=== PATIENT | male | born 1970 | race American Indian/Alaskan Native ===

== ENCOUNTER 2019-11-24 08:19 | Inpatient (IN) | payer OTHER ==
--- NOTE | 2019-11-24 09:21 | XRay Report ---
CHEST 1 VIEW INDICATION: neuro deficit. COMPARISON: None FINDINGS: Support devices: None. Heart: Within normal limits. Lungs/Pleura: No acute air space or interstitial disease. Additional findings: None. IMPRESSION: 1. No acute findings. Signer Name: Denis Morley MD Signed: 11/24/2019 9:16 AM Workstation Name: [id number]
--- NOTE | 2019-11-24 09:46 | Cat Scan Report ---
CT head/brain wo con INDICATION / CLINICAL INFORMATION: 49 years Male; neuro deficits <6hrs or sx present upon awakening. TECHNIQUE: Routine CT head without contrast. All CT scans at this location are performed using CT dos e reduction for ALARA by means of automated exposure control. COMPARISON: None. FINDINGS: BRAIN / INTRACRANIAL CONTENTS: There is extensive cerebral white matter disease most consistent with microvascular angiopathy. This old lacunar infarct along the right ganglia capsular region. The more ill-defined foci of decreased attenuation within the left basal ganglia and thalamus which would also appear to represent old infarcts and correlation would be needed given the history. There is no kelvin r CT evidence of acute intracranial hemorrhage or significant mass effect. There is mild cerebral atrophy. The ventricular system is correspondingly appropriate in size and con figuration. The findings are compatible with ectasia of the vertebrobasilar system and visualized int ernal carotid arteries, greater on the left. ORBITS: No significant abnormality. SINUSES / MASTOIDS: There is mild mucosal thickening along the posterior left ethmoid sinus. CRANIOCERVICAL JUNCTION: No significant abnormality. ADDITIONAL FINDINGS: None. IMPRESSION: 1. There is extensive microvascular angiopathy as detailed above without CT ends of acute intracrania l hemorrhage. Signer Name: Aníbal Garza MD Signed: 11/24/2019 9:42 AM Workstation Name: [id number]
[2019-11-24 09:56] LABS: Basophils # (Auto) 0.1 K/mm3 (0.0-0.1); Eosinophils # (Auto) 0.1 K/mm3 (0.0-0.4); Eosinophils % (Auto) 1.4 % (0.0-4.3); Hematocrit 46.2 % (35.5-45.6); Hemoglobin 15.7 gm/dl (11.8-15.2); Lymphocytes # (Auto) 1.8 K/mm3 (1.2-5.4); Lymphocytes % (Auto) 30.5 % (13.4-35.0); Mean Corpuscular HGB Conc 34 % (32-34); Mean Corpuscular Volume 90 fl (84-94); Monocytes # (Auto) 0.6 K/mm3 (0.0-0.8); Monocytes % (Auto) 9.8 % (0.0-7.3); Platelet Count 248 K/mm3 (140-440); Red Blood Count 5.14 M/mm3 (3.65-5.03); Red Cell Distribution Width 14.1 % (13.2-15.2)
--- NOTE | 2019-11-24 10:01 | Emergency Department Report ---
ED Neuro Deficit HPI - General Chief Complaint: Neuro Symptoms/Deficit Stated Complaint: POSS STROKE Time Seen by Provider: 11/24/19 08:37 Source: patient Mode of arrival: Ambulatory Limitations: No Limitations - History of Present Illness Initial Comments: 49-year-old man who presents to the emergency department consequent to a telemedicine consultation yesterday. He states that he has not seen a physician in years despite a history of diabetes. He was found to have a glucose of greater than 300 at triage. He stated that he made the telemedicine consult yesterday because he was having intermittent tingling/numbness in his right side. He states he had paresthesias in the face as well as the arm and the leg. He is not complaining of tingling at this time. He was found to be tachycardic and hypertensive on arrival. -: week(s) Location: right face, right arm, right leg Presenting Symptoms: Present: Weak/Paralyzed One Side (Numbness/paresthesias) History of same: No Place: home Severity: moderate Quality: numb, tingling Improves With: none Worsens With: none On Anticoagulants: No Context: gradual onset Associated Symptoms: denies other symptoms Treatments Prior to Arrival: none - Related Data Allergies/Adverse Reactions: Allergies Allergy/AdvReac Type Severity Reaction Status Date / Time No Known Allergies Allergy Unverified 11/24/19 08:20 ED Review of Systems ROS: Stated complaint: POSS STROKE Other details as noted in HPI Constitutional: denies: chills, fever Eyes: denies: eye pain, eye discharge, vision change ENT: denies: ear pain, throat pain Respiratory: denies: cough, shortness of breath, wheezing Cardiovascular: denies: chest pain, palpitations Endocrine: no symptoms reported Gastrointestinal: denies: abdominal pain, nausea, diarrhea Genitourinary: denies: urgency, dysuria Musculoskeletal: denies: back pain, joint swelling, arthralgia Skin: denies: rash, lesions Neurological: numbness, paresthesias. denies: headache, weakness Psychiatric: denies: anxiety, depression Hematological/Lymphatic: denies: easy bleeding, easy bruising ED Past Medical Hx - Past Medical History Previous Medical History?: Yes Additional medical history: PRE DIABETIC - Surgical History Past Surgical History?: No - Social History Smoking Status: Never Smoker Substance Use Type: None ED Neuro Physical Exam - General Limitations: No Limitations General appearance: alert, in no apparent distress Suspected Stroke: Yes - Head Head exam: Present: atraumatic, normocephalic - Eye Eye exam: Present: normal appearance. Absent: scleral icterus - ENT ENT exam: Present: mucous membranes moist - Neck Neck exam: Present: normal inspection. Absent: tenderness, meningismus - Respiratory Respiratory exam: Present: normal lung sounds bilaterally. Absent: respiratory distress - Cardiovascular Cardiovascular Exam: Present: regular rate, normal rhythm. Absent: systolic murmur, diastolic murmur, rubs, gallop - GI/Abdominal GI/Abdominal exam: Present: soft, normal bowel sounds. Absent: distended, tenderness, guarding, rebound, rigid - Rectal Rectal exam: Present: deferred - Extremities Exam Extremities exam: Present: normal inspection - Back Exam Back exam: Present: normal inspection - Neurological Exam Neurological exam: Present: alert, oriented X3, CN II-XII intact, motor sensory deficit - NIHSS Assessment Interval: Baseline 1a. Level of Consciousness: alert/keenly responsive 1b. LOC Questions: answers both correctly 1c. LOC Commands: performs tasks correctly 2. Best Gaze: normal 3. Visual: no visual loss 4. Facial Palsy: normal symmetrical movement 5b. Motor Arm Right: no drift 5a. Motor Arm Left: no drift 6a. Motor Leg Left: no drift 6b. Motor Leg Right: no drift 7. Limb Ataxia: absent 8. Sensory: mild/moderate sensory loss 9. Best Language: no aphasia 10. Dysarthria: normal 11. Extinction/Inattention: no abnormality Total Score: 1 Stroke Severity: Minor Stroke - Psychiatric Psychiatric exam: Present: normal affect, normal mood - Skin Skin exam: Present: warm, dry, intact, normal color. Absent: rash ED Course Vital Signs 11/24/19 11/24/19 11/24/19 08:26 08:53 08:56 Temperature 99.3 F Pulse Rate 125 H 122 H 107 H Respiratory 20 15 Rate Blood Pressure 229/157 209/139 Blood Pressure 209/139 [Left] O2 Sat by Pulse 97 95 Oximetry 11/24/19 11/24/19 11/24/19 09:47 10:00 10:34 Temperature Pulse Rate 105 H 108 H 108 H Respiratory 20 Rate Blood Pressure Blood Pressure 192/126 185/129 160/116 [Left] O2 Sat by Pulse Oximetry - Reevaluation(s) Reevaluation #1: Patient's blood pressure has improved to target with [address] the head showed extensive microvascular disease, and diabetics. No acute intracranial finding. EKG shows multiple old zones. A lactic acid level was 2.6. 11/24/19 11:50 11/24/19 11:51 Thyroid functions are yet pending. A troponin is slightly elevated. The patient was given 1 dose of cefepime empirically considering his elevated lactic acid level. His findings were discussed with Dr. [place] as well as the need for further evaluation and treatment. - Lab Data Result diagrams: 11/24/19 09:45 11/24/19 08:49 Lab Results 11/24/19 11/24/19 11/24/19 Range/Units 08:49 08:51 09:44 WBC (4.5-11.0) K/mm3 RBC (3.65-5.03) M/mm3 Hgb (11.8-15.2) gm/dl Hct (35.5-45.6) % MCV (84-94) fl MCH (28-32) pg MCHC (32-34) % RDW (13.2-15.2) % Plt Count (140-440) K/mm3 Lymph % (Auto) (13.4-35.0) % [place] % (Auto) (0.0-7.3) % Eos % (Auto) (0.0-4.3) % Baso % (Auto) (0.0-1.8) % Lymph # (1.2-5.4) K/mm3 [place] # (0.0-0.8) K/mm3 Eos # (0.0-0.4) K/mm3 Baso # (0.0-0.1) K/mm3 Seg Neutrophils % (40.0-70.0) % Seg Neutrophils # (1.8-7.7) K/mm3 PT 12.3 (12.2-14.9) Sec. INR 0.91 (0.87-1.13) APTT 23.6 L (24.2-36.6) Sec. Thrombin Time 17.7 (15.1-19.6) Sec. D-Dimer 152.63 (0-234) ng/mlDDU Sodium 137 (137-145) mmol/L Potassium 3.7 (3.6-5.0) mmol/L Chloride 94.2 L (98-107) mmol/L Carbon Dioxide 23 (22-30) mmol/L Anion Gap 24 mmol/L BUN 14 (9-20) mg/dL Creatinine 1.1 (0.8-1.5) mg/dL Estimated GFR > 60 ml/min BUN/Creatinine Ratio 13 % Glucose 364 H (75-100) mg/dL Lactic Acid (0.7-2.0) mmol/L Calcium 9.3 (8.4-10.2) mg/dL Magnesium (1.7-2.3) mg/dL Ferritin (13.0-400.0) ng/mL Total Bilirubin 0.70 (0.1-1.2) mg/dL Direct Bilirubin < 0.2 (0-0.2) mg/dL Indirect Bilirubin 0.5 mg/dL AST 32 (5-40) units/L ALT 34 (7-56) units/L Alkaline Phosphatase 99 (35-129) units/L Lactate Dehydrogenase 279 H (91-180) units/L Troponin T 0.032 H (0.00-0.029) ng/mL C-Reactive Protein 0.80 (0.00-1.30) mg/dL NT-Pro-B Natriuret Pep 630.9 (0-900) pg/mL Total Protein 8.0 (6.3-8.2) g/dL Albumin 4.2 (3.9-5) g/dL Albumin/Globulin Ratio 1.1 % Triglycerides 180 H (2-149) mg/dL Cholesterol 255 H (50-199) mg/dL LDL Cholesterol Direct 197 H (50-130) mg/dL Procalcitonin (<0.15) ng/mL Blood Type Antibody Screen 11/24/19 11/24/19 11/24/19 Range/Units 09:44 09:44 09:44 WBC (4.5-11.0) K/mm3 RBC (3.65-5.03) M/mm3 Hgb (11.8-15.2) gm/dl Hct (35.5-45.6) % MCV (84-94) fl MCH (28-32) pg MCHC (32-34) % RDW (13.2-15.2) % Plt Count (140-440) K/mm3 Lymph % (Auto) (13.4-35.0) % [place] % (Auto) (0.0-7.3) % Eos % (Auto) (0.0-4.3) % Baso % (Auto) (0.0-1.8) % Lymph # (1.2-5.4) K/mm3 [place] # (0.0-0.8) K/mm3 Eos # (0.0-0.4) K/mm3 Baso # (0.0-0.1) K/mm3 Seg Neutrophils % (40.0-70.0) % Seg Neutrophils # (1.8-7.7) K/mm3 PT (12.2-14.9) Sec. INR (0.87-1.13) APTT (24.2-36.6) Sec. Thrombin Time (15.1-19.6) Sec. D-Dimer (0-234) ng/mlDDU Sodium (137-145) mmol/L Potassium (3.6-5.0) mmol/L Chloride (98-107) mmol/L Carbon Dioxide (22-30) mmol/L Anion Gap mmol/L BUN (9-20) mg/dL Creatinine (0.8-1.5) mg/dL Estimated GFR ml/min BUN/Creatinine Ratio % Glucose (75-100) mg/dL Lactic Acid 2.60 H* (0.7-2.0) mmol/L Calcium (8.4-10.2) mg/dL Magnesium 2.00 (1.7-2.3) mg/dL Ferritin (13.0-400.0) ng/mL Total Bilirubin (0.1-1.2) mg/dL Direct Bilirubin (0-0.2) mg/dL Indirect Bilirubin mg/dL AST (5-40) units/L ALT (7-56) units/L Alkaline Phosphatase (35-129) units/L Lactate Dehydrogenase (91-180) units/L Troponin T (0.00-0.029) ng/mL C-Reactive Protein (0.00-1.30) mg/dL NT-Pro-B Natriuret Pep (0-900) pg/mL Total Protein (6.3-8.2) g/dL Albumin (3.9-5) g/dL Albumin/Globulin Ratio % Triglycerides (2-149) mg/dL Cholesterol (50-199) mg/dL LDL Cholesterol Direct (50-130) mg/dL Procalcitonin (<0.15) ng/mL Blood Type O POSITIVE Antibody Screen Negative 11/24/19 11/24/19 11/24/19 Range/Units 09:44 09:44 09:45 WBC 5.8 (4.5-11.0) K/mm3 RBC 5.14 H (3.65-5.03) M/mm3 Hgb 15.7 H (11.8-15.2) gm/dl Hct 46.2 H (35.5-45.6) % MCV 90 (84-94) fl MCH 31 (28-32) pg MCHC 34 (32-34) % RDW 14.1 (13.2-15.2) % Plt Count 248 (140-440) K/mm3 Lymph % (Auto) 30.5 (13.4-35.0) % [place] % (Auto) 9.8 H (0.0-7.3) % Eos % (Auto) 1.4 (0.0-4.3) % Baso % (Auto) 1.0 (0.0-1.8) % Lymph # 1.8 (1.2-5.4) K/mm3 [place] # 0.6 (0.0-0.8) K/mm3 Eos # 0.1 (0.0-0.4) K/mm3 Baso # 0.1 (0.0-0.1) K/mm3 Seg Neutrophils % 57.3 (40.0-70.0) % Seg Neutrophils # 3.3 (1.8-7.7) K/mm3 PT (12.2-14.9) Sec. INR (0.87-1.13) APTT (24.2-36.6) Sec. Thrombin Time (15.1-19.6) Sec. D-Dimer (0-234) ng/mlDDU Sodium (137-145) mmol/L Potassium (3.6-5.0) mmol/L Chloride (98-107) mmol/L Carbon Dioxide (22-30) mmol/L Anion Gap mmol/L BUN (9-20) mg/dL Creatinine (0.8-1.5) mg/dL Estimated GFR ml/min BUN/Creatinine Ratio % Glucose (75-100) mg/dL Lactic Acid (0.7-2.0) mmol/L Calcium (8.4-10.2) mg/dL Magnesium (1.7-2.3) mg/dL Ferritin 351.4 (13.0-400.0) ng/mL Total Bilirubin (0.1-1.2) mg/dL Direct Bilirubin (0-0.2) mg/dL Indirect Bilirubin mg/dL AST (5-40) units/L ALT (7-56) units/L Alkaline Phosphatase (35-129) units/L Lactate Dehydrogenase (91-180) units/L Troponin T (0.00-0.029) ng/mL C-Reactive Protein (0.00-1.30) mg/dL NT-Pro-B Natriuret Pep (0-900) pg/mL Total Protein (6.3-8.2) g/dL Albumin (3.9-5) g/dL Albumin/Globulin Ratio % Triglycerides (2-149) mg/dL Cholesterol (50-199) mg/dL LDL Cholesterol Direct (50-130) mg/dL Procalcitonin < 0.05 (<0.15) ng/mL Blood Type Antibody Screen Laboratory Results - last 24 hr 11/24/19 11/24/19 11/24/19 08:49 08:51 09:44 WBC RBC Hgb Hct MCV MCH MCHC RDW Plt Count Lymph % (Auto) [place] % (Auto) Eos % (Auto) Baso % (Auto) Lymph # [place] # Eos # Baso # Seg Neutrophils % Seg Neutrophils # PT 12.3 INR 0.91 APTT 23.6 L Thrombin Time 17.7 D-Dimer 152.63 Sodium 137 Potassium 3.7 Chloride 94.2 L Carbon Dioxide 23 Anion Gap 24 BUN 14 Creatinine 1.1 Estimated GFR > 60 BUN/Creatinine Ratio 13 Glucose 364 H Lactic Acid Calcium 9.3 Magnesium Ferritin Total Bilirubin 0.70 Direct Bilirubin < 0.2 Indirect Bilirubin 0.5 AST 32 ALT 34 Alkaline Phosphatase 99 Lactate Dehydrogenase 279 H Troponin T 0.032 H C-Reactive Protein 0.80 NT-Pro-B Natriuret Pep 630.9 Total Protein 8.0 Albumin 4.2 Albumin/Globulin Ratio 1.1 Triglycerides 180 H Cholesterol 255 H LDL Cholesterol Direct 197 H Procalcitonin Blood Type 11/24/19 11/24/19 11/24/19 09:44 09:44 09:44 WBC RBC Hgb Hct MCV MCH MCHC RDW Plt Count Lymph % (Auto) [place] % (Auto) Eos % (Auto) Baso % (Auto) Lymph # [place] # Eos # Baso # Seg Neutrophils % Seg Neutrophils # PT INR APTT Thrombin Time D-Dimer Sodium Potassium Chloride Carbon Dioxide Anion Gap BUN Creatinine Estimated GFR BUN/Creatinine Ratio Glucose Lactic Acid 2.60 H* Calcium Magnesium 2.00 Ferritin Total Bilirubin Direct Bilirubin Indirect Bilirubin AST ALT Alkaline Phosphatase Lactate Dehydrogenase Troponin T C-Reactive Protein NT-Pro-B Natriuret Pep Total Protein Albumin Albumin/Globulin Ratio Triglycerides Cholesterol LDL Cholesterol Direct Procalcitonin Blood Type O POSITIVE 11/24/19 11/24/19 11/24/19 09:44 09:44 09:45 WBC 5.8 RBC 5.14 H Hgb 15.7 H Hct 46.2 H MCV 90 MCH 31 MCHC 34 RDW 14.1 Plt Count 248 Lymph % (Auto) 30.5 [place] % (Auto) 9.8 H Eos % (Auto) 1.4 Baso % (Auto) 1.0 Lymph # 1.8 [place] # 0.6 Eos # 0.1 Baso # 0.1 Seg Neutrophils % 57.3 Seg Neutrophils # 3.3 PT INR APTT Thrombin Time D-Dimer Sodium Potassium Chloride Carbon Dioxide Anion Gap BUN Creatinine Estimated GFR BUN/Creatinine Ratio Glucose Lactic Acid Calcium Magnesium Ferritin 351.4 Total Bilirubin Direct Bilirubin Indirect Bilirubin AST ALT Alkaline Phosphatase Lactate Dehydrogenase Troponin T C-Reactive Protein NT-Pro-B Natriuret Pep Total Protein Albumin Albumin/Globulin Ratio Triglycerides Cholesterol LDL Cholesterol Direct Procalcitonin < 0.05 Blood Type - EKG Data -: EKG Interpreted by Ma EKG shows normal: sinus rhythm Rate: tachycardia Interpretation: other (Consistent with inferior and anterior infarct old) - Radiology Data Radiology results: image reviewed (CXR NAF) BRAIN / INTRACRANIAL CONTENTS: There is extensive cerebral white matter disease most consistent with microvascular angiopathy. This old lacunar infarct along the right ganglia capsular region. The more ill-defined foci of decreased attenuation within the left basal ganglia and thalamus which would also appear to represent old infarcts and correlation would be needed given the history. There is no clear CT evidence of acute intracranial hemorrhage or significant mass effect. There is mild cerebral atrophy. The ventricular system is correspondingly appropriate in size and configuration. The findings are compatible with ectasia of the vertebrobasilar system and visualized internal carotid arteries, greater on the left. ORBITS: No significant abnormality. SINUSES / MASTOIDS: There is mild mucosal thickening along the posterior left ethmoid sinus. CRANIOCERVICAL JUNCTION: No significant abnormality. ADDITIONAL FINDINGS: None. IMPRESSION: 1. There is extensive microvascular angiopathy as detailed above without CT ends of acute intracranial hemorrhage. - Thrombolytic Inclusion/Exclusion Thrombolytic Exclusion Criteria: Symptom Onset > 3 Hours Critical care attestation.: If time is entered above; I have spent that time in minutes in the direct care of this critically ill patient, excluding procedure time. ED Disposition Clinical Impression: Focal neurological signs, Accelerated hypertension, Elevated lactic acid level, Myocardial infarction, old Hyperglycemia due to type 2 diabetes mellitus Qualifiers: Diabetes mellitus meterman insulin use: without meterman use Qualified Code(s): E11.65 - Type 2 diabetes mellitus with hyperglycemia Disposition: OP ADMIT IP TO THIS HOSP Is pt being admited?: Yes Does the pt Need Aspirin: Yes Condition: Stable Instructions: Hypertension (ED), Diabetes Mellitus Type 2 in Adults (ED) Referrals: NELY MERAZ MD [Primary Care Provider] - 3-5 Days Time of Disposition: 11:54
[2019-11-24 10:17] LABS: Alanine Aminotransferase 34 units/L (7-56); Albumin 4.2 g/dL (3.9-5); BUN/Creatinine Ratio 13; Blood Urea Nitrogen 14 mg/dL (9-20); Calcium 9.3 mg/dL (8.4-10.2); Hemolysis Index 21
[2019-11-24 10:19] LABS: Bilirubin,Direct < 0.2 mg/dL (0-0.2)
[2019-11-24 10:19] LABS: C-Reactive Protein 0.8 mg/dL (0.00-1.30)
[2019-11-24 10:22] LABS: INR 0.91 (0.87-1.13)
[2019-11-24 10:23] LABS: Partial Thromboplastin Time 23.6 Sec. (24.2-36.6); Thrombin Time 17.7 Sec. (15.1-19.6)
[2019-11-24 10:30] LABS: LDL Cholesterol,Direct 197 mg/dL (50-130)
[2019-11-24] MEDS ORDERED: SODIUM CHLORIDE 0.9% 1000 ML 1,000 ML IV ONE (11:21)
[2019-11-24] MEDS ORDERED: CEFEPIME/NS 1 GM/100 ML 1 GM/100 ML BAG IV ONE (11:22)
[2019-11-24] MEDS ORDERED: INSULIN REGULAR, HUMAN 100 UNITS/1 ML IV ONE (11:23)
[2019-11-24] MEDS ORDERED: ASPIRIN 325 MG TAB PO SCH (12:00)
[2019-11-24 13:29] LABS: Chol/HDL Ratio 4.81 %; HDL Cholesterol 53 mg/dL (40-59)
[2019-11-24 13:32] LABS: Free T4 (Free Thyroxine) 1.33 ng/dL (0.76-1.46)
--- NOTE | 2019-11-24 16:03 | History and Physical Report ---
History of Present Illness Date of examination: 11/24/19 Date of admission: 11/24/19 11:57 Chief complaint: Right-sided tingling and numbness, uncontrolled blood pressures and blood sugars History of present illness: 49-year-old obese male patient with significant past medical history of borderline diabetes , not on any medications never seen a physician for long t brad Presented to the emergency room with some vague tingling and numbness right side for the last 1 week . Initial work-up is consistent with uncontrolled blood sugars and very high blood pressures.patient reports that he had telemedicine consultation yesterday . Unable to give the details. CT scan of the head negative for acute abnormality, Patient never had similar symptoms before, patient denies any nausea vomiting or abdominal pain, denies headache dizziness Denies chest pain or shortness of breath. First set of cardiac enzymes are abnormal, probably secondary to hypertensive cardiomyopathy PUI?: No Past History Past Medical History: diabetes (Borderline diabetes not on medications) Past Surgical History: No surgical history Social history: Lives alone. denies: smoking, alcohol abuse, prescription drug abuse Family history: diabetes, hypertension Medications and Allergies Allergies Allergy/AdvReac Type Severity Reaction Status Date / Time No Known Allergies Allergy Unverified 11/24/19 08:20 Home Medications Medication Instructions Recorded Confirmed Last Taken Type Multivitamin/Iron/Folic Acid 1 each PO QDAY 11/24/19 11/24/19 Unknown History [Centrum Adults Tablet] Active Meds: Active Medications Aspirin (Aspirin) 325 mg PO QDAY [facility] Last Admin: 11/24/19 13:10 Dose: 325 mg Documented by: Sodium Chloride (Nacl 0.9% 1000 Ml) 1,000 mls @ 125 mls/hr IV ONCE ONE Stop: 11/24/19 19:20 Last Admin: 11/24/19 12:03 Dose: 125 mls/hr Documented by: Review of Systems Constitutional: no weight loss, no weight gain, no anorexia, no fatigue Ears, nose, mouth and throat: no nasal congestion, no nasal discharge Cardiovascular: no chest pain, no orthopnea, no palpitations, no shortness of breath Respiratory: no cough, no shortness of breath Gastrointestinal: no abdominal pain, no nausea, no vomiting Genitourinary Male: no dysuria, no hematuria Musculoskeletal: no myalgias, no arthritis Integumentary: no rash, no lesions Neurological: parathesias, numbness, tingling (Right side), no seizures, no syncope Psychiatric: no anxiety, no depression Endocrine: no cold intolerance, no heat intolerance Hematologic/Lymphatic: no easy bruising, no easy bleeding Allergic/Immunologic: no urticaria, no allergic rhinitis Exam - Constitutional Vitals: Temp Pulse Resp BP Pulse Ox 99.3 F 91 H 15 174/120 96 11/24/19 08:26 11/24/19 14:45 11/24/19 14:45 11/24/19 14:45 11/24/19 14:30 General appearance: Present: no acute distress, well-nourished, obese (Morbidly obese) - EENT Eyes: Present: PERRL, EOM intact - Neck Neck: Present: supple, normal ROM - Respiratory Respiratory effort: normal Respiratory: bilateral: diminished, negative: rales, rhonchi, wheezing - Cardiovascular Rhythm: regular Heart Sounds: Present: S1 & S2 - Extremities Extremities: no ischemia, No edema - Abdominal General gastrointestinal: Present: soft, non-tender, non-distended, normal bowel sounds - Integumentary Integumentary: Present: clear, warm - Musculoskeletal Musculoskeletal: strength equal bilaterally - Psychiatric Psychiatric: appropriate mood/affect, cooperative - Neurologic Neurologic: CNII-XII intact, no focal deficits, moves all extremities Results - Labs CBC & Chem 7: 11/24/19 09:45 11/24/19 08:49 Labs: Abnormal lab results 11/24/19 11/24/19 11/24/19 Range/Units 08:49 08:51 09:44 RBC (3.65-5.03) M/mm3 Hgb (11.8-15.2) gm/dl Hct (35.5-45.6) % [place] % (Auto) (0.0-7.3) % APTT 23.6 L (24.2-36.6) Sec. Chloride 94.2 L (98-107) mmol/L Glucose 364 H (75-100) mg/dL POC Glucose (70-105) Lactic Acid (0.7-2.0) mmol/L Lactate Dehydrogenase 279 H (91-180) units/L Troponin T 0.032 H (0.00-0.029) ng/mL Triglycerides 180 H (2-149) mg/dL Cholesterol 255 H (50-199) mg/dL LDL Cholesterol Direct 197 H (50-130) mg/dL 11/24/19 11/24/19 11/24/19 Range/Units 09:44 09:45 11:18 RBC 5.14 H (3.65-5.03) M/mm3 Hgb 15.7 H (11.8-15.2) gm/dl Hct 46.2 H (35.5-45.6) % [place] % (Auto) 9.8 H (0.0-7.3) % APTT (24.2-36.6) Sec. Chloride (98-107) mmol/L Glucose (75-100) mg/dL POC Glucose (70-105) Lactic Acid 2.60 H* 2.70 H* (0.7-2.0) mmol/L Lactate Dehydrogenase (91-180) units/L Troponin T (0.00-0.029) ng/mL Triglycerides (2-149) mg/dL Cholesterol (50-199) mg/dL LDL Cholesterol Direct (50-130) mg/dL 11/24/19 11/24/19 Range/Units 13:28 15:49 RBC (3.65-5.03) M/mm3 Hgb (11.8-15.2) gm/dl Hct (35.5-45.6) % [place] % (Auto) (0.0-7.3) % APTT (24.2-36.6) Sec. Chloride (98-107) mmol/L Glucose (75-100) mg/dL POC Glucose 228 H (70-105) Lactic Acid 2.70 H* (0.7-2.0) mmol/L Lactate Dehydrogenase (91-180) units/L Troponin T (0.00-0.029) ng/mL Triglycerides (2-149) mg/dL Cholesterol (50-199) mg/dL LDL Cholesterol Direct (50-130) mg/dL Assessment and Plan --Hypertensive emergency; present on admission Initial blood pressures 229/157, received labetalol Mild improvement --Positive troponin; non-ST elevation OR probably due to hypertensive cardiomyopathy Supportive care transfer check --Hypertensive encephalopathy; With paresthesia and neuro symptoms CT head without contrast no acute abnormalities --Right-sided tingling and numbness;? TIA Not a candidate for TPA, aspirin statin Probably secondary to uncontrolled blood sugars and blood pressures Neurochecks, neuro work-up as needed Will check MRI[no MRIs during the weekend], carotid Doppler as needed --Hyperglycemia/diabetes mellitus Accu-Chek sliding scale coverage ADA diet Insulin as needed --Dyslipidemia; lipid-lowering medications We will start statin --Lactic acidosis; Vigorous IV fluids, evaluated for sepsis --Obesity; BMI 39 Advised weight reduction when medically stable --Medical noncompliance; patient strongly advised to comply with medications Diet exercise and follow-up visits --DVT prophylaxis; Lovenox Monitor closely and adjust management as needed Plan of care discussed with the patient and his nurse
[2019-11-24] MEDS ORDERED: MORPHINE 2 MG/1 ML INJ IV PRN (16:15)
[2019-11-24] MEDS ORDERED: hydrALAZINE 20 MG/1 ML INJ IV PRN (16:21)
[2019-11-24] MEDS: INSULIN LISPRO 100 UNIT/ML SUB-Q SCH ×2 (16:39→22:05)
[2019-11-24 17:43] LABS: Creatine Kinase MB 4.5 ng/mL (0.0-4.0)
[2019-11-24] MEDS: hydrALAZINE 20 MG/1 ML INJ IV PRN (20:29)
[2019-11-24 20:47] LABS: Bilirubin,Urine NEG (Negative); Blood,Urine NEG (Negative); Color,Urine Yellow (Yellow); Hyaline Casts,Urine 7 /LPF; Mucus,Urine FEW /HPF; Urobilinogen,Urine < 2.0 mg/dL (<2.0)
[2019-11-24 20:57] LABS: Amphetamine Screen,Urine PRESUMPTIVE NEGATIVE; Benzodiazepines Screen,Urine PRESUMPTIVE NEGATIVE; Cannabinoid Screen,Urine PRESUMPTIVE NEGATIVE; Cocaine Screen,Urine PRESUMPTIVE NEGATIVE; Methadone Screen,Urine PRESUMPTIVE NEGATIVE; Opiate Screen,Urine PRESUMPTIVE NEGATIVE
[2019-11-24] MEDS ORDERED: SIMETHICONE 80 MG CHEW TAB PO PRN (21:53)
[2019-11-24] MEDS: ENOXAPARIN 40 MG/0.4 ML INJ SUB-Q SCH (22:05)
[2019-11-24] MEDS: hydrALAZINE 25 MG TAB PO SCH (22:05)
[2019-11-24] MEDS: METOPROLOL TARTRATE 25 MG TAB PO SCH (22:05)
[2019-11-24] MEDS: VALSARTAN 160MG TAB PO SCH (22:05)
[2019-11-25] MEDS: hydrALAZINE 20 MG/1 ML INJ IV PRN ×3 (00:48→12:39)
[2019-11-25] MEDS: hydrALAZINE 25 MG TAB PO SCH ×3 (04:59→13:12)
[2019-11-25] MEDS: INSULIN LISPRO 100 UNIT/ML SUB-Q SCH ×4 (08:33→22:50)
[2019-11-25] MEDS: VALSARTAN 160MG TAB PO SCH (09:00)
[2019-11-25] MEDS: ASPIRIN 325 MG TAB PO SCH (09:00)
[2019-11-25] MEDS: METOPROLOL TARTRATE 25 MG TAB PO SCH ×2 (09:01→22:34)
[2019-11-25] MEDS: PANTOPRAZOLE 40 MG TAB PO SCH (09:01)
--- NOTE | 2019-11-25 09:56 | Progress Note ---
Assessment and Plan Assessment and plan: --Positive troponin; non-ST elevation CO probably due to hypertensive cardiomyopathy However patient has multiple risk factors check serial cardiac enzymes, EKG Echocardiogram for LV function ejection fraction, cardiology consult Aspirin, beta-blockers, BIA inhibitors, nitrates, statins --Hypertensive emergency; present on admission Initial blood pressures 229/157, Continue current antihypertensives and PRN hydralazine, monitor and adjust the dosages --Hypertensive encephalopathy; With paresthesia and neuro symptoms CT head without contrast no acute abnormalities --Right-sided tingling and numbness;? TIA Not a candidate for TPA, aspirin statin Probably secondary to uncontrolled blood sugars and blood pressures Neurochecks, neuro work-up as needed Will check MRI[no MRIs during the weekend], carotid Doppler as needed --Hyperglycemia/diabetes mellitus Accu-Chek sliding scale coverage ADA diet Long-acting insulin , diabetic education, nutrition consult Hemoglobin A1c 10.3 --Dyslipidemia; lipid-lowering medications We will start statin --Lactic acidosis; nonspecific Vigorous IV fluids, evaluated for sepsis Follow lactic acid evels --Obesity; BMI 39 Advised weight reduction when medically stable --Medical noncompliance; patient strongly advised to comply with medications Diet exercise and follow-up visits --DVT prophylaxis; Lovenox Monitor closely and adjust management as needed Plan of care discussed with the patient and his nurse History Interval history: Patient seen and examined at the bedside Patient's chart, medications, and tests reviewed Patient has very minimal tingling and numbness on the right side Denies chest pain or shortness of breath Blood pressures blood sugars uncontrolled Vital signs noted PUI?: No Hospitalist Physical - Constitutional Vitals: Temp Pulse Resp BP Pulse Ox 98.1 F 93 H 18 184/105 95 11/25/19 08:27 11/25/19 06:00 11/25/19 08:27 11/25/19 08:27 11/25/19 08:44 General appearance: Present: no acute distress, well-nourished, obese (Morbidly obese) - EENT Eyes: Present: PERRL, EOM intact - Neck Neck: Present: supple, normal ROM - Respiratory Respiratory effort: normal Respiratory: negative: rales, rhonchi, wheezing - Cardiovascular Rhythm: regular Heart Sounds: Present: S1 & S2 - Extremities Extremities: no ischemia, No edema - Abdominal General gastrointestinal: soft, non-tender, non-distended, normal bowel sounds - Integumentary Integumentary: Present: clear, warm - Psychiatric Psychiatric: appropriate mood/affect, cooperative - Neurologic Neurologic: no focal deficits, other (Motor power 5/ 5, all 4 extremities. cranial nerves intact, sensory intact) Results - Labs CBC & Chem 7: 11/24/19 09:45 11/24/19 08:49 Labs: Laboratory Last Values WBC 5.8 K/mm3 (4.5-11.0) 11/24/19 09:45 RBC 5.14 M/mm3 (3.65-5.03) H 11/24/19 09:45 Hgb 15.7 gm/dl (11.8-15.2) H 11/24/19 09:45 Hct 46.2 % (35.5-45.6) H 11/24/19 09:45 MCV 90 fl (84-94) 11/24/19 09:45 MCH 31 pg (28-32) 11/24/19 09:45 MCHC 34 % (32-34) 11/24/19 09:45 RDW 14.1 % (13.2-15.2) 11/24/19 09:45 Plt Count 248 K/mm3 (140-440) 11/24/19 09:45 Lymph % (Auto) 30.5 % (13.4-35.0) 11/24/19 09:45 Bond % (Auto) 9.8 % (0.0-7.3) H 11/24/19 09:45 Eos % (Auto) 1.4 % (0.0-4.3) 11/24/19 09:45 Baso % (Auto) 1.0 % (0.0-1.8) 11/24/19 09:45 Lymph # 1.8 K/mm3 (1.2-5.4) 11/24/19 09:45 Bond # 0.6 K/mm3 (0.0-0.8) 11/24/19 09:45 Eos # 0.1 K/mm3 (0.0-0.4) 11/24/19 09:45 Baso # 0.1 K/mm3 (0.0-0.1) 11/24/19 09:45 Seg Neutrophils % 57.3 % (40.0-70.0) 11/24/19 09:45 Seg Neutrophils # 3.3 K/mm3 (1.8-7.7) 11/24/19 09:45 PT 12.3 Sec. (12.2-14.9) 11/24/19 09:44 INR 0.91 (0.87-1.13) 11/24/19 09:44 APTT 23.6 Sec. (24.2-36.6) L 11/24/19 09:44 Thrombin Time 17.7 Sec. (15.1-19.6) 11/24/19 09:44 D-Dimer 152.63 ng/mlDDU (0-234) 11/24/19 09:44 Sodium 137 mmol/L (137-145) 11/24/19 08:49 Potassium 3.7 mmol/L (3.6-5.0) 11/24/19 08:49 Chloride 94.2 mmol/L (98-107) L 11/24/19 08:49 Carbon Dioxide 23 mmol/L (22-30) 11/24/19 08:49 Anion Gap 24 mmol/L 11/24/19 08:49 BUN 14 mg/dL (9-20) 11/24/19 08:49 Creatinine 1.1 mg/dL (0.8-1.5) 11/24/19 08:49 Estimated GFR > 60 ml/min 11/24/19 08:49 BUN/Creatinine Ratio 13 % 11/24/19 08:49 Glucose 364 mg/dL (75-100) H 11/24/19 08:49 POC Glucose 295 (70-105) H 11/25/19 08:39 Hemoglobin A1c 10.3 % (4-6) H 11/24/19 16:39 Lactic Acid 2.80 mmol/L (0.7-2.0) H* 11/25/19 00:29 Calcium 9.3 mg/dL (8.4-10.2) 11/24/19 08:49 Magnesium 2.00 mg/dL (1.7-2.3) 11/24/19 09:44 Ferritin 351.4 ng/mL (13.0-400.0) 11/24/19 09:44 Total Bilirubin 0.70 mg/dL (0.1-1.2) 11/24/19 08:49 Direct Bilirubin < 0.2 mg/dL (0-0.2) 11/24/19 08:49 Indirect Bilirubin 0.5 mg/dL 11/24/19 08:49 AST 32 units/L (5-40) 11/24/19 08:49 ALT 34 units/L (7-56) 11/24/19 08:49 Alkaline Phosphatase 99 units/L (35-129) 11/24/19 08:49 Lactate Dehydrogenase 279 units/L (91-180) H 11/24/19 08:51 Total Creatine Kinase 289 units/L (55-170) H 11/24/19 16:39 CK-MB (CK-2) 4.5 ng/mL (0.0-4.0) H 11/24/19 16:39 CK-MB (CK-2) Rel Index 1.5 (0-4) 11/24/19 16:39 Troponin T 0.038 ng/mL (0.00-0.029) H 11/24/19 16:39 C-Reactive Protein 0.80 mg/dL (0.00-1.30) 11/24/19 08:51 NT-Pro-B Natriuret Pep 630.9 pg/mL (0-900) 11/24/19 08:49 Total Protein 8.0 g/dL (6.3-8.2) 11/24/19 08:49 Albumin 4.2 g/dL (3.9-5) 11/24/19 08:49 Albumin/Globulin Ratio 1.1 % 11/24/19 08:49 Triglycerides 180 mg/dL (2-149) H 11/24/19 08:49 Cholesterol 255 mg/dL (50-199) H 11/24/19 08:49 LDL Cholesterol Direct 197 mg/dL (50-130) H 11/24/19 08:49 HDL Cholesterol 53 mg/dL (40-59) 11/24/19 08:49 Cholesterol/HDL Ratio 4.81 % 11/24/19 08:49 Procalcitonin < 0.05 ng/mL (<0.15) 11/24/19 09:44 TSH 2.240 mlU/mL (0.270-4.200) 11/24/19 09:44 Free T4 1.33 ng/dL (0.76-1.46) 11/24/19 09:44 Urine Color Yellow (Yellow) 11/24/19 Unknown Urine Turbidity Clear (Clear) 11/24/19 Unknown Urine pH 6.0 (5.0-7.0) 11/24/19 Unknown Ur Specific [place] 1.021 (1.003-1.030) 11/24/19 Unknown Urine Protein 100 mg/dl mg/dL (Negative) 11/24/19 Unknown Urine Glucose (UA) >=500 mg/dL (Negative) 11/24/19 Unknown Urine Ketones Neg mg/dL (Negative) 11/24/19 Unknown Urine Blood Neg (Negative) 11/24/19 Unknown Urine Nitrite Neg (Negative) 11/24/19 Unknown Urine Bilirubin Neg (Negative) 11/24/19 Unknown Urine Urobilinogen < 2.0 mg/dL (<2.0) 11/24/19 Unknown Ur Leukocyte Esterase Neg (Negative) 11/24/19 Unknown Urine WBC (Auto) 1.0 /HPF (0.0-6.0) 11/24/19 Unknown Urine RBC (Auto) 2.0 /HPF (0.0-6.0) 11/24/19 Unknown Hyaline Casts 7 /LPF 11/24/19 Unknown Urine Mucus Few /HPF 11/24/19 Unknown Urine Opiates Screen Presumptive negative 11/24/19 Unknown Urine Methadone Screen Presumptive negative 11/24/19 Unknown Ur Barbiturates Screen Presumptive negative 11/24/19 Unknown Ur Phencyclidine Scrn Presumptive negative 11/24/19 Unknown Ur Amphetamines Screen Presumptive negative 11/24/19 Unknown U Benzodiazepines Scrn Presumptive negative 11/24/19 Unknown Urine Cocaine Screen Presumptive negative 11/24/19 Unknown U Marijuana (THC) Screen Presumptive negative 11/24/19 Unknown Drugs of Abuse Note Disclamer 11/24/19 Unknown Blood Type O POSITIVE 11/24/19 09:44 Antibody Screen Negative 11/24/19 09:44 Microbiology: Microbiology 11/24/19 Unknown Peripheral/Venous Blood Culture - Preliminary Culture in Progress 11/24/19 Unknown Peripheral/Venous Blood Culture - Preliminary Culture in Progress Mora/IV: IV Catheter Type [Right Hand] INT / Saline Lock Active Medications - Current Medications Current Medications: Generic Name Dose Route Start Last Admin Trade Name Freq PRN Reason Stop Dose Admin Aspirin 325 mg 11/25/19 10:00 11/25/19 09:00 Aspirin PO 325 mg QDAY LAUREANO Administration Atorvastatin Calcium 40 mg 11/24/19 22:00 11/24/19 22:05 Lipitor PO 40 mg QHS LAUREANO Administration Enoxaparin Sodium 40 mg 11/24/19 22:00 11/24/19 22:05 Enoxaparin SUB-Q 40 mg QDAY@2200 LAUREANO Administration Hydralazine HCl 50 mg 11/24/19 22:00 11/25/19 04:59 Apresoline PO 50 mg Q8HR LAUREANO Administration Hydralazine HCl 10 mg 11/24/19 20:21 11/25/19 08:32 Apresoline IV 10 mg Q3H PRN Administration Hypertension Insulin Human Isoph/Insulin Regular 10 unit 11/25/19 17:00 Humulin 70/30 SUB-Q BIDDIAB LAUREANO Insulin Human Lispro 0 unit 11/24/19 16:30 11/25/19 08:33 Humalog SUB-Q 4 unit ACHS LAUREANO Administration Protocol Lisinopril 20 mg 11/25/19 10:00 Zestril PO QDAY [facility] Metoprolol Tartrate 25 mg 11/25/19 22:00 Metoprolol PO BID [facility] Morphine Sulfate 2 mg 11/24/19 16:15 11/25/19 02:05 Morphine IV 2 mg Q4H PRN Administration Pain, Moderate (4-6) Pantoprazole Sodium 40 mg 11/25/19 10:00 11/25/19 09:01 Protonix PO 40 mg QDAY LAUREANO Administration Simethicone 80 mg 11/24/19 21:53 11/24/19 22:11 Mylicon PO 80 mg Q6H PRN Administration Gas pain Valsartan 160 mg 11/24/19 22:00 11/25/19 09:00 Diovan PO 160 mg BID LAUREANO Administration
[2019-11-25] MEDS ORDERED: LISINOPRIL 10 MG TAB PO SCH (10:00)
[2019-11-25] MEDS ORDERED: LISINOPRIL 20 MG TAB PO SCH ×2 (10:00→18:14)
[2019-11-25 10:39] LABS: Creatine Kinase MB 5.8 ng/mL (0.0-4.0)
--- NOTE | 2019-11-25 12:18 | Progress Note ---
Subjective Date of service: 11/25/19 Interval history: patient seen and went over the CT and the ED hx there is rather severe evidence of extesive white matter ischemic changes bilateral- I suspect hypertensive encephalopathy severe as well as diabeys await MRI and checking carotid u/s and ECHO full note dictated PUI?: No Objective - Vital Sign Vital Signs - 12hr 11/25/19 11/25/19 11/25/19 00:30 00:36 03:35 Temperature 98.1 F Pulse Rate 97 H Respiratory 18 18 Rate Blood Pressure 163/92 Blood Pressure 183/113 [Left] O2 Sat by Pulse 95 Oximetry 11/25/19 11/25/19 11/25/19 06:00 08:10 08:27 Temperature 98.1 F Pulse Rate 93 H Respiratory 18 18 Rate Blood Pressure 184/105 Blood Pressure [Left] O2 Sat by Pulse Oximetry 11/25/19 08:44 Temperature Pulse Rate Respiratory Rate Blood Pressure Blood Pressure [Left] O2 Sat by Pulse 95 Oximetry - Laboratory Findings CBC and BMP: 11/24/19 09:45 11/24/19 08:49 Abnormal Lab Findings: Abnormal Labs 11/24/19 11/24/19 11/24/19 08:49 08:51 09:44 RBC Hgb Hct Mathews % (Auto) APTT 23.6 L Chloride 94.2 L Glucose 364 H POC Glucose Hemoglobin A1c Lactic Acid Lactate Dehydrogenase 279 H Total Creatine Kinase CK-MB (CK-2) Troponin T 0.032 H Triglycerides 180 H Cholesterol 255 H LDL Cholesterol Direct 197 H 11/24/19 11/24/19 11/24/19 09:44 09:45 11:18 RBC 5.14 H Hgb 15.7 H Hct 46.2 H Mathews % (Auto) 9.8 H APTT Chloride Glucose POC Glucose Hemoglobin A1c Lactic Acid 2.60 H* 2.70 H* Lactate Dehydrogenase Total Creatine Kinase CK-MB (CK-2) Troponin T Triglycerides Cholesterol LDL Cholesterol Direct 11/24/19 11/24/19 11/24/19 13:28 15:49 16:39 RBC Hgb Hct Mathews % (Auto) APTT Chloride Glucose POC Glucose 228 H Hemoglobin A1c Lactic Acid 2.70 H* 2.30 H* Lactate Dehydrogenase Total Creatine Kinase CK-MB (CK-2) Troponin T Triglycerides Cholesterol LDL Cholesterol Direct 11/24/19 11/24/19 11/24/19 16:39 16:39 20:42 RBC Hgb Hct Mathews % (Auto) APTT Chloride Glucose POC Glucose 359 H Hemoglobin A1c 10.3 H Lactic Acid Lactate Dehydrogenase Total Creatine Kinase 289 H CK-MB (CK-2) 4.5 H Troponin T 0.038 H Triglycerides Cholesterol LDL Cholesterol Direct 11/24/19 11/25/19 11/25/19 22:53 00:29 08:39 RBC Hgb Hct Mathews % (Auto) APTT Chloride Glucose POC Glucose 295 H Hemoglobin A1c Lactic Acid 2.80 H* 2.80 H* Lactate Dehydrogenase Total Creatine Kinase CK-MB (CK-2) Troponin T Triglycerides Cholesterol LDL Cholesterol Direct 11/25/19 11/25/19 11/25/19 09:47 09:47 12:13 RBC Hgb Hct Mathews % (Auto) APTT Chloride Glucose POC Glucose 356 H Hemoglobin A1c Lactic Acid 3.00 H* Lactate Dehydrogenase Total Creatine Kinase 371 H CK-MB (CK-2) 5.8 H Troponin T 0.040 H Triglycerides Cholesterol LDL Cholesterol Direct
--- NOTE | 2019-11-25 14:10 | Consultation ---
HISTORY OF PRESENT ILLNESS: This is a 49-year-old black male that presents to [facility]. The patient initially presented to the hospital ____ a response to telemedicine consult, the patient had been seen by his local physician with history of diabetes. He was found with glucose greater than 300. When he was brought to the hospital, he was complaining of numbness to his right side of his face and right arm with paresthesias. He was hypertensive; on arrival, he was treated initially and was noted to have a blood pressure which was markedly elevated at 229/157. He had a PTT of 23.6, a PT of 12.3, a creatinine of 1.1, a glucose of 364, a sodium of 137. The patient's initial hematocrit was 46.2. He was seen in the Emergency Room and treated for hypertension, hyperglycemia. A CT scan of the head was done and I had the opportunity to review this. It showed evidence of dc-white matter appearing to be normal. There is an old stroke in the right hemisphere, extensive stroke in the left hemisphere in the internal capsule, both the anterior and posterior limb as well as microscopic angiopathic changes within the globus pallidus 1 and 2 with basal ganglia degenerative changes quite extensive in the left hemisphere indicative of an old stroke. There is also evidence of an area of attenuated white matter in the right frontal horn of the ventricular system as well as discrete white matter changes in the central semiovale superiorly over the parietal lobe, particularly noted over the right side. PHYSICAL EXAMINATION: VITAL SIGNS: Reveals the blood pressure to be 163/92, temperature is 98.1, pulse rate is 97. NEUROLOGIC: The patient has a right-sided sensory loss, right-sided weakness, clumsiness to movement. Gait was not tested. Cranial nerves are intact. There was central facial weakness noted over the right side. Visual lou are full. The patient is fully oriented. No evidence of seizure activity present. The patient has no evidence of craniocervical trauma, no seizure activity was present. No asterixis, no dystonia was noted. IMPRESSION: Very extensive white matter disease, also present within the basal ganglia of the left hemisphere. Certainly, there are a number of both acute and subacute ischemic changes quite noted over both hemispheres. Clearly, he has strokes bilaterally in multiple locations, likely small vessel disease, diabetes, hypertension, which is poorly controlled. I would consider the diagnosis of hypertensive encephalopathy given the appearance of the CT. Would recommend MRI scan and get carotid artery ultrasound. Thank you very much for consult. JOB# [id number] TAMICA/NTS
[2019-11-25 15:22] LABS: Creatine Kinase MB 5.5 ng/mL (0.0-4.0)
[2019-11-25] MEDS: INSULIN NPH/REGULAR 70/30 INJ SUB-Q SCH (16:15)
[2019-11-25] MEDS ORDERED: metFORMIN 500 MG TAB PO SCH (17:00)
[2019-11-25] MEDS ORDERED: glipiZIDE 5 MG TAB PO SCH (17:00)
--- NOTE | 2019-11-25 17:56 | Consultation ---
History of Present Illness Consult date: 11/25/19 Requesting physician: NAZANIN REDMAN Consult reason: elevated troponin, hypertension History of present illness: The patient claims that he was diagnosed with hypertension several years ago. However, he decided to stop taking his antihypertensive medications many years ago. He presented to the emergency department with a two-week history of right- sided numbness. He denies weakness, headache, nausea, vomiting or blurring of vision. There is no chest pain, shortness of breath, palpitations or dizziness. His BP was significantly elevated representation. Brain CT scan revealed extensive microvascular angiopathy. Troponin level is mildly elevated. Past History Past Medical History: diabetes (Prediabetes), hypertension Past Surgical History: No surgical history Social history: denies: smoking, alcohol abuse Family history: denies: CAD Medications and Allergies Allergies Allergy/AdvReac Type Severity Reaction Status Date / Time No Known Allergies Allergy Unverified 11/24/19 08:20 Home Medications Medication Instructions Recorded Confirmed Last Taken Type Multivitamin/Iron/Folic Acid 1 each PO QDAY 11/24/19 11/24/19 Unknown History [Centrum Adults Tablet] Active Meds: Active Medications Aspirin (Aspirin) 325 mg PO QDAY [facility] Last Admin: 11/25/19 09:00 Dose: 325 mg Documented by: Atorvastatin Calcium (Lipitor) 40 mg PO QHS [facility] Last Admin: 11/24/19 22:05 Dose: 40 mg Documented by: Enoxaparin Sodium (Enoxaparin) 40 mg SUB-Q QDAY@2200 [facility] Last Admin: 11/24/19 22:05 Dose: 40 mg Documented by: Hydralazine HCl (Apresoline) 50 mg PO Q8HR [facility] Last Admin: 11/25/19 13:12 Dose: Not Given Documented by: Hydralazine HCl (Apresoline) 10 mg IV Q3H PRN PRN Reason: Hypertension Last Admin: 11/25/19 12:39 Dose: 10 mg Documented by: Insulin Human Isoph/Insulin Regular (Humulin 70/30) 10 unit SUB-Q BIDDIAB [facility] Last Admin: 11/25/19 16:15 Dose: 10 unit Documented by: Insulin Human Lispro (Humalog) 0 unit SUB-Q [facility]; Protocol Last Admin: 11/25/19 16:14 Dose: 1 unit Documented by: Lisinopril (Zestril) 20 mg PO QDAY [facility] Last Admin: 11/25/19 10:00 Dose: 20 mg Documented by: Metoprolol Tartrate (Metoprolol) 25 mg PO BID [facility] Morphine Sulfate (Morphine) 2 mg IV Q4H PRN PRN Reason: Pain, Moderate (4-6) Last Admin: 11/25/19 02:05 Dose: 2 mg Documented by: Pantoprazole Sodium (Protonix) 40 mg PO QDAY [facility] Last Admin: 11/25/19 09:01 Dose: 40 mg Documented by: Simethicone (Mylicon) 80 mg PO Q6H PRN PRN Reason: Gas pain Last Admin: 11/24/19 22:11 Dose: 80 mg Documented by: Valsartan (Diovan) 160 mg PO BID [facility] Last Admin: 11/25/19 09:00 Dose: 160 mg Documented by: Review of Systems Constitutional: no fever, no chills Ears, nose, mouth and throat: no ear pain, no ear discharge, no sore throat Cardiovascular: no chest pain, no palpitations, no shortness of breath Respiratory: no cough, no hemoptysis, no wheezing Gastrointestinal: no abdominal pain, no nausea, no vomiting, no diarrhea, no constipation Genitourinary Male: no dysuria, no urinary frequency Rectal: no pain, no bleeding Musculoskeletal: no neck stiffness, no neck pain, no myalgias Integumentary: no rash, no pruritis Neurological: numbness, no weakness, no headaches Psychiatric: no depression, no confusion Endocrine: no cold intolerance, no heat intolerance Hematologic/Lymphatic: no easy bruising, no easy bleeding Allergic/Immunologic: no urticaria, no wheezing Physical Examination Vital Signs Last Vital Signs Temp 97.5 F L 11/25/19 15:55 Pulse 94 H 11/25/19 10:00 Resp 18 11/25/19 15:55 BP 149/86 11/25/19 15:55 Pulse Ox 95 11/25/19 08:44 General appearance: no acute distress HEENT: Positive: EOMI, Normocephaly, Mucus Membranes Moist Neck: Positive: neck supple, trachea midline Cardiac: Positive: Reg Rate and Rhythm Lungs: Positive: clear to auscultation Neuro: Positive: Grossly Intact Abdomen: Positive: Soft, Active Bowel Sounds. Negative: Tender Skin: Positive: Clear. Negative: Rash Musculoskeletal: Normal Range of Motion Extremities: Present: normal. Absent: edema Results 11/24/19 09:45 11/24/19 08:49 Cardiac Enzymes 11/25/19 11/25/19 Range/Units 09:47 14:55 CK-MB (CK-2) 5.8 H 5.5 H (0.0-4.0) ng/mL - Imaging and Cardiology EKG: image reviewed EKG interpretations - Telemetry EKG Rhythm: Sinus Tachycardia - EKG Sinus rhythms and dysrhythmias: sinus tachycardia Myocardial infarction: inferior SD (old age inde, septal SD (old age or ind, anterior SD (old age or i Assessment and Plan Will gradually optimize antihypertensive regimen. Obtain echocardiogram. He will benefit from pharmacologic stress MPI, possibly on Wednesday. - Patient Problems (1) Hypertensive emergency Current Visit: Yes Status: Acute (2) Elevated troponin level Current Visit: Yes Status: Acute (3) Abnormal ECG Current Visit: Yes Status: Acute (4) Focal neurological signs Current Visit: Yes Status: Acute (5) Diabetes mellitus Current Visit: Yes Status: Acute
[2019-11-25] MEDS ORDERED: hydrALAZINE 20 MG/1 ML INJ IV PRN (18:13)
[2019-11-25] MEDS ORDERED: METOPROLOL TARTRATE 25 MG TAB PO SCH (22:00)
[2019-11-25] MEDS: amLODIPine 10 MG TAB PO SCH (22:35)
[2019-11-25] MEDS: ENOXAPARIN 40 MG/0.4 ML INJ SUB-Q SCH (22:35)
[2019-11-26] MEDS: METOPROLOL TARTRATE 25 MG TAB PO SCH ×3 (05:45→13:50)
[2019-11-26] MEDS ORDERED: ACETAMINOPHEN 325 MG TAB PO PRN (06:52)
[2019-11-26] MEDS: INSULIN LISPRO 100 UNIT/ML SUB-Q SCH ×5 (08:08→21:38)
[2019-11-26] MEDS: INSULIN NPH/REGULAR 70/30 INJ SUB-Q SCH ×2 (08:08→17:20)
[2019-11-26] MEDS ORDERED: hydrALAZINE 20 MG/1 ML INJ IV ONE (08:50)
--- NOTE | 2019-11-26 08:56 | Progress Note ---
Assessment and Plan Assessment and plan: --Hypertensive emergency; present on admission Blood pressures remain uncontrolled On multiple antihypertensives ,adjust antihypertensives PRN labetalol, monitor and adjust the dosages --Positive troponin; non-ST elevation [place] Serial cardiac enzymes, EKG Echocardiogram normal LV function ejection fraction, cardiology following, possible stress test tomorrow Aspirin, beta-blockers, BIA inhibitors, nitrates, statins --Hypertensive encephalopathy; With paresthesia and neuro symptoms CT head without contrast no acute abnormalities --Right-sided tingling and numbness;? CVa/ TIA Not a candidate for TPA, aspirin statin Neurology consulted,PT OT Neuro work-up in progress[MRI cannot be done during the weekend] --Hyperglycemia/diabetes mellitus Accu-Chek sliding scale coverage ADA diet Long-acting insulin , diabetic education, nutrition consult Hemoglobin A1c 10.3 --Dyslipidemia; lipid-lowering medications We will start statin --Lactic acidosis; nonspecific Vigorous IV fluids, evaluated for sepsis Follow lactic acid evels --Obesity; BMI 39 Advised weight reduction when medically stable --Medical noncompliance; patient strongly advised to comply with medications Diet exercise and follow-up visits --DVT prophylaxis; Lovenox Continue current management Follow neuro work-up Case reviewed with the patient and his nurse History Interval history: Patient seen and examined , patient's chart and medications reviewed Patient's blood pressures remain uncontrolled, has elevated troponins Denies chest pain or shortness of breath, right-sided tingling and numbness slightly improved Neuro work-up is in progress Patient is alert and awake responding appropriately Vital signs reviewed PUI?: No Hospitalist Physical - Constitutional Vitals: Temp Pulse Resp BP Pulse Ox 98.7 F 80 18 200/131 99 11/26/19 07:16 11/26/19 05:45 11/26/19 07:39 11/26/19 07:16 11/26/19 05:31 General appearance: Present: no acute distress, well-nourished - EENT Eyes: Present: PERRL, EOM intact - Neck Neck: Present: supple, normal ROM - Respiratory Respiratory effort: normal Respiratory: bilateral: diminished, negative: rales, rhonchi, wheezing - Cardiovascular Rhythm: regular Heart Sounds: Present: S1 & S2 - Extremities Extremities: no ischemia, No edema - Abdominal General gastrointestinal: soft, non-tender, non-distended, normal bowel sounds - Integumentary Integumentary: Present: clear, warm - Psychiatric Psychiatric: appropriate mood/affect, cooperative - Neurologic Neurologic: CNII-XII intact, moves all extremities Results - Labs CBC & Chem 7: 11/24/19 09:45 11/24/19 08:49 Labs: Laboratory Last Values WBC 5.8 K/mm3 (4.5-11.0) 11/24/19 09:45 RBC 5.14 M/mm3 (3.65-5.03) H 11/24/19 09:45 Hgb 15.7 gm/dl (11.8-15.2) H 11/24/19 09:45 Hct 46.2 % (35.5-45.6) H 11/24/19 09:45 MCV 90 fl (84-94) 11/24/19 09:45 MCH 31 pg (28-32) 11/24/19 09:45 MCHC 34 % (32-34) 11/24/19 09:45 RDW 14.1 % (13.2-15.2) 11/24/19 09:45 Plt Count 248 K/mm3 (140-440) 11/24/19 09:45 Lymph % (Auto) 30.5 % (13.4-35.0) 11/24/19 09:45 [place] % (Auto) 9.8 % (0.0-7.3) H 11/24/19 09:45 Eos % (Auto) 1.4 % (0.0-4.3) 11/24/19 09:45 Baso % (Auto) 1.0 % (0.0-1.8) 11/24/19 09:45 Lymph # 1.8 K/mm3 (1.2-5.4) 11/24/19 09:45 [place] # 0.6 K/mm3 (0.0-0.8) 11/24/19 09:45 Eos # 0.1 K/mm3 (0.0-0.4) 11/24/19 09:45 Baso # 0.1 K/mm3 (0.0-0.1) 11/24/19 09:45 Seg Neutrophils % 57.3 % (40.0-70.0) 11/24/19 09:45 Seg Neutrophils # 3.3 K/mm3 (1.8-7.7) 11/24/19 09:45 PT 12.3 Sec. (12.2-14.9) 11/24/19 09:44 INR 0.91 (0.87-1.13) 11/24/19 09:44 APTT 23.6 Sec. (24.2-36.6) L 11/24/19 09:44 Thrombin Time 17.7 Sec. (15.1-19.6) 11/24/19 09:44 D-Dimer 152.63 ng/mlDDU (0-234) 11/24/19 09:44 Sodium 137 mmol/L (137-145) 11/24/19 08:49 Potassium 3.7 mmol/L (3.6-5.0) 11/24/19 08:49 Chloride 94.2 mmol/L (98-107) L 11/24/19 08:49 Carbon Dioxide 23 mmol/L (22-30) 11/24/19 08:49 Anion Gap 24 mmol/L 11/24/19 08:49 BUN 14 mg/dL (9-20) 11/24/19 08:49 Creatinine 1.1 mg/dL (0.8-1.5) 11/24/19 08:49 Estimated GFR > 60 ml/min 11/24/19 08:49 BUN/Creatinine Ratio 13 % 11/24/19 08:49 Glucose 364 mg/dL (75-100) H 11/24/19 08:49 POC Glucose 201 (70-105) H 11/26/19 07:24 Hemoglobin A1c 10.3 % (4-6) H 11/24/19 16:39 Lactic Acid 3.20 mmol/L (0.7-2.0) H* 11/25/19 15:28 Calcium 9.3 mg/dL (8.4-10.2) 11/24/19 08:49 Magnesium 2.00 mg/dL (1.7-2.3) 11/24/19 09:44 Ferritin 351.4 ng/mL (13.0-400.0) 11/24/19 09:44 Total Bilirubin 0.70 mg/dL (0.1-1.2) 11/24/19 08:49 Direct Bilirubin < 0.2 mg/dL (0-0.2) 11/24/19 08:49 Indirect Bilirubin 0.5 mg/dL 11/24/19 08:49 AST 32 units/L (5-40) 11/24/19 08:49 ALT 34 units/L (7-56) 11/24/19 08:49 Alkaline Phosphatase 99 units/L (35-129) 11/24/19 08:49 Lactate Dehydrogenase 279 units/L (91-180) H 11/24/19 08:51 Total Creatine Kinase 334 units/L (55-170) H 11/25/19 14:55 CK-MB (CK-2) 5.5 ng/mL (0.0-4.0) H 11/25/19 14:55 CK-MB (CK-2) Rel Index 1.6 (0-4) 11/25/19 14:55 Troponin T 0.059 ng/mL (0.00-0.029) H D 11/25/19 14:55 C-Reactive Protein 0.80 mg/dL (0.00-1.30) 11/24/19 08:51 NT-Pro-B Natriuret Pep 630.9 pg/mL (0-900) 11/24/19 08:49 Total Protein 8.0 g/dL (6.3-8.2) 11/24/19 08:49 Albumin 4.2 g/dL (3.9-5) 11/24/19 08:49 Albumin/Globulin Ratio 1.1 % 11/24/19 08:49 Triglycerides 180 mg/dL (2-149) H 11/24/19 08:49 Cholesterol 255 mg/dL (50-199) H 11/24/19 08:49 LDL Cholesterol Direct 197 mg/dL (50-130) H 11/24/19 08:49 HDL Cholesterol 53 mg/dL (40-59) 11/24/19 08:49 Cholesterol/HDL Ratio 4.81 % 11/24/19 08:49 Procalcitonin < 0.05 ng/mL (<0.15) 11/24/19 09:44 TSH 2.240 mlU/mL (0.270-4.200) 11/24/19 09:44 Free T4 1.33 ng/dL (0.76-1.46) 11/24/19 09:44 Urine Color Yellow (Yellow) 11/24/19 Unknown Urine Turbidity Clear (Clear) 11/24/19 Unknown Urine pH 6.0 (5.0-7.0) 11/24/19 Unknown Ur Specific [place] 1.021 (1.003-1.030) 11/24/19 Unknown Urine Protein 100 mg/dl mg/dL (Negative) 11/24/19 Unknown Urine Glucose (UA) >=500 mg/dL (Negative) 11/24/19 Unknown Urine Ketones Neg mg/dL (Negative) 11/24/19 Unknown Urine Blood Neg (Negative) 11/24/19 Unknown Urine Nitrite Neg (Negative) 11/24/19 Unknown Urine Bilirubin Neg (Negative) 11/24/19 Unknown Urine Urobilinogen < 2.0 mg/dL (<2.0) 11/24/19 Unknown Ur Leukocyte Esterase Neg (Negative) 11/24/19 Unknown Urine WBC (Auto) 1.0 /HPF (0.0-6.0) 11/24/19 Unknown Urine RBC (Auto) 2.0 /HPF (0.0-6.0) 11/24/19 Unknown Hyaline Casts 7 /LPF 11/24/19 Unknown Urine Mucus Few /HPF 11/24/19 Unknown Urine Opiates Screen Presumptive negative 11/24/19 Unknown Urine Methadone Screen Presumptive negative 11/24/19 Unknown Ur Barbiturates Screen Presumptive negative 11/24/19 Unknown Ur Phencyclidine Scrn Presumptive negative 11/24/19 Unknown Ur Amphetamines Screen Presumptive negative 11/24/19 Unknown U Benzodiazepines Scrn Presumptive negative 11/24/19 Unknown Urine Cocaine Screen Presumptive negative 11/24/19 Unknown U Marijuana (THC) Screen Presumptive negative 11/24/19 Unknown Drugs of Abuse Note Disclamer 11/24/19 Unknown Blood Type O POSITIVE 11/24/19 09:44 Antibody Screen Negative 11/24/19 09:44 Microbiology: Microbiology 11/24/19 Unknown Peripheral/Venous Blood Culture - Preliminary NO GROWTH AFTER 24 HOURS 11/24/19 Unknown Peripheral/Venous Blood Culture - Preliminary NO GROWTH AFTER 24 HOURS Mora/IV: Voiding Method Toilet IV Catheter Type [Right Hand] INT / Saline Lock Active Medications - Current Medications Current Medications: Generic Name Dose Route Start Last Admin Trade Name Freq PRN Reason Stop Dose Admin Acetaminophen 650 mg 11/26/19 06:52 Tylenol PO Q4H PRN Pain, Mild (1-3) Amlodipine Besylate 10 mg 04/11/20 19:00 11/25/19 22:35 Amlodipine PO 10 mg QDAY LAUREANO Administration Aspirin 325 mg 11/25/19 10:00 11/25/19 09:00 Aspirin PO 325 mg QDAY LAUREANO Administration Atorvastatin Calcium 40 mg 11/24/19 22:00 11/25/19 22:35 Lipitor PO 40 mg QHS LAUREANO Administration Enoxaparin Sodium 40 mg 11/24/19 22:00 11/25/19 22:35 Enoxaparin SUB-Q 40 mg QDAY@2200 LAUREANO Administration Hydralazine HCl 10 mg 11/25/19 18:13 11/26/19 07:21 Apresoline IV 10 mg Q4H PRN Administration Hypertension Hydralazine HCl 20 mg 11/26/19 08:50 Apresoline IV 11/26/19 08:51 ONCE ONE Hydralazine HCl 50 mg 11/26/19 14:00 Apresoline PO Q8HR LAUREANO Insulin Human Isoph/Insulin Regular 10 unit 11/25/19 17:00 11/26/19 08:08 Humulin 70/30 SUB-Q 10 unit BIDDIAB LAUREANO Administration Insulin Human Lispro 0 unit 11/24/19 16:30 11/26/19 08:08 Humalog SUB-Q 4 unit ACHS LAUREANO Administration Protocol Lisinopril 40 mg 11/25/19 18:14 Zestril PO QDAY LAUREANO Metoprolol Tartrate 50 mg 11/25/19 19:00 11/26/19 05:45 Metoprolol PO 50 mg Q6H LAUREANO Administration Morphine Sulfate 2 mg 11/24/19 16:15 11/25/19 02:05 Morphine IV 2 mg Q4H PRN Administration Pain, Moderate (4-6) Pantoprazole Sodium 40 mg 11/25/19 10:00 11/25/19 09:01 Protonix PO 40 mg QDAY LAUREANO Administration Simethicone 80 mg 11/24/19 21:53 11/24/19 22:11 Mylicon PO 80 mg Q6H PRN Administration Gas pain
[2019-11-26] MEDS: PANTOPRAZOLE 40 MG TAB PO SCH (09:45)
[2019-11-26] MEDS: amLODIPine 10 MG TAB PO SCH (09:45)
[2019-11-26] MEDS: LISINOPRIL 20 MG TAB PO SCH (09:45)
[2019-11-26] MEDS: ASPIRIN 325 MG TAB PO SCH (09:45)
--- NOTE | 2019-11-26 11:50 | Progress Note ---
Subjective Date of service: 11/26/19 Interval history: I went over the CT of head and severe htn micro uinfarcts noted the ECHO noted and wemnt over cardiology reprt suspect HTN small vessel dosease responsibel factor spoke to Dr. Lindsay PERSON?: No Objective - Vital Sign Vital Signs - 12hr 11/26/19 11/26/19 11/26/19 05:31 05:45 07:16 Temperature 98.1 F 98.7 F Pulse Rate 89 80 Respiratory 18 18 Rate Blood Pressure 190/124 161/96 200/131 O2 Sat by Pulse 99 Oximetry 11/26/19 11/26/19 11/26/19 07:39 09:33 10:00 Temperature Pulse Rate 80 Respiratory 18 Rate Blood Pressure 161/97 O2 Sat by Pulse Oximetry - Laboratory Findings CBC and BMP: 11/24/19 09:45 11/24/19 08:49 Abnormal Lab Findings: Abnormal Labs 11/24/19 11/24/19 11/24/19 08:49 08:51 09:44 RBC Hgb Hct [place] % (Auto) APTT 23.6 L Chloride 94.2 L Glucose 364 H POC Glucose Hemoglobin A1c Lactic Acid Lactate Dehydrogenase 279 H Total Creatine Kinase CK-MB (CK-2) Troponin T 0.032 H Triglycerides 180 H Cholesterol 255 H LDL Cholesterol Direct 197 H 11/24/19 11/24/19 11/24/19 09:44 09:45 11:18 RBC 5.14 H Hgb 15.7 H Hct 46.2 H [place] % (Auto) 9.8 H APTT Chloride Glucose POC Glucose Hemoglobin A1c Lactic Acid 2.60 H* 2.70 H* Lactate Dehydrogenase Total Creatine Kinase CK-MB (CK-2) Troponin T Triglycerides Cholesterol LDL Cholesterol Direct 11/24/19 11/24/19 11/24/19 13:28 15:49 16:39 RBC Hgb Hct [place] % (Auto) APTT Chloride Glucose POC Glucose 228 H Hemoglobin A1c Lactic Acid 2.70 H* 2.30 H* Lactate Dehydrogenase Total Creatine Kinase CK-MB (CK-2) Troponin T Triglycerides Cholesterol LDL Cholesterol Direct 11/24/19 11/24/19 11/24/19 16:39 16:39 20:42 RBC Hgb Hct [place] % (Auto) APTT Chloride Glucose POC Glucose 359 H Hemoglobin A1c 10.3 H Lactic Acid Lactate Dehydrogenase Total Creatine Kinase 289 H CK-MB (CK-2) 4.5 H Troponin T 0.038 H Triglycerides Cholesterol LDL Cholesterol Direct 11/24/19 11/25/19 11/25/19 22:53 00:29 08:39 RBC Hgb Hct [place] % (Auto) APTT Chloride Glucose POC Glucose 295 H Hemoglobin A1c Lactic Acid 2.80 H* 2.80 H* Lactate Dehydrogenase Total Creatine Kinase CK-MB (CK-2) Troponin T Triglycerides Cholesterol LDL Cholesterol Direct 11/25/19 11/25/19 11/25/19 09:47 09:47 12:13 RBC Hgb Hct [place] % (Auto) APTT Chloride Glucose POC Glucose 356 H Hemoglobin A1c Lactic Acid 3.00 H* Lactate Dehydrogenase Total Creatine Kinase 371 H CK-MB (CK-2) 5.8 H Troponin T 0.040 H Triglycerides Cholesterol LDL Cholesterol Direct 11/25/19 11/25/19 11/25/19 14:55 14:55 15:28 RBC Hgb Hct [place] % (Auto) APTT Chloride Glucose POC Glucose Hemoglobin A1c Lactic Acid 3.00 H* 3.20 H* Lactate Dehydrogenase Total Creatine Kinase 334 H CK-MB (CK-2) 5.5 H Troponin T 0.059 H D Triglycerides Cholesterol LDL Cholesterol Direct 11/25/19 11/25/19 11/26/19 16:06 22:07 07:24 RBC Hgb Hct [place] % (Auto) APTT Chloride Glucose POC Glucose 278 H 185 H 201 H Hemoglobin A1c Lactic Acid Lactate Dehydrogenase Total Creatine Kinase CK-MB (CK-2) Troponin T Triglycerides Cholesterol LDL Cholesterol Direct
[2019-11-26] MEDS ORDERED: hydrALAZINE 25 MG TAB PO SCH (14:00)
--- NOTE | 2019-11-26 16:05 | Progress Note ---
Assessment and Plan Discontinue metoprolol and initiate carvedilol. Increase Hydralazine dose. Lexiscan stress MPI in a.m. If all goes well and there is no significant ischemia, he may be discharged home tomorrow. - Patient Problems (1) Hypertensive emergency Current Visit: Yes Status: Acute (2) Elevated troponin level Current Visit: Yes Status: Acute (3) Abnormal ECG Current Visit: Yes Status: Acute (4) Focal neurological signs Current Visit: Yes Status: Acute (5) Hypertensive heart disease Current Visit: Yes Status: Acute (6) Diabetes mellitus Current Visit: Yes Status: Acute Subjective Date of service: 11/26/19 Principal diagnosis: Hypertensive Emergency, Elevated Tn, Abnormal ECG, Focal neuro sign, severe Interval history: He feels better this morning. Right-sided numbness has resolved. PUI?: No Objective Vital Signs Temp Pulse Resp BP Pulse Ox 11/26/19 11:43 97.5 F L 18 150/92 78 L 11/26/19 10:00 80 11/26/19 09:33 161/97 11/26/19 07:39 18 11/26/19 07:16 98.7 F 18 200/131 11/26/19 05:45 80 161/96 11/26/19 05:31 98.1 F 89 18 190/124 99 11/25/19 23:46 98.3 F 80 18 145/99 96 11/25/19 22:35 95 H 173/108 11/25/19 22:34 95 H 176/108 11/25/19 22:00 106 H 11/25/19 20:29 18 11/25/19 20:28 98.9 F 100 H 18 176/108 98 - Physical Examination General: No Apparent Distress HEENT: Positive: EOMI, Normocephaly, Mucus Membranes Moist Neck: Positive: neck supple, trachea midline Cardiac: Positive: Reg Rate and Rhythm, S1/S2 Neuro: Positive: Grossly Intact Abdomen: Positive: Soft, Active Bowel Sounds. Negative: Tender Skin: Positive: Clear. Negative: Rash Musculoskeletal: Normal Range of Motion Extremities: Present: normal. Absent: edema - Imaging and Cardiology EKG: image reviewed - EKG Sinus rhythms and dysrhythmias: sinus tachycardia Myocardial infarction: inferior FL (old age inde, septal FL (old age or ind, anterior FL (old age or i
[2019-11-26] MEDS: carvediloL 12.5 MG TAB PO SCH (21:37)
[2019-11-26] MEDS: ENOXAPARIN 40 MG/0.4 ML INJ SUB-Q SCH (21:38)
[2019-11-26] MEDS: hydrALAZINE 100 MG TAB PO SCH (21:38)
[2019-11-27] MEDS: hydrALAZINE 100 MG TAB PO SCH (06:19)
[2019-11-27 06:26] LABS: Creatine Kinase MB 3.6 ng/mL (0.0-4.0)
[2019-11-27] MEDS ORDERED: REGADENOSON 0.4 MG/5 ML INJ IV ONE (07:28)
[2019-11-27] MEDS: INSULIN NPH/REGULAR 70/30 INJ SUB-Q SCH ×2 (09:30→11:15)
[2019-11-27] MEDS: INSULIN LISPRO 100 UNIT/ML SUB-Q SCH ×3 (09:30→17:57)
--- NOTE | 2019-11-27 09:57 | Progress Note ---
Assessment and Plan S/p lexiscan MPI stress test today which was negative. Currently stable cardiac status. Pt may discharge from cardiology standpoint. Recommend follow up in our office with Dr. Nunez within 2 weeks of discharge ([phone]). The patient has been seen in conjunction with Dr. Bliss who agrees with the assessment and plan of care. - Patient Problems (1) Hypertensive emergency Current Visit: Yes Status: Acute (2) Elevated troponin level Current Visit: Yes Status: Acute (3) Abnormal ECG Current Visit: Yes Status: Acute (4) Focal neurological signs Current Visit: Yes Status: Acute (5) Hypertensive heart disease Current Visit: Yes Status: Acute (6) Diabetes mellitus Current Visit: Yes Status: Acute Subjective Date of service: 11/27/19 Principal diagnosis: Hypertensive Emergency, Elevated Tn, Abnormal ECG, Focal neuro sign, severe Interval history: pt for stress test. in SR on tele. PUI?: No Objective Last Vital Signs Temp 98.4 F 11/27/19 06:12 Pulse 86 11/27/19 06:12 Resp 20 11/27/19 08:28 BP 158/89 11/27/19 08:56 Pulse Ox 97 11/27/19 06:12 - Physical Examination General: No Apparent Distress HEENT: Positive: EOMI, Normocephaly, Mucus Membranes Moist Neck: Positive: neck supple, trachea midline Cardiac: Positive: Reg Rate and Rhythm, S1/S2 Lungs: Positive: Decreased Breath Sounds Neuro: Positive: Grossly Intact Abdomen: Positive: Soft, Active Bowel Sounds. Negative: Tender Skin: Positive: Clear. Negative: Rash Musculoskeletal: Normal Range of Motion Extremities: Present: normal. Absent: edema - Labs and Meds Cardiac Enzymes 11/27/19 Range/Units 04:23 CK-MB (CK-2) 3.6 (0.0-4.0) ng/mL - Imaging and Cardiology EKG: image reviewed - EKG Sinus rhythms and dysrhythmias: sinus tachycardia Myocardial infarction: inferior [place] (old age inde, septal MS (old age or ind, anterior MS (old age or i
[2019-11-27] MEDS ORDERED: LORazepam 2 MG/ML VIAL IV NR (10:18)
[2019-11-27] MEDS: ASPIRIN 325 MG TAB PO SCH (11:10)
[2019-11-27] MEDS: amLODIPine 10 MG TAB PO SCH (11:10)
[2019-11-27] MEDS: PANTOPRAZOLE 40 MG TAB PO SCH (11:10)
[2019-11-27] MEDS: LISINOPRIL 20 MG TAB PO SCH (11:11)
[2019-11-27] MEDS: carvediloL 12.5 MG TAB PO SCH (11:11)
--- NOTE | 2019-11-27 11:58 | Vascular Lab Report ---
BILATERAL CAROTID DOPPLER ULTRASOUND INDICATION : Neuro symptoms/TIA TECHNIQUE: Grayscale and color Doppler imaging performed through the neck. COMPARISON: None FINDINGS: Right: There is no significant atherosclerotic disease. Peak systolic velocity in the CCA is 76 cm/ s with end-diastolic velocity of 14 cm/s. Peak systolic velocity in the proximal ICA is 95 cm/s with end-diastolic velocity of 20 cm/s. ICA to CCA ratio is less than 2. There is antegrade flow in the E CA and the vertebral artery. Left: There is minimal noncalcified plaque in the carotid bulb. Peak systolic velocity in the CCA is 98 cm/s with end-diastolic velocity of 21 cm/s. Peak systolic velocity in the proximal ICA is 106 cm/ s with end-diastolic velocity of 33 cm/s. ICA to CCA ratio is less than 2. There is antegrade flow i n the ECA and the vertebral artery. IMPRESSION: No hemodynamically significant stenosis by NASCET criteria. Doppler velocities indicate l ess than 50% luminal narrowing bilaterally. Signer Name: Mata Olmedo Jr, MD Signed: 11/27/2019 11:54 AM Workstation Name: [id number]
--- NOTE | 2019-11-27 12:24 | Treadmill Report ---
NUCLEAR PERFUSION STUDY REASON FOR STUDY: Chest pain. READING PHYSICIAN: Eulalio Bliss MD IMAGING PROTOCOL: The patient received 10 mCi of Technetium 99m Tetrofosmin for resting image and 28 mCi of Technetium 99m Tetrofosmin for stress imaging. The imaging for the whole procedure was completed 30-90 minutes following the initial injection of Technetium 99m Tetrofosmin. The SPECT imaging in the 180 degree arc was performed in the right anterior oblique projection. Computerized reconstruction of the images was performed for analysis. IMAGING RESULTS: Normal cavity size from stress to rest. Normal distribution of radionuclide in the anterior, inferior, septal, and apical regions. EF approximately 45% with clinically correlated with an echo. SUMMARY: 1. Negative Lexiscan EKG. 2. No significant myocardial ischemia noted with normal myocardial perfusion. Gated SPECT, EF approximately 45% with clinically correlated with an echocardiogram for LV function and no significant ischemia noted. JOB# [id number] GILBERT/MIKE
--- NOTE | 2019-11-27 14:47 | Discharge Summary ---
Providers - Providers Date of Admission: 11/24/19 11:57 Date of discharge: 11/27/19 Attending physician: NAZANIN REDMAN 11/25/19 09:09 Consult to Physician [CONS] Routine Comment: Consulting Provider: BRENDA RAMOS Physician Instructions: Reason For Exam: Positive cardiac enzymes/risk factors 11/25/19 10:11 Consult to Physician [CONS] Routine Comment: Consulting Provider: LINSEY SCOTT Physician Instructions: Reason For Exam: Right-sided tingling numbness/CT head negative [facility] Condition: Stable Disposition: DC-01 TO HOME OR SELFCARE Time spent for discharge: 32 min Core Measure Documentation - Palliative Care Palliative Care/ Comfort Measures: Not Applicable - Core Measures Any of the following diagnoses?: none Exam - Constitutional Vitals: Temp Pulse Resp BP Pulse Ox 98.0 F 103 H 17 141/80 96 11/27/19 12:17 11/27/19 12:17 11/27/19 12:17 11/27/19 12:17 11/27/19 12:17 General appearance: Present: no acute distress, well-nourished, obese - EENT Eyes: Present: PERRL, EOM intact - Neck Neck: Present: supple, normal ROM - Respiratory Respiratory effort: normal Respiratory: bilateral: diminished, negative: rales, rhonchi, wheezing - Cardiovascular Rhythm: regular Heart Sounds: Present: S1 & S2 - Extremities Extremities: no ischemia, No edema - Abdominal General gastrointestinal: Present: soft, non-tender, non-distended, normal bowel sounds - Integumentary Integumentary: Present: clear, warm - Musculoskeletal Musculoskeletal: strength equal bilaterally - Psychiatric Psychiatric: appropriate mood/affect, cooperative - Neurologic Neurologic: CNII-XII intact, moves all extremities Plan Activity: no restrictions Diet: diabetic Additional Instructions: Advised to comply with medications diet and follow-up visits. Patient to see private neurologist for further evaluation of your right arm tingling and numbness. Advised weight reduction when you are medically stable Follow up with: BRANDON AGUILARASHFORD MD JOSE G [Primary Care Provider] - 3-5 Days BRENDA RAMOS MD [Staff Physician] - 7 Days Prescriptions: amLODIPine 10 mg PO QDAY #30 tablet hydrALAZINE [Apresoline TAB] 100 mg PO Q8HR #90 tab carvediloL [Coreg] 12.5 mg PO BID #60 tablet Lispro Insulin [HumaLOG] 5 unit SUB-Q ACHS #1 vial AtorvaSTATin [Lipitor] 40 mg PO QHS #30 tablet lisinopriL [Zestril TAB] 40 mg PO QDAY #30 tablet
--- NOTE | 2019-11-27 15:48 | Progress Note ---
Subjective Date of service: 11/27/19 Principal diagnosis: Hypertensive Emergency, Elevated Tn, Abnormal ECG, Focal neuro sign, severe Interval history: carotid studey is normal and patient gavn be discharged home in past patient stooped TN therapy and did not return for f/u I expalined usman him he has HTN as cause of stroke and multiple lacunars infacrcts can go home on medical therapy PUI?: No Objective - Vital Sign Vital Signs - 12hr 11/27/19 11/27/19 11/27/19 06:12 08:28 08:43 Temperature 98.4 F Pulse Rate 86 Respiratory 18 20 Rate Blood Pressure 130/77 136/86 O2 Sat by Pulse 97 Oximetry 11/27/19 11/27/19 11/27/19 08:47 08:48 08:50 Temperature Pulse Rate Respiratory Rate Blood Pressure 133/85 153/93 154/92 O2 Sat by Pulse Oximetry 11/27/19 11/27/19 11/27/19 08:52 08:54 08:56 Temperature Pulse Rate Respiratory Rate Blood Pressure 152/88 144/89 158/89 O2 Sat by Pulse Oximetry 11/27/19 11/27/19 11/27/19 10:00 11:08 11:10 Temperature Pulse Rate 75 102 H Respiratory 18 Rate Blood Pressure 179/95 179/95 O2 Sat by Pulse Oximetry 11/27/19 11/27/19 11:11 12:17 Temperature 98.0 F Pulse Rate 102 H 103 H Respiratory 17 Rate Blood Pressure 179/95 141/80 O2 Sat by Pulse 96 Oximetry - Laboratory Findings CBC and BMP: 11/24/19 09:45 11/24/19 08:49 Abnormal Lab Findings: Abnormal Labs 11/24/19 11/24/19 11/24/19 08:49 08:51 09:44 RBC Hgb Hct Casey % (Auto) APTT 23.6 L Chloride 94.2 L Glucose 364 H POC Glucose Hemoglobin A1c Lactic Acid Lactate Dehydrogenase 279 H Total Creatine Kinase CK-MB (CK-2) Troponin T 0.032 H Triglycerides 180 H Cholesterol 255 H LDL Cholesterol Direct 197 H 11/24/19 11/24/19 11/24/19 09:44 09:45 11:18 RBC 5.14 H Hgb 15.7 H Hct 46.2 H Casey % (Auto) 9.8 H APTT Chloride Glucose POC Glucose Hemoglobin A1c Lactic Acid 2.60 H* 2.70 H* Lactate Dehydrogenase Total Creatine Kinase CK-MB (CK-2) Troponin T Triglycerides Cholesterol LDL Cholesterol Direct 11/24/19 11/24/19 11/24/19 13:28 15:49 16:39 RBC Hgb Hct Casey % (Auto) APTT Chloride Glucose POC Glucose 228 H Hemoglobin A1c Lactic Acid 2.70 H* 2.30 H* Lactate Dehydrogenase Total Creatine Kinase CK-MB (CK-2) Troponin T Triglycerides Cholesterol LDL Cholesterol Direct 11/24/19 11/24/19 11/24/19 16:39 16:39 20:42 RBC Hgb Hct Casey % (Auto) APTT Chloride Glucose POC Glucose 359 H Hemoglobin A1c 10.3 H Lactic Acid Lactate Dehydrogenase Total Creatine Kinase 289 H CK-MB (CK-2) 4.5 H Troponin T 0.038 H Triglycerides Cholesterol LDL Cholesterol Direct 11/24/19 11/25/19 11/25/19 22:53 00:29 08:39 RBC Hgb Hct Casey % (Auto) APTT Chloride Glucose POC Glucose 295 H Hemoglobin A1c Lactic Acid 2.80 H* 2.80 H* Lactate Dehydrogenase Total Creatine Kinase CK-MB (CK-2) Troponin T Triglycerides Cholesterol LDL Cholesterol Direct 11/25/19 11/25/19 11/25/19 09:47 09:47 12:13 RBC Hgb Hct Casey % (Auto) APTT Chloride Glucose POC Glucose 356 H Hemoglobin A1c Lactic Acid 3.00 H* Lactate Dehydrogenase Total Creatine Kinase 371 H CK-MB (CK-2) 5.8 H Troponin T 0.040 H Triglycerides Cholesterol LDL Cholesterol Direct 11/25/19 11/25/19 11/25/19 14:55 14:55 15:28 RBC Hgb Hct Casey % (Auto) APTT Chloride Glucose POC Glucose Hemoglobin A1c Lactic Acid 3.00 H* 3.20 H* Lactate Dehydrogenase Total Creatine Kinase 334 H CK-MB (CK-2) 5.5 H Troponin T 0.059 H D Triglycerides Cholesterol LDL Cholesterol Direct 11/25/19 11/25/19 11/26/19 16:06 22:07 07:24 RBC Hgb Hct Casey % (Auto) APTT Chloride Glucose POC Glucose 278 H 185 H 201 H Hemoglobin A1c Lactic Acid Lactate Dehydrogenase Total Creatine Kinase CK-MB (CK-2) Troponin T Triglycerides Cholesterol LDL Cholesterol Direct 11/26/19 11/26/19 11/26/19 11:53 16:30 18:27 RBC Hgb Hct Casey % (Auto) APTT Chloride Glucose POC Glucose 240 H 166 H Hemoglobin A1c Lactic Acid Lactate Dehydrogenase Total Creatine Kinase CK-MB (CK-2) Troponin T 0.034 H D Triglycerides Cholesterol LDL Cholesterol Direct 11/26/19 11/27/19 11/27/19 21:41 04:23 10:58 RBC Hgb Hct Casey % (Auto) APTT Chloride Glucose POC Glucose 197 H 243 H Hemoglobin A1c Lactic Acid Lactate Dehydrogenase Total Creatine Kinase 213 H CK-MB (CK-2) Troponin T Triglycerides Cholesterol LDL Cholesterol Direct
[2019-11-27] MEDS ORDERED: DOCUSATE SODIUM 100 MG CAP PO ONE (16:00)
[2019-11-27] MEDS ORDERED: INSULIN NPH/REGULAR 70/30 INJ SUB-Q SCH (17:00)
[2019-11-27 18:40] VITALS: BP 151/93
[2019-11-27] MEDS ORDERED: DOCUSATE SODIUM 100 MG CAP PO SCH (22:00)
[2019-11-27] MEDS ORDERED: hydrALAZINE 25 MG TAB PO SCH (22:00)
== END 2019-11-27 20:15 | disposition home or self-care (01) | DRG 281 ==
LOC: ED 08:19 → 4A 11:57
PROVIDERS: ADMIT Internal Medicine; ATTEND Internal Medicine
DX: I11.9 Hypertensive heart disease without heart failure (principal); I21.4 Non-ST elevation (NSTEMI) myocardial infarction; I67.4 Hypertensive encephalopathy; I16.1 Hypertensive emergency; G45.9 Transient cerebral ischemic attack, unspecified; E87.2 Acidosis; I43 Cardiomyopathy in diseases classified elsewhere; E11.65 Type 2 diabetes mellitus with hyperglycemia; E66.9 Obesity, unspecified; E78.5 Hyperlipidemia, unspecified; I25.2 Old myocardial infarction; Z83.3 Family history of diabetes mellitus; Z82.49 Family history of ischemic heart disease and other diseases of the circulatory system; Z68.39 Body mass index [BMI] 39.0-39.9, adult; Z71.3 Dietary counseling and surveillance; Z91.14 Patient's other noncompliance with medication regimen
CPT/HCPCS: 36415; 70450; 71045; 78452; 80048; 80061; 80076; 80307; 81001; 82140; 82550; 82553; 82728; 82962; 83036; 83615; 83735; 83880; 84145; 84439; 84443; 84484; 85025; 85379; 85610; 85670; 85730; 86140; 86850; 86900; 86901; 87040; 93005; 93010; 93017; 93306; 93880; G0378; A9270-GY; A9502; J0360; J0692; J1650; J1815; J2270; J2785; J7030

== ENCOUNTER 2021-07-17 08:17 | Inpatient (IN) | payer SELFPAY ==
--- NOTE | 2021-07-17 08:51 | Cat Scan Report ---
CT HEAD WITHOUT CONTRAST INDICATION / CLINICAL INFORMATION: CODE STROKE CALL ER MAIN AT 8199 Stroke symptoms. Left-sided weak ness TECHNIQUE: Axial imaging performed from the skull apex through the skull base without the use of cont rast. Sagittal and coronal reformatted images. All CT scans at this location are performed using CT dose reduction for ALARA by means of automated exposure control. COMPARISON: 11/24/2019 FINDINGS: CEREBRAL PARENCHYMA: Mild volume loss and moderate chronic ischemic changes in the white matter are a gain noted and unchanged. Multiple chronic appearing lacunar infarcts are identified in the bilateral basal ganglia and left margie. There appear to be 2 new chronic appearing lacunar infarcts since 2019 exam. A chronic focal infarct involving the posterior limb of the right internal capsule measure s 1.3 x 0.5 cm. A chronic focal infarct in the left margie measures 6 mm. No acute parenchymal abnormal ity is appreciated on today's exam. The left MCA appears slightly hyperdense measuring 51 Hounsfield units although it was slightly hyperdense on the previous exam as well. CTA was recommended. HEMORRHAGE: None. EXTRA-AXIAL SPACES: Normal in size and morphology for the patient's age. VENTRICULAR SYSTEM: Normal in size and morphology for the patient's age. MIDLINE SHIFT OR HERNIATION: None. CEREBELLUM / BRAINSTEM: 7 mm chronic appearing left pontine infarct is again noted. The cerebellar he mispheres are unremarkable. CALVARIUM: No significant abnormality. ORBITS: Normal as visualized. PARANASAL SINUSES / MASTOID AIR CELLS: Normal as visualized. SOFT TISSUES of HEAD: No significant abnormality. ADDITIONAL FINDINGS: None. IMPRESSION: Volume loss, chronic white matter changes and multiple chronic appearing lacunar infarcts as describe d above. No definite acute parenchymal abnormality or hemorrhage. Questionable hyperdense left MCA. CODE STROKE: Time of Communication (TOLL COLLECTOR/CDT): 0743 hours Licensed Practitioner Receiving Report: Dr. Farmer Signer Name: Mata Olmedo Jr, MD Signed: 07/17/2021 8:46 AM Workstation Name: [id number]
[2021-07-17 09:00] LABS: Basophils # (Auto) 0.1 K/mm3 (0.0-0.1); Basophils % (Auto) 0.7 % (0.0-1.8); Eosinophils % (Auto) 0.1 % (0.0-4.3); Hematocrit 52.1 % (35.5-45.6); Hemoglobin 16.9 gm/dl (11.8-15.2); Lymphocytes # (Auto) 1.5 K/mm3 (1.2-5.4); Lymphocytes % (Auto) 12.6 % (13.4-35.0); Mean Corpuscular HGB Conc 33 % (32-34); Mean Corpuscular Volume 90 fl (84-94); Monocytes # (Auto) 1.2 K/mm3 (0.0-0.8); Monocytes % (Auto) 10.3 % (0.0-7.3); Platelet Count 251 K/mm3 (140-440); Red Blood Count 5.76 M/mm3 (3.65-5.03); Red Cell Distribution Width 14.3 % (13.2-15.2)
--- NOTE | 2021-07-17 09:12 | XRay Report ---
CHEST 1 VIEW INDICATION: stroke. COMPARISON: 11/24/2019 FINDINGS: Support devices: None. Heart: Borderline heart size. Mildly ectatic aorta. Lungs/Pleura: The lungs are clear with no evidence for infiltrate, pleural fluid or pneumothorax. Additional findings: None. IMPRESSION: Borderline heart size. Lungs clear. Signer Name: Mata Olmedo Jr, MD Signed: 07/17/2021 9:07 AM Workstation Name: [id number]
[2021-07-17 09:34] LABS: Creatine Kinase MB 54.1 ng/mL (0.0-4.0)
[2021-07-17 09:35] LABS: Alanine Aminotransferase 60 units/L (7-56); Albumin 3.7 g/dL (3.9-5); BUN/Creatinine Ratio 18; Blood Urea Nitrogen 20 mg/dL (9-20); Calcium 8.7 mg/dL (8.4-10.2); Hemolysis Index 15
[2021-07-17 09:40] LABS: INR 0.99 (0.87-1.13)
[2021-07-17 09:42] LABS: Partial Thromboplastin Time 26.5 Sec. (24.2-36.6)
[2021-07-17 09:48] LABS: Chol/HDL Ratio 3.69 %; HDL Cholesterol 66 mg/dL (40-59); LDL Cholesterol,Direct 154 mg/dL (50-130)
--- NOTE | 2021-07-17 10:44 | Cat Scan Report ---
CT angio neck INDICATION / CLINICAL INFORMATION: 51 years Male; CODE STROKE CALL ER MAIN 8199 OMNI 350 100 ML stroke sx. TECHNIQUE: Thin cut axial images obtained through the head during IV bolus contrast administration. S agittal, coronal, and 3 plane MIP reconstructions performed by the technologist. NASCET type criteria used evaluate stenoses. All CT scans at this location are performed using CT dose reduction for ALAR A by means of automated exposure control. COMPARISON: None available. FINDINGS: CAROTID ARTERIES: There is mild atherosclerotic calcification involving proximal internal carotid art eries bilaterally without significant stenosis by NASCET criteria. There is notable tortuosity of the proximal cervical ICAs which represents developmental variant. VERTEBRAL ARTERIES: The motion and beam hardening obscures the origins of the vertebral arteries.. 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 There is notable decrease opacification involving the intracranial right vertebral artery with milder findings involving dista l cervical segment at. Correlation would be needed regarding a decrease flow at. The CTA head will be dictated separately. ARCH: There is no significant stenosis involving origins of the arch vessels. There is developmental common origin of the brachiocephalic and left common carotid arteries. ADDITIONAL FINDINGS: Remainder of the surrounding soft tissues are grossly normal. IMPRESSION: There is mild atherosclerotic calcification involving the proximal internal carotid arteries without significant stenosis by NASCET criteria. There is relative decreased attenuation involving the distal cervical and intracranial segments of th e right vertebral artery compatible with decreased flow. The CTA head will be dictated separately. Signer Name: Aníbal Garza MD Signed: 07/17/2021 10:39 AM Workstation Name: [id number]
--- NOTE | 2021-07-17 10:56 | Cat Scan Report ---
CT angio head INDICATION / CLINICAL INFORMATION: 51 years Male; stroke sx. TECHNIQUE: Thin cut axial images obtained through the head during IV bolus contrast administration. S agittal, coronal, and 3 plane MIP reconstructions performed by the technologist. NASCET type criteria used evaluate stenoses. Automated exposure control utilized for radiation reduction purposes. COMPARISON: None available. FINDINGS: INTERNAL CAROTID ARTERIES: There is no significant focal stenosis involving the intracranial ICAs by NASCET to criteria. There is very mild calcification involving the right cavernous segment. VERTEBROBASILAR SYSTEM: There is decreased contrast opacification within the intracranial segment of the right vertebral artery compatible with decreased flow. The motion degrades the image quality at. However, there is no clear evidence of intimal flap to indicate dissection though correlation would b e needed given the decreased flow.. There is irregularity of the proximal intracranial segment of the left vertebral artery with mild to moderate to narrowing at. Additionally, there is also significant focal stenosis just proximal to the origin of the basilar artery. Additionally, there is also marked focal stenosis involving which was a mid basilar artery. However, flow is seen within the more distal segment. 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 There is no significant focal stenosis involving anterior or posterior cerebral arteries at. There is mild irregularity of the right MCA compatible with atherosclerotic disease and mild narrowin g of the M1 segment. However, there is no clear evidence of significant stenosis involving more dista l segments. ANEURYSM: None identified. ADDITIONAL FINDINGS: Remainder of the surrounding soft tissues are grossly normal. IMPRESSION: There is notable irregularity of the vertebrobasilar system with significant stenosis, most notably i nvolving the mid basilar artery as detailed above. Additionally, there is notable decrease contrast o pacification of the distal right vertebral artery compatible with reduced flow. There is a high riding left ICA which correlates with the earlier noncontrast CT. However, there is n o significant stenosis or occlusion involving anterior circulation vessels. Signer Name: Aníbal Garza MD Signed: 07/17/2021 10:51 AM Workstation Name: [id number]
--- NOTE | 2021-07-17 11:28 | Emergency Department Report ---
ED Neuro Deficit HPI - General Chief Complaint: Neuro Symptoms/Deficit Stated Complaint: RIGHT SIDED WEAKNESS Time Seen by Provider: 07/17/21 08:19 Source: patient, EMS Mode of arrival: Stretcher Limitations: No Limitations - History of Present Illness Initial Comments: Patient is a 51-year-old F [place] male with a past medical history of hypertension possible CVA in the past who is presenting with left-sided arm and leg weakness. Patient is also having difficulty speaking. Symptoms started yesterday at approximately 1 PM. Patient cannot give her good answer why he waited so long to come to the emergency department. He denies chest pain shor tness of breath cough cold congestion fevers or chills. - Related Data Home Medications: Home Medications Medication Instructions Recorded Confirmed Last Taken Multivitamin/Iron/Folic Acid 1 each PO QDAY 11/24/19 11/24/19 Unknown [Centrum Adults Tablet] Previous Rx's Medication Instructions Recorded Last Taken Type AtorvaSTATin [Lipitor] 40 mg PO QHS #30 tablet 11/27/19 Unknown Rx Docusate Sodium [Colace CAP] 100 mg PO BID PRN #20 capsule 11/27/19 Unknown Rx Insulin NPH/Regular [NovoLIN 70/30] 18 unit SUB-Q BIDDIAB #2 vial 11/27/19 Unknown Rx Lispro Insulin [HumaLOG] 5 unit SUB-Q ACHS #1 vial 11/27/19 Unknown Rx amLODIPine 10 mg PO QDAY #30 tablet 11/27/19 Unknown Rx carvediloL [Coreg] 12.5 mg PO BID #60 tablet 11/27/19 Unknown Rx hydrALAZINE [Apresoline TAB] 50 mg PO Q8HR #90 tab 11/27/19 Unknown Rx lisinopriL [Zestril TAB] 40 mg PO QDAY #30 tablet 11/27/19 Unknown Rx Allergies/Adverse Reactions: Allergies Allergy/AdvReac Type Severity Reaction Status Date / Time No Known Allergies Allergy Unverified 11/24/19 08:20 ED Review of Systems ROS: Stated complaint: RIGHT SIDED WEAKNESS Other details as noted in HPI Comment: All other systems reviewed and negative ED Past Medical Hx - Past Medical History Additional medical history: PRE DIABETIC - Social History Smoking Status: Never Smoker - Medications Home Medications: Home Medications Medication Instructions Recorded Confirmed Last Taken Type Multivitamin/Iron/Folic Acid 1 each PO QDAY 11/24/19 11/24/19 Unknown History [Centrum Adults Tablet] AtorvaSTATin [Lipitor] 40 mg PO QHS #30 tablet 11/27/19 Unknown Rx Docusate Sodium [Colace CAP] 100 mg PO BID PRN #20 capsule 11/27/19 Unknown Rx Insulin NPH/Regular [NovoLIN 70/30] 18 unit SUB-Q BIDDIAB #2 vial 11/27/19 Unknown Rx Lispro Insulin [HumaLOG] 5 unit SUB-Q ACHS #1 vial 11/27/19 Unknown Rx amLODIPine 10 mg PO QDAY #30 tablet 11/27/19 Unknown Rx carvediloL [Coreg] 12.5 mg PO BID #60 tablet 11/27/19 Unknown Rx hydrALAZINE [Apresoline TAB] 50 mg PO Q8HR #90 tab 11/27/19 Unknown Rx lisinopriL [Zestril TAB] 40 mg PO QDAY #30 tablet 11/27/19 Unknown Rx ED Neuro Physical Exam - General Limitations: No Limitations General appearance: alert, in no apparent distress Suspected Stroke: Yes - Head Head exam: Present: atraumatic, normocephalic - Eye Eye exam: Present: normal appearance - ENT ENT exam: Present: mucous membranes moist - Neck Neck exam: Present: normal inspection - Respiratory Respiratory exam: Present: normal lung sounds bilaterally. Absent: respiratory distress, wheezes, rales, rhonchi - Cardiovascular Cardiovascular Exam: Present: regular rate, normal rhythm, normal heart sounds. Absent: systolic murmur, diastolic murmur, rubs, gallop - GI/Abdominal GI/Abdominal exam: Present: soft, normal bowel sounds. Absent: distended, tenderness, guarding - Rectal Rectal exam: Present: deferred - Extremities Exam Extremities exam: Present: normal inspection - Back Exam Back exam: Present: normal inspection - Neurological Exam Neurological exam: Present: alert, oriented X3, motor sensory deficit. Absent: normal gait - NIHSS Assessment Interval: Baseline 1a. Level of Consciousness: alert/keenly responsive 1b. LOC Questions: answers both correctly 1c. LOC Commands: performs tasks correctly 2. Best Gaze: normal 3. Visual: no visual loss 4. Facial Palsy: normal symmetrical movement 5b. Motor Arm Right: no gravity effort 5a. Motor Arm Left: drift 6a. Motor Leg Left: drift 6b. Motor Leg Right: some gravity effort 7. Limb Ataxia: absent 8. Sensory: normal 9. Best Language: mild/moderate aphasia 10. Dysarthria: mild/moderate dysarthria 11. Extinction/Inattention: no abnormality Total Score: 9 Stroke Severity: Moderate Stroke - Psychiatric Psychiatric exam: Present: normal affect, normal mood - Skin Skin exam: Present: warm, dry, intact, normal color. Absent: rash - Lab Data Result diagrams: 07/17/21 08:48 07/17/21 08:48 Lab Results 07/17/21 07/17/21 07/17/21 Range/Units 08:48 08:48 08:48 WBC 12.0 H (4.5-11.0) K/mm3 RBC 5.76 H (3.65-5.03) M/mm3 Hgb 16.9 H (11.8-15.2) gm/dl Hct 52.1 H (35.5-45.6) % MCV 90 (84-94) fl MCH 29 (28-32) pg MCHC 33 (32-34) % RDW 14.3 (13.2-15.2) % Plt Count 251 (140-440) K/mm3 Lymph % (Auto) 12.6 L (13.4-35.0) % Fergus % (Auto) 10.3 H (0.0-7.3) % Eos % (Auto) 0.1 (0.0-4.3) % Baso % (Auto) 0.7 (0.0-1.8) % Lymph # (Auto) 1.5 (1.2-5.4) K/mm3 Fergus # (Auto) 1.2 H (0.0-0.8) K/mm3 Eos # (Auto) 0.0 (0.0-0.4) K/mm3 Baso # (Auto) 0.1 (0.0-0.1) K/mm3 Seg Neutrophils % 76.3 H (40.0-70.0) % Seg Neutrophils # 9.2 H (1.8-7.7) K/mm3 PT 14.2 (12.2-14.9) Sec. INR 0.99 (0.87-1.13) APTT 26.5 (24.2-36.6) Sec. Sodium 141 (137-145) mmol/L Potassium 3.3 L (3.6-5.0) mmol/L Chloride 98.8 (98-107) mmol/L Carbon Dioxide 22 (22-30) mmol/L Anion Gap 24 mmol/L BUN 20 (9-20) mg/dL Creatinine 1.1 (0.8-1.3) mg/dL Estimated GFR > 60 ml/min BUN/Creatinine Ratio 18 % Glucose 173 H (75-100) mg/dL Calcium 8.7 (8.4-10.2) mg/dL Total Bilirubin 1.00 (0.1-1.2) mg/dL AST 198 H (5-40) units/L ALT 60 H (7-56) units/L Alkaline Phosphatase 92 (35-129) units/L Total Creatine Kinase 75512 H (55-170) units/L CK-MB (CK-2) 54.1 H (0.0-4.0) ng/mL CK-MB (CK-2) Rel Index 0.4 (0-4) Troponin T 0.037 H (0.00-0.029) ng/mL Total Protein 7.6 (6.3-8.2) g/dL Albumin 3.7 L (3.9-5) g/dL Albumin/Globulin Ratio 0.9 % Triglycerides 95 (2-149) mg/dL Cholesterol 244 H (50-199) mg/dL LDL Cholesterol Direct 154 H (50-130) mg/dL HDL Cholesterol 66 H (40-59) mg/dL Cholesterol/HDL Ratio 3.69 % Plasma/Serum Alcohol (0-0.07) % 07/17/21 Range/Units 08:48 WBC (4.5-11.0) K/mm3 RBC (3.65-5.03) M/mm3 Hgb (11.8-15.2) gm/dl Hct (35.5-45.6) % MCV (84-94) fl MCH (28-32) pg MCHC (32-34) % RDW (13.2-15.2) % Plt Count (140-440) K/mm3 Lymph % (Auto) (13.4-35.0) % Fergus % (Auto) (0.0-7.3) % Eos % (Auto) (0.0-4.3) % Baso % (Auto) (0.0-1.8) % Lymph # (Auto) (1.2-5.4) K/mm3 Fergus # (Auto) (0.0-0.8) K/mm3 Eos # (Auto) (0.0-0.4) K/mm3 Baso # (Auto) (0.0-0.1) K/mm3 Seg Neutrophils % (40.0-70.0) % Seg Neutrophils # (1.8-7.7) K/mm3 PT (12.2-14.9) Sec. INR (0.87-1.13) APTT (24.2-36.6) Sec. Sodium (137-145) mmol/L Potassium (3.6-5.0) mmol/L Chloride (98-107) mmol/L Carbon Dioxide (22-30) mmol/L Anion Gap mmol/L BUN (9-20) mg/dL Creatinine (0.8-1.3) mg/dL Estimated GFR ml/min BUN/Creatinine Ratio % Glucose (75-100) mg/dL Calcium (8.4-10.2) mg/dL Total Bilirubin (0.1-1.2) mg/dL AST (5-40) units/L ALT (7-56) units/L Alkaline Phosphatase (35-129) units/L Total Creatine Kinase (55-170) units/L CK-MB (CK-2) (0.0-4.0) ng/mL CK-MB (CK-2) Rel Index (0-4) Troponin T (0.00-0.029) ng/mL Total Protein (6.3-8.2) g/dL Albumin (3.9-5) g/dL Albumin/Globulin Ratio % Triglycerides (2-149) mg/dL Cholesterol (50-199) mg/dL LDL Cholesterol Direct (50-130) mg/dL HDL Cholesterol (40-59) mg/dL Cholesterol/HDL Ratio % Plasma/Serum Alcohol < 0.01 (0-0.07) % - EKG Data -: EKG Interpreted by Me EKG shows normal: sinus rhythm Rate: tachycardia 07/17/21 11:26 EKG shows a sinus tachycardia 114. [place] normal intervals show a prolonged QT. Q waves anterior no ST segment elevations or depressions. Multiple PVCs. Time interpretation 1117 - Radiology Data CT HEAD WITHOUT CONTRAST INDICATION / CLINICAL INFORMATION: CODE STROKE CALL ER MAIN AT 8199 Stroke symptoms. Left-sided weakness TECHNIQUE: Axial imaging performed from the skull apex through the skull base without the use of contrast. Sagittal and coronal reformatted images. All CT scans at this location are performed using CT dose reduction for ALARA by means of automated exposure control. COMPARISON: 11/24/2019 FINDINGS: CEREBRAL PARENCHYMA: Mild volume loss and moderate chronic ischemic changes in the white matter are again noted and unchanged. Multiple chronic appearing lacunar infarcts are identified in the bilateral basal ganglia and left margie. There appear to be 2 new chronic appearing lacunar infarcts since 11/24/2019 exam. A chronic focal infarct involving the posterior limb of the right internal capsule measures 1.3 x 0.5 cm. A chronic focal infarct in the left margie measures 6 mm. No acute parenchymal abnormality is appreciated on today's exam. The left MCA appears slightly hyperdense measuring 51 Hounsfield units although it was slightly hyperdense on the previous exam as well. CTA was recommended. HEMORRHAGE: None. EXTRA-AXIAL SPACES: Normal in size and morphology for the patient's age. VENTRICULAR SYSTEM: Normal in size and morphology for the patient's age. MIDLINE SHIFT OR HERNIATION: None. CEREBELLUM / BRAINSTEM: 7 mm chronic appearing left pontine infarct is again noted. The cerebellar hemispheres are unremarkable. CALVARIUM: No significant abnormality. ORBITS: Normal as visualized. PARANASAL SINUSES / MASTOID AIR CELLS: Normal as visualized. SOFT TISSUES of HEAD: No significant abnormality. ADDITIONAL FINDINGS: None. IMPRESSION: Volume loss, chronic white matter changes and multiple chronic appearing lacunar infarcts as described above. No definite acute parenchymal abnormality or hemorrhage. Questionable hyperdense left MCA. CODE STROKE: Time of Communication (ENGINEERING TECHNOLOGY INSTRUCTOR/CDT): 0743 hours Licensed Practitioner Receiving Report: Dr. Farmer Signer Name: Mata Olmedo Jr, MD Signed: 07/17/2021 8:46 AM Workstation Name: [id number] CT angio head INDICATION / CLINICAL INFORMATION: 51 years Male; stroke sx. TECHNIQUE: Thin cut axial images obtained through the head during IV bolus contrast administration. Sagittal, coronal, and 3 plane MIP reconstructions performed by the technologist. NASCET type criteria used evaluate stenoses. Automated exposure control utilized for radiation reduction purposes. COMPARISON: None available. FINDINGS: INTERNAL CAROTID ARTERIES: There is no significant focal stenosis involving the intracranial ICAs by NASCET to criteria. There is very mild calcification involving the right cavernous segment. VERTEBROBASILAR SYSTEM: There is decreased contrast opacification within the intracranial segment of the right vertebral artery compatible with decreased flow. The motion degrades the image quality at. However, there is no clear evidence of intimal flap to indicate dissection though correlation would be needed given the decreased flow.. There is irregularity of the proximal intracranial segment of the left vertebral artery with mild to moderate to narrowing at. Additionally, there is also significant focal stenosis just proximal to the origin of the basilar artery. Additionally, there is also marked focal stenosis involving which was a mid basilar artery. However, flow is seen within the more distal segment. 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 There is no significant focal stenosis involving anterior or posterior cerebral arteries at. There is mild irregularity of the right MCA compatible with atherosclerotic disease and mild narrowing of the M1 segment. However, there is no clear evidence of significant stenosis involving more distal segments. ANEURYSM: None identified. ADDITIONAL FINDINGS: Remainder of the surrounding soft tissues are grossly normal. IMPRESSION: There is notable irregularity of the vertebrobasilar system with significant stenosis, most notably involving the mid basilar artery as detailed above. Additionally, there is notable decrease contrast opacification of the distal right vertebral artery compatible with reduced flow. There is a high riding left ICA which correlates with the earlier noncontrast CT. However, there is no significant stenosis or occlusion involving anterior circulation vessels. Signer Name: Aníbal Garza MD Signed: 07/17/2021 10:51 AM Workstation Name: [id number] CT angio neck INDICATION / CLINICAL INFORMATION: 51 years Male; CODE STROKE CALL ER MAIN [id number] OMNI 350 100 ML stroke sx. TECHNIQUE: Thin cut axial images obtained through the head during IV bolus contrast administration. Sagittal, coronal, and 3 plane MIP reconstructions performed by the technologist. NASCET type criteria used evaluate stenoses. All CT scans at this location are performed using CT dose reduction for ALARA by means of automated exposure control. COMPARISON: None available. FINDINGS: CAROTID ARTERIES: There is mild atherosclerotic calcification involving proximal internal carotid arteries bilaterally without significant stenosis by NASCET criteria. There is notable tortuosity of the proximal cervical ICAs which represents developmental variant. VERTEBRAL ARTERIES: The motion and beam hardening obscures the origins of the vertebral arteries.. 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 There is notable decrease opacification involving the intracranial right vertebral artery with milder findings involving distal cervical segment at. Correlation would be needed regarding a decrease flow at. The CTA head will be dictated separately. ARCH: There is no significant stenosis involving origins of the arch vessels. There is developmental common origin of the brachiocephalic and left common carotid arteries. ADDITIONAL FINDINGS: Remainder of the surrounding soft tissues are grossly normal. IMPRESSION: There is mild atherosclerotic calcification involving the proximal internal carotid arteries without significant stenosis by NASCET criteria. There is relative decreased attenuation involving the distal cervical and intracranial segments of the right vertebral artery compatible with decreased flow. The CTA head will be dictated separately. Signer Name: Aníbal Garza MD Signed: 07/17/2021 10:39 AM Workstation Name: [id number] Transcribed By: MR CHEST 1 VIEW INDICATION: stroke. COMPARISON: 11/24/2019 FINDINGS: Support devices: None. Heart: Borderline heart size. Mildly ectatic aorta. Lungs/Pleura: The lungs are clear with no evidence for infiltrate, pleural fluid or pneumothorax. Additional findings: None. IMPRESSION: Borderline heart size. Lungs clear. Signer Name: Mata Olmedo Jr, MD Signed: 07/17/2021 9:07 AM Workstation Name: [id number] - Medical Decision Making Patient is well outside the window for TPA. CT angiogram of the head and neck show significant narrowing and atherosclerotic changes to multiple vessels however there is no acute occlusions present. Patient will be admitted to the hospital service for further management. Critical care attestation.: If time is entered above; I have spent that time in minutes in the direct care of this critically ill patient, excluding procedure time. ED Disposition Clinical Impression: Acute CVA (cerebrovascular accident) Disposition: ADMITTED INPATIENT Is pt being admited?: Yes Does the pt Need Aspirin: Yes Condition: Stable Time of Disposition: 11:35
[2021-07-17] MEDS ORDERED: ASPIRIN 81 MG TAB CHEW PO ONE (11:35)
[2021-07-17 12:28] LABS: Thrombin Time 18.9 Sec. (15.1-19.6)
--- NOTE | 2021-07-17 15:46 | Consultation ---
History of Present Illness Consult date: 07/17/21 Medications and Allergies Allergies Allergy/AdvReac Type Severity Reaction Status Date / Time No Known Allergies Allergy Unverified 11/24/19 08:20 Home Medications Medication Instructions Recorded Confirmed Last Taken Type Multivitamin/Iron/Folic Acid 1 each PO QDAY 11/24/19 11/24/19 Unknown History [Centrum Adults Tablet] AtorvaSTATin [Lipitor] 40 mg PO QHS #30 tablet 11/27/19 Unknown Rx Docusate Sodium [Colace CAP] 100 mg PO BID PRN #20 capsule 11/27/19 Unknown Rx Insulin NPH/Regular [NovoLIN 70/30] 18 unit SUB-Q BIDDIAB #2 vial 11/27/19 Unknown Rx Lispro Insulin [HumaLOG] 5 unit SUB-Q ACHS #1 vial 11/27/19 Unknown Rx amLODIPine 10 mg PO QDAY #30 tablet 11/27/19 Unknown Rx carvediloL [Coreg] 12.5 mg PO BID #60 tablet 11/27/19 Unknown Rx hydrALAZINE [Apresoline TAB] 50 mg PO Q8HR #90 tab 11/27/19 Unknown Rx lisinopriL [Zestril TAB] 40 mg PO QDAY #30 tablet 11/27/19 Unknown Rx Physical Examination - Vital Signs Vital Signs: Vital Signs Temp Resp Pulse Ox 98.4 F 18 99 07/17/21 08:30 07/17/21 08:30 07/17/21 08:30 Results - Laboratory Findings CBC and BMP: 07/17/21 08:48 07/17/21 08:48 Abnormal Lab Findings: Abnormal Labs 07/17/21 07/17/21 07/17/21 08:48 08:48 14:10 WBC 12.0 H RBC 5.76 H Hgb 16.9 H Hct 52.1 H Lymph % (Auto) 12.6 L Mcmullen % (Auto) 10.3 H Mcmullen # (Auto) 1.2 H Seg Neutrophils % 76.3 H Seg Neutrophils # 9.2 H Potassium 3.3 L Glucose 173 H POC Glucose 156 H AST 198 H ALT 60 H Total Creatine Kinase 83647 H CK-MB (CK-2) 54.1 H Troponin T 0.037 H Albumin 3.7 L Cholesterol 244 H LDL Cholesterol Direct 154 H HDL Cholesterol 66 H Assessment and Plan [facility] Consult Note # Demographics Consult Type: Acute Stroke Level 2 (4.5-24 hrs) Patient Location: Emergency Room First Name: Fartun Last Name: Cecil Date of : 1970 Age: 51 Gender: Male Facility: [facility] Time of Initial Page (Eastern Time): 07/17/2021, 08:00 Time of Return Call (Eastern Time): 07/17/2021, 08:01 # HPI History: 51 yo man with right-sided weakness, speech difficulties. CT head with chronic ischemic changes. Last Known Normal: I have collected independent history specific to time last normal or last known well. We have collaborated with the provider and at this time, we have the most current timeline with the information that is available. 13:00 yesterday # Assessment Impression: Ischemic Stroke (Subacute) Right-sided weakness and speech difficulties concerning for ischemic stroke. Given time of onset yesterday he is not a candidate for IV tpa. CTA without LVO # Plan Thrombolytic/Intervention: NOT IV Thrombolysis or IA Intervention candidate Thrombolytic Exclusion: > 4.5 hours Intraarterial Exclusion: no large vessel occlusion (LVO) Target Blood Pressure: SBP < 220 Labs: hemoglobin A1c lipid panel Imaging: (urgency: routine): MRI Brain without contrast Diagnostic Test: echo with bubble study Therapy/Evaluation: NPO until swallow evaluation Medication: aspirin 81 mg daily DVT Prophylaxis: SCD chemical DVT prophylaxis Other: LDL < 70 permissive hypertension telemetry monitoring I have discussed my recommendations with the referring provider Disposition: admit # Logistics Telemedicine: phone only
[2021-07-17] MEDS ORDERED: ONDANSETRON 4 MG/2 ML INJ IV PRN (23:42)
[2021-07-17] MEDS ORDERED: ACETAMINOPHEN 325 MG TAB PO PRN (23:42)
[2021-07-17] MEDS ORDERED: oxyCODONE /ACETAMINOPHEN 5-325MG TAB PO PRN (23:43)
[2021-07-17] MEDS ORDERED: METOCLOPRAMIDE 10 MG/2 ML INJ IV PRN (23:43)
[2021-07-17] MEDS ORDERED: SODIUM CHLORIDE 0.9% 1000 ML 1,000 ML IV SCH (23:45)
[2021-07-18 06:02] LABS: Basophils # (Auto) 0.1 K/mm3 (0.0-0.1); Basophils % (Auto) 0.8 % (0.0-1.8); Eosinophils # (Auto) 0.1 K/mm3 (0.0-0.4); Eosinophils % (Auto) 0.6 % (0.0-4.3); Hematocrit 47.1 % (35.5-45.6); Hemoglobin 15.3 gm/dl (11.8-15.2); Lymphocytes # (Auto) 2.4 K/mm3 (1.2-5.4); Lymphocytes % (Auto) 20.3 % (13.4-35.0); Mean Corpuscular HGB Conc 33 % (32-34); Mean Corpuscular Volume 90 fl (84-94); Monocytes # (Auto) 1.3 K/mm3 (0.0-0.8); Monocytes % (Auto) 10.7 % (0.0-7.3); Platelet Count 224 K/mm3 (140-440); Red Blood Count 5.25 M/mm3 (3.65-5.03); Red Cell Distribution Width 14.2 % (13.2-15.2)
[2021-07-18 06:28] LABS: Albumin 3.6 g/dL (3.9-5); Calcium 8.8 mg/dL (8.4-10.2)
--- NOTE | 2021-07-18 07:04 | History and Physical Report ---
History of Present Illness Date of examination: 07/17/21 Date of admission: 07/17/21 11:35 Chief complaint: Left-sided weakness since yesterday afternoon History of present illness: 51-year-old -[place]ish male with history of hypertension, hyperlipidemia and insulin-dependent diabetes comes in for left-sided upper extremity and lower extremity weakness. Also has difficulty speaking. This happened approximately at 1 PM yesterday. Patient did not seek any medical attention. Patient had vestibulitis. Patient has slurred speech. No fever or chills. No chest pain. Sudden onset. Patient is out of the window for TPA - Past Medical History --IDDM --HTN --HLD --CVA - Social History Smoking Status: Never Smoker Family History --HTN - Medications Home Medications: Home Medications Medication Instructions Recorded Confirmed Last Taken Type Multivitamin/Iron/Folic Acid 1 each PO QDAY 11/24/19 11/24/19 Unknown History [Centrum Adults Tablet] AtorvaSTATin [Lipitor] 40 mg PO QHS #30 tablet 11/27/19 Unknown Rx Docusate Sodium [Colace CAP] 100 mg PO BID PRN #20 capsule 11/27/19 Unknown Rx Insulin NPH/Regular [NovoLIN 70/30] 18 unit SUB-Q BIDDIAB #2 vial 11/27/19 Unknown Rx Lispro Insulin [HumaLOG] 5 unit SUB-Q ACHS #1 vial 11/27/19 Unknown Rx amLODIPine 10 mg PO QDAY #30 tablet 11/27/19 Unknown Rx carvediloL [Coreg] 12.5 mg PO BID #60 tablet 11/27/19 Unknown Rx hydrALAZINE [Apresoline TAB] 50 mg PO Q8HR #90 tab 11/27/19 Unknown Rx lisinopriL [Zestril TAB] 40 mg PO QDAY #30 tablet 11/27/19 Unknown Rx Review of Systems ROS: Constitutional no weight loss or weight gain no fever or chills HEENT no sore throat no post nasal drip no diplopia Neck no neck stiffness no lymph gland enlargement Chest and lungs no shortness of breath cough or wheezing CVS no chest pain no diaphoresis no palpitations GI no nausea no vomiting no diarrhea Genitourinary system no dysuria no flank pain 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 Skin no rash no itching Psychiatric no depression no homicidal or suicidal tendencies Hematologic no lymphedema or bruising Endocrine no polydipsia no polyuria no cold intolerance no heat intolerance Medications and Allergies Allergies Allergy/AdvReac Type Severity Reaction Status Date / Time No Known Allergies Allergy Unverified 11/24/19 08:20 Home Medications Medication Instructions Recorded Confirmed Last Taken Type Multivitamin/Iron/Folic Acid 1 each PO QDAY 11/24/19 11/24/19 Unknown History [Centrum Adults Tablet] AtorvaSTATin [Lipitor] 40 mg PO QHS #30 tablet 11/27/19 Unknown Rx Docusate Sodium [Colace CAP] 100 mg PO BID PRN #20 capsule 11/27/19 Unknown Rx Insulin NPH/Regular [NovoLIN 70/30] 18 unit SUB-Q BIDDIAB #2 vial 11/27/19 Unknown Rx Lispro Insulin [HumaLOG] 5 unit SUB-Q ACHS #1 vial 11/27/19 Unknown Rx amLODIPine 10 mg PO QDAY #30 tablet 11/27/19 Unknown Rx carvediloL [Coreg] 12.5 mg PO BID #60 tablet 11/27/19 Unknown Rx hydrALAZINE [Apresoline TAB] 50 mg PO Q8HR #90 tab 11/27/19 Unknown Rx lisinopriL [Zestril TAB] 40 mg PO QDAY #30 tablet 11/27/19 Unknown Rx Active Meds: Active Medications Acetaminophen (Acetaminophen 325 Mg Tab) 650 mg PO Q4H PRN PRN Reason: Pain MILD(1-3)/Fever >100.5/[place] Amlodipine Besylate (Amlodipine 10 Mg Tab) 10 mg PO QDAY [facility] Aspirin (Aspirin 325 Mg Tab) 325 mg PO QDAY [facility] Atorvastatin Calcium (Atorvastatin 40 Mg Tab) 40 mg PO QHS [facility] Atorvastatin Calcium (Atorvastatin 40 Mg Tab) 40 mg PO QHS [facility] Carvedilol (Carvedilol 12.5 Mg Tab) 12.5 mg PO BID [facility] Docusate Sodium (Docusate Sodium 100 Mg Cap) 100 mg PO BID PRN PRN Reason: Constipation Famotidine (Famotidine 20 Mg Tab) 20 mg PO BID [facility] Heparin Sodium (Porcine) (Heparin 5,000 Unit/1 Ml Vial) 5,000 unit SUB-Q Q12HR [facility] Hydralazine HCl (Hydralazine 25 Mg Tab) 50 mg PO Q8HR [facility] Sodium Chloride (Nacl 0.9% 1000 Ml) 1,000 mls @ 75 mls/hr IV DIRECT [facility] Stop: 07/18/21 08:00 Insulin Human Isoph/Insulin Regular (Insulin Nph/Regular 70/30 Inj) 18 unit SUB-Q BIDDIAB [facility] Lisinopril (Lisinopril 40 Mg Tab) 40 mg PO QDAY [facility] Metoclopramide HCl (Metoclopramide 10 Mg/2 Ml Inj) 10 mg IV Q6H PRN PRN Reason: Nausea And Vomiting Ondansetron HCl (Ondansetron 4 Mg/2 Ml Inj) 4 mg IV Q8H PRN PRN Reason: Nausea And Vomiting Oxycodone/Acetaminophen (Oxycodone /Acetaminophen 5-325mg Tab) 1 tab PO Q6H PRN PRN Reason: Pain, Moderate (4-6) Sodium Chloride (Sodium Chloride 0.9% 10 Ml Flush Syringe) 10 ml IV BID [facility] Sodium Chloride (Sodium Chloride 0.9% 10 Ml Flush Syringe) 10 ml IV PRN PRN PRN Reason: LINE FLUSH Exam - Constitutional Vitals: Temp Pulse Resp BP Pulse Ox 98.4 F 102 H 15 170/84 95 07/17/21 08:30 07/18/21 06:30 07/18/21 06:30 07/18/21 06:30 07/18/21 06:30 HEART Score - HEART Score Troponin: Troponin T 0.037 ng/mL (0.00-0.029) H 07/17/21 08:48 Results - Labs CBC & Chem 7: 07/18/21 05:03 07/18/21 05:03 Labs: Laboratory Last Values WBC 11.7 K/mm3 (4.5-11.0) H 07/18/21 05:03 RBC 5.25 M/mm3 (3.65-5.03) H 07/18/21 05:03 Hgb 15.3 gm/dl (11.8-15.2) H 07/18/21 05:03 Hct 47.1 % (35.5-45.6) H 07/18/21 05:03 MCV 90 fl (84-94) 07/18/21 05:03 MCH 29 pg (28-32) 07/18/21 05:03 MCHC 33 % (32-34) 07/18/21 05:03 RDW 14.2 % (13.2-15.2) 07/18/21 05:03 Plt Count 224 K/mm3 (140-440) 07/18/21 05:03 Lymph % (Auto) 20.3 % (13.4-35.0) 07/18/21 05:03 [place] % (Auto) 10.7 % (0.0-7.3) H 07/18/21 05:03 Eos % (Auto) 0.6 % (0.0-4.3) 07/18/21 05:03 Baso % (Auto) 0.8 % (0.0-1.8) 07/18/21 05:03 Lymph # (Auto) 2.4 K/mm3 (1.2-5.4) 07/18/21 05:03 [place] # (Auto) 1.3 K/mm3 (0.0-0.8) H 07/18/21 05:03 Eos # (Auto) 0.1 K/mm3 (0.0-0.4) 07/18/21 05:03 Baso # (Auto) 0.1 K/mm3 (0.0-0.1) 07/18/21 05:03 Seg Neutrophils % 67.6 % (40.0-70.0) 07/18/21 05:03 Seg Neutrophils # 7.9 K/mm3 (1.8-7.7) H 07/18/21 05:03 PT 14.2 Sec. (12.2-14.9) 07/17/21 08:48 INR 0.99 (0.87-1.13) 07/17/21 08:48 APTT 26.5 Sec. (24.2-36.6) 07/17/21 08:48 Thrombin Time 18.9 Sec. (15.1-19.6) 07/17/21 08:48 Sodium 140 mmol/L (137-145) 07/18/21 05:03 Potassium 3.1 mmol/L (3.6-5.0) L 07/18/21 05:03 Chloride 95.3 mmol/L (98-107) L 07/18/21 05:03 Carbon Dioxide 24 mmol/L (22-30) 07/18/21 05:03 Anion Gap 24 mmol/L 07/18/21 05:03 BUN 37 mg/dL (9-20) H 07/18/21 05:03 Creatinine 3.1 mg/dL (0.8-1.3) H D 07/18/21 05:03 Estimated GFR 26 ml/min 07/18/21 05:03 BUN/Creatinine Ratio 12 % 07/18/21 05:03 Glucose 167 mg/dL (75-100) H 07/18/21 05:03 POC Glucose 156 mg/dL (70-105) H 07/17/21 14:10 Calcium 8.8 mg/dL (8.4-10.2) 07/18/21 05:03 Total Bilirubin 0.80 mg/dL (0.1-1.2) 07/18/21 05:03 AST 129 units/L (5-40) H 07/18/21 05:03 ALT 59 units/L (7-56) H 07/18/21 05:03 Alkaline Phosphatase 84 units/L (35-129) 07/18/21 05:03 Total Creatine Kinase 48234 units/L (55-170) H 07/17/21 08:48 CK-MB (CK-2) 54.1 ng/mL (0.0-4.0) H 07/17/21 08:48 CK-MB (CK-2) Rel Index 0.4 (0-4) 07/17/21 08:48 Troponin T 0.037 ng/mL (0.00-0.029) H 07/17/21 08:48 Total Protein 6.9 g/dL (6.3-8.2) 07/18/21 05:03 Albumin 3.6 g/dL (3.9-5) L 07/18/21 05:03 Albumin/Globulin Ratio 1.1 % 07/18/21 05:03 Triglycerides 95 mg/dL (2-149) 07/17/21 08:48 Cholesterol 244 mg/dL (50-199) H 07/17/21 08:48 LDL Cholesterol Direct 154 mg/dL (50-130) H 07/17/21 08:48 HDL Cholesterol 66 mg/dL (40-59) H 07/17/21 08:48 Cholesterol/HDL Ratio 3.69 % 07/17/21 08:48 Plasma/Serum Alcohol < 0.01 % (0-0.07) 07/17/21 08:48 - Imaging and Cardiology Imaging and Cardiology: Head CT final impression There appears to be 2 new chronic appearing lacunar infarct since 11/24/2019 exam. A chronic focal infarct involving the posterior limb of the right internal capsule measures 1.3X 0.5 cm and a chronic focal infarct in the left margie measuring 6 mm Head CTA There is notable irregularity of the vertebrobasilar system with significant stenosis most notably involving the mild and basilar events detailed above. Additionally there is notable decreased contrast opacification of the distal right vertebral artery compatible with reduced flow. There is a high riding left ICA with correlate with the earlier noncontrast CT however there is no significant stenosis or occlusion involving anterior circul ation results. Neck CTA There is mild atherosclerotic calcifications involving the proximal internal carotid arteries without significant stenosis. There is relative decreased attenuation involving the distal cervical and intracranial segments of the right vertebral artery compatible with subtle decreased flow Assessment and Plan Advance Directives: Yes (Full code) VTE prophylaxis?: Chemical Plan of care discussed with patient/family: Yes - Patient Problems (1) Acute CVA (cerebrovascular accident) Current Visit: Yes Status: Acute Plan to address problem: Acute CVA work-up MRI and echocardiogram requested No MRA because head CTA and neck CTA are done Neurology consult requested (2) IDDM (insulin dependent diabetes mellitus) Current Visit: Yes Status: Chronic Plan to address problem: Continue home insulin and coverage Check A1c (3) Hypertension Current Visit: Yes Status: Chronic Qualifiers: Hypertension type: primary hypertension Qualified Code(s): I10 - Essential (primary) hypertension Plan to address problem: Continue antihypertensives and adjust medications (4) Hyperlipidemia Current Visit: Yes Status: Chronic Qualifiers: Hyperlipidemia type: mixed hyperlipidemia Qualified Code(s): E78.2 - Mixed hyperlipidemia Plan to address problem: Continue statins (5) CKD (chronic kidney disease) Current Visit: Yes Status: Chronic Qualifiers: Chronic kidney disease stage: stage 3 (moderate) Plan to address problem: Nephrology consult requested (6) Polycythemia due to fall in plasma volume Current Visit: Yes Status: Acute Plan to address problem: IV fluids for now (7) Hypokalemia Current Visit: Yes Status: Acute Plan to address problem: Supplemented (8) DVT prophylaxis Current Visit: Yes Status: Acute Plan to address problem: On anticoagulation GI prophylaxis
[2021-07-18] MEDS: hydrALAZINE 25 MG TAB PO SCH ×2 (07:55→15:09)
[2021-07-18] MEDS: INSULIN LISPRO 100 UNIT/ML SUB-Q SCH ×3 (07:55→17:46)
[2021-07-18] MEDS ORDERED: METOCLOPRAMIDE 10 MG/2 ML INJ IV PRN (08:00)
--- NOTE | 2021-07-18 09:52 | Consultation ---
History of Present Illness Consult date: 07/18/21 Reason for Consult: New onset left side weakness since yesterday History of present illness: Left-sided weakness since yesterday afternoon History of present illness: 51-year-old -[place] African male with history of hypertension, hyperlipidemia and insulin-dependent diabetes comes in for left-sided upper extremity and lower extremity weakness. Also has difficulty speaking/slurred speech no swallowing difficulty according to pt. he felt to the ground and could not get up for few hours until his relative cames and found him on floor , denied LOC , denied Hx of CVA This happened approximately at 1 PM yesterday. Patient did not seek any medical attention. Patient had vestibulitis. Patient has slurred speech. No fever or chills. No chest pain. Sudden onset. Patient is out of the window for TPA -In Er Ct brain and CTA brain and neck are remarkable for multi lacunar infarct and atherosclerotic changes in Basilar a. -MRI brain is pending -echo is pending -started on ASA 325 and Lipitor 40 mg -LDL is pending -A1C is pending -cardiac monitoring -CPK#[id number] -Creatinine #3.1 today was #1.1 yesterday - Past Medical History --IDDM --HTN --HLD --CVA - Social History Smoking Status: Never Smoker Family History --HTN - Medications Home Medications: Home Medications Medication Instructions Recorded Confirmed Last Taken Type Multivitamin/Iron/Folic Acid 1 each PO QDAY 11/24/19 11/24/19 Unknown History [Centrum Adults Tablet] AtorvaSTATin [Lipitor] 40 mg PO QHS #30 tablet 11/27/19 Unknown Rx Docusate Sodium [Colace CAP] 100 mg PO BID PRN #20 capsule 11/27/19 Unknown Rx Insulin NPH/Regular [NovoLIN 70/30] 18 unit SUB-Q BIDDIAB #2 vial 11/27/19 Unknown Rx Lispro Insulin [HumaLOG] 5 unit SUB-Q ACHS #1 vial 11/27/19 Unknown Rx amLODIPine 10 mg PO QDAY #30 tablet 11/27/19 Unknown Rx carvediloL [Coreg] 12.5 mg PO BID #60 tablet 11/27/19 Unknown Rx hydrALAZINE [Apresoline TAB] 50 mg PO Q8HR #90 tab 11/27/19 Unknown Rx lisinopriL [Zestril TAB] 40 mg PO QDAY #30 tablet 11/27/19 Unknown Rx Review of Systems ROS: Constitutional no weight loss or weight gain no fever or chills HEENT no sore throat no post nasal drip no diplopia Neck no neck stiffness no lymph gland enlargement Chest and lungs no shortness of breath cough or wheezing CVS no chest pain no diaphoresis no palpitations GI no nausea no vomiting no diarrhea Genitourinary system no dysuria no flank pain Musculoskeletal system no muscle pains 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 Skin no rash no itching Psychiatric no depression no homicidal or suicidal tendencies Hematologic no lymphedema or bruising Endocrine no polydipsia no polyuria no cold intolerance no heat intolerance Medications and Allergies Allergies Allergy/AdvReac Type Severity Reaction Status Date / Time No Known Allergies Allergy Unverified 11/24/19 08:20 Home Medications Medication Instructions Recorded Confirmed Last Taken Type Multivitamin/Iron/Folic Acid 1 each PO QDAY 11/24/19 11/24/19 Unknown History [Centrum Adults Tablet] AtorvaSTATin [Lipitor] 40 mg PO QHS #30 tablet 11/27/19 Unknown Rx Docusate Sodium [Colace CAP] 100 mg PO BID PRN #20 capsule 11/27/19 Unknown Rx Insulin NPH/Regular [NovoLIN 70/30] 18 unit SUB-Q BIDDIAB #2 vial 11/27/19 Unknown Rx Lispro Insulin [HumaLOG] 5 unit SUB-Q ACHS #1 vial 11/27/19 Unknown Rx amLODIPine 10 mg PO QDAY #30 tablet 11/27/19 Unknown Rx carvediloL [Coreg] 12.5 mg PO BID #60 tablet 11/27/19 Unknown Rx hydrALAZINE [Apresoline TAB] 50 mg PO Q8HR #90 tab 11/27/19 Unknown Rx lisinopriL [Zestril TAB] 40 mg PO QDAY #30 tablet 11/27/19 Unknown Rx Active Meds: Active Medications Acetaminophen (Acetaminophen 325 Mg Tab) 650 mg PO Q4H PRN PRN Reason: Pain MILD(1-3)/Fever >100.5/HENAO Amlodipine Besylate (Amlodipine 10 Mg Tab) 10 mg PO QDAY [facility] Aspirin (Aspirin 325 Mg Tab) 325 mg PO QDAY [facility] Atorvastatin Calcium (Atorvastatin 40 Mg Tab) 40 mg PO QHS [facility] Atorvastatin Calcium (Atorvastatin 40 Mg Tab) 40 mg PO QHS [facility] Carvedilol (Carvedilol 12.5 Mg Tab) 12.5 mg PO BID [facility] Docusate Sodium (Docusate Sodium 100 Mg Cap) 100 mg PO BID PRN PRN Reason: Constipation Famotidine (Famotidine 20 Mg Tab) 20 mg PO BID [facility] Heparin Sodium (Porcine) (Heparin 5,000 Unit/1 Ml Vial) 5,000 unit SUB-Q Q12HR [facility] Hydralazine HCl (Hydralazine 25 Mg Tab) 50 mg PO Q8HR [facility] Sodium Chloride (Nacl 0.9% 1000 Ml) 1,000 mls @ 75 mls/hr IV DIRECT [facility] Stop: 07/18/21 08:00 Insulin Human Isoph/Insulin Regular (Insulin Nph/Regular 70/30 Inj) 18 unit SUB-Q BIDDIAB [facility] Lisinopril (Lisinopril 40 Mg Tab) 40 mg PO QDAY [facility] Metoclopramide HCl (Metoclopramide 10 Mg/2 Ml Inj) 10 mg IV Q6H PRN PRN Reason: Nausea And Vomiting Ondansetron HCl (Ondansetron 4 Mg/2 Ml Inj) 4 mg IV Q8H PRN PRN Reason: Nausea And Vomiting Oxycodone/Acetaminophen (Oxycodone /Acetaminophen 5-325mg Tab) 1 tab PO Q6H PRN PRN Reason: Pain, Moderate (4-6) Sodium Chloride (Sodium Chloride 0.9% 10 Ml Flush Syringe) 10 ml IV BID [facility] Sodium Chloride (Sodium Chloride 0.9% 10 Ml Flush Syringe) 10 ml IV PRN PRN PRN Reason: LINE FLUSH Medications and Allergies Allergies Allergy/AdvReac Type Severity Reaction Status Date / Time No Known Allergies Allergy Unverified 11/24/19 08:20 Home Medications Medication Instructions Recorded Confirmed Last Taken Type Multivitamin/Iron/Folic Acid 1 each PO QDAY 11/24/19 11/24/19 Unknown History [Centrum Adults Tablet] AtorvaSTATin [Lipitor] 40 mg PO QHS #30 tablet 11/27/19 Unknown Rx Docusate Sodium [Colace CAP] 100 mg PO BID PRN #20 capsule 11/27/19 Unknown Rx Insulin NPH/Regular [NovoLIN 70/30] 18 unit SUB-Q BIDDIAB #2 vial 11/27/19 Unknown Rx Lispro Insulin [HumaLOG] 5 unit SUB-Q ACHS #1 vial 11/27/19 Unknown Rx amLODIPine 10 mg PO QDAY #30 tablet 11/27/19 Unknown Rx carvediloL [Coreg] 12.5 mg PO BID #60 tablet 11/27/19 Unknown Rx hydrALAZINE [Apresoline TAB] 50 mg PO Q8HR #90 tab 11/27/19 Unknown Rx lisinopriL [Zestril TAB] 40 mg PO QDAY #30 tablet 11/27/19 Unknown Rx Active Meds: Active Medications Acetaminophen (Acetaminophen 325 Mg Tab) 650 mg PO Q4H PRN PRN Reason: Pain MILD(1-3)/Fever >100.5/[place] Amlodipine Besylate (Amlodipine 10 Mg Tab) 10 mg PO QDAY [facility] Aspirin (Aspirin 325 Mg Tab) 325 mg PO QDAY [facility] Atorvastatin Calcium (Atorvastatin 40 Mg Tab) 40 mg PO QHS [facility] Carvedilol (Carvedilol 12.5 Mg Tab) 12.5 mg PO BID [facility] Docusate Sodium (Docusate Sodium 100 Mg Cap) 100 mg PO BID PRN PRN Reason: Constipation Famotidine (Famotidine 10 Mg Tab) 10 mg PO BID [facility] Heparin Sodium (Porcine) (Heparin 5,000 Unit/1 Ml Vial) 5,000 unit SUB-Q Q12HR [facility] Hydralazine HCl (Hydralazine 25 Mg Tab) 50 mg PO Q8HR [facility] Last Admin: 07/18/21 07:55 Dose: 50 mg Documented by: Insulin Human Isoph/Insulin Regular (Insulin Nph/Regular 70/30 Inj) 18 unit SUB-Q BIDDIAB [facility] Insulin Human Lispro (Insulin Lispro 100 Unit/Ml) 0 unit SUB-Q ACHS [facility]; Protocol Last Admin: 07/18/21 07:55 Dose: 2 unit Documented by: Lisinopril (Lisinopril 40 Mg Tab) 40 mg PO QDAY [facility] Metoclopramide HCl (Metoclopramide 10 Mg/2 Ml Inj) 5 mg IV Q6H PRN PRN Reason: Nausea And Vomiting Ondansetron HCl (Ondansetron 4 Mg/2 Ml Inj) 4 mg IV Q8H PRN PRN Reason: Nausea And Vomiting Oxycodone/Acetaminophen (Oxycodone /Acetaminophen 5-325mg Tab) 1 tab PO Q6H PRN PRN Reason: Pain, Moderate (4-6) Sodium Chloride (Sodium Chloride 0.9% 10 Ml Flush Syringe) 10 ml IV BID [facility] Sodium Chloride (Sodium Chloride 0.9% 10 Ml Flush Syringe) 10 ml IV PRN PRN PRN Reason: LINE FLUSH Physical Examination - Vital Signs Vital Signs: Vital Signs Temp Resp Pulse Ox 98.4 F 18 99 07/17/21 08:30 07/17/21 08:30 07/17/21 08:30 - Constitutional General appearance: comfortable - EENT EENT: Present: PERRL, mucous membranes moist - Respiratory Respiratory: Present: lungs clear, rhonchi - Cardiovascular Cardiovascular: Present: regular rate, normal S1, normal S2 Extremities: Present: no peripheral edema bilatateraly, no clubbing, cyanosis - Gastrointestinal Gastrointestinal: Present: normoactive bowel sounds - Integumentary Integumentary: Present: normal - Neurologic Cranial nerve examination: PERRL, EOMI, facial droop Speech examination: other (slurred speech , no aphasia no dysrathia) Detailed motor examination: other (left side weakness upper 1-2/5 lower 3/5 , no sensory deficit , planter is down going , no clonus) - Level of Consciousness 1a. Level of Consciousness: alert/keenly responsive - LOC Questions 1b. LOC Questions: answers both correctly - LOC Command 1c. LOC Commands: performs tasks correctly - Best Gaze 2. Best Gaze: normal - Visual 3. Visual: no visual loss - Facial Palsy 4. Facial Palsy: partial paralysis - Motor Arm 5a. Motor Arm Left: some gravity effort 5b. Motor Arm Right: no drift - Motor Leg 6a. Motor Leg Left: drift 6b. Motor Leg Right: no drift - Limb Ataxia 7. Limb Ataxia: absent - Sensory 8. Sensory: normal - Best Language 9. Best Language: no aphasia - Dysarthria 10. Dysarthria: normal - Extinction and Inattention 11. Extinction/Inattention: no abnormality - Scoring Total Score: 5 Stroke Severity: Moderate Stroke Results - Laboratory Findings CBC and BMP: 07/18/21 05:03 07/18/21 05:03 Abnormal Lab Findings: Abnormal Labs 07/17/21 07/17/21 07/17/21 08:48 08:48 14:10 WBC 12.0 H RBC 5.76 H Hgb 16.9 H Hct 52.1 H Lymph % (Auto) 12.6 L [place] % (Auto) 10.3 H [place] # (Auto) 1.2 H Seg Neutrophils % 76.3 H Seg Neutrophils # 9.2 H Potassium 3.3 L Chloride BUN Creatinine Glucose 173 H POC Glucose 156 H AST 198 H ALT 60 H Total Creatine Kinase 27022 H CK-MB (CK-2) 54.1 H Troponin T 0.037 H Albumin 3.7 L Cholesterol 244 H LDL Cholesterol Direct 154 H HDL Cholesterol 66 H 07/18/21 07/18/21 07/18/21 05:03 05:03 07:36 WBC 11.7 H RBC 5.25 H Hgb 15.3 H Hct 47.1 H Lymph % (Auto) [place] % (Auto) 10.7 H [place] # (Auto) 1.3 H Seg Neutrophils % Seg Neutrophils # 7.9 H Potassium 3.1 L Chloride 95.3 L BUN 37 H Creatinine 3.1 H D Glucose 167 H POC Glucose 160 H AST 129 H ALT 59 H Total Creatine Kinase CK-MB (CK-2) Troponin T Albumin 3.6 L Cholesterol LDL Cholesterol Direct HDL Cholesterol Assessment and Plan Assessment and Plan 51-year-old -[place] male with history of hypertension, hyperlipidemia and insulin-dependent diabetes comes in for left-sided upper extremity and lower extremity weakness and slurred speech , he fell at home due to above with no LOC - Patient Problems # Acute CVA (cerebrovascular accident) - new onset left upper and lower weakness associated with slurred speech and left facuial droop findings are suggestive of lacunar infarct mostly related to HTN/DM -started on ASA#325 and Lipitor #40 mg -CT brain and CTA brain and neck are remarkable for basilar a. stenosis -MRI brain is pending -NIH#5 -Echo is pending -cardiac monitering -PT/ST evaluate - pt. most likley will require Rehabiltaion -LDL# 154 -A1C# is pending -CPK#[id number] -creatinine elevated today to #3.1 #Rhabdomylsis - related to afll -CPK#[id number] -Creat.#3.1 was1.1 yesterday -need Iv Hydration # IDDM (insulin dependent diabetes mellitus) -Continue home insulin and coverage -Check A1c # Hypertension -Continue antihypertensives and adjust medications # Hyperlipidemia -Continue statins # CKD (chronic kidney disease) -Nephrology consult requested # Hypokalemia -Supplemented # DVT prophylaxis -On anticoagulation GI prophylaxis will follow
[2021-07-18] MEDS ORDERED: FAMOTIDINE 20 MG TAB PO SCH (10:00)
[2021-07-18] MEDS ORDERED: LISINOPRIL 40 MG TAB PO SCH (10:00)
[2021-07-18] MEDS ORDERED: amLODIPine 10 MG TAB PO SCH (10:00)
[2021-07-18] MEDS ORDERED: DOCUSATE SODIUM 100 MG CAP PO PRN (10:00)
[2021-07-18] MEDS: INSULIN NPH/REGULAR 70/30 INJ SUB-Q SCH ×2 (10:20→17:47)
--- NOTE | 2021-07-18 10:54 | Progress Note ---
Assessment and Plan Assessment and plan: Work-up so far; CT head without contrast; volume loss chronic white matter changes, multiple chronic appearing lacunar infarcts, no definitive acute parenchymal abnormality or hemorrhage noted CTA head; notable irregularities of the vertebrobasilar system with significant stenosis most notably involving the mid basilar artery there is notable decrease contrast opacification of the distal right cerebral artery compatible with reduced flow CTA neck; mild atherosclerotic calcification involving proximal internal carotid artery segment without significant stenosis Decreased attenuation involving the distal cervical and intra cranial segment of the right vertebral artery compatible with decreased flow Chest x-ray; borderline heart size lungs clear Carotid Doppler; less than 50% stenosis both right and left internal carotid arteries Echocardiogram; ending MRI of the brain; pending --Acute CVA (cerebrovascular accident) Current Visit: Yes Status: Acute Not a candidate for TPA Follow CVA work-up which is in progress Continue aspirin and statin PT OT rehab and speech therapist --Left-sided hemiparesis ; Current Visit: Yes Status: Acute Physical therapy occupational therapy Rehabilitation --Dysarthria ; Current Visit: Yes Status: Acute Speech therapy, supportive care --IDDM (insulin dependent diabetes mellitus) Current Visit: Yes Status: Chronic rage Accu-Chek sliding scale coverage, ADA diet and Insulin as needed check A1c --Hypertension Current Visit: Yes Status: Chronic Maintain blood pressures per stroke protocol Permissive hypertension .adjust BP meds --Hyperlipidemia Current Visit: Yes Status: Chronic Low-cholesterol diet Continue statins Exercise as tolerated and weight reduction --Acute kidney injury; due to ATN Current Visit: Yes Status: Acute Gentle hydration , monitor renal function Avoid nephrotoxins ,nephrology consult requested Renal ultrasound if needed --Hypokalemia K3.1 Current Visit: Yes Status: Acute Replenished with KCl 40 mEq p.o. every 4 hours x2 doses Monitor electrolytes --Acute rhabdomyolysis ; Current Visit: Yes Status: Acute CK levels more than 11,000 Vigorous IV hydration, monitor renal function Avoid nephrotoxins, check urine toxicology --Morbid obesity; BMI 43.0 Current Visit: Yes Status: Chronic Patient needs weight reduction when medically stable Also need outpatient sleep study to rule out obstructive sleep apnea --DVT prophylaxis Current Visit: Yes Status: Acute Subcu heparin Please closely monitor the patient and adjust the management as needed Plan of care reviewed with the patient and his nurse Small Business Representative recommendations noted and appreciated History Interval history: I have seen and examined the patient in the ER awaiting bed assignment Patient was admitted with acute CVA not a candidate for TPA with left hemiparesis Neuro work-up is in progress Hospitalist Physical - Constitutional Vitals: Temp Pulse Resp BP Pulse Ox 98.4 F 106 H 27 H 171/97 95 07/17/21 08:30 07/18/21 09:00 07/18/21 09:00 07/18/21 09:00 07/18/21 09:00 General appearance: Present: no acute distress, well-nourished - EENT Eyes: Present: PERRL, EOM intact - Neck Neck: Present: supple, normal ROM - Respiratory Respiratory effort: normal Respiratory: bilateral: diminished, negative: rales, rhonchi, wheezing - Cardiovascular Rhythm: regular Heart Sounds: Present: S1 & S2 - Extremities Extremities: no ischemia, No edema - Abdominal General gastrointestinal: soft, non-tender, non-distended, normal bowel sounds - Integumentary Integumentary: Present: clear, warm - Psychiatric Psychiatric: appropriate mood/affect, cooperative - Neurologic Neurologic: other (Acute CVA with left-sided hemiparesis and dysarthria) HEART Score - HEART Score Troponin: Troponin T 0.037 ng/mL (0.00-0.029) H 07/17/21 08:48 Results - Labs CBC & Chem 7: 07/18/21 05:03 07/18/21 05:03 Labs: Laboratory Last Values WBC 11.7 K/mm3 (4.5-11.0) H 07/18/21 05:03 RBC 5.25 M/mm3 (3.65-5.03) H 07/18/21 05:03 Hgb 15.3 gm/dl (11.8-15.2) H 07/18/21 05:03 Hct 47.1 % (35.5-45.6) H 07/18/21 05:03 MCV 90 fl (84-94) 07/18/21 05:03 MCH 29 pg (28-32) 07/18/21 05:03 MCHC 33 % (32-34) 07/18/21 05:03 RDW 14.2 % (13.2-15.2) 07/18/21 05:03 Plt Count 224 K/mm3 (140-440) 07/18/21 05:03 Lymph % (Auto) 20.3 % (13.4-35.0) 07/18/21 05:03 Hanson % (Auto) 10.7 % (0.0-7.3) H 07/18/21 05:03 Eos % (Auto) 0.6 % (0.0-4.3) 07/18/21 05:03 Baso % (Auto) 0.8 % (0.0-1.8) 07/18/21 05:03 Lymph # (Auto) 2.4 K/mm3 (1.2-5.4) 07/18/21 05:03 Hanson # (Auto) 1.3 K/mm3 (0.0-0.8) H 07/18/21 05:03 Eos # (Auto) 0.1 K/mm3 (0.0-0.4) 07/18/21 05:03 Baso # (Auto) 0.1 K/mm3 (0.0-0.1) 07/18/21 05:03 Seg Neutrophils % 67.6 % (40.0-70.0) 07/18/21 05:03 Seg Neutrophils # 7.9 K/mm3 (1.8-7.7) H 07/18/21 05:03 PT 14.2 Sec. (12.2-14.9) 07/17/21 08:48 INR 0.99 (0.87-1.13) 07/17/21 08:48 APTT 26.5 Sec. (24.2-36.6) 07/17/21 08:48 Thrombin Time 18.9 Sec. (15.1-19.6) 07/17/21 08:48 Sodium 140 mmol/L (137-145) 07/18/21 05:03 Potassium 3.1 mmol/L (3.6-5.0) L 07/18/21 05:03 Chloride 95.3 mmol/L (98-107) L 07/18/21 05:03 Carbon Dioxide 24 mmol/L (22-30) 07/18/21 05:03 Anion Gap 24 mmol/L 07/18/21 05:03 BUN 37 mg/dL (9-20) H 07/18/21 05:03 Creatinine 3.1 mg/dL (0.8-1.3) H D 07/18/21 05:03 Estimated GFR 26 ml/min 07/18/21 05:03 BUN/Creatinine Ratio 12 % 07/18/21 05:03 Glucose 167 mg/dL (75-100) H 07/18/21 05:03 POC Glucose 181 mg/dL (70-105) H 07/18/21 10:19 Calcium 8.8 mg/dL (8.4-10.2) 07/18/21 05:03 Total Bilirubin 0.80 mg/dL (0.1-1.2) 07/18/21 05:03 AST 129 units/L (5-40) H 07/18/21 05:03 ALT 59 units/L (7-56) H 07/18/21 05:03 Alkaline Phosphatase 84 units/L (35-129) 07/18/21 05:03 Total Creatine Kinase 52870 units/L (55-170) H 07/17/21 08:48 CK-MB (CK-2) 54.1 ng/mL (0.0-4.0) H 07/17/21 08:48 CK-MB (CK-2) Rel Index 0.4 (0-4) 07/17/21 08:48 Troponin T 0.037 ng/mL (0.00-0.029) H 07/17/21 08:48 Total Protein 6.9 g/dL (6.3-8.2) 07/18/21 05:03 Albumin 3.6 g/dL (3.9-5) L 07/18/21 05:03 Albumin/Globulin Ratio 1.1 % 07/18/21 05:03 Triglycerides 95 mg/dL (2-149) 07/17/21 08:48 Cholesterol 244 mg/dL (50-199) H 07/17/21 08:48 LDL Cholesterol Direct 154 mg/dL (50-130) H 07/17/21 08:48 HDL Cholesterol 66 mg/dL (40-59) H 07/17/21 08:48 Cholesterol/HDL Ratio 3.69 % 07/17/21 08:48 Plasma/Serum Alcohol < 0.01 % (0-0.07) 07/17/21 08:48 Active Medications - Current Medications Current Medications: Generic Name Dose Route Start Last Admin Trade Name Freq PRN Reason Stop Dose Admin Acetaminophen 650 mg 07/17/21 23:42 Acetaminophen 325 Mg Tab PO Q4H PRN Pain MILD(1-3)/Fever >100.5/HENAO Amlodipine Besylate 10 mg 07/18/21 10:00 Amlodipine 10 Mg Tab PO QDAY [facility] Aspirin 325 mg 07/18/21 10:00 Aspirin 325 Mg Tab PO QDAY [facility] Atorvastatin Calcium 40 mg 07/18/21 22:00 Atorvastatin 40 Mg Tab PO QHS [facility] Carvedilol 12.5 mg 07/18/21 10:00 Carvedilol 12.5 Mg Tab PO BID [facility] Docusate Sodium 100 mg 07/18/21 10:00 Docusate Sodium 100 Mg Cap PO BID PRN Constipation Famotidine 10 mg 07/18/21 10:00 Famotidine 10 Mg Tab PO BID [facility] Heparin Sodium (Porcine) 5,000 unit 07/18/21 10:00 Heparin 5,000 Unit/1 Ml Vial SUB-Q Q12HR [facility] Hydralazine HCl 50 mg 07/18/21 08:00 07/18/21 07:55 Hydralazine 25 Mg Tab PO 50 mg Q8HR [facility] Administration Insulin Human Isoph/Insulin Regular 18 unit 07/18/21 08:00 Insulin Nph/Regular 70/30 Inj SUB-Q BIDDIAB [facility] Insulin Human Lispro 0 unit 07/18/21 07:30 07/18/21 07:55 Insulin Lispro 100 Unit/Ml SUB-Q 2 unit [facility] Administration Protocol Lisinopril 40 mg 07/18/21 10:00 Lisinopril 40 Mg Tab PO QDAY [facility] Metoclopramide HCl 5 mg 07/18/21 08:00 Metoclopramide 10 Mg/2 Ml Inj IV Q6H PRN Nausea And Vomiting Ondansetron HCl 4 mg 07/17/21 23:42 Ondansetron 4 Mg/2 Ml Inj IV Q8H PRN Nausea And Vomiting Oxycodone/Acetaminophen 1 tab 07/17/21 23:43 Oxycodone /Acetaminophen 5-325mg Tab PO Q6H PRN Pain, Moderate (4-6) Sodium Chloride 10 ml 07/18/21 10:00 Sodium Chloride 0.9% 10 Ml Flush Syringe IV BID [facility] Sodium Chloride 10 ml 07/17/21 23:42 Sodium Chloride 0.9% 10 Ml Flush Syringe IV PRN PRN LINE FLUSH
[2021-07-18] MEDS: carvediloL 12.5 MG TAB PO SCH (11:42)
[2021-07-18] MEDS: HEPARIN 5,000 UNIT/1 ML VIAL SUB-Q SCH (11:42)
[2021-07-18] MEDS: FAMOTIDINE 10 MG TAB PO SCH (11:42)
[2021-07-18] MEDS: ASPIRIN 325 MG TAB PO SCH (11:43)
--- NOTE | 2021-07-18 12:11 | Electrocardiograph Report ---
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
--- NOTE | 2021-07-18 12:53 | Vascular Lab Report ---
DUPLEX DOPPLER ULTRASOUND CAROTID, BILATERAL INDICATION / CLINICAL INFORMATION: stroke. COMPARISON: CTA neck 08/04/2021. FINDINGS: RIGHT CAROTID: Mild calcified atherosclerotic plaque. Mild intimal thickening. Tortuous ICA. - PLAQUE ESTIMATE (%): < 50% - CCA velocity: 82 cm/sec. - ICA peak systolic velocity: 69 cm/sec. - ICA/CCA PSV Ratio: Less than 2. Right Vertebral Artery: Antegrade flow. LEFT CAROTID: Mild calcified atherosclerotic plaque. Mild intimal thickening. Tortuous ICA. - PLAQUE ESTIMATE (%): < 50% - CCA velocity: 92 cm/sec. - ICA peak systolic velocity: 89 cm/sec. - ICA/CCA PSV Ratio: Less than 2. Left Vertebral Artery: Antegrade flow. IMPRESSION: 1. Right Internal Carotid Artery: Less than 50% diameter stenosis. 2. Left Internal Carotid Artery: Less than 50% diameter stenosis. Velocity criteria are extrapolated from diameter data as defined by the Society of Radiologists in Ul trasound Consensus Conference, Radiology 2003; 229;340-346. NO STENOSIS (NORMAL) - Plaque = none; ICA PSV < 125 cm/sec; ICA/CCA PSV Ratio < 2.0 <50% STENOSIS - Plaque < 50%; ICA PSV < 125 cm/sec; ICA/CCA PSV Ratio < 2.0 50-69% STENOSIS - Plaque > 50%; ICA PSV = 125-230 cm/sec; ICA/CCA PSV Ratio = 2.0-4.0 >70% BUT <100% STENOSIS - Plaque > 50%; ICA PSV > 230 cm/sec; ICA/CCA PSV Ratio > 4.0 NEAR OCCLUSION - Plaque = visible lumen; ICA PSV = high/low/none; ICA/CCA PSV Ratio = variable TOTAL OCCLUSION - Plaque = no lumen; ICA PSV = none; ICA/CCA PSV Ratio = N/A Scribed by: Candi Hahn RDMS, RVT Scribed: 07/18/2021 11:41 AM I have reviewed the images, agree with this report, and edited this report as needed. Signer Name: Denis Morley MD Signed: 07/18/2021 12:49 PM Workstation Name: [id number]
--- NOTE | 2021-07-18 14:08 | Progress Note ---
Assessment and Plan Assessment and plan: Work-up so far; CT head without contrast; volume loss chronic white matter changes, multiple chronic appearing lacunar infarcts, no definitive acute parenchymal abnormality or hemorrhage noted CTA head; notable irregularities of the vertebrobasilar system with significant stenosis most notably involving the mid basilar artery there is notable decrease contrast opacification of the distal right cerebral artery compatible with reduced flow CTA neck; mild atherosclerotic calcification involving proximal internal carotid artery segment without significant stenosis Decreased attenuation involving the distal cervical and intra cranial segment of the right vertebral artery compatible with decreased flow Chest x-ray; borderline heart size lungs clear Carotid Doppler; less than 50% stenosis both right and left internal carotid arteries Echocardiogram; ending MRI of the brain; pending --Acute CVA (cerebrovascular accident) Current Visit: Yes Status: Acute Not a candidate for TPA Follow CVA work-up which is in progress Continue aspirin and statin PT OT rehab and speech therapist --Left-sided hemiparesis ; Current Visit: Yes Status: Acute Physical therapy occupational therapy Rehabilitation --Dysarthria ; Current Visit: Yes Status: Acute Speech therapy, supportive care --IDDM (insulin dependent diabetes mellitus) Current Visit: Yes Status: Chronic rage Accu-Chek sliding scale coverage, ADA diet and Insulin as needed check A1c --Hypertension Current Visit: Yes Status: Chronic Maintain blood pressures per stroke protocol Permissive hypertension .adjust BP meds --Hyperlipidemia Current Visit: Yes Status: Chronic Low-cholesterol diet Continue statins Exercise as tolerated and weight reduction --Acute kidney injury; due to ATN Current Visit: Yes Status: Acute Gentle hydration , monitor renal function Avoid nephrotoxins ,nephrology consult requested Renal ultrasound if needed --Hypokalemia K3.1 Current Visit: Yes Status: Acute Replenished with KCl 40 mEq p.o. every 4 hours x2 doses Monitor electrolytes --Acute rhabdomyolysis ; Current Visit: Yes Status: Acute CK levels more than 11,000 Vigorous IV hydration, monitor renal function Avoid nephrotoxins, check urine toxicology --Morbid obesity; BMI 43.0 Current Visit: Yes Status: Chronic Patient needs weight reduction when medically stable Also need outpatient sleep study to rule out obstructive sleep apnea --DVT prophylaxis Current Visit: Yes Status: Acute Subcu heparin Please closely monitor the patient and adjust the management as needed Plan of care reviewed with the patient and his nurse Motor Scooter Repairer recommendations noted and appreciated Hospitalist Physical - Constitutional Vitals: Temp Pulse Resp BP Pulse Ox 98.4 F 106 H 27 H 171/97 95 07/17/21 08:30 07/18/21 09:00 07/18/21 09:00 07/18/21 09:00 07/18/21 09:00 General appearance: Present: no acute distress, well-nourished HEART Score - HEART Score Troponin: Troponin T 0.037 ng/mL (0.00-0.029) H 07/17/21 08:48 Results - Labs CBC & Chem 7: 07/18/21 05:03 07/18/21 05:03 Labs: Laboratory Last Values WBC 11.7 K/mm3 (4.5-11.0) H 07/18/21 05:03 RBC 5.25 M/mm3 (3.65-5.03) H 07/18/21 05:03 Hgb 15.3 gm/dl (11.8-15.2) H 07/18/21 05:03 Hct 47.1 % (35.5-45.6) H 07/18/21 05:03 MCV 90 fl (84-94) 07/18/21 05:03 MCH 29 pg (28-32) 07/18/21 05:03 MCHC 33 % (32-34) 07/18/21 05:03 RDW 14.2 % (13.2-15.2) 07/18/21 05:03 Plt Count 224 K/mm3 (140-440) 07/18/21 05:03 Lymph % (Auto) 20.3 % (13.4-35.0) 07/18/21 05:03 [place] % (Auto) 10.7 % (0.0-7.3) H 07/18/21 05:03 Eos % (Auto) 0.6 % (0.0-4.3) 07/18/21 05:03 Baso % (Auto) 0.8 % (0.0-1.8) 07/18/21 05:03 Lymph # (Auto) 2.4 K/mm3 (1.2-5.4) 07/18/21 05:03 [place] # (Auto) 1.3 K/mm3 (0.0-0.8) H 07/18/21 05:03 Eos # (Auto) 0.1 K/mm3 (0.0-0.4) 07/18/21 05:03 Baso # (Auto) 0.1 K/mm3 (0.0-0.1) 07/18/21 05:03 Seg Neutrophils % 67.6 % (40.0-70.0) 07/18/21 05:03 Seg Neutrophils # 7.9 K/mm3 (1.8-7.7) H 07/18/21 05:03 PT 14.2 Sec. (12.2-14.9) 07/17/21 08:48 INR 0.99 (0.87-1.13) 07/17/21 08:48 APTT 26.5 Sec. (24.2-36.6) 07/17/21 08:48 Thrombin Time 18.9 Sec. (15.1-19.6) 07/17/21 08:48 Sodium 140 mmol/L (137-145) 07/18/21 05:03 Potassium 3.1 mmol/L (3.6-5.0) L 07/18/21 05:03 Chloride 95.3 mmol/L (98-107) L 07/18/21 05:03 Carbon Dioxide 24 mmol/L (22-30) 07/18/21 05:03 Anion Gap 24 mmol/L 07/18/21 05:03 BUN 37 mg/dL (9-20) H 07/18/21 05:03 Creatinine 3.1 mg/dL (0.8-1.3) H D 07/18/21 05:03 Estimated GFR 26 ml/min 07/18/21 05:03 BUN/Creatinine Ratio 12 % 07/18/21 05:03 Glucose 167 mg/dL (75-100) H 07/18/21 05:03 POC Glucose 145 mg/dL (70-105) H 07/18/21 11:25 Calcium 8.8 mg/dL (8.4-10.2) 07/18/21 05:03 Total Bilirubin 0.80 mg/dL (0.1-1.2) 07/18/21 05:03 AST 129 units/L (5-40) H 07/18/21 05:03 ALT 59 units/L (7-56) H 07/18/21 05:03 Alkaline Phosphatase 84 units/L (35-129) 07/18/21 05:03 Total Creatine Kinase 31361 units/L (55-170) H 07/17/21 08:48 CK-MB (CK-2) 54.1 ng/mL (0.0-4.0) H 07/17/21 08:48 CK-MB (CK-2) Rel Index 0.4 (0-4) 07/17/21 08:48 Troponin T 0.037 ng/mL (0.00-0.029) H 07/17/21 08:48 Total Protein 6.9 g/dL (6.3-8.2) 07/18/21 05:03 Albumin 3.6 g/dL (3.9-5) L 07/18/21 05:03 Albumin/Globulin Ratio 1.1 % 07/18/21 05:03 Triglycerides 95 mg/dL (2-149) 07/17/21 08:48 Cholesterol 244 mg/dL (50-199) H 07/17/21 08:48 LDL Cholesterol Direct 154 mg/dL (50-130) H 07/17/21 08:48 HDL Cholesterol 66 mg/dL (40-59) H 07/17/21 08:48 Cholesterol/HDL Ratio 3.69 % 07/17/21 08:48 Plasma/Serum Alcohol < 0.01 % (0-0.07) 07/17/21 08:48 Active Medications - Current Medications Current Medications: Generic Name Dose Route Start Last Admin Trade Name Freq PRN Reason Stop Dose Admin Acetaminophen 650 mg 07/17/21 23:42 Acetaminophen 325 Mg Tab PO Q4H PRN Pain MILD(1-3)/Fever >100.5/HENAO Amlodipine Besylate 10 mg 07/18/21 10:00 07/18/21 11:43 Amlodipine 10 Mg Tab PO 10 mg QDAY LAUREANO Administration Aspirin 325 mg 07/18/21 10:00 07/18/21 11:43 Aspirin 325 Mg Tab PO 325 mg QDAY [facility]O Administration Atorvastatin Calcium 40 mg 07/18/21 22:00 Atorvastatin 40 Mg Tab PO QHS LA[facility]ANO Carvedilol 12.5 mg 07/18/21 10:00 07/18/21 11:42 Carvedilol 12.5 Mg Tab PO Not Given BID LAUREANO Docusate Sodium 100 mg 07/18/21 10:00 Docusate Sodium 100 Mg Cap PO BID PRN Constipation Famotidine 10 mg 07/18/21 10:00 07/18/21 11:42 Famotidine 10 Mg Tab PO 10 mg BID [facility]O Administration Heparin Sodium (Porcine) 5,000 unit 07/18/21 10:00 07/18/21 11:42 Heparin 5,000 Unit/1 Ml Vial SUB-Q 5,000 unit Q12HR LA[facility]ANO Administration Hydralazine HCl 50 mg 07/18/21 08:00 07/18/21 07:55 Hydralazine 25 Mg Tab PO 50 mg Q8HR [facility]ANO Administration Insulin Human Isoph/Insulin Regular 18 unit 07/18/21 08:00 07/18/21 10:20 Insulin Nph/Regular 70/30 Inj SUB-Q 18 unit BIDDIAB LAUREANO Administration Insulin Human Lispro 0 unit 07/18/21 07:30 07/18/21 11:31 Insulin Lispro 100 Unit/Ml SUB-Q Not Given ACHS [facility] Protocol Lisinopril 40 mg 07/18/21 10:00 07/18/21 11:42 Lisinopril 40 Mg Tab PO 40 mg QDAY LAUREANO Administration Metoclopramide HCl 5 mg 07/18/21 08:00 Metoclopramide 10 Mg/2 Ml Inj IV Q6H PRN Nausea And Vomiting Ondansetron HCl 4 mg 07/17/21 23:42 Ondansetron 4 Mg/2 Ml Inj IV Q8H PRN Nausea And Vomiting Oxycodone/Acetaminophen 1 tab 07/17/21 23:43 Oxycodone /Acetaminophen 5-325mg Tab PO Q6H PRN Pain, Moderate (4-6) Potassium Chloride 40 meq 07/18/21 14:00 Potassium Chloride Er 20 Meq Tab PO 07/18/21 18:01 Q4H LAUREANO Sodium Chloride 10 ml 07/18/21 10:00 Sodium Chloride 0.9% 10 Ml Flush Syringe IV BID [facility]O Sodium Chloride 10 ml 07/17/21 23:42 Sodium Chloride 0.9% 10 Ml Flush Syringe IV PRN PRN LINE FLUSH
[2021-07-18] MEDS: POTASSIUM CHLORIDE ER 20 MEQ TAB PO SCH ×2 (15:09→17:48)
[2021-07-18] MEDS ORDERED: LORazepam 2 MG/ML VIAL IV PRN (16:15)
[2021-07-18] MEDS ORDERED: LORazepam 2 MG/ML VIAL IV ONE (16:17)
[2021-07-18] MEDS ORDERED: hydrALAZINE 20 MG/1 ML INJ ONE (18:07)
[2021-07-18 18:23] LABS: Amphetamine Screen,Urine PRESUMPTIVE NEGATIVE; Benzodiazepines Screen,Urine PRESUMPTIVE NEGATIVE; Cannabinoid Screen,Urine PRESUMPTIVE NEGATIVE; Cocaine Screen,Urine PRESUMPTIVE NEGATIVE; Methadone Screen,Urine PRESUMPTIVE NEGATIVE; Opiate Screen,Urine PRESUMPTIVE NEGATIVE
[2021-07-18] MEDS: hydrALAZINE 20 MG/1 ML INJ IV PRN (18:23)
--- NOTE | 2021-07-18 18:43 | Consultation ---
History of Present Illness - Reason for Consult Consult date: 07/18/21 acute renal failure - History of Present Illness History obtained from medical records due to mental status 51-year-old -[place] male with history of hypertension, hyperlipidemia and insulin-dependent diabetes comes in for left-sided upper extremity and lower extremity weakness. Also has difficulty speaking. Patient did not seek any medical attention when symptoms began appx [address] [employer] notable for acute CVA. Patient out of window for TPA. SCr 1.1mg/dL at admission which increased to 3.1mg/dL today prompting nephrology consultation Medications and Allergies Allergies Allergy/AdvReac Type Severity Reaction Status Date / Time No Known Allergies Allergy Unverified 11/24/19 08:20 Home Medications Medication Instructions Recorded Confirmed Last Taken Type Multivitamin/Iron/Folic Acid 1 each PO QDAY 11/24/19 11/24/19 Unknown History [Centrum Adults Tablet] AtorvaSTATin [Lipitor] 40 mg PO QHS #30 tablet 11/27/19 Unknown Rx Docusate Sodium [Colace CAP] 100 mg PO BID PRN #20 capsule 11/27/19 Unknown Rx Insulin NPH/Regular [NovoLIN 70/30] 18 unit SUB-Q BIDDIAB #2 vial 11/27/19 Unknown Rx Lispro Insulin [HumaLOG] 5 unit SUB-Q ACHS #1 vial 11/27/19 Unknown Rx amLODIPine 10 mg PO QDAY #30 tablet 11/27/19 Unknown Rx carvediloL [Coreg] 12.5 mg PO BID #60 tablet 11/27/19 Unknown Rx hydrALAZINE [Apresoline TAB] 50 mg PO Q8HR #90 tab 11/27/19 Unknown Rx lisinopriL [Zestril TAB] 40 mg PO QDAY #30 tablet 11/27/19 Unknown Rx Active Meds: Active Medications Acetaminophen (Acetaminophen 325 Mg Tab) 650 mg PO Q4H PRN PRN Reason: Pain MILD(1-3)/Fever >100.5/HENAO Amlodipine Besylate (Amlodipine 10 Mg Tab) 10 mg PO QDAY [facility] Last Admin: 07/18/21 11:43 Dose: 10 mg Documented by: Aspirin (Aspirin 325 Mg Tab) 325 mg PO QDAY [facility] Last Admin: 07/18/21 11:43 Dose: 325 mg Documented by: Atorvastatin Calcium (Atorvastatin 40 Mg Tab) 40 mg PO QHS [facility] Carvedilol (Carvedilol 12.5 Mg Tab) 12.5 mg PO BID [facility] Last Admin: 07/18/21 11:42 Dose: Not Given Documented by: Docusate Sodium (Docusate Sodium 100 Mg Cap) 100 mg PO BID PRN PRN Reason: Constipation Famotidine (Famotidine 10 Mg Tab) 10 mg PO BID [facility] Last Admin: 07/18/21 11:42 Dose: 10 mg Documented by: Heparin Sodium (Porcine) (Heparin 5,000 Unit/1 Ml Vial) 5,000 unit SUB-Q Q12HR [facility] Last Admin: 07/18/21 11:42 Dose: 5,000 unit Documented by: Hydralazine HCl (Hydralazine 25 Mg Tab) 50 mg PO Q8HR [facility] Last Admin: 07/18/21 15:09 Dose: 50 mg Documented by: Hydralazine HCl (Hydralazine 20 Mg/1 Ml Inj) 10 mg IV Q1HR PRN PRN Reason: Blood Pressure Last Admin: 07/18/21 18:23 Dose: 10 mg Documented by: Insulin Human Isoph/Insulin Regular (Insulin Nph/Regular 70/30 Inj) 18 unit SUB-Q BIDDIAB [facility] Last Admin: 07/18/21 17:47 Dose: Not Given Documented by: Insulin Human Lispro (Insulin Lispro 100 Unit/Ml) 0 unit SUB-Q [facility]; Protocol Last Admin: 07/18/21 17:46 Dose: Not Given Documented by: Lisinopril (Lisinopril 40 Mg Tab) 40 mg PO QDAY [facility] Last Admin: 07/18/21 11:42 Dose: 40 mg Documented by: Lorazepam (Lorazepam 2 Mg/Ml Vial) 1 mg IV Q1H PRN PRN Reason: Anxiety Metoclopramide HCl (Metoclopramide 10 Mg/2 Ml Inj) 5 mg IV Q6H PRN PRN Reason: Nausea And Vomiting Ondansetron HCl (Ondansetron 4 Mg/2 Ml Inj) 4 mg IV Q8H PRN PRN Reason: Nausea And Vomiting Oxycodone/Acetaminophen (Oxycodone /Acetaminophen 5-325mg Tab) 1 tab PO Q6H PRN PRN Reason: Pain, Moderate (4-6) Sodium Chloride (Sodium Chloride 0.9% 10 Ml Flush Syringe) 10 ml IV BID [facility] Last Admin: 07/18/21 10:09 Dose: 10 ml Documented by: Sodium Chloride (Sodium Chloride 0.9% 10 Ml Flush Syringe) 10 ml IV PRN PRN PRN Reason: LINE FLUSH Review of Systems All systems: negative Exam - Vital Signs Vital signs: Vital Signs Temp Resp Pulse Ox 98.4 F 18 99 07/17/21 08:30 07/17/21 08:30 07/17/21 08:30 - General Appearance General appearance: well-developed, well-nourished EENT: ATNC Respiratory: Clear to Ascultation Heart: regular, S1S2 Gastrointestinal: Present: obese. 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 No acute indication for hemodialysis at this time * Hold ACEi for now * Trend CK * Obtain renal u/s * Obtain UA and UPCR * Obtain serologic work up * Dose medications for renal function * Avoid potential nephrotoxins
--- NOTE | 2021-07-18 20:50 | Magnetic Resonance Report ---
MR brain wo con INDICATION / CLINICAL INFORMATION: 51 years Male; stroke. TECHNIQUE: Multiplanar, multisequence MR images of the brain were obtained. Significant motion artifact present. COMPARISON: None available. FINDINGS: BRAIN / INTRACRANIAL CONTENTS: Small moderately sized focus of ischemia seen in the right gangliocaps ular region, involving the posterior limb of the internal capsule. This finding is positive on ADC ma p, suggesting it is acute/early subacute in age. Old, small branch PICA infarcts noted bilaterally. Otherwise, no acute hemorrhage, mass effect, midline shift, hydrocephalus, or acute, large territori al infarct. No chronic infarct or atrophy. There are mild to moderate areas of increased signal intensity on FLAIR imaging in the white matter o f the cerebral hemispheres, as well as the gangliocapsular regions. These are nonspecific findings an d may be related to microangiopathy (hypertension, diabetes, atherosclerosis), given the patient's ag e. Pontine disease and lacunar infarcts noted as well. CRANIOCERVICAL JUNCTION: No significant abnormality. VASCULAR FLOW-VOIDS: Tortuous vessels noted-would question history of hypertension. ORBITS: No significant abnormality of visualized orbits. SINUSES / MASTOIDS: Mild to moderate mucosal thickening in the ethmoids. ADDITIONAL FINDINGS: None. IMPRESSION: 1. Small to moderately sized focus of ischemia in the right gangliocapsular region, as described abov e. Signer Name: Иван Chavez MD, III Signed: 07/18/2021 8:46 PM Workstation Name: [id number]
[2021-07-18] MEDS ORDERED: NALOXONE 0.4 MG/1 ML INJ ONE (23:01)
--- NOTE | 2021-07-18 23:14 | Event Note ---
Date: 07/18/21 Patient has episode of respiratory distress. Stat ABG is done. Looks like patient has obstructive sleep apnea. Narcan 0.4 mg IV x1 is given. Patient is put on BiPAP and transferred to the [facility]. Also will do a CT scan of the head without IV contrast because the pupil is unequal in size. Neurology consult. We will monitor the patient closely
--- NOTE | 2021-07-18 23:55 | Cat Scan Report ---
CT head/brain wo con INDICATION / CLINICAL INFORMATION: 51 years Male; AMS. TECHNIQUE: Routine CT head without contrast. All CT scans at this location are performed using CT dos e reduction for ALARA by means of automated exposure control. Significant motion artifact COMPARISON: 07/17/2021-CT; MRI-07/18/2021 FINDINGS: BRAIN / INTRACRANIAL CONTENTS: As seen on recent prior exams, there is an acute/early subacute lacuna r infarct in the gangliocapsular region on the right, predominantly involving the posterior limb of t he internal capsule. No signs of hemorrhagic transformation. Other lacunar infarcts are seen in the gangliocapsular regions, which are noted on prior exams. Simil gabby, there is a lacunar infarct leftward of midline in the margie, which is seen on prior's. Otherwise, no acute hemorrhage, mass effect, midline shift, hydrocephalus, or acute, large territori al infarct. No signs of significant atrophy or chronic infarct. There are [id number] areas of decreased attenuation in the white matter of the cerebral hemisph eres. These are nonspecific findings and may be related to microangiopathy (hypertension, diabetes, a therosclerosis), given the patient's age. CRANIOCERVICAL JUNCTION: No significant abnormality. ORBITS: No significant abnormality of visualized orbits. SINUSES / MASTOIDS: Visualized paranasal sinuses and mastoid air cells are essentially clear. ADDITIONAL FINDINGS: None. IMPRESSION: 1. Overall, no detrimental change appreciated on this limited study when compared with recent prior e xams. Signer Name: Иван Chavez MD, III Signed: 07/18/2021 11:51 PM Workstation Name: [email or web address]
[2021-07-19] MEDS ORDERED: LORazepam 2 MG/ML VIAL IV ONE (00:08)
[2021-07-19] MEDS ORDERED: EPINEPHrine RACEMIC 2.25% 0.5ML NEBU IH ONE (00:13)
[2021-07-19] MEDS: FAMOTIDINE 10 MG TAB PO SCH ×3 (01:48→21:55)
--- NOTE | 2021-07-19 03:10 | XRay Report ---
ABDOMEN 1 VIEW INDICATION / CLINICAL INFORMATION: Dobbhoff placement. COMPARISON: None available. FINDINGS: Weighted tip enteric catheter projects over the stomach. IMPRESSION: Gastric positioning of Dobbhoff catheter. Signer Name: Nilton Valdes MD Signed: 07/19/2021 3:06 AM Workstation Name: [id number]
[2021-07-19 05:24] LABS: Calcium 8.8 mg/dL (8.4-10.2)
[2021-07-19] MEDS: HEPARIN 5,000 UNIT/1 ML VIAL SUB-Q SCH ×2 (07:57→21:55)
[2021-07-19] MEDS: hydrALAZINE 25 MG TAB PO SCH ×3 (07:57→21:55)
[2021-07-19] MEDS: INSULIN LISPRO 100 UNIT/ML SUB-Q SCH ×2 (07:58→17:12)
[2021-07-19] MEDS: carvediloL 12.5 MG TAB PO SCH (07:59)
--- NOTE | 2021-07-19 09:46 | XRay Report ---
CHEST 1 VIEW 07/19/2021 8:36 AM INDICATION / CLINICAL INFORMATION: resp distress. COMPARISON: 07/17/2021 FINDINGS: SUPPORT DEVICES: None. HEART / MEDIASTINUM: Stable. LUNGS / PLEURA: Ill-defined opacity in the left lower lobe. Right lung is clear. No pneumothorax. ADDITIONAL FINDINGS: No significant additional findings. IMPRESSION: 1. Opacity in the left lower lobe could represent developing pneumonia versus atelectasis. Signer Name: Elan Coronado MD Signed: 07/19/2021 9:42 AM Workstation Name: [id number]
[2021-07-19 09:55] LABS: Creatine Kinase MB 16.4 ng/mL (0.0-4.0)
[2021-07-19] MEDS: hydrALAZINE 20 MG/1 ML INJ IV PRN ×2 (10:45→12:25)
--- NOTE | 2021-07-19 11:02 | Progress Note ---
Assessment and Plan Assessment and Plan 51-year-old -[place] male with history of hypertension, hyperlipidemia and insulin-dependent diabetes comes in for left-sided upper extremity and lower extremity weakness and slurred speech , he fell at home due to above with no LOC - Patient Problems # Acute CVA (cerebrovascular accident) - new onset left upper and lower weakness associated with slurred speech and left facuial droop findings are suggestive of lacunar infarct mostly related to HTN/DM -started on ASA#325 and Lipitor #40 mg -CT brain and CTA brain and neck are remarkable for basilar a. stenosis -MRI brain is is with ganglio capsular infarct -- mostly related to small vesseles disease {HTN and DM} -NIH#5 -Echo is pending -cardiac monitering -PT/ST evaluate - pt. most likley will require Rehabiltaion -LDL# 154 -A1C# is pending -CPK#63604 --today 2857 -creatinine elevated today to #3.1 # Encephalopathy -Multifactorial related to HTN,DM,And respiratory compromize in addition to the worsen Kidney function. #Rhabdomylsis - related to afll -CPK#[id number] -Creat.#3.1 was1.1 yesterday --today 5.3 -need Iv Hydration # IDDM (insulin dependent diabetes mellitus) -Continue home insulin and coverage -Check A1c # Hypertension -Continue antihypertensives and adjust medications # Hyperlipidemia -Continue statins # CKD (chronic kidney disease) -Nephrology consult requested # Hypokalemia -Supplemented # DVT prophylaxis -On anticoagulation GI prophylaxis will sign off call as needed suggest neuro check Q 4 hours X24 hours then q shift consider CT brain as needed .if change in mentation will order one today . correct underlying respiratory ,kidney and possible infection Subjective Date of service: 07/19/21 Principal diagnosis: left side weakness ,abnormal MRI brain Interval history: pt. transfered to ICU due to SOB started on narcan, Cpap he is alert slightly confused follow command , with left sise weakness unchanged pupils reactive with left facial droop CPK#[id number] -Creat#1.1--3.1--5.3 MRI brain is noted remarkable for right ganglio -capsular infarct US carotid <50% Bilteral CTA remarkable for basilar stenosis Objective - Vital Sign Vital Signs - 12hr 07/18/21 07/18/2107/19/21 23:48 23:50 00:02 Temperature 98.1 F Pulse Rate 113 H 138 H 111 H Pulse Rate [ Bilateral Throughout] Respiratory 32 H 34 H Rate Respiratory Rate [Bilateral Throughout] Blood Pressure O2 Sat by Pulse Oximetry 07/19/21 07/19/21 07/19/21 00:07 00:15 00:31 Temperature Pulse Rate 107 H 102 H 114 H Pulse Rate [ Bilateral Throughout] Respiratory 21 22 17 Rate Respiratory Rate [Bilateral Throughout] Blood Pressure 169/107 O2 Sat by Pulse 100 100 98 Oximetry 07/19/21 07/19/21 07/19/21 00:45 00:51 01:01 Temperature Pulse Rate 112 H 113 H Pulse Rate [ 113 H Bilateral Throughout] Respiratory 22 40 H Rate Respiratory 41 H Rate [Bilateral Throughout] Blood Pressure 169/107 168/93 O2 Sat by Pulse 97 99 Oximetry 07/19/21 07/19/21 07/19/21 01:15 01:31 01:36 Temperature Pulse Rate 103 H 98 H Pulse Rate [ Bilateral Throughout] Respiratory 22 23 Rate Respiratory Rate [Bilateral Throughout] Blood Pressure 168/93 168/93 O2 Sat by Pulse 100 100 100 Oximetry 07/19/21 07/19/21 07/19/21 01:45 02:00 02:01 Temperature Pulse Rate 98 H 99 H Pulse Rate [ Bilateral Throughout] Respiratory 23 24 Rate Respiratory Rate [Bilateral Throughout] Blood Pressure 168/93 103/62 O2 Sat by Pulse 100 100 100 Oximetry 07/19/21 07/19/21 07/19/21 02:15 02:31 02:45 Temperature Pulse Rate 95 H 92 H 92 H Pulse Rate [ Bilateral Throughout] Respiratory 21 17 17 Rate Respiratory Rate [Bilateral Throughout] Blood Pressure 103/62 103/62 103/62 O2 Sat by Pulse 100 100 100 Oximetry 07/19/21 07/19/21 07/19/21 03:00 03:15 03:19 Temperature 98.8 F Pulse Rate 94 H 94 H Pulse Rate [ Bilateral Throughout] Respiratory 21 21 Rate Respiratory Rate [Bilateral Throughout] Blood Pressure 123/84 123/84 O2 Sat by Pulse 100 100 Oximetry 07/19/21 07/19/21 07/19/21 03:31 03:45 04:00 Temperature Pulse Rate 95 H 94 H 90 Pulse Rate [ Bilateral Throughout] Respiratory 22 22 Rate Respiratory Rate [Bilateral Throughout] Blood Pressure 123/84 123/84 O2 Sat by Pulse 100 100 Oximetry 07/19/21 07/19/21 07/19/21 04:01 04:15 04:31 Temperature Pulse Rate 89 89 90 Pulse Rate [ Bilateral Throughout] Respiratory 20 19 18 Rate Respiratory Rate [Bilateral Throughout] Blood Pressure 133/94 133/94 133/94 O2 Sat by Pulse 100 100 100 Oximetry 07/19/21 07/19/21 07/19/21 04:45 05:00 05:15 Temperature Pulse Rate 92 H 89 90 Pulse Rate [ Bilateral Throughout] Respiratory 26 H 20 25 H Rate Respiratory Rate [Bilateral Throughout] Blood Pressure 133/94 120/87 120/87 O2 Sat by Pulse 100 100 100 Oximetry 07/19/21 07/19/21 07/19/21 05:31 06:00 06:31 Temperature Pulse Rate 95 H 93 H 89 Pulse Rate [ Bilateral Throughout] Respiratory 23 25 H 19 Rate Respiratory Rate [Bilateral Throughout] Blood Pressure 120/87 133/82 133/82 O2 Sat by Pulse 100 100 100 Oximetry 07/19/21 07/19/21 07/19/21 07:01 07:31 07:47 Temperature 97.8 F Pulse Rate 92 H 94 H Pulse Rate [ Bilateral Throughout] Respiratory 27 H 31 H Rate Respiratory Rate [Bilateral Throughout] Blood Pressure 155/95 155/95 O2 Sat by Pulse 100 100 Oximetry 07/19/21 07/19/21 07/19/21 08:01 08:31 08:55 Temperature Pulse Rate 93 H 102 H Pulse Rate [ Bilateral Throughout] Respiratory 23 30 H Rate Respiratory Rate [Bilateral Throughout] Blood Pressure 150/89 150/89 O2 Sat by Pulse 100 96 100 Oximetry 07/19/21 07/19/21 07/19/21 09:01 09:31 10:01 Temperature Pulse Rate 99 H 97 H 99 H Pulse Rate [ Bilateral Throughout] Respiratory 33 H 35 H 20 Rate Respiratory Rate [Bilateral Throughout] Blood Pressure 185/108 198/94 187/134 O2 Sat by Pulse 99 91 100 Oximetry 07/19/21 10:45 Temperature Pulse Rate 98 H Pulse Rate [ Bilateral Throughout] Respiratory Rate Respiratory Rate [Bilateral Throughout] Blood Pressure 214/112 O2 Sat by Pulse Oximetry - General Apperance Constitutional: other (lethergic on Cpap) - EENT EENT: PERRL, mucous membranes moist - Respiratory Respiratory: lungs clear, rhonchi - Cardiovascular Cardiovascular: regular rate, normal S1, normal S2 Extremities: no peripheral edema bilat, no clubbing, cyanosis - Gastrointestinal Gastrointestinal: normoactive bowel sounds - Integumentary Integumentary: normal - Neurologic Cranial nerve examination: PERRL, EOMI, other (left facial droop , pupils reactive bilateral slightly constricted ) Detailed motor examination: other (right side 4/5 upper and lower , left upper 0/1/5 upper and 3/5 lower ) - Laboratory Findings CBC and BMP: 07/18/21 05:03 07/19/21 04:35 Abnormal Lab Findings: Abnormal Labs 07/17/21 07/17/21 07/17/21 08:48 08:48 14:10 WBC 12.0 H RBC 5.76 H Hgb 16.9 H Hct 52.1 H Lymph % (Auto) 12.6 L [place] % (Auto) 10.3 H [place] # (Auto) 1.2 H Seg Neutrophils % 76.3 H Seg Neutrophils # 9.2 H POC ABG pCO2 POC ABG pO2 ABG Chloride ABG Glucose Potassium 3.3 L Chloride Carbon Dioxide BUN Creatinine Glucose 173 H POC Glucose 156 H AST 198 H ALT 60 H Total Creatine Kinase 82137 H CK-MB (CK-2) 54.1 H Troponin T 0.037 H Albumin 3.7 L Cholesterol 244 H LDL Cholesterol Direct 154 H HDL Cholesterol 66 H Arterial Blood Glucose 07/18/21 07/18/21 07/18/21 05:03 05:03 07:36 WBC 11.7 H RBC 5.25 H Hgb 15.3 H Hct 47.1 H Lymph % (Auto) [place] % (Auto) 10.7 H [place] # (Auto) 1.3 H Seg Neutrophils % Seg Neutrophils # 7.9 H POC ABG pCO2 POC ABG pO2 ABG Chloride ABG Glucose Potassium 3.1 L Chloride 95.3 L Carbon Dioxide BUN 37 H Creatinine 3.1 H D Glucose 167 H POC Glucose 160 H AST 129 H ALT 59 H Total Creatine Kinase CK-MB (CK-2) Troponin T Albumin 3.6 L Cholesterol LDL Cholesterol Direct HDL Cholesterol Arterial Blood Glucose 07/18/21 07/18/21 07/18/21 10:19 11:25 14:58 WBC RBC Hgb Hct Lymph % (Auto) [place] % (Auto) [place] # (Auto) Seg Neutrophils % Seg Neutrophils # POC ABG pCO2 POC ABG pO2 ABG Chloride ABG Glucose Potassium Chloride Carbon Dioxide BUN Creatinine Glucose POC Glucose 181 H 145 H AST ALT Total Creatine Kinase 4517 H CK-MB (CK-2) Troponin T Albumin Cholesterol LDL Cholesterol Direct HDL Cholesterol Arterial Blood Glucose 07/18/21 07/18/21 07/18/21 20:45 22:57 23:02 WBC RBC Hgb Hct Lymph % (Auto) [place] % (Auto) [place] # (Auto) Seg Neutrophils % Seg Neutrophils # POC ABG pCO2 49.6 H POC ABG pO2 125.9 H ABG Chloride 96.0 L ABG Glucose 135 H Potassium Chloride Carbon Dioxide BUN Creatinine Glucose POC Glucose 127 H 132 H AST ALT Total Creatine Kinase CK-MB (CK-2) Troponin T Albumin Cholesterol LDL Cholesterol Direct HDL Cholesterol Arterial Blood Glucose 135 H 07/19/21 07/19/21 07/19/21 00:04 04:35 05:07 WBC RBC Hgb Hct Lymph % (Auto) [place] % (Auto) [place] # (Auto) Seg Neutrophils % Seg Neutrophils # POC ABG pCO2 POC ABG pO2 ABG Chloride ABG Glucose Potassium 3.5 L Chloride 92.7 L Carbon Dioxide 21 L BUN 55 H Creatinine 5.3 H D Glucose 131 H POC Glucose 109 H 125 H AST ALT Total Creatine Kinase CK-MB (CK-2) Troponin T Albumin Cholesterol LDL Cholesterol Direct HDL Cholesterol Arterial Blood Glucose 07/19/21 08:43 WBC RBC Hgb Hct Lymph % (Auto) [place] % (Auto) [place] # (Auto) Seg Neutrophils % Seg Neutrophils # POC ABG pCO2 POC ABG pO2 ABG Chloride ABG Glucose Potassium Chloride Carbon Dioxide BUN Creatinine Glucose POC Glucose AST ALT Total Creatine Kinase 2857 H CK-MB (CK-2) 16.4 H Troponin T Albumin Cholesterol LDL Cholesterol Direct HDL Cholesterol Arterial Blood Glucose
--- NOTE | 2021-07-19 11:03 | Progress Note ---
Assessment and Plan Impression: * Acute kidney injury - ?prerenal azotemia vs ATN related to rhabdo * Acute CVA * Rhabomyolysis (CK peak at 11k) * Accelerated hypertension * Type II diabetes mellitus Plan: * Renal function has declined - SCr trending up, UOP 200ml * Bladder scan ordered - 300ml in bladder, silva catheter ordered * Gentle IVF as patient is not eating * Work up pending - Renal u/s, urine studies and serologic studies * Continue to hold ACEi * Trend CK - decreasing * Blood pressure significantly elevated - recommend Cardene gtt and gradual titration to control BP * Dose medications for renal function * Avoid potential nephrotoxins * AM labs Subjective Date of service: 07/19/21 Interval history: Patient transferred to ICU overnight. Objective - Vital Signs Vital signs: Vital Signs - 12hr 07/18/21 07/18/21 07/19/21 23:48 23:50 00:02 Temperature 98.1 F Pulse Rate 113 H 138 H 111 H Pulse Rate [ Bilateral Throughout] Respiratory 32 H 34 H Rate Respiratory Rate [Bilateral Throughout] Blood Pressure O2 Sat by Pulse Oximetry 07/19/21 07/19/21 07/19/21 00:07 00:15 00:31 Temperature Pulse Rate 107 H 102 H 114 H Pulse Rate [ Bilateral Throughout] Respiratory 21 22 17 Rate Respiratory Rate [Bilateral Throughout] Blood Pressure 169/107 O2 Sat by Pulse 100 100 98 Oximetry 07/19/21 07/19/21 07/19/21 00:45 00:51 01:01 Temperature Pulse Rate 112 H 113 H Pulse Rate [ 113 H Bilateral Throughout] Respiratory 22 40 H Rate Respiratory 41 H Rate [Bilateral Throughout] Blood Pressure 169/107 168/93 O2 Sat by Pulse 97 99 Oximetry 07/19/21 07/19/21 07/19/21 01:15 01:31 01:36 Temperature Pulse Rate 103 H 98 H Pulse Rate [ Bilateral Throughout] Respiratory 22 23 Rate Respiratory Rate [Bilateral Throughout] Blood Pressure 168/93 168/93 O2 Sat by Pulse 100 100 100 Oximetry 07/19/21 07/19/21 07/19/21 01:45 02:00 02:01 Temperature Pulse Rate 98 H 99 H Pulse Rate [ Bilateral Throughout] Respiratory 23 24 Rate Respiratory Rate [Bilateral Throughout] Blood Pressure 168/93 103/62 O2 Sat by Pulse 100 100 100 Oximetry 07/19/21 07/19/2107/19/21 02:15 02:31 02:45 Temperature Pulse Rate 95 H 92 H 92 H Pulse Rate [ Bilateral Throughout] Respiratory 21 17 17 Rate Respiratory Rate [Bilateral Throughout] Blood Pressure 103/62 103/62 103/62 O2 Sat by Pulse 100 100 100 Oximetry 07/19/21 07/19/21 07/19/21 03:00 03:15 03:19 Temperature 98.8 F Pulse Rate 94 H 94 H Pulse Rate [ Bilateral Throughout] Respiratory 21 21 Rate Respiratory Rate [Bilateral Throughout] Blood Pressure 123/84 123/84 O2 Sat by Pulse 100 100 Oximetry 07/19/21 07/19/21 07/19/21 03:31 03:45 04:00 Temperature Pulse Rate 95 H 94 H 90 Pulse Rate [ Bilateral Throughout] Respiratory 22 22 Rate Respiratory Rate [Bilateral Throughout] Blood Pressure 123/84 123/84 O2 Sat by Pulse 100 100 Oximetry 07/19/21 07/19/21 07/19/21 04:01 04:15 04:31 Temperature Pulse Rate 89 89 90 Pulse Rate [ Bilateral Throughout] Respiratory 20 19 18 Rate Respiratory Rate [Bilateral Throughout] Blood Pressure 133/94 133/94 133/94 O2 Sat by Pulse 100 100 100 Oximetry 07/19/21 07/19/21 07/19/21 04:45 05:00 05:15 Temperature Pulse Rate 92 H 89 90 Pulse Rate [ Bilateral Throughout] Respiratory 26 H 20 25 H Rate Respiratory Rate [Bilateral Throughout] Blood Pressure 133/94 120/87 120/87 O2 Sat by Pulse 100 100 100 Oximetry 07/19/21 07/19/21 07/19/21 05:31 06:00 06:31 Temperature Pulse Rate 95 H 93 H 89 Pulse Rate [ Bilateral Throughout] Respiratory 23 25 H 19 Rate Respiratory Rate [Bilateral Throughout] Blood Pressure 120/87 133/82 133/82 O2 Sat by Pulse 100 100 100 Oximetry 07/19/21 07/19/21 07/19/21 07:01 07:31 07:47 Temperature 97.8 F Pulse Rate 92 H 94 H Pulse Rate [ Bilateral Throughout] Respiratory 27 H 31 H Rate Respiratory Rate [Bilateral Throughout] Blood Pressure 155/95 155/95 O2 Sat by Pulse 100 100 Oximetry 07/19/21 07/19/21 07/19/21 08:01 08:31 08:55 Temperature Pulse Rate 93 H 102 H Pulse Rate [ Bilateral Throughout] Respiratory 23 30 H Rate Respiratory Rate [Bilateral Throughout] Blood Pressure 150/89 150/89 O2 Sat by Pulse 100 96 100 Oximetry 07/19/21 07/19/21 07/19/21 09:01 09:31 10:01 Temperature Pulse Rate 99 H 97 H 99 H Pulse Rate [ Bilateral Throughout] Respiratory 33 H 35 H 20 Rate Respiratory Rate [Bilateral Throughout] Blood Pressure 185/108 198/94 187/134 O2 Sat by Pulse 99 91 100 Oximetry 07/19/21 10:45 Temperature Pulse Rate 98 H Pulse Rate [ Bilateral Throughout] Respiratory Rate Respiratory Rate [Bilateral Throughout] Blood Pressure 214/112 O2 Sat by Pulse Oximetry - General Appearance General appearance: well-developed, well-nourished Respiratory: Present: Clear to Ascultation Cardiology: regular, S1S2 Gastrointestinal: normal, no tenderness, no distended Neurologic: other (lethargic, awakens briefly to respond to questions) Psychiatric: cooperative - Lab 07/19/21 10:20 07/19/21 04:35 Most recent lab results ABG pH 7.327 (7.320-7.450) 07/18/21 22:57 ABG O2 Saturation 98.3 (0-100) 07/18/21 22:57 Calcium 8.8 mg/dL (8.4-10.2) 07/19/21 04:35 Medications & Allergies - Medications Allergies/Adverse Reactions: Allergies No Known Allergies Allergy (Unverified 11/24/19 08:20) Home Medications: Home Medications Medication Instructions Recorded Confirmed Last Taken Type Multivitamin/Iron/Folic Acid 1 each PO QDAY 11/24/19 11/24/19 Unknown History [Centrum Adults Tablet] AtorvaSTATin [Lipitor] 40 mg PO QHS #30 tablet 11/27/19 Unknown Rx Docusate Sodium [Colace CAP] 100 mg PO BID PRN #20 capsule 11/27/19 Unknown Rx Insulin NPH/Regular [NovoLIN 70/30] 18 unit SUB-Q BIDDIAB #2 vial 11/27/19 Unknown Rx Lispro Insulin [HumaLOG] 5 unit SUB-Q ACHS #1 vial 11/27/19 Unknown Rx amLODIPine 10 mg PO QDAY #30 tablet 11/27/19 Unknown Rx carvediloL [Coreg] 12.5 mg PO BID #60 tablet 11/27/19 Unknown Rx hydrALAZINE [Apresoline TAB] 50 mg PO Q8HR #90 tab 11/27/19 Unknown Rx lisinopriL [Zestril TAB] 40 mg PO QDAY #30 tablet 11/27/19 Unknown Rx Active Medications: Generic Name Dose Route Start Last Admin Trade Name Freq PRN Reason Stop Dose Admin Acetaminophen 650 mg 07/17/21 23:42 Acetaminophen 325 Mg Tab PO Q4H PRN Pain MILD(1-3)/Fever >100.5/HENAO Amlodipine Besylate 10 mg 07/20/21 10:00 Amlodipine 10 Mg Tab PO QDAY LAUREANO Aspirin 325 mg 07/18/21 10:00 07/18/21 11:43 Aspirin 325 Mg Tab PO 325 mg QDAY LAUREANO Administration Atorvastatin Calcium 40 mg 07/18/21 22:00 Atorvastatin 40 Mg Tab PO QHS LAUREANO Carvedilol 12.5 mg 07/19/21 22:00 Carvedilol 12.5 Mg Tab PO BID LAUREANO Docusate Sodium 100 mg 07/18/21 10:00 Docusate Sodium 100 Mg Cap PO BID PRN Constipation Famotidine 10 mg 07/18/21 10:00 07/19/21 01:48 Famotidine 10 Mg Tab PO Not Given BID [facility] Heparin Sodium (Porcine) 5,000 unit 07/18/21 10:00 07/19/21 07:57 Heparin 5,000 Unit/1 Ml Vial SUB-Q Not Given Q12HR [facility] Hydralazine HCl 50 mg 07/18/21 08:00 07/19/21 07:57 Hydralazine 25 Mg Tab PO Not Given Q8HR [facility] Hydralazine HCl 10 mg 07/18/21 18:15 07/19/21 10:45 Hydralazine 20 Mg/1 Ml Inj IV 10 mg Q1HR PRN Administration Blood Pressure Dexmedetomidine HCl 200 mcg/ 50 mls @ 6.804 mls/hr 07/19/21 01:00 Sodium Chloride IV TITRATE [facility] Protocol 0.2 MCG/KG/HR Insulin Human Isoph/Insulin Regular 18 unit 07/18/21 08:00 07/18/21 17:47 Insulin Nph/Regular 70/30 Inj SUB-Q Not Given BIDDIAB [facility] Insulin Human Lispro 0 unit 07/18/21 07:30 07/19/21 07:58 Insulin Lispro 100 Unit/Ml SUB-Q Not Given ACHS [facility] Protocol Lorazepam 1 mg 07/18/21 16:15 Lorazepam 2 Mg/Ml Vial IV Q1H PRN Anxiety Metoclopramide HCl 5 mg 07/18/21 08:00 Metoclopramide 10 Mg/2 Ml Inj IV Q6H PRN Nausea And Vomiting Ondansetron HCl 4 mg 07/17/21 23:42 Ondansetron 4 Mg/2 Ml Inj IV Q8H PRN Nausea And Vomiting Oxycodone/Acetaminophen 1 tab 07/17/21 23:43 Oxycodone /Acetaminophen 5-325mg Tab PO Q6H PRN Pain, Moderate (4-6) Sodium Chloride 10 ml 07/18/21 10:00 07/18/21 10:09 Sodium Chloride 0.9% 10 Ml Flush Syringe IV 10 ml BID LAUREANO Administration Sodium Chloride 10 ml 07/17/21 23:42 Sodium Chloride 0.9% 10 Ml Flush Syringe IV PRN PRN LINE FLUSH
[2021-07-19 11:33] LABS: Hematocrit 47.8 % (35.5-45.6); Hemoglobin 15.6 gm/dl (11.8-15.2); Mean Corpuscular HGB Conc 33 % (32-34); Mean Corpuscular Volume 90 fl (84-94); Platelet Count 232 K/mm3 (140-440); Red Cell Distribution Width 14.4 % (13.2-15.2)
--- NOTE | 2021-07-19 11:38 | Consultation ---
History of Present Illness Consult date: 07/19/21 Requesting physician: NAZANIN REDMAN History of present illness: 51 y/o male with prior history of stroke admitted with stroke like symptoms on 09/17. Not a candidate for TPA. Admitted to the floor. Last evening, code met called for respiratory distress, concern for stridor. IMS gave Narcan, not sure why as patient had not been given in narcs. Per IMS concern for MICHAELA so transported to ICU on bipap. This am per nursing mental status is much better and currently on NRB. ABG shows good ventilation and oxygenation. Patient can answer questions and follows commands but has difficulty controlling secretions. BP remains elevated and his renal function has worsened. Past History Past Medical History: diabetes, hypertension, stroke Social history: other (unknown) Family history: other (unknown ) Medications and Allergies Allergies Allergy/AdvReac Type Severity Reaction Status Date / Time No Known Allergies Allergy Unverified 11/24/19 08:20 Home Medications Medication Instructions Recorded Confirmed Last Taken Type Multivitamin/Iron/Folic Acid 1 each PO QDAY 11/24/19 11/24/19 Unknown History [Centrum Adults Tablet] AtorvaSTATin [Lipitor] 40 mg PO QHS #30 tablet 11/27/19 Unknown Rx Docusate Sodium [Colace CAP] 100 mg PO BID PRN #20 capsule 11/27/19 Unknown Rx Insulin NPH/Regular [NovoLIN 70/30] 18 unit SUB-Q BIDDIAB #2 vial 11/27/19 Unknown Rx Lispro Insulin [HumaLOG] 5 unit SUB-Q ACHS #1 vial 11/27/19 Unknown Rx amLODIPine 10 mg PO QDAY #30 tablet 11/27/19 Unknown Rx carvediloL [Coreg] 12.5 mg PO BID #60 tablet 11/27/19 Unknown Rx hydrALAZINE [Apresoline TAB] 50 mg PO Q8HR #90 tab 11/27/19 Unknown Rx lisinopriL [Zestril TAB] 40 mg PO QDAY #30 tablet 11/27/19 Unknown Rx Active Meds: Active Medications Acetaminophen (Acetaminophen 325 Mg Tab) 650 mg PO Q4H PRN PRN Reason: Pain MILD(1-3)/Fever >100.5/HENAO Amlodipine Besylate (Amlodipine 10 Mg Tab) 10 mg PO QDAY LAUREANO Aspirin (Aspirin 325 Mg Tab) 325 mg PO QDAY LAUREANO Last Admin: 12/03/21 11:43 Dose: 325 mg Documented by: Atorvastatin Calcium (Atorvastatin 40 Mg Tab) 40 mg PO QHS [facility] Carvedilol (Carvedilol 12.5 Mg Tab) 12.5 mg PO BID [facility] Docusate Sodium (Docusate Sodium 100 Mg Cap) 100 mg PO BID PRN PRN Reason: Constipation Famotidine (Famotidine 10 Mg Tab) 10 mg PO BID [facility] Last Admin: 07/19/21 01:48 Dose: Not Given Documented by: Heparin Sodium (Porcine) (Heparin 5,000 Unit/1 Ml Vial) 5,000 unit SUB-Q Q12HR [facility] Last Admin: 07/19/21 07:57 Dose: Not Given Documented by: Hydralazine HCl (Hydralazine 25 Mg Tab) 50 mg PO Q8HR [facility] Last Admin: 07/19/21 07:57 Dose: Not Given Documented by: Hydralazine HCl (Hydralazine 20 Mg/1 Ml Inj) 10 mg IV Q1HR PRN PRN Reason: Blood Pressure Last Admin: 07/19/21 10:45 Dose: 10 mg Documented by: Dexmedetomidine HCl 200 mcg/ (Sodium Chloride) 50 mls @ 6.804 mls/hr IV TITRATE [facility]; Protocol Sodium Chloride (Nacl 0.45% 1000 Ml) 1,000 mls @ 75 mls/hr IV DIRECT LAUREANO Nicardipine HCl 50 mg/ Sodium (Chloride) 250 mls @ 25 mls/hr IV TITR [facility]; Protocol Insulin Human Isoph/Insulin Regular (Insulin Nph/Regular 70/30 Inj) 18 unit SUB-Q BIDDIAB [facility] Last Admin: 07/18/21 17:47 Dose: Not Given Documented by: Insulin Human Lispro (Insulin Lispro 100 Unit/Ml) 0 unit SUB-Q ACHS [facility]; Protocol Last Admin: 07/19/21 07:58 Dose: Not Given Documented by: Lorazepam (Lorazepam 2 Mg/Ml Vial) 1 mg IV Q1H PRN PRN Reason: Anxiety Metoclopramide HCl (Metoclopramide 10 Mg/2 Ml Inj) 5 mg IV Q6H PRN PRN Reason: Nausea And Vomiting Ondansetron HCl (Ondansetron 4 Mg/2 Ml Inj) 4 mg IV Q8H PRN PRN Reason: Nausea And Vomiting Oxycodone/Acetaminophen (Oxycodone /Acetaminophen 5-325mg Tab) 1 tab PO Q6H PRN PRN Reason: Pain, Moderate (4-6) Sodium Chloride (Sodium Chloride 0.9% 10 Ml Flush Syringe) 10 ml IV BID LAUREANO Last Admin: 07/18/21 10:09 Dose: 10 ml Documented by: Sodium Chloride (Sodium Chloride 0.9% 10 Ml Flush Syringe) 10 ml IV PRN PRN PRN Reason: LINE FLUSH Review of Systems All systems: negative Physical Examination Vital signs: Vital Signs Temp Resp Pulse Ox 98.4 F 18 99 07/17/21 08:30 07/17/21 08:30 07/17/21 08:30 General appearance: no acute distress, appears uncomfortable Eyes: non-icteric ENT: other (nasal trumptet in right nare) Neck: supple Ascultation: Bilateral: clear Percussion: Bilateral: not dull Cardiovascular: other (sinus tach) Gastrointestinal: normoactive bowel sounds, soft Extremities: no edema, pink and warm, pulses normal unable to assess Results - Laboratory Findings CBC and BMP: 07/19/21 10:20 07/19/21 04:35 ABG ABG pH 7.327 (7.320-7.450) 07/18/21 22:57 POC ABG pCO2 49.6 mmHg (32.0-48.0) H 07/18/21 22:57 POC ABG pO2 125.9 mmHg (83-108) H 07/18/21 22:57 POC ABG HCO3 25.4 07/18/21 22:57 ABG O2 Saturation 98.3 (0-100) 07/18/21 22:57 PT/INR, D-dimer PT 14.2 Sec. (12.2-14.9) 07/17/21 08:48 INR 0.99 (0.87-1.13) 07/17/21 08:48 Abnormal lab findings: Abnormal Labs 07/17/21 07/17/21 07/17/21 08:48 08:48 14:10 WBC 12.0 H RBC 5.76 H Hgb 16.9 H Hct 52.1 H Lymph % (Auto) 12.6 L [place] % (Auto) 10.3 H [place] # (Auto) 1.2 H Seg Neutrophils % 76.3 H Seg Neutrophils # 9.2 H POC ABG pCO2 POC ABG pO2 ABG Chloride ABG Glucose Potassium 3.3 L Chloride Carbon Dioxide BUN Creatinine Glucose 173 H POC Glucose 156 H AST 198 H ALT 60 H Total Creatine Kinase 88477 H CK-MB (CK-2) 54.1 H Troponin T 0.037 H Albumin 3.7 L Cholesterol 244 H LDL Cholesterol Direct 154 H HDL Cholesterol 66 H Arterial Blood Glucose 07/18/21 07/18/21 07/18/21 05:03 05:03 07:36 WBC 11.7 H RBC 5.25 H Hgb 15.3 H Hct 47.1 H Lymph % (Auto) [place] % (Auto) 10.7 H [place] # (Auto) 1.3 H Seg Neutrophils % Seg Neutrophils # 7.9 H POC ABG pCO2 POC ABG pO2 ABG Chloride ABG Glucose Potassium 3.1 L Chloride 95.3 L Carbon Dioxide BUN 37 H Creatinine 3.1 H D Glucose 167 H POC Glucose 160 H AST 129 H ALT 59 H Total Creatine Kinase CK-MB (CK-2) Troponin T Albumin 3.6 L Cholesterol LDL Cholesterol Direct HDL Cholesterol Arterial Blood Glucose 07/18/21 07/18/21 07/18/21 10:19 11:25 14:58 WBC RBC Hgb Hct Lymph % (Auto) [place] % (Auto) [place] # (Auto) Seg Neutrophils % Seg Neutrophils # POC ABG pCO2 POC ABG pO2 ABG Chloride ABG Glucose Potassium Chloride Carbon Dioxide BUN Creatinine Glucose POC Glucose 181 H 145 H AST ALT Total Creatine Kinase 4517 H CK-MB (CK-2) Troponin T Albumin Cholesterol LDL Cholesterol Direct HDL Cholesterol Arterial Blood Glucose 07/18/21 07/18/21 07/18/21 20:45 22:57 23:02 WBC RBC Hgb Hct Lymph % (Auto) [place] % (Auto) [place] # (Auto) Seg Neutrophils % Seg Neutrophils # POC ABG pCO2 49.6 H POC ABG pO2 125.9 H ABG Chloride 96.0 L ABG Glucose 135 H Potassium Chloride Carbon Dioxide BUN Creatinine Glucose POC Glucose 127 H 132 H AST ALT Total Creatine Kinase CK-MB (CK-2) Troponin T Albumin Cholesterol LDL Cholesterol Direct HDL Cholesterol Arterial Blood Glucose 135 H 07/19/21 07/19/21 07/19/21 00:04 04:35 05:07 WBC RBC Hgb Hct Lymph % (Auto) [place] % (Auto) [place] # (Auto) Seg Neutrophils % Seg Neutrophils # POC ABG pCO2 POC ABG pO2 ABG Chloride ABG Glucose Potassium 3.5 L Chloride 92.7 L Carbon Dioxide 21 L BUN 55 H Creatinine 5.3 H D Glucose 131 H POC Glucose 109 H 125 H AST ALT Total Creatine Kinase CK-MB (CK-2) Troponin T Albumin Cholesterol LDL Cholesterol Direct HDL Cholesterol Arterial Blood Glucose 07/19/21 07/19/21 07/19/21 08:43 10:20 11:27 WBC 14.5 H RBC 5.30 H Hgb 15.6 H Hct 47.8 H Lymph % (Auto) [place] % (Auto) [place] # (Auto) Seg Neutrophils % Seg Neutrophils # POC ABG pCO2 POC ABG pO2 ABG Chloride ABG Glucose Potassium Chloride Carbon Dioxide BUN Creatinine Glucose POC Glucose 149 H AST ALT Total Creatine Kinase 2857 H CK-MB (CK-2) 16.4 H Troponin T Albumin Cholesterol LDL Cholesterol Direct HDL Cholesterol Arterial Blood Glucose - Diagnostic Findings Chest x-ray: report reviewed Assessment and Plan 51 y/o male with stroke like symptoms, with acute change in mental state, could be related to hypertensive emergency and worsening renal function. 1. Nursing has already spoken with renal, ordered cardene drip for them. They have also requested IVF's. Set goal BP range systolic to 160-180. Agree with silva placement 2. FSBS and sliding scale for sugars 3. Reinsert DH and provide oral therapy 4. Once BP stable and tolerating PO/oral will transfer back to [facility].
[2021-07-19 11:55] LABS: Bilirubin,Urine NEG (Negative); Blood,Urine SM (Negative); Color,Urine Amber (Yellow); Hyaline Casts,Urine 12 /LPF; Mucus,Urine FEW /HPF; Urobilinogen,Urine < 2.0 mg/dL (<2.0)
[2021-07-19] MEDS ORDERED: niCARdipine 50 MG in SODIUM CHLORIDE 0.9% 250ML 230 ML IV SCH (12:00)
[2021-07-19 12:01] LABS: Creatinine,Urine 301.1 mg/dL (0.1-20.0); Protein,Urine >500 mg/dL (Negative)
[2021-07-19 12:05] LABS: Protein/Creatinine Ratio,Urine 0.69
[2021-07-19] MEDS ORDERED: LIPASE 10,500/PROTEASE 25,000/AMYLASE 43,750 (UNITS) DR CAP FEEDTUBE PRN (12:49)
[2021-07-19] MEDS ORDERED: SIMPLE SYRUP 15 ML FEEDTUBE PRN ×2 (12:49)
[2021-07-19] MEDS ORDERED: SODIUM BICARBONATE 325 MG TAB FEEDTUBE PRN (12:49)
[2021-07-19] MEDS ORDERED: LACTATED RINGERS 1,000 ML IV ONE (13:54)
[2021-07-19] MEDS: INSULIN NPH/REGULAR 70/30 INJ SUB-Q SCH ×2 (13:59→17:10)
[2021-07-19] MEDS: SODIUM CHLORIDE 0.45% 1000 ML 1,000 ML IV SCH (16:10)
--- NOTE | 2021-07-19 16:19 | XRay Report ---
ABDOMEN 1 VIEW(S) INDICATION / CLINICAL INFORMATION: s/p dobhoff placement. COMPARISON: None available. FINDINGS: TUBES / LINES: Feeding tube tip at the distal stomach. BOWEL GAS PATTERN: No bowel dilatation or constipation. ADDITIONAL FINDINGS: No significant additional findings. Signer Name: Vladimir Reilly MD Signed: 07/19/2021 4:14 PM Workstation Name: [id number]
[2021-07-19 16:38] LABS: Calcium 8.5 mg/dL (8.4-10.2)
--- NOTE | 2021-07-19 17:01 | Progress Note ---
<JOSE ROBERTO BULLOCK - Last Filed: 07/19/21 16:53> Assessment and Plan Assessment and plan: This is a 51-year-old male with IDDM, HTN, HLD, CVA admitted with acute CVA and respiratory distress Neuro: Acute CVA -Not a candidate for TPA -Neurology consulted, appreciate recommendations -CT head showed chronic volume loss and white matter changes, multiple chronic lacunar infarcts -CTA head showed notable irregularities of the vertebrobasilar system with significant stenosis most notably involving the mid basilar artery there is notable decrease contrast opacification of the distal right cerebral artery compatible with reduced flow -CTA neck showed mild atherosclerotic calcification involving proximal internal carotid artery segment without significant stenosis Decreased attenuation involving the distal cervical and intra cranial segment of the right vertebral artery compatible with decreased flow -Bilateral carotid Doppler ultrasound showed less than 50% stenosis in both left and right internal carotid arteries -Echocardiogram -MRI brain shows clinical capsular infarct most likely related to small vessel disease -PT/OT/ST consults -Lipitor, aspirin -Allow for permissive hypertension for 24 hours -Maintain euthymia and euglycemia -Aspiration/seizure precautions -Precedex drip on standby Cardio: h/o HTN and hyperlipidemia -Started on a Cardene drip -Wean as tolerated -P.o. antihypertensive regimen -Amlodipine, Coreg, hydralazine (titrate as needed) -As needed hydralazine -Blood pressure monitoring per protocol -Lipitor Respiratory: Acute hypoxic respiratory failure -S/p BiPAP therapy -Nonrebreather in place in a.m. with nasal trumpet -Weaned to nasal cannula today with nasal trumpet -NT suction as needed -Supplemental oxygen as needed -Pulmonary hygiene -SPO2 monitoring GI: MO -Nutrition consult for tube feeding -DHT replaced -Tube feeding: Nephro at 45 -Free water flushes 125 every 4 -BR: Colace -PPI -24 hours 459mL : Acute kidney injury (? Prerenal azotemia versus ATN related to rhabdomyolysis), rhabdomyolysis, hypokalemia -Admitted with a CK of 11 K -IV hydration -Nephrology consulted, appreciate recommendations -Renal ultrasound pending -Urine studies pending -Serology results pending -Hold BIA -Mora catheter placed for strict urine output -Trend BMP -Avoid nephrotoxic medications--renally dose medications Endo: h/o DM -SSI -Accu-Cheks every 6 -Avoid hypoglycemia ID: Leukocytosis -Monitor for signs and symptoms of infection -Monitor fever and WBC curve Heme: NAD -Heparin subcu -SCDs to bilateral lower extremity while in bed -Transfuse for hemoglobin less than 7 -Trend CBC The high probability of a clinically significant, sudden or life threatening deterioration of the [neuro/cv] system(s) required my full and direct attention, intervention and personal management. The aggregate critical care time was [60] minutes. This time is in addition to time spent performing reported procedures but includes the following: [x] Data Review and interpretation [x] Patient assessment and monitoring of vital signs [x] Documentation [x] Medication orders and management Disposition Plan: icu Total Time Spent with Patient (Minutes): 60 History Interval history: This is a 51-year-old male with IDDM, HTN, HLD, CVA who presents the emergency department on 07/17 with complaints of left-sided upper and lower extremity weakness with difficulty speaking which started approximately at 1 PM on 07/16. Patient deemed outside of TPA window by telemetry neurology consult. Work-up in the emergency department included a CT head which showed chronic white matter changes and multiple chronic appearing lacunar infarcts with questionable hyperdense left MCA, CTA head showed notable irregularity of the vertebrobasilar system with significant stenosis, decreased flow at right distal vertebral artery, CTA neck which showed mild atherosclerotic calcification involving the proximal internal carotid arteries and decreased flow to the right vertebral artery intracranial segment. Lab work showed acute kidney injury, rhabdomyolysis. Patient was admitted to the hospitalist service with consults to neurology and nephrology. 07/18: I have seen and examined the patient in the ER awaiting bed assignment. Patient was admitted with acute CVA not a candidate for TPA with left hemipar esis. Neuro work-up is in progress 07/19: Overnight patient was transferred to ICU due to respiratory distress, started on BiPAP and given Narcan x1. CT head was obtained due to unequal pupils. Started on a Cardene drip this morning with IV fluids per nephrology. Mora catheter placed. NG tube was removed by the patient were replaced. Weaned to nasal cannula. Nutrition consult for tube feeding. ST/OT/PT consults. Hospitalist Physical - Constitutional Vitals: Temp Pulse Resp BP Pulse Ox 97.6 F 106 H 30 H 161/83 93 07/19/21 16:00 07/19/21 15:45 07/19/21 15:45 07/19/21 15:45 07/19/21 15:45 General appearance: Present: no acute distress, well-nourished - EENT Eyes: Present: PERRL, EOM intact ENT: dentition normal - Neck Neck: Present: normal ROM - Respiratory Respiratory effort: normal Respiratory: bilateral: diminished - Cardiovascular Rhythm: regular Heart Sounds: Present: S1 & S2. Absent: systolic murmur, diastolic murmur - Extremities Extremities: no ischemia, pulses intact, pulses symmetrical, No edema, normal temperature, normal color Peripheral Pulses: within normal limits - Abdominal General gastrointestinal: soft, non-tender, non-distended, normal bowel sounds - Integumentary Integumentary: Present: clear, warm, dry - Psychiatric Psychiatric: cooperative - Neurologic Neurologic: focal deficits (left sided hemiparesis, left sided facial droop) HEART Score - HEART Score Troponin: Troponin T 0.037 ng/mL (0.00-0.029) H 07/17/21 08:48 Results - Labs CBC & Chem 7: 07/19/21 10:20 07/19/21 15:53 Labs: Laboratory Last Values WBC 14.5 K/mm3 (4.5-11.0) H 07/19/21 10:20 RBC 5.30 M/mm3 (3.65-5.03) H 07/19/21 10:20 Hgb 15.6 gm/dl (11.8-15.2) H 07/19/21 10:20 Hct 47.8 % (35.5-45.6) H 07/19/21 10:20 MCV 90 fl (84-94) 07/19/21 10:20 MCH 29 pg (28-32) 07/19/21 10:20 MCHC 33 % (32-34) 07/19/21 10:20 RDW 14.4 % (13.2-15.2) 07/19/21 10:20 Plt Count 232 K/mm3 (140-440) 07/19/21 10:20 Lymph % (Auto) 20.3 % (13.4-35.0) 07/18/21 05:03 Garden % (Auto) 10.7 % (0.0-7.3) H 07/18/21 05:03 Eos % (Auto) 0.6 % (0.0-4.3) 07/18/21 05:03 Baso % (Auto) 0.8 % (0.0-1.8) 07/18/21 05:03 Lymph # (Auto) 2.4 K/mm3 (1.2-5.4) 07/18/21 05:03 [place] # (Auto) 1.3 K/mm3 (0.0-0.8) H 07/18/21 05:03 Eos # (Auto) 0.1 K/mm3 (0.0-0.4) 07/18/21 05:03 Baso # (Auto) 0.1 K/mm3 (0.0-0.1) 07/18/21 05:03 Seg Neutrophils % 67.6 % (40.0-70.0) 07/18/21 05:03 Seg Neutrophils # 7.9 K/mm3 (1.8-7.7) H 07/18/21 05:03 PT 14.2 Sec. (12.2-14.9) 07/17/21 08:48 INR 0.99 (0.87-1.13) 07/17/21 08:48 APTT 26.5 Sec. (24.2-36.6) 07/17/21 08:48 Thrombin Time 18.9 Sec. (15.1-19.6) 07/17/21 08:48 ABG pH 7.327 (7.320-7.450) 07/18/21 22:57 POC ABG pCO2 49.6 mmHg (32.0-48.0) H 07/18/21 22:57 POC ABG pO2 125.9 mmHg (83-108) H 07/18/21 22:57 POC ABG HCO3 25.4 07/18/21 22:57 ABG O2 Saturation 98.3 (0-100) 07/18/21 22:57 POC ABG Base Excess -1.3 07/18/21 22:57 ABG Hemoglobin 16.6 (12.0-17.5) 07/18/21 22:57 ABG Oxyhemoglobin 97.3 (94-98) 07/18/21 22:57 ABG Methemoglobin 0.2 (0.0-1.5) 07/18/21 22:57 ABG Sodium 138.2 mmol/L (136.0-145.0) 07/18/21 22:57 ABG Potassium 3.7 mmol/L (3.40-4.50) 07/18/21 22:57 ABG Chloride 96.0 mmol/L (98-107) L 07/18/21 22:57 ABG Glucose 135 mg/dL (65-95) H 07/18/21 22:57 Carboxyhemoglobin 0.8 (0.5-1.5) 07/18/21 22:57 FiO2 % 40.0 07/18/21 22:57 Sodium 140 mmol/L (137-145) 07/19/21 15:53 Potassium 3.4 mmol/L (3.6-5.0) L 07/19/21 15:53 Chloride 94.7 mmol/L (98-107) L 07/19/21 15:53 Carbon Dioxide 20 mmol/L (22-30) L 07/19/21 15:53 Anion Gap 29 mmol/L 07/19/21 15:53 BUN 68 mg/dL (9-20) H 07/19/21 15:53 Creatinine 4.9 mg/dL (0.8-1.3) H 07/19/21 15:53 Estimated GFR 15 ml/min 07/19/21 15:53 BUN/Creatinine Ratio 14 % 07/19/21 15:53 Glucose 173 mg/dL (75-100) H 07/19/21 15:53 POC Glucose 149 mg/dL (70-105) H 07/19/21 11:27 Calcium 8.5 mg/dL (8.4-10.2) 07/19/21 15:53 Total Bilirubin 0.80 mg/dL (0.1-1.2) 07/18/21 05:03 AST 129 units/L (5-40) H 07/18/21 05:03 ALT 59 units/L (7-56) H 07/18/21 05:03 Alkaline Phosphatase 84 units/L (35-129) 07/18/21 05:03 Total Creatine Kinase 2857 units/L (55-170) H 07/19/21 08:43 CK-MB (CK-2) 16.4 ng/mL (0.0-4.0) H 07/19/21 08:43 CK-MB (CK-2) Rel Index 0.4 (0-4) 07/17/21 08:48 Troponin T 0.037 ng/mL (0.00-0.029) H 07/17/21 08:48 Total Protein 6.9 g/dL (6.3-8.2) 07/18/21 05:03 Albumin 3.6 g/dL (3.9-5) L 07/18/21 05:03 Albumin/Globulin Ratio 1.1 % 07/18/21 05:03 Triglycerides 95 mg/dL (2-149) 07/17/21 08:48 Cholesterol 244 mg/dL (50-199) H 07/17/21 08:48 LDL Cholesterol Direct 154 mg/dL (50-130) H 07/17/21 08:48 HDL Cholesterol 66 mg/dL (40-59) H 07/17/21 08:48 Cholesterol/HDL Ratio 3.69 % 07/17/21 08:48 Arterial Blood Glucose 135 mg/dL (65-95) H 07/18/21 22:57 Urine Color Debbie (Yellow) 07/19/21 Unknown Urine Turbidity Slightly-cloudy (Clear) 07/19/21 Unknown Urine pH 5.0 (5.0-7.0) 07/19/21 Unknown Ur Specific [place] 1.027 (1.003-1.030) 07/19/21 Unknown Urine Protein >500 mg/dL (Negative) 07/19/21 Unknown Urine Glucose (UA) 50 mg/dL (Negative) 07/19/21 Unknown Urine Ketones Neg mg/dL (Negative) 07/19/21 Unknown Urine Blood Sm (Negative) 07/19/21 Unknown Urine Nitrite Neg (Negative) 07/19/21 Unknown Urine Bilirubin Neg (Negative) 07/19/21 Unknown Urine Urobilinogen < 2.0 mg/dL (<2.0) 07/19/21 Unknown Ur Leukocyte Esterase Neg (Negative) 07/19/21 Unknown Urine WBC (Auto) 7.0 /HPF (0.0-6.0) H 07/19/21 Unknown Urine RBC (Auto) 4.0 /HPF (0.0-6.0) 07/19/21 Unknown U Epithel Cells (Auto) 1.0 /HPF (0-13.0) 07/19/21 Unknown Hyaline Casts 12 /LPF 07/19/21 Unknown Urine Mucus Few /HPF 07/19/21 Unknown Urine Creatinine 301.1 mg/dL (0.1-20.0) H 07/19/21 Unknown Protein/Creatinin Ratio 0.69 07/19/21 Unknown Urine Total Protein 207 mg/dL (5-11.8) H 07/19/21 Unknown Urine Opiates Screen Presumptive negative 07/18/21 16:41 Urine Methadone Screen Presumptive negative 07/18/21 16:41 Ur Barbiturates Screen Presumptive negative 07/18/21 16:41 Ur Phencyclidine Scrn Presumptive negative 07/18/21 16:41 Ur Amphetamines Screen Presumptive negative 07/18/21 16:41 U Benzodiazepines Scrn Presumptive negative 07/18/21 16:41 Urine Cocaine Screen Presumptive negative 07/18/21 16:41 U Marijuana (THC) Screen Presumptive negative 07/18/21 16:41 Drugs of Abuse Note Disclamer 07/18/21 16:41 Plasma/Serum Alcohol < 0.01 % (0-0.07) 07/17/21 08:48 Active Medications - Current Medications Current Medications: Generic Name Dose Route Start Last Admin Trade Name Freq PRN Reason Stop Dose Admin Acetaminophen 650 mg 07/17/21 23:42 Acetaminophen 325 Mg Tab PO Q4H PRN Pain MILD(1-3)/Fever >100.5/HENAO Amlodipine Besylate 10 mg 07/20/21 10:00 Amlodipine 10 Mg Tab PO QDAY [facility] Lipase/Protease/Amylase 1 each 07/19/21 12:49 Lipase 10,500/Protease 25,000/Amylase 43,750 (Units) Dr Taylor FEEDTUBE PRN PRN For Clogged Feeding Tube Aspirin 325 mg 07/18/21 10:00 07/18/21 11:43 Aspirin 325 Mg Tab PO 325 mg QDAY [facility] Administration Atorvastatin Calcium 40 mg 07/18/21 22:00 Atorvastatin 40 Mg Tab PO QHS [facility] Carvedilol 12.5 mg 07/19/21 22:00 Carvedilol 12.5 Mg Tab PO BID [facility] Docusate Sodium 100 mg 07/18/21 10:00 Docusate Sodium 100 Mg Cap PO BID PRN Constipation Famotidine 10 mg 07/18/21 10:00 07/19/21 15:38 Famotidine 10 Mg Tab PO Not Given BID [facility] Heparin Sodium (Porcine) 5,000 unit 07/18/21 10:00 07/19/21 07:57 Heparin 5,000 Unit/1 Ml Vial SUB-Q Not Given Q12HR [facility] Hydralazine HCl 50 mg 07/18/21 08:00 07/19/21 15:41 Hydralazine 25 Mg Tab PO Not Given Q8HR [facility] Hydralazine HCl 10 mg 07/18/21 18:15 07/19/21 12:25 Hydralazine 20 Mg/1 Ml Inj IV 10 mg Q1HR PRN Administration Blood Pressure Dexmedetomidine HCl 200 mcg/ 50 mls @ 6.804 mls/hr 07/19/21 01:00 Sodium Chloride IV TITRATE [facility] Protocol 0.2 MCG/KG/HR Sodium Chloride 1,000 mls @ 75 mls/hr 07/19/21 12:00 07/19/21 16:10 Nacl 0.45% 1000 Ml IV 75 mls/hr DIRECT [facility] Administration Nicardipine HCl 50 mg/ Sodium 250 mls @ 25 mls/hr 07/19/21 12:00 07/19/21 16:11 Chloride IV 5 mg/hr TITR LAUREANO 25 mls/hr Titration Protocol 5 MG/HR Insulin Human Isoph/Insulin Regular 18 unit 07/18/21 08:00 07/19/21 13:59 Insulin Nph/Regular 70/30 Inj SUB-Q Not Given BIDDIAB [facility] Insulin Human Lispro 0 unit 07/19/21 18:00 Insulin Lispro 100 Unit/Ml SUB-Q Q6HR [facility] Protocol Lorazepam 1 mg 07/18/21 16:15 Lorazepam 2 Mg/Ml Vial IV Q1H PRN Anxiety Metoclopramide HCl 5 mg 07/18/21 08:00 Metoclopramide 10 Mg/2 Ml Inj IV Q6H PRN Nausea And Vomiting Ondansetron HCl 4 mg 07/17/21 23:42 Ondansetron 4 Mg/2 Ml Inj IV Q8H PRN Nausea And Vomiting Oxycodone/Acetaminophen 1 tab 07/17/21 23:43 Oxycodone /Acetaminophen 5-325mg Tab PO Q6H PRN Pain, Moderate (4-6) Simple Syrup 15 ml 07/19/21 12:49 Simple Syrup 15 Ml FEEDTUBE PRN PRN Hypoglycemia Simple Syrup 30 ml 07/19/21 12:49 Simple Syrup 15 Ml FEEDTUBE PRN PRN Hypoglycemia Sodium Bicarbonate 325 mg 07/19/21 12:49 Sodium Bicarbonate 325 Mg Tab FEEDTUBE PRN PRN For Clogged Feeding Tube Sodium Chloride 10 ml 07/18/21 10:00 07/19/21 15:40 Sodium Chloride 0.9% 10 Ml Flush Syringe IV 10 ml BID LAUREANO Administration Sodium Chloride 10 ml 07/17/21 23:42 Sodium Chloride 0.9% 10 Ml Flush Syringe IV PRN PRN LINE FLUSH Nutrition/Malnutrition Assess - Dietary Evaluation Nutrition/Malnutrition Findings: Nutrition Notes Start: 07/19/21 12:37 Freq: Status: Active Protocol: Document 07/19/21 12:37 CW (Rec: 07/19/21 12:49 CW [id number]) Nutrition Notes Need for Assessment generated from: MD Order Initial or Follow up Assessment Current Diagnosis CKD(stage I-IV),Diabetes, Hypertension,Stroke, Hyperlipidemia Other Pertinent Diagnosis h/o NC, L hemiparesis Labs/Tests K 3.5 BUN 55 Cr 5.3 Pertinent Medications levophed Height 5 ft 10 in Weight 136.078 kg [place] Body Weight (kg) 75.45 BMI 43.0 Weight Status Morbidly Obese Subjective/Other Information cosnult for TF. MD previously order for ONS. ONS cancelled. Pt nonverbnal and unable to consume via PO at this time. NGT was placed but dislodged by pt. POC is to replace NGT and start TF. Burn Absent Trauma Absent Difficulty In Swallowing Skin Integrity/Comment Intact Current % PO Negligible Minimum of two criteria No physical signs of malnutrition #1 Nutrition Diagnosis Inadequate oral intake Etiology CVA As Evidenced by Signs and Symptoms Pt unabel to safely consume via PO at this time Is patient on ventilator? No Is Patient Ambulatory and/or Out of Bed No REE-([facility]-confined to bed) 2663.796 Kcal/Kg value to use for calculation 14 Approximate Energy Requirements Using 1905 kcal/Kg Calculation Used for Recommendations Kcal/kg Additional Notes protein needs: 189 g (2.5g/ kgIBW) fluid needs: 1500mL for renal or per MD order Nutrition Intervention Change Diet Order: Intitiate TF when medically stable Nutrition Support: Nepro at 45 ml/hr with a free water flush fo 125 ml q4h Kcal 1,944 Protein (gm) 87 Fluid (mL) 785 Goal #1 Meet at least 75% of EER via TF Anticipated Discharge Needs: UNABLE TO DETERMINE AT THIS TIME Follow-Up By: 07/21/21 Additional Comments F/U for TF start and tolerance <DIANE CADET - Last Filed: 07/21/21 13:45> Assessment and Plan Assessment and plan: I saw and evaluated the patient. Discussed with the nurse practitioner and agree with their findings and plan as documented in this note. Hospitalist Physical - Constitutional Vitals: Temp Pulse Resp BP Pulse Ox 98.3 F 86 28 H 191/115 97 07/21/21 08:31 07/21/21 08:31 07/21/21 08:31 07/21/21 08:31 07/21/21 10:00 HEART Score - HEART Score Troponin: Troponin T 0.037 ng/mL (0.00-0.029) H 07/17/21 08:48 Results - Labs CBC & Chem 7: 07/21/21 12:13 07/21/21 12:13 Labs: Laboratory Last Values WBC 7.9 K/mm3 (4.5-11.0) 07/21/21 12:13 RBC 4.11 M/mm3 (3.65-5.03) 07/21/21 12:13 Hgb 12.2 gm/dl (11.8-15.2) 07/21/21 12:13 Hct 37.7 % (35.5-45.6) 07/21/21 12:13 MCV 92 fl (84-94) 07/21/21 12:13 MCH 30 pg (28-32) 07/21/21 12:13 MCHC 32 % (32-34) 07/21/21 12:13 RDW 14.3 % (13.2-15.2) 07/21/21 12:13 Plt Count 232 K/mm3 (140-440) 07/21/21 12:13 Lymph % (Auto) 16.2 % (13.4-35.0) 07/21/21 12:13 Garden % (Auto) 11.0 % (0.0-7.3) H 07/21/21 12:13 Eos % (Auto) 0.8 % (0.0-4.3) 07/21/21 12:13 Baso % (Auto) 0.5 % (0.0-1.8) 07/21/21 12:13 Lymph # (Auto) 1.3 K/mm3 (1.2-5.4) 07/21/21 12:13 [place] # (Auto) 0.9 K/mm3 (0.0-0.8) H 07/21/21 12:13 Eos # (Auto) 0.1 K/mm3 (0.0-0.4) 07/21/21 12:13 Baso # (Auto) 0.0 K/mm3 (0.0-0.1) 07/21/21 12:13 Seg Neutrophils % 71.5 % (40.0-70.0) H 07/21/21 12:13 Seg Neutrophils # 5.6 K/mm3 (1.8-7.7) 07/21/21 12:13 PT 14.2 Sec. (12.2-14.9) 07/17/21 08:48 INR 0.99 (0.87-1.13) 07/17/21 08:48 APTT 26.5 Sec. (24.2-36.6) 07/17/21 08:48 Thrombin Time 18.9 Sec. (15.1-19.6) 07/17/21 08:48 ABG pH 7.327 (7.320-7.450) 07/18/21 22:57 POC ABG pCO2 49.6 mmHg (32.0-48.0) H 07/18/21 22:57 POC ABG pO2 125.9 mmHg (83-108) H 07/18/21 22:57 POC ABG HCO3 25.4 07/18/21 22:57 ABG O2 Saturation 98.3 (0-100) 07/18/21 22:57 POC ABG Base Excess -1.3 07/18/21 22:57 ABG Hemoglobin 16.6 (12.0-17.5) 07/18/21 22:57 ABG Oxyhemoglobin 97.3 (94-98) 07/18/21 22:57 ABG Methemoglobin 0.2 (0.0-1.5) 07/18/21 22:57 ABG Sodium 138.2 mmol/L (136.0-145.0) 07/18/21 22:57 ABG Potassium 3.7 mmol/L (3.40-4.50) 07/18/21 22:57 ABG Chloride 96.0 mmol/L (98-107) L 07/18/21 22:57 ABG Glucose 135 mg/dL (65-95) H 07/18/21 22:57 Carboxyhemoglobin 0.8 (0.5-1.5) 07/18/21 22:57 FiO2 % 40.0 07/18/21 22:57 Sodium 139 mmol/L (137-145) 07/21/21 12:13 Potassium 3.8 mmol/L (3.6-5.0) 07/21/21 12:13 Chloride 101.5 mmol/L (98-107) 07/21/21 12:13 Carbon Dioxide 21 mmol/L (22-30) L 07/21/21 12:13 Anion Gap 20 mmol/L 07/21/21 12:13 BUN 80 mg/dL (9-20) H 07/21/21 12:13 Creatinine 3.6 mg/dL (0.8-1.3) H 07/21/21 12:13 Estimated GFR 22 ml/min 07/21/21 12:13 BUN/Creatinine Ratio 22 % 07/21/21 12:13 Glucose 221 mg/dL (75-100) H 07/21/21 12:13 POC Glucose 191 mg/dL (70-105) H 07/21/21 12:02 Calcium 8.1 mg/dL (8.4-10.2) L 07/21/21 12:13 Phosphorus 5.80 mg/dL (2.5-4.5) H 07/21/21 04:55 Magnesium 2.60 mg/dL (1.7-2.3) H 07/21/21 04:55 Total Bilirubin 0.60 mg/dL (0.1-1.2) 07/21/21 12:13 AST 34 units/L (5-40) 07/21/21 12:13 ALT 29 units/L (7-56) 07/21/21 12:13 Alkaline Phosphatase 70 units/L (35-129) 07/21/21 12:13 Total Creatine Kinase 1480 units/L (55-170) H 07/20/21 06:12 CK-MB (CK-2) 12.5 ng/mL (0.0-4.0) H 07/20/21 06:12 CK-MB (CK-2) Rel Index 0.4 (0-4) 07/17/21 08:48 Troponin T 0.037 ng/mL (0.00-0.029) H 07/17/21 08:48 Total Protein 6.5 g/dL (6.3-8.2) 07/21/21 12:13 Albumin 2.9 g/dL (3.9-5) L 07/21/21 12:13 Albumin/Globulin Ratio 0.8 % 07/21/21 12:13 Triglycerides 95 mg/dL (2-149) 07/17/21 08:48 Cholesterol 244 mg/dL (50-199) H 07/17/21 08:48 LDL Cholesterol Direct 154 mg/dL (50-130) H 07/17/21 08:48 HDL Cholesterol 66 mg/dL (40-59) H 07/17/21 08:48 Cholesterol/HDL Ratio 3.69 % 07/17/21 08:48 Arterial Blood Glucose 135 mg/dL (65-95) H 07/18/21 22:57 Urine Color Debbie (Yellow) 07/19/21 Unknown Urine Turbidity Slightly-cloudy (Clear) 07/19/21 Unknown Urine pH 5.0 (5.0-7.0) 07/19/21 Unknown Ur Specific [place] 1.027 (1.003-1.030) 07/19/21 Unknown Urine Protein >500 mg/dL (Negative) 07/19/21 Unknown Urine Glucose (UA) 50 mg/dL (Negative) 07/19/21 Unknown Urine Ketones Neg mg/dL (Negative) 07/19/21 Unknown Urine Blood Sm (Negative) 07/19/21 Unknown Urine Nitrite Neg (Negative) 07/19/21 Unknown Urine Bilirubin Neg (Negative) 07/19/21 Unknown Urine Urobilinogen < 2.0 mg/dL (<2.0) 07/19/21 Unknown Ur Leukocyte Esterase Neg (Negative) 07/19/21 Unknown Urine WBC (Auto) 7.0 /HPF (0.0-6.0) H 07/19/21 Unknown Urine RBC (Auto) 4.0 /HPF (0.0-6.0) 07/19/21 Unknown U Epithel Cells (Auto) 1.0 /HPF (0-13.0) 07/19/21 Unknown Hyaline Casts 12 /LPF 07/19/21 Unknown Urine Mucus Few /HPF 07/19/21 Unknown Urine Osmolality 481 Mosm/kg 07/20/21 12:10 Urine Creatinine 144.9 mg/dL (0.1-20.0) H 07/20/21 12:10 Protein/Creatinin Ratio 0.69 07/19/21 Unknown Urine Sodium 69 mmol/L 07/20/21 12:10 Urine Urea Nitrogen 684 07/20/21 12:10 Urine Total Protein 207 mg/dL (5-11.8) H 07/19/21 Unknown Urine Opiates Screen Presumptive negative 07/18/21 16:41 Urine Methadone Screen Presumptive negative 07/18/21 16:41 Ur Barbiturates Screen Presumptive negative 07/18/21 16:41 Ur Phencyclidine Scrn Presumptive negative 07/18/21 16:41 Ur Amphetamines Screen Presumptive negative 07/18/21 16:41 U Benzodiazepines Scrn Presumptive negative 07/18/21 16:41 Urine Cocaine Screen Presumptive negative 07/18/21 16:41 U Marijuana (THC) Screen Presumptive negative 07/18/21 16:41 Drugs of Abuse Note Disclamer 07/18/21 16:41 Plasma/Serum Alcohol < 0.01 % (0-0.07) 07/17/21 08:48 Mora/IV: Voiding Method Indwelling Catheter Active Medications - Current Medications Current Medications: Generic Name Dose Route Start Last Admin Trade Name Freq PRN Reason Stop Dose Admin Acetaminophen 650 mg 07/17/21 23:42 Acetaminophen 325 Mg Tab PO Q4H PRN Pain MILD(1-3)/Fever >100.5/HENAO Amlodipine Besylate 10 mg 07/20/21 10:00 07/21/21 10:26 Amlodipine 10 Mg Tab PO 10 mg QDAY [facility] Administration Lipase/Protease/Amylase 1 each 07/19/21 12:49 Lipase 10,500/Protease 25,000/Amylase 43,750 (Units) Dr Taylor FEEDTUBE PRN PRN For Clogged Feeding Tube Aspirin 325 mg 07/18/21 10:00 07/21/21 10:26 Aspirin 325 Mg Tab PO 325 mg QDAY [facility] Administration Atorvastatin Calcium 40 mg 07/18/21 22:00 07/20/21 21:59 Atorvastatin 40 Mg Tab PO 40 mg QHS [facility] Administration Docusate Sodium 100 mg 07/18/21 10:00 Docusate Sodium 100 Mg Cap PO BID PRN Constipation Famotidine 10 mg 07/18/21 10:00 07/21/21 10:26 Famotidine 10 Mg Tab PO 10 mg BID [facility] Administration Heparin Sodium (Porcine) 5,000 unit 07/18/21 10:00 07/21/21 10:26 Heparin 5,000 Unit/1 Ml Vial SUB-Q 5,000 unit Q12HR [facility] Administration Hydralazine HCl 100 mg 07/20/21 08:00 07/21/21 10:26 Hydralazine 100 Mg Tab PO 100 mg TID [facility] Administration Hydralazine HCl 10 mg 07/21/21 10:00 Hydralazine 20 Mg/1 Ml Inj IV Q3H PRN hypertension Potassium Chloride/Sodium Chloride 20 meq in 1,000 mls @ 100 mls/hr 07/21/21 11:00 Ns 0.45/Kcl 20meq IV DIRECT [facility] Insulin Human Isoph/Insulin Regular 18 unit 07/18/21 08:00 07/21/21 08:00 Insulin Nph/Regular 70/30 Inj SUB-Q Not Given BIDDIAB [facility] Insulin Human Lispro 0 unit 07/19/21 18:00 07/21/21 01:12 Insulin Lispro 100 Unit/Ml SUB-Q Not Given Q6HR [facility] Protocol Labetalol HCl 10 mg 07/21/21 10:00 Labetalol 20 Mg/4 Ml Inj IV Q4HR PRN sbp > 160, hold for HR < 70 Lorazepam 1 mg 07/18/21 16:15 Lorazepam 2 Mg/Ml Vial IV Q1H PRN Anxiety Metoclopramide HCl 5 mg 07/18/21 08:00 Metoclopramide 10 Mg/2 Ml Inj IV Q6H PRN Nausea And Vomiting Ondansetron HCl 4 mg 07/17/21 23:42 Ondansetron 4 Mg/2 Ml Inj IV Q8H PRN Nausea And Vomiting Oxycodone/Acetaminophen 1 tab 07/17/21 23:43 Oxycodone /Acetaminophen 5-325mg Tab PO Q6H PRN Pain, Moderate (4-6) Simple Syrup 15 ml 07/19/21 12:49 Simple Syrup 15 Ml FEEDTUBE PRN PRN Hypoglycemia Simple Syrup 30 ml 07/19/21 12:49 Simple Syrup 15 Ml FEEDTUBE PRN PRN Hypoglycemia Sodium Bicarbonate 325 mg 07/19/21 12:49 Sodium Bicarbonate 325 Mg Tab FEEDTUBE PRN PRN For Clogged Feeding Tube Sodium Chloride 10 ml 07/18/21 10:00 07/20/21 22:00 Sodium Chloride 0.9% 10 Ml Flush Syringe IV 10 ml BID [facility]ANO Administration Sodium Chloride 10 ml 07/17/21 23:42 Sodium Chloride 0.9% 10 Ml Flush Syringe IV PRN PRN LINE FLUSH Sodium Chloride 1,000 ml 07/21/21 13:00 Sodium Chloride 0.45% 1000 Ml Iv Soln IV DIRECT LAUREANO Nutrition/Malnutrition Assess - Dietary Evaluation Nutrition/Malnutrition Findings: Nutrition Notes Start: 07/19/21 12: 37 Freq: Status: Active Protocol: Document 07/19/21 12:37 CW (Rec: 07/19/21 12:49 CW [email or web address]) Nutrition Notes Need for Assessment generated from: MD Order Initial or Follow up Assessment Current Diagnosis CKD(stage I-IV),Diabetes, Hypertension,Stroke, Hyperlipidemia Other Pertinent Diagnosis h/o NC, L hemiparesis Labs/Tests K 3.5 BUN 55 Cr 5.3 Pertinent Medications levophed Height 5 ft 10 in Weight 136.078 kg [place] Body Weight (kg) 75.45 BMI 43.0 Weight Status Morbidly Obese Subjective/Other Information cosnult for TF. previously order for ONS. ONS cancelled. Pt nonverbnal and unable to consume via PO at this time. NGT was placed but dislodged by pt. POC is to replace NGT and start TF. Burn Absent Trauma Absent Difficulty In Swallowing Skin Integrity/Comment Intact Current % PO Negligible Minimum of two criteria No physical signs of malnutrition #1 Nutrition Diagnosis Inadequate oral intake Etiology CVA As Evidenced by Signs and Symptoms Pt unabel to safely consume via PO at this time Is patient on ventilator? No Is Patient Ambulatory and/or Out of Bed No REE-([facility]-confined to bed) 2663.796 Kcal/Kg value to use for calculation 14 Approximate Energy Requirements Using 1905 kcal/Kg Calculation Used for Recommendations Kcal/kg Additional Notes protein needs: 189 g (2.5g/ kgIBW) fluid needs: 1500mL for renal or per MD order Nutrition Intervention Change Diet Order: Intitiate TF when medically stable Nutrition Support: Nepro at 45 ml/hr with a free water flush fo 125 ml q4h Kcal 1,944 Protein (gm) 87 Fluid (mL) 785 Goal #1 Meet at least 75% of EER via TF Anticipated Discharge Needs: UNABLE TO DETERMINE AT THIS TIME Follow-Up By: 07/21/21 Additional Comments F/U for TF start and tolerance
[2021-07-19] MEDS: ASPIRIN 325 MG TAB PO SCH (17:12)
[2021-07-19] MEDS ORDERED: carvediloL 12.5 MG TAB PO SCH (22:00)
--- NOTE | 2021-07-20 02:19 | Progress Note ---
Assessment and Plan 51 y/o male with stroke like symptoms, with acute change in mental state, could be related to hypertensive emergency and worsening renal function. 07/20/21: Renal function repeat was better on yesterday afternoon. Follow up labs this am. Still making urine. Hopeful to avoid HD. Follow up any new renal recs. Now that off cardene and has NG for oral access, would have no objection with transfer back to floor later today. Please remember to document about nasal trumpet and remove as soon as patient can manage secretions better. 1. Nursing has already spoken with renal, ordered cardene drip for them. They have also requested IVF's. Set goal BP range systolic to 160-180. Agree with silva placement 2. FSBS and sliding scale for sugars 3. Reinsert DH and provide oral therapy 4. Once BP stable and tolerating PO/oral will transfer back to tele. Subjective Date of service: 07/20/21 Principal diagnosis: left side weakness ,abnormal MRI brain Interval history: Stable on nasal cannula. Still has trumpet in right nare. Off cardene drip and BP is adequate. Alseep but easily aroused. Objective Vital Signs - 12hr 07/19/21 07/19/21 07/19/21 14:30 15:01 15:06 Temperature Pulse Rate 103 H 105 H Respiratory 38 H 23 Rate Blood Pressure 174/99 171/102 O2 Sat by Pulse 96 95 95 Oximetry 07/19/21 07/19/21 07/19/21 15:30 15:45 16:00 Temperature 97.6 F Pulse Rate 109 H 106 H 112 H Respiratory 41 H 30 H 22 Rate Blood Pressure 160/87 161/83 147/85 O2 Sat by Pulse 96 93 100 Oximetry 07/19/21 07/19/21 07/19/21 16:15 16:31 16:45 Temperature Pulse Rate 108 H 116 H 112 H Respiratory 35 H 28 H Rate Blood Pressure 139/81 123/87 123/87 O2 Sat by Pulse 93 95 Oximetry 07/19/21 07/19/21 07/19/21 17:00 17:15 17:30 Temperature Pulse Rate 106 H 105 H 107 H Respiratory 41 H 40 H 37 H Rate Blood Pressure 152/78 148/79 139/74 O2 Sat by Pulse 95 94 93 Oximetry 07/19/21 07/19/21 07/19/21 18:00 18:31 19:01 Temperature Pulse Rate 104 H 103 H 103 H Respiratory 33 H 35 H 35 H Rate Blood Pressure 155/80 149/82 144/85 O2 Sat by Pulse 95 97 98 Oximetry 07/19/21 07/19/21 07/19/21 19:18 20:00 21:55 Temperature 99.3 F Pulse Rate 100 H Respiratory Rate Blood Pressure 141/76 O2 Sat by Pulse 99 Oximetry 07/19/21 07/19/21 21:56 23:10 Temperature 98.7 F Pulse Rate 100 H Respiratory Rate Blood Pressure 141/76 O2 Sat by Pulse Oximetry Constitutional: no acute distress, appears uncomfortable Eyes: non-icteric ENT: other (nasal trumptet in right nare) Neck: supple Ascultation: Bilateral: clear Percussion: Bilateral: not dull Cardiovascular: other (sinus tach) Gastrointestinal: normoactive bowel sounds, soft Integumentary: normal Extremities: no edema, pink and warm, pulses normal Neurologic: unable to assess CBC and BMP: 07/19/21 10:20 07/19/21 15:53 ABG, PT/INR, D-dimer: ABG ABG pH 7.327 (7.320-7.450) 07/18/21 22:57 POC ABG pCO2 49.6 mmHg (32.0-48.0) H 07/18/21 22:57 POC ABG pO2 125.9 mmHg (83-108) H 07/18/21 22:57 POC ABG HCO3 25.4 07/18/21 22:57 ABG O2 Saturation 98.3 (0-100) 07/18/21 22:57 PT/INR, D-dimer PT 14.2 Sec. (12.2-14.9) 07/17/21 08:48 INR 0.99 (0.87-1.13) 07/17/21 08:48 Abnormal lab findings: Abnormal Labs 07/17/21 07/17/21 07/17/21 08:48 08:48 14:10 WBC 12.0 H RBC 5.76 H Hgb 16.9 H Hct 52.1 H Lymph % (Auto) 12.6 L [place] % (Auto) 10.3 H [place] # (Auto) 1.2 H Seg Neutrophils % 76.3 H Seg Neutrophils # 9.2 H POC ABG pCO2 POC ABG pO2 ABG Chloride ABG Glucose Potassium 3.3 L Chloride Carbon Dioxide BUN Creatinine Glucose 173 H POC Glucose 156 H AST 198 H ALT 60 H Total Creatine Kinase 76345 H CK-MB (CK-2) 54.1 H Troponin T 0.037 H Albumin 3.7 L Cholesterol 244 H LDL Cholesterol Direct 154 H HDL Cholesterol 66 H Arterial Blood Glucose Urine WBC (Auto) Urine Creatinine Urine Total Protein 07/18/21 07/18/21 07/18/21 05:03 05:03 07:36 WBC 11.7 H RBC 5.25 H Hgb 15.3 H Hct 47.1 H Lymph % (Auto) [place] % (Auto) 10.7 H [place] # (Auto) 1.3 H Seg Neutrophils % Seg Neutrophils # 7.9 H POC ABG pCO2 POC ABG pO2 ABG Chloride ABG Glucose Potassium 3.1 L Chloride 95.3 L Carbon Dioxide BUN 37 H Creatinine 3.1 H D Glucose 167 H POC Glucose 160 H AST 129 H ALT 59 H Total Creatine Kinase CK-MB (CK-2) Troponin T Albumin 3.6 L Cholesterol LDL Cholesterol Direct HDL Cholesterol Arterial Blood Glucose Urine WBC (Auto) Urine Creatinine Urine Total Protein 07/18/21 07/18/21 07/18/21 10:19 11:25 14:58 WBC RBC Hgb Hct Lymph % (Auto) [place] % (Auto) [place] # (Auto) Seg Neutrophils % Seg Neutrophils # POC ABG pCO2 POC ABG pO2 ABG Chloride ABG Glucose Potassium Chloride Carbon Dioxide BUN Creatinine Glucose POC Glucose 181 H 145 H AST ALT Total Creatine Kinase 4517 H CK-MB (CK-2) Troponin T Albumin Cholesterol LDL Cholesterol Direct HDL Cholesterol Arterial Blood Glucose Urine WBC (Auto) Urine Creatinine Urine Total Protein 07/18/21 07/18/21 07/18/21 20:45 22:57 23:02 WBC RBC Hgb Hct Lymph % (Auto) [place] % (Auto) [place] # (Auto) Seg Neutrophils % Seg Neutrophils # POC ABG pCO2 49.6 H POC ABG pO2 125.9 H ABG Chloride 96.0 L ABG Glucose 135 H Potassium Chloride Carbon Dioxide BUN Creatinine Glucose POC Glucose 127 H 132 H AST ALT Total Creatine Kinase CK-MB (CK-2) Troponin T Albumin Cholesterol LDL Cholesterol Direct HDL Cholesterol Arterial Blood Glucose 135 H Urine WBC (Auto) Urine Creatinine Urine Total Protein 07/19/21 07/19/21 07/19/21 00:04 04:35 05:07 WBC RBC Hgb Hct Lymph % (Auto) [place] % (Auto) [place] # (Auto) Seg Neutrophils % Seg Neutrophils # POC ABG pCO2 POC ABG pO2 ABG Chloride ABG Glucose Potassium 3.5 L Chloride 92.7 L Carbon Dioxide 21 L BUN 55 H Creatinine 5.3 H D Glucose 131 H POC Glucose 109 H 125 H AST ALT Total Creatine Kinase CK-MB (CK-2) Troponin T Albumin Cholesterol LDL Cholesterol Direct HDL Cholesterol Arterial Blood Glucose Urine WBC (Auto) Urine Creatinine Urine Total Protein 07/19/21 07/19/21 07/19/21 08:43 10:20 11:27 WBC 14.5 H RBC 5.30 H Hgb 15.6 H Hct 47.8 H Lymph % (Auto) [place] % (Auto) [place] # (Auto) Seg Neutrophils % Seg Neutrophils # POC ABG pCO2 POC ABG pO2 ABG Chloride ABG Glucose Potassium Chloride Carbon Dioxide BUN Creatinine Glucose POC Glucose 149 H AST ALT Total Creatine Kinase 2857 H CK-MB (CK-2) 16.4 H Troponin T Albumin Cholesterol LDL Cholesterol Direct HDL Cholesterol Arterial Blood Glucose Urine WBC (Auto) Urine Creatinine Urine Total Protein 07/19/21 07/19/21 07/19/21 15:53 17:09 22:47 WBC RBC Hgb Hct Lymph % (Auto) [place] % (Auto) [place] # (Auto) Seg Neutrophils % Seg Neutrophils # POC ABG pCO2 POC ABG pO2 ABG Chloride ABG Glucose Potassium 3.4 L Chloride 94.7 L Carbon Dioxide 20 L BUN 68 H Creatinine 4.9 H Glucose 173 H POC Glucose 180 H 133 H AST ALT Total Creatine Kinase CK-MB (CK-2) Troponin T Albumin Cholesterol LDL Cholesterol Direct HDL Cholesterol Arterial Blood Glucose Urine WBC (Auto) Urine Creatinine Urine Total Protein 07/19/21 07/19/21 Unknown Unknown WBC RBC Hgb Hct Lymph % (Auto) [place] % (Auto) [place] # (Auto) Seg Neutrophils % Seg Neutrophils # POC ABG pCO2 POC ABG pO2 ABG Chloride ABG Glucose Potassium Chloride Carbon Dioxide BUN Creatinine Glucose POC Glucose AST ALT Total Creatine Kinase CK-MB (CK-2) Troponin T Albumin Cholesterol LDL Cholesterol Direct HDL Cholesterol Arterial Blood Glucose Urine WBC (Auto) 7.0 H Urine Creatinine 301.1 H Urine Total Protein 207 H
[2021-07-20] MEDS: hydrALAZINE 25 MG TAB PO SCH (06:00)
[2021-07-20] MEDS: SODIUM CHLORIDE 0.45% 1000 ML 1,000 ML IV SCH ×2 (06:01→22:00)
[2021-07-20 06:41] LABS: Hematocrit 46.5 % (35.5-45.6); Hemoglobin 15.2 gm/dl (11.8-15.2); Mean Corpuscular HGB Conc 33 % (32-34); Mean Corpuscular Volume 91 fl (84-94); Platelet Count 242 K/mm3 (140-440); Red Blood Count 5.09 M/mm3 (3.65-5.03); Red Cell Distribution Width 14.4 % (13.2-15.2)
[2021-07-20 07:00] LABS: Creatine Kinase MB 12.5 ng/mL (0.0-4.0)
[2021-07-20 07:06] LABS: Calcium 8.7 mg/dL (8.4-10.2)
[2021-07-20] MEDS ORDERED: LACTATED RINGERS 1,000 ML IV ONE (07:45)
[2021-07-20] MEDS ORDERED: POTASSIUM CHLORIDE 20 MEQ PACKET FEEDTUBE SCH (08:00)
[2021-07-20] MEDS: INSULIN NPH/REGULAR 70/30 INJ SUB-Q SCH ×2 (08:29→17:28)
[2021-07-20] MEDS: FREE WATER PO SCH ×3 (08:48→21:59)
[2021-07-20] MEDS: hydrALAZINE 100 MG TAB PO SCH ×3 (08:48→21:59)
[2021-07-20] MEDS ORDERED: hydrALAZINE 20 MG/1 ML INJ IV PRN (09:05)
[2021-07-20] MEDS: HEPARIN 5,000 UNIT/1 ML VIAL SUB-Q SCH ×3 (09:08→21:59)
[2021-07-20] MEDS: INSULIN LISPRO 100 UNIT/ML SUB-Q SCH ×3 (09:09→17:29)
[2021-07-20] MEDS: carvediloL 25 MG TAB PO SCH ×2 (09:14→21:58)
[2021-07-20] MEDS: FAMOTIDINE 10 MG TAB PO SCH ×2 (09:15→21:58)
[2021-07-20] MEDS: ASPIRIN 325 MG TAB PO SCH (09:15)
[2021-07-20] MEDS: amLODIPine 10 MG TAB PO SCH (09:15)
--- NOTE | 2021-07-20 10:38 | Progress Note ---
<JOSE ROBERTO BULLOCK - Last Filed: 07/20/21 13:38> Assessment and Plan Assessment and plan: This is a 51-year-old male with IDDM, HTN, HLD, CVA admitted with acute CVA and respiratory distress Neuro: Acute CVA -Not a candidate for TPA -Neurology consulted, appreciate recommendations -CT head showed chronic volume loss and white matter changes, multiple chronic lacunar infarcts -CTA head showed notable irregularities of the vertebrobasilar system with significant stenosis most notably involving the mid basilar artery there is notable decrease contrast opacification of the distal right cerebral artery compatible with reduced flow -CTA neck showed mild atherosclerotic calcification involving proximal internal carotid artery segment without significant stenosis Decreased attenuation involving the distal cervical and intra cranial segment of the right vertebral artery compatible with decreased flow -Bilateral carotid Doppler ultrasound showed less than 50% stenosis in both left and right internal carotid arteries -Echocardiogram shows LVEF 50 to 55%, normal bivalve function, no PFO demonstrated by saline bubble contrast injection, trace AR, trace ND, ascending aorta mildly dilated at 4 -MRI brain shows clinical capsular infarct most likely related to small vessel disease -PT/OT/ST consults -Lipitor, aspirin -Allow for permissive hypertension for 24 hours -Maintain euthymia and euglycemia -Aspiration/seizure precautions -Precedex drip on standby Cardio: h/o HTN and hyperlipidemia -s/p Cardene drip -Wean as tolerated -P.o. antihypertensive regimen -Amlodipine, Coreg, hydralazine (titrate as needed) -As needed hydralazine -Blood pressure monitoring per protocol -Lipitor Respiratory: Acute hypoxic respiratory failure -S/p BiPAP therapy -Nonrebreather in place in a.m. with nasal trumpet -Weaned to nasal cannula today with nasal trumpet -NT suction as needed -Supplemental oxygen as needed -Pulmonary hygiene -SPO2 monitoring -Right nasal trumpet -patient removed late morning GI: MO -Nutrition consult for tube feeding -DHT replaced -Tube feeding: Nephro at 45 -Free water flushes 125 every 4 -BR: Colace -PPI -24 hours -399 mL : Acute kidney injury (? Prerenal azotemia versus ATN related to rhabdomyolysis), rhabdomyolysis, hypokalemia -Admitted with a CK of 11 K -IV hydration -Nephrology consulted, appreciate recommendations -Renal ultrasound pending -Urine studies pending -Serology results pending -Hold ACEi -Mora catheter placed for strict urine output -Trend BMP -Avoid nephrotoxic medications -renally dose medications Endo: h/o DM -SSI -Accu-Cheks every 6 -Avoid hypoglycemia ID: Leukocytosis (resolved) -Monitor for signs and symptoms of infection -Monitor fever and WBC curve Heme: NAD -Heparin subcu -SCDs to bilateral lower extremity while in bed -Transfuse for hemoglobin less than 7 -Trend CBC The high probability of a clinically significant, sudden or life threatening deterioration of the [neuro/cv] system(s) required my full and direct attention, intervention and personal management. The aggregate critical care time was [90] minutes. This time is in addition to time spent performing reported procedures but includes the following: [x] Data Review and interpretation [x] Patient assessment and monitoring of vital signs [x] Documentation [x] Medication orders and management Disposition Plan: transfer to floor Total Time Spent with Patient (Minutes): 90 History Interval history: This is a 51-year-old male with IDDM, HTN, HLD, CVA who presents the emergency department on 07/17 with complaints of left-sided upper and lower extremity weakness with difficulty speaking which started approximately at 1 PM on 07/16. Patient deemed outside of TPA window by telemetry neurology consult. Work-up in the emergency department included a CT head which showed chronic white matter changes and multiple chronic appearing lacunar infarcts with questionable hyperdense left MCA, CTA head showed notable irregularity of the vertebrobasilar system with significant stenosis, decreased flow at right distal vertebral artery, CTA neck which showed mild atherosclerotic calcification involving the proximal internal carotid arteries and decreased flow to the right vertebral artery intracranial segment. Lab work showed acute kidney injury, rhabdomyolysis. Patient was admitted to the hospitalist service with consults to neurology and nephrology. 07/18: I have seen and examined the patient in the ER awaiting bed assignment. Patient was admitted with acute CVA not a candidate for TPA with left hemiparesis. Neuro work-up is in progress 07/19: Overnight patient was transferred to ICU due to respiratory distress, started on BiPAP and given Narcan x1. CT head was obtained due to unequal pupils. Started on a Cardene drip this morning with IV fluids per nephrology. Mora catheter placed. NG tube was removed by the patient were replaced. Weaned to nasal cannula. Nutrition consult for tube feeding. ST/OT/PT consults. 07/20: was able to be weaned off cardene gtt overnight but was restarted by day RN for hypertension. Encouraged to wean off cardene and utilize prn IVP to facilitate transfer. Nephrology updated on renal function and no plans for HD. given one liter LR in hopes to improve renal function. Cousins updated at bedside (Cherise Yu and male). Patient removed nasal trumphet and DHT and passed swallow eval with RN. He was given an extra regular tray. Patient requested a soft diet. On PM rounds, mpted to be coughing. Will keep NPO until formal swallow eval per ST. Transfer to floor Hospitalist Physical - Constitutional Vitals: Temp Pulse Resp BP Pulse Ox 98.6 F 98 H 21 154/77 97 07/20/21 03:23 07/20/21 10:01 07/20/21 10:01 07/20/21 10:01 07/20/21 10:01 General appearance: Present: no acute distress, well-nourished - EENT Eyes: Present: PERRL, EOM intact ENT: hearing intact, clear oral mucosa - Neck Neck: Present: supple, normal ROM - Respiratory Respiratory effort: normal Respiratory: bilateral: rhonchi - Cardiovascular Rhythm: regular Heart Sounds: Present: S1 & S2. Absent: systolic murmur, diastolic murmur - Extremities Extremities: no ischemia, pulses intact, pulses symmetrical, normal temperature, normal color Peripheral Pulses: within normal limits - Abdominal General gastrointestinal: soft, non-tender, non-distended, normal bowel sounds - Integumentary Integumentary: Present: warm, dry - Psychiatric Psychiatric: cooperative - Neurologic Neurologic: focal deficits (left sided facial droop, L Ue/Le flaccid but iwth postive sensation. ) - Allied Health Allied health notes reviewed: nursing, PT, ST, OT, RT HEART Score - HEART Score Troponin: Troponin T 0.037 ng/mL (0.00-0.029) H 07/17/21 08:48 Results - Labs CBC & Chem 7: 07/20/21 06:12 07/20/21 10:42 Labs: Laboratory Last Values WBC 10.8 K/mm3 (4.5-11.0) 07/20/21 06:12 RBC 5.09 M/mm3 (3.65-5.03) H 07/20/21 06:12 Hgb 15.2 gm/dl (11.8-15.2) 07/20/21 06:12 Hct 46.5 % (35.5-45.6) H 07/20/21 06:12 MCV 91 fl (84-94) 07/20/21 06:12 MCH 30 pg (28-32) 07/20/21 06:12 MCHC 33 % (32-34) 07/20/21 06:12 RDW 14.4 % (13.2-15.2) 07/20/21 06:12 Plt Count 242 K/mm3 (140-440) 07/20/21 06:12 Lymph % (Auto) 20.3 % (13.4-35.0) 07/18/21 05:03 Barry % (Auto) 10.7 % (0.0-7.3) H 07/18/21 05:03 Eos % (Auto) 0.6 % (0.0-4.3) 07/18/21 05:03 Baso % (Auto) 0.8 % (0.0-1.8) 07/18/21 05:03 Lymph # (Auto) 2.4 K/mm3 (1.2-5.4) 07/18/21 05:03 Barry # (Auto) 1.3 K/mm3 (0.0-0.8) H 07/18/21 05:03 Eos # (Auto) 0.1 K/mm3 (0.0-0.4) 07/18/21 05:03 Baso # (Auto) 0.1 K/mm3 (0.0-0.1) 07/18/21 05:03 Seg Neutrophils % 67.6 % (40.0-70.0) 07/18/21 05:03 Seg Neutrophils # 7.9 K/mm3 (1.8-7.7) H 07/18/21 05:03 PT 14.2 Sec. (12.2-14.9) 07/17/21 08:48 INR 0.99 (0.87-1.13) 07/17/21 08:48 APTT 26.5 Sec. (24.2-36.6) 07/17/21 08:48 Thrombin Time 18.9 Sec. (15.1-19.6) 07/17/21 08:48 ABG pH 7.327 (7.320-7.450) 07/18/21 22:57 POC ABG pCO2 49.6 mmHg (32.0-48.0) H 07/18/21 22:57 POC ABG pO2 125.9 mmHg (83-108) H 07/18/21 22:57 POC ABG HCO3 25.4 07/18/21 22:57 ABG O2 Saturation 98.3 (0-100) 07/18/21 22:57 POC ABG Base Excess -1.3 07/18/21 22:57 ABG Hemoglobin 16.6 (12.0-17.5) 07/18/21 22:57 ABG Oxyhemoglobin 97.3 (94-98) 07/18/21 22:57 ABG Methemoglobin 0.2 (0.0-1.5) 07/18/21 22:57 ABG Sodium 138.2 mmol/L (136.0-145.0) 07/18/21 22:57 ABG Potassium 3.7 mmol/L (3.40-4.50) 07/18/21 22:57 ABG Chloride 96.0 mmol/L (98-107) L 07/18/21 22:57 ABG Glucose 135 mg/dL (65-95) H 07/18/21 22:57 Carboxyhemoglobin 0.8 (0.5-1.5) 07/18/21 22:57 FiO2 % 40.0 07/18/21 22:57 Sodium 141 mmol/L (137-145) 07/20/21 06:12 Potassium 2.9 mmol/L (3.6-5.0) L* 07/20/21 06:12 Chloride 98.0 mmol/L (98-107) 07/20/21 06:12 Carbon Dioxide 23 mmol/L (22-30) 07/20/21 06:12 Anion Gap 23 mmol/L 07/20/21 06:12 BUN 73 mg/dL (9-20) H 07/20/21 06:12 Creatinine 5.1 mg/dL (0.8-1.3) H 07/20/21 06:12 Estimated GFR 14 ml/min 07/20/21 06:12 BUN/Creatinine Ratio 14 % 07/20/21 06:12 Glucose 165 mg/dL (75-100) H 07/20/21 06:12 POC Glucose 159 mg/dL (70-105) H 07/20/21 08:32 Calcium 8.7 mg/dL (8.4-10.2) 07/20/21 06:12 Phosphorus 6.20 mg/dL (2.5-4.5) H 07/20/21 06:12 Magnesium 2.60 mg/dL (1.7-2.3) H 07/20/21 06:12 Total Bilirubin 0.80 mg/dL (0.1-1.2) 07/18/21 05:03 AST 129 units/L (5-40) H 07/18/21 05:03 ALT 59 units/L (7-56) H 07/18/21 05:03 Alkaline Phosphatase 84 units/L (35-129) 07/18/21 05:03 Total Creatine Kinase 1480 units/L (55-170) H 07/20/21 06:12 CK-MB (CK-2) 12.5 ng/mL (0.0-4.0) H 07/20/21 06:12 CK-MB (CK-2) Rel Index 0.4 (0-4) 07/17/21 08:48 Troponin T 0.037 ng/mL (0.00-0.029) H 07/17/21 08:48 Total Protein 6.9 g/dL (6.3-8.2) 07/18/21 05:03 Albumin 3.6 g/dL (3.9-5) L 07/18/21 05:03 Albumin/Globulin Ratio 1.1 % 07/18/21 05:03 Triglycerides 95 mg/dL (2-149) 07/17/21 08:48 Cholesterol 244 mg/dL (50-199) H 07/17/21 08:48 LDL Cholesterol Direct 154 mg/dL (50-130) H 07/17/21 08:48 HDL Cholesterol 66 mg/dL (40-59) H 07/17/21 08:48 Cholesterol/HDL Ratio 3.69 % 07/17/21 08:48 Arterial Blood Glucose 135 mg/dL (65-95) H 07/18/21 22:57 Urine Color Debbie (Yellow) 07/19/21 Unknown Urine Turbidity Slightly-cloudy (Clear) 07/19/21 Unknown Urine pH 5.0 (5.0-7.0) 07/19/21 Unknown Ur Specific Keiser 1.027 (1.003-1.030) 07/19/21 Unknown Urine Protein >500 mg/dL (Negative) 07/19/21 Unknown Urine Glucose (UA) 50 mg/dL (Negative) 07/19/21 Unknown Urine Ketones Neg mg/dL (Negative) 07/19/21 Unknown Urine Blood Sm (Negative) 07/19/21 Unknown Urine Nitrite Neg (Negative) 07/19/21 Unknown Urine Bilirubin Neg (Negative) 07/19/21 Unknown Urine Urobilinogen < 2.0 mg/dL (<2.0) 07/19/21 Unknown Ur Leukocyte Esterase Neg (Negative) 07/19/21 Unknown Urine WBC (Auto) 7.0 /HPF (0.0-6.0) H 07/19/21 Unknown Urine RBC (Auto) 4.0 /HPF (0.0-6.0) 07/19/21 Unknown U Epithel Cells (Auto) 1.0 /HPF (0-13.0) 07/19/21 Unknown Hyaline Casts 12 /LPF 07/19/21 Unknown Urine Mucus Few /HPF 07/19/21 Unknown Urine Creatinine 301.1 mg/dL (0.1-20.0) H 07/19/21 Unknown Protein/Creatinin Ratio 0.69 07/19/21 Unknown Urine Total Protein 207 mg/dL (5-11.8) H 07/19/21 Unknown Urine Opiates Screen Presumptive negative 07/18/21 16:41 Urine Methadone Screen Presumptive negative 07/18/21 16:41 Ur Barbiturates Screen Presumptive negative 07/18/21 16:41 Ur Phencyclidine Scrn Presumptive negative 07/18/21 16:41 Ur Amphetamines Screen Presumptive negative 07/18/21 16:41 U Benzodiazepines Scrn Presumptive negative 07/18/21 16:41 Urine Cocaine Screen Presumptive negative 07/18/21 16:41 U Marijuana (THC) Screen Presumptive negative 07/18/21 16:41 Drugs of Abuse Note Disclamer 07/18/21 16:41 Plasma/Serum Alcohol < 0.01 % (0-0.07) 07/17/21 08:48 Mora/IV: Voiding Method Indwelling Catheter Active Medications - Current Medications Current Medications: Generic Name Dose Route Start Last Admin Trade Name Freq PRN Reason Stop Dose Admin Acetaminophen 650 mg 07/17/21 23:42 Acetaminophen 325 Mg Tab PO Q4H PRN Pain MILD(1-3)/Fever >100.5/HENAO Amlodipine Besylate 10 mg 07/20/21 10:00 07/20/21 09:15 Amlodipine 10 Mg Tab PO 10 mg QDAY LAUREANO Administration Lipase/Protease/Amylase 1 each 07/19/21 12:49 Lipase 10,500/Protease 25,000/Amylase 43,750 (Units) Dr Taylor FEEDTUBE PRN PRN For Clogged Feeding Tube Aspirin 325 mg 07/18/21 10:00 07/20/21 09:15 Aspirin 325 Mg Tab PO 325 mg QDAY LAUREANO Administration Atorvastatin Calcium 40 mg 07/18/21 22:00 07/19/21 21:55 Atorvastatin 40 Mg Tab PO 40 mg QHS LAUREANO Administration Carvedilol 25 mg 07/20/21 10:00 07/20/21 09:14 Carvedilol 25 Mg Tab PO 25 mg BID LAUREANO Administration Docusate Sodium 100 mg 07/18/21 10:00 Docusate Sodium 100 Mg Cap PO BID PRN Constipation Famotidine 10 mg 07/18/21 10:00 07/20/21 09:15 Famotidine 10 Mg Tab PO 10 mg BID LAUREANO Administration Heparin Sodium (Porcine) 5,000 unit 07/18/21 10:00 07/20/21 09:15 Heparin 5,000 Unit/1 Ml Vial SUB-Q 5,000 unit Q12HR LAUREANO Administration Hydralazine HCl 100 mg 07/20/21 08:00 07/20/21 08:48 Hydralazine 100 Mg Tab PO 100 mg TID LAUREANO Administration Hydralazine HCl 10 mg 07/20/21 09:05 07/20/21 09:53 Hydralazine 20 Mg/1 Ml Inj IV 10 mg Q3HR PRN Administration Blood Pressure Dexmedetomidine HCl 200 mcg/ 50 mls @ 6.804 mls/hr 07/19/21 01:00 Sodium Chloride IV TITRATE LAUREANO Protocol 0.2 MCG/KG/HR Sodium Chloride 1,000 mls @ 75 mls/hr 07/19/21 12:00 07/20/21 06:01 Nacl 0.45% 1000 Ml IV 75 mls/hr DIRECT LAUREANO Administration Nicardipine HCl 50 mg/ Sodium 250 mls @ 25 mls/hr 07/19/21 12:00 07/20/21 08:34 Chloride IV 2.5 mg/hr TITR LAUREANO 12.5 mls/hr Titration Protocol 5 MG/HR Insulin Human Isoph/Insulin Regular 18 unit 07/18/21 08:00 07/20/21 08:29 Insulin Nph/Regular 70/30 Inj SUB-Q 18 unit BIDDIAB LAUREANO Administration Insulin Human Lispro 0 unit 07/19/21 18:00 07/20/21 09:09 Insulin Lispro 100 Unit/Ml SUB-Q Not Given Q6HR LAUREANO Protocol Lorazepam 1 mg 07/18/21 16:15 Lorazepam 2 Mg/Ml Vial IV Q1H PRN Anxiety Metoclopramide HCl 5 mg 07/18/21 08:00 Metoclopramide 10 Mg/2 Ml Inj IV Q6H PRN Nausea And Vomiting Ondansetron HCl 4 mg 07/17/21 23:42 Ondansetron 4 Mg/2 Ml Inj IV Q8H PRN Nausea And Vomiting Oxycodone/Acetaminophen 1 tab 07/17/21 23:43 Oxycodone /Acetaminophen 5-325mg Tab PO Q6H PRN Pain, Moderate (4-6) Potassium Chloride 40 meq 07/20/21 08:00 07/20/21 08:33 Potassium Chloride 20 Meq Packet FEEDTUBE 07/20/21 12:00 40 meq ONCE@0800 LAUREANO Administration Simple Syrup 15 ml 07/19/21 12:49 Simple Syrup 15 Ml FEEDTUBE PRN PRN Hypoglycemia Simple Syrup 30 ml 07/19/21 12:49 Simple Syrup 15 Ml FEEDTUBE PRN PRN Hypoglycemia Sodium Bicarbonate 325 mg 07/19/21 12:49 Sodium Bicarbonate 325 Mg Tab FEEDTUBE PRN PRN For Clogged Feeding Tube Sodium Chloride 10 ml 07/18/21 10:00 07/20/21 09:16 Sodium Chloride 0.9% 10 Ml Flush Syringe IV 10 ml BID LAUREANO Administration Sodium Chloride 10 ml 07/17/21 23:42 Sodium Chloride 0.9% 10 Ml Flush Syringe IV PRN PRN LINE FLUSH Nutrition/Malnutrition Assess - Dietary Evaluation Nutrition/Malnutrition Findings: Nutrition Notes Start: 07/19/21 12:37 Freq: Status: Active Protocol: Document 07/19/21 12:37 CW (Rec: 07/19/21 12:49 CW [id number]) Nutrition Notes Need for Assessment generated from: MD Order Initial or Follow up Assessment Current Diagnosis CKD(stage I-IV),Diabetes, Hypertension,Stroke, Hyperlipidemia Other Pertinent Diagnosis h/o [place], L hemiparesis Labs/Tests K 3.5 BUN 55 Cr 5.3 Pertinent Medications levophed Height 5 ft 10 in Weight 136.078 kg [place] Body Weight (kg) 75.45 BMI 43.0 Weight Status Morbidly Obese Subjective/Other Information cosnult for TF. MD previously order for ONS. ONS cancelled. Pt nonverbnal and unable to consume via PO at this time. NGT was placed but dislodged by pt. POC is to replace NGT and start TF. Burn Absent Trauma Absent Difficulty In Swallowing Skin Integrity/Comment Intact Current % PO Negligible Minimum of two criteria No physical signs of malnutrition #1 Nutrition Diagnosis Inadequate oral intake Etiology CVA As Evidenced by Signs and Symptoms Pt unabel to safely consume via PO at this time Is patient on ventilator? No Is Patient Ambulatory and/or Out of Bed No REE-([facility]-confined to bed) 2663.796 Kcal/Kg value to use for calculation 14 Approximate Energy Requirements Using 1905 kcal/Kg Calculation Used for Recommendations Kcal/kg Additional Notes protein needs: 189 g (2.5g/ kgIBW) fluid needs: 1500mL for renal or per MD order Nutrition Intervention Change Diet Order: Intitiate TF when medically stable Nutrition Support: Nepro at 45 ml/hr with a free water flush fo 125 ml q4h Kcal 1,944 Protein (gm) 87 Fluid (mL) 785 Goal #1 Meet at least 75% of EER via TF Anticipated Discharge Needs: UNABLE TO DETERMINE AT THIS TIME Follow-Up By: 07/21/21 Additional Comments F/U for TF start and tolerance <DIANE CADET - Last Filed: 07/21/21 13:45> Assessment and Plan Assessment and plan: I saw and evaluated the patient. Discussed with the nurse practitioner and agree with their findings and plan as documented in this note. History Interval history: I saw and evaluated the patient. Discussed with the nurse practitioner and agree with their findings and plan as documented in this note. Hospitalist Physical - Constitutional Vitals: Temp Pulse Resp BP Pulse Ox 98.3 F 86 28 H 191/115 97 07/21/21 08:31 07/21/21 08:31 07/21/21 08:31 07/21/21 08:31 07/21/21 10:00 HEART Score - HEART Score Troponin: Troponin T 0.037 ng/mL (0.00-0.029) H 07/17/21 08:48 Results - Labs CBC & Chem 7: 07/21/21 12:13 07/21/21 12:13 Labs: Laboratory Last Values WBC 7.9 K/mm3 (4.5-11.0) 07/21/21 12:13 RBC 4.11 M/mm3 (3.65-5.03) 07/21/21 12:13 Hgb 12.2 gm/dl (11.8-15.2) 07/21/21 12:13 Hct 37.7 % (35.5-45.6) 07/21/21 12:13 MCV 92 fl (84-94) 07/21/21 12:13 MCH 30 pg (28-32) 07/21/21 12:13 MCHC 32 % (32-34) 07/21/21 12:13 RDW 14.3 % (13.2-15.2) 07/21/21 12:13 Plt Count 232 K/mm3 (140-440) 07/21/21 12:13 Lymph % (Auto) 16.2 % (13.4-35.0) 07/21/21 12:13 Barry % (Auto) 11.0 % (0.0-7.3) H 07/21/21 12:13 Eos % (Auto) 0.8 % (0.0-4.3) 07/21/21 12:13 Baso % (Auto) 0.5 % (0.0-1.8) 07/21/21 12:13 Lymph # (Auto) 1.3 K/mm3 (1.2-5.4) 07/21/21 12:13 Barry # (Auto) 0.9 K/mm3 (0.0-0.8) H 07/21/21 12:13 Eos # (Auto) 0.1 K/mm3 (0.0-0.4) 07/21/21 12:13 Baso # (Auto) 0.0 K/mm3 (0.0-0.1) 07/21/21 12:13 Seg Neutrophils % 71.5 % (40.0-70.0) H 07/21/21 12:13 Seg Neutrophils # 5.6 K/mm3 (1.8-7.7) 07/21/21 12:13 PT 14.2 Sec. (12.2-14.9) 07/17/21 08:48 INR 0.99 (0.87-1.13) 07/17/21 08:48 APTT 26.5 Sec. (24.2-36.6) 07/17/21 08:48 Thrombin Time 18.9 Sec. (15.1-19.6) 07/17/21 08:48 ABG pH 7.327 (7.320-7.450) 07/18/21 22:57 POC ABG pCO2 49.6 mmHg (32.0-48.0) H 07/18/21 22:57 POC ABG pO2 125.9 mmHg (83-108) H 07/18/21 22:57 POC ABG HCO3 25.4 07/18/21 22:57 ABG O2 Saturation 98.3 (0-100) 07/18/21 22:57 POC ABG Base Excess -1.3 07/18/21 22:57 ABG Hemoglobin 16.6 (12.0-17.5) 07/18/21 22:57 ABG Oxyhemoglobin 97.3 (94-98) 07/18/21 22:57 ABG Methemoglobin 0.2 (0.0-1.5) 07/18/21 22:57 ABG Sodium 138.2 mmol/L (136.0-145.0) 07/18/21 22:57 ABG Potassium 3.7 mmol/L (3.40-4.50) 07/18/21 22:57 ABG Chloride 96.0 mmol/L (98-107) L 07/18/21 22:57 ABG Glucose 135 mg/dL (65-95) H 07/18/21 22:57 Carboxyhemoglobin 0.8 (0.5-1.5) 07/18/21 22:57 FiO2 % 40.0 07/18/21 22:57 Sodium 139 mmol/L (137-145) 07/21/21 12:13 Potassium 3.8 mmol/L (3.6-5.0) 07/21/21 12:13 Chloride 101.5 mmol/L (98-107) 07/21/21 12:13 Carbon Dioxide 21 mmol/L (22-30) L 07/21/21 12:13 Anion Gap 20 mmol/L 07/21/21 12:13 BUN 80 mg/dL (9-20) H 07/21/21 12:13 Creatinine 3.6 mg/dL (0.8-1.3) H 07/21/21 12:13 Estimated GFR 22 ml/min 07/21/21 12:13 BUN/Creatinine Ratio 22 % 07/21/21 12:13 Glucose 221 mg/dL (75-100) H 07/21/21 12:13 POC Glucose 191 mg/dL (70-105) H 07/21/21 12:02 Calcium 8.1 mg/dL (8.4-10.2) L 07/21/21 12:13 Phosphorus 5.80 mg/dL (2.5-4.5) H 07/21/21 04:55 Magnesium 2.60 mg/dL (1.7-2.3) H 07/21/21 04:55 Total Bilirubin 0.60 mg/dL (0.1-1.2) 07/21/21 12:13 AST 34 units/L (5-40) 07/21/21 12:13 ALT 29 units/L (7-56) 07/21/21 12:13 Alkaline Phosphatase 70 units/L (35-129) 07/21/21 12:13 Total Creatine Kinase 1480 units/L (55-170) H 07/20/21 06:12 CK-MB (CK-2) 12.5 ng/mL (0.0-4.0) H 07/20/21 06:12 CK-MB (CK-2) Rel Index 0.4 (0-4) 07/17/21 08:48 Troponin T 0.037 ng/mL (0.00-0.029) H 07/17/21 08:48 Total Protein 6.5 g/dL (6.3-8.2) 07/21/21 12:13 Albumin 2.9 g/dL (3.9-5) L 07/21/21 12:13 Albumin/Globulin Ratio 0.8 % 07/21/21 12:13 Triglycerides 95 mg/dL (2-149) 07/17/21 08:48 Cholesterol 244 mg/dL (50-199) H 07/17/21 08:48 LDL Cholesterol Direct 154 mg/dL (50-130) H 07/17/21 08:48 HDL Cholesterol 66 mg/dL (40-59) H 07/17/21 08:48 Cholesterol/HDL Ratio 3.69 % 07/17/21 08:48 Arterial Blood Glucose 135 mg/dL (65-95) H 07/18/21 22:57 Urine Color Debbie (Yellow) 07/19/21 Unknown Urine Turbidity Slightly-cloudy (Clear) 07/19/21 Unknown Urine pH 5.0 (5.0-7.0) 07/19/21 Unknown Ur Specific Keiser 1.027 (1.003-1.030) 07/19/21 Unknown Urine Protein >500 mg/dL (Negative) 07/19/21 Unknown Urine Glucose (UA) 50 mg/dL (Negative) 07/19/21 Unknown Urine Ketones Neg mg/dL (Negative) 07/19/21 Unknown Urine Blood Sm (Negative) 07/19/21 Unknown Urine Nitrite Neg (Negative) 07/19/21 Unknown Urine Bilirubin Neg (Negative) 07/19/21 Unknown Urine Urobilinogen < 2.0 mg/dL (<2.0) 07/19/21 Unknown Ur Leukocyte Esterase Neg (Negative) 07/19/21 Unknown Urine WBC (Auto) 7.0 /HPF (0.0-6.0) H 07/19/21 Unknown Urine RBC (Auto) 4.0 /HPF (0.0-6.0) 07/19/21 Unknown U Epithel Cells (Auto) 1.0 /HPF (0-13.0) 07/19/21 Unknown Hyaline Casts 12 /LPF 07/19/21 Unknown Urine Mucus Few /HPF 07/19/21 Unknown Urine Osmolality 481 Mosm/kg 07/20/21 12:10 Urine Creatinine 144.9 mg/dL (0.1-20.0) H 07/20/21 12:10 Protein/Creatinin Ratio 0.69 07/19/21 Unknown Urine Sodium 69 mmol/L 07/20/21 12:10 Urine Urea Nitrogen 684 07/20/21 12:10 Urine Total Protein 207 mg/dL (5-11.8) H 07/19/21 Unknown Urine Opiates Screen Presumptive negative 07/18/21 16:41 Urine Methadone Screen Presumptive negative 07/18/21 16:41 Ur Barbiturates Screen Presumptive negative 07/18/21 16:41 Ur Phencyclidine Scrn Presumptive negative 07/18/21 16:41 Ur Amphetamines Screen Presumptive negative 07/18/21 16:41 U Benzodiazepines Scrn Presumptive negative 07/18/21 16:41 Urine Cocaine Screen Presumptive negative 07/18/21 16:41 U Marijuana (THC) Screen Presumptive negative 07/18/21 16:41 Drugs of Abuse Note Disclamer 07/18/21 16:41 Plasma/Serum Alcohol < 0.01 % (0-0.07) 07/17/21 08:48 Mora/IV: Voiding Method Indwelling Catheter Active Medications - Current Medications Current Medications: Generic Name Dose Route Start Last Admin Trade Name Freq PRN Reason Stop Dose Admin Acetaminophen 650 mg 07/17/21 23:42 Acetaminophen 325 Mg Tab PO Q4H PRN Pain MILD(1-3)/Fever >100.5/HENAO Amlodipine Besylate 10 mg 07/20/21 10:00 07/21/21 10:26 Amlodipine 10 Mg Tab PO 10 mg QDAY LAUREANO Administration Lipase/Protease/Amylase 1 each 07/19/21 12:49 Lipase 10,500/Protease 25,000/Amylase 43,750 (Units) Dr Taylor FEEDTUBE PRN PRN For Clogged Feeding Tube Aspirin 325 mg 07/18/21 10:00 07/21/21 10:26 Aspirin 325 Mg Tab PO 325 mg QDAY LAUREANO Administration Atorvastatin Calcium 40 mg 07/18/21 22:00 07/20/21 21:59 Atorvastatin 40 Mg Tab PO 40 mg QHS LAUREANO Administration Docusate Sodium 100 mg 07/18/21 10:00 Docusate Sodium 100 Mg Cap PO BID PRN Constipation Famotidine 10 mg 07/18/21 10:00 07/21/21 10:26 Famotidine 10 Mg Tab PO 10 mg BID LAUREANO Administration Heparin Sodium (Porcine) 5,000 unit 07/18/21 10:00 07/21/21 10:26 Heparin 5,000 Unit/1 Ml Vial SUB-Q 5,000 unit Q12HR LAUREANO Administration Hydralazine HCl 100 mg 07/20/21 08:00 07/21/21 10:26 Hydralazine 100 Mg Tab PO 100 mg TID LAUREANO Administration Hydralazine HCl 10 mg 07/21/21 10:00 Hydralazine 20 Mg/1 Ml Inj IV Q3H PRN hypertension Potassium Chloride/Sodium Chloride 20 meq in 1,000 mls @ 100 mls/hr 07/21/21 11:00 Ns 0.45/Kcl 20meq IV DIRECT LAUREANO Insulin Human Isoph/Insulin Regular 18 unit 07/18/21 08:00 07/21/21 08:00 Insulin Nph/Regular 70/30 Inj SUB-Q Not Given BIDDIAB [facility] Insulin Human Lispro 0 unit 07/19/21 18:00 07/21/21 01:12 Insulin Lispro 100 Unit/Ml SUB-Q Not Given Q6HR [facility] Protocol Labetalol HCl 10 mg 07/21/21 10:00 Labetalol 20 Mg/4 Ml Inj IV Q4HR PRN sbp > 160, hold for HR < 70 Lorazepam 1 mg 07/18/21 16:15 Lorazepam 2 Mg/Ml Vial IV Q1H PRN Anxiety Metoclopramide HCl 5 mg 07/18/21 08:00 Metoclopramide 10 Mg/2 Ml Inj IV Q6H PRN Nausea And Vomiting Ondansetron HCl 4 mg 07/17/21 23:42 Ondansetron 4 Mg/2 Ml Inj IV Q8H PRN Nausea And Vomiting Oxycodone/Acetaminophen 1 tab 07/17/21 23:43 Oxycodone /Acetaminophen 5-325mg Tab PO Q6H PRN Pain, Moderate (4-6) Simple Syrup 15 ml 07/19/21 12:49 Simple Syrup 15 Ml FEEDTUBE PRN PRN Hypoglycemia Simple Syrup 30 ml 07/19/21 12:49 Simple Syrup 15 Ml FEEDTUBE PRN PRN Hypoglycemia Sodium Bicarbonate 325 mg 07/19/21 12:49 Sodium Bicarbonate 325 Mg Tab FEEDTUBE PRN PRN For Clogged Feeding Tube Sodium Chloride 10 ml 07/18/21 10:00 07/20/21 22:00 Sodium Chloride 0.9% 10 Ml Flush Syringe IV 10 ml BID LAUREANO Administration Sodium Chloride 10 ml 07/17/21 23:42 Sodium Chloride 0.9% 10 Ml Flush Syringe IV PRN PRN LINE FLUSH Sodium Chloride 1,000 ml 07/21/21 13:00 Sodium Chloride 0.45% 1000 Ml Iv Soln IV DIRECT LAUREANO Nutrition/Malnutrition Assess - Dietary Evaluation Nutrition/Malnutrition Findings: Nutrition Notes Start: 07/19/21 12:37 Freq: Status: Active Protocol: Document 07/19/21 12:37 CW (Rec: 07/19/21 12:49 CW [id number]) Nutrition Notes Need for Assessment generated from: MD Order Initial or Follow up Assessment Current Diagnosis CKD(stage I-IV),Diabetes, Hypertension,Stroke, Hyperlipidemia Other Pertinent Diagnosis h/o [place], L hemiparesis Labs/Tests K 3.5 BUN 55 Cr 5.3 Pertinent Medications levophed Height 5 ft 10 in Weight 136.078 kg [place] Body Weight (kg) 75.45 BMI 43.0 Weight Status Morbidly Obese Subjective/Other Information cosnult for TF. previously order for ONS. ONS cancelled. Pt nonverbnal and unable to consume via PO at this time. NGT was placed but dislodged by pt. POC is to replace NGT and start TF. Burn Absent Trauma Absent Difficulty In Swallowing Skin Integrity/Comment Intact Current % PO Negligible Minimum of two criteria No physical signs of malnutrition #1 Nutrition Diagnosis Inadequate oral intake Etiology CVA As Evidenced by Signs and Symptoms Pt unabel to safely consume via PO at this time Is patient on ventilator? No Is Patient Ambulatory and/or Out of Bed No REE-([facility]-confined to bed) 2663.796 Kcal/Kg value to use for calculation 14 Approximate Energy Requirements Using 1905 kcal/Kg Calculation Used for Recommendations Kcal/kg Additional Notes protein needs: 189 g (2.5g/ kgIBW) fluid needs: 1500mL for renal or per MD order Nutrition Intervention Change Diet Order: Intitiate TF when medically stable Nutrition Support: Nepro at 45 ml/hr with a free water flush fo 125 ml q4h Kcal 1,944 Protein (gm) 87 Fluid (mL) 785 Goal #1 Meet at least 75% of EER via TF Anticipated Discharge Needs: UNABLE TO DETERMINE AT THIS TIME Follow-Up By: 12/06/21 Additional Comments F/U for TF start and tolerance
[2021-07-20 11:57] LABS: Calcium 8.5 mg/dL (8.4-10.2)
--- NOTE | 2021-07-20 13:28 | Progress Note ---
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 Continue conservative management * Trend CK - decreasing * Continue antiHTN medications - Cardene gtt prn * Dose medications for renal function * Avoid potential nephrotoxins * AM labs * Strict I/O Subjective Date of service: 07/20/21 Principal diagnosis: left side weakness ,abnormal MRI brain Interval history: Patient more alert today. He reports hx of hypertension untreated since March. He denies a prior hx of kidney disease Objective - Vital Signs Vital signs: Vital Signs - 12hr 07/20/21 07/20/21 07/20/21 01:31 02:01 02:31 Temperature Pulse Rate 86 89 91 H Pulse Rate [ From Monitor] Respiratory 35 H 41 H 28 H Rate Blood Pressure 139/82 146/89 154/97 O2 Sat by Pulse 95 92 96 Oximetry 07/20/21 07/20/21 07/20/21 03:01 03:23 03:31 Temperature 98.6 F Pulse Rate 86 88 Pulse Rate [ From Monitor] Respiratory 31 H 31 H Rate Blood Pressure 149/94 149/95 O2 Sat by Pulse 95 95 Oximetry 07/20/21 07/20/21 07/20/21 04:00 04:31 05:00 Temperature Pulse Rate 83 83 89 Pulse Rate [ From Monitor] Respiratory 19 39 H 36 H Rate Blood Pressure 156/92 155/96 169/105 O2 Sat by Pulse 89 90 86 Oximetry 07/20/21 07/20/21 07/20/21 05:31 06:00 06:01 Temperature Pulse Rate 85 92 H 89 Pulse Rate [ From Monitor] Respiratory 35 H 27 H Rate Blood Pressure 160/95 160/95 155/85 O2 Sat by Pulse 91 95 Oximetry 07/20/21 07/20/21 07/20/21 06:31 07:01 07:24 Temperature Pulse Rate 87 99 H Pulse Rate [ From Monitor] Respiratory 24 15 Rate Blood Pressure 148/80 170/104 O2 Sat by Pulse 93 95 97 Oximetry 07/20/21 07/20/21 07/20/21 07:31 08:00 08:01 Temperature Pulse Rate 86 Pulse Rate [ 90 From Monitor] Respiratory 36 H 22 Rate Blood Pressure 167/88 189/112 O2 Sat by Pulse 99 97 Oximetry 07/20/21 07/20/21 07/20/21 08:31 08:33 09:01 Temperature Pulse Rate 86 89 92 H Pulse Rate [ From Monitor] Respiratory 15 35 H Rate Blood Pressure 191/104 182/111 O2 Sat by Pulse 97 98 Oximetry 07/20/21 07/20/21 07/20/21 09:14 09:15 09:31 Temperature Pulse Rate 98 H 94 H Pulse Rate [ From Monitor] Respiratory 25 H Rate Blood Pressure 182/111 182/111 175/102 O2 Sat by Pulse 96 Oximetry 07/20/21 07/20/21 07/20/21 09:53 10:01 10:31 Temperature Pulse Rate 75 98 H 78 Pulse Rate [ From Monitor] Respiratory 21 21 Rate Blood Pressure 175/102 154/77 126/72 O2 Sat by Pulse 97 96 Oximetry 07/20/21 07/20/21 07/20/21 11:01 11:31 12:01 Temperature Pulse Rate 76 77 75 Pulse Rate [ From Monitor] Respiratory 22 20 19 Rate Blood Pressure 134/82 126/81 122/77 O2 Sat by Pulse 97 96 95 Oximetry - General Appearance General appearance: well-developed, well-nourished EENT: ATNC Respiratory: Present: Clear to Ascultation Cardiology: regular, S1S2 Gastrointestinal: normal, no tenderness, no distended Neurologic: facial droop, other (slurred speech) Psychiatric: cooperative - Lab 07/20/21 06:12 07/20/21 10:42 Most recent lab results ABG pH 7.327 (7.320-7.450) 07/18/21 22:57 ABG O2 Saturation 98.3 (0-100) 07/18/21 22:57 Calcium 8.5 mg/dL (8.4-10.2) 07/20/21 10:42 Phosphorus 6.20 mg/dL (2.5-4.5) H 07/20/21 06:12 Magnesium 2.60 mg/dL (1.7-2.3) H 07/20/21 06:12 Urine Creatinine 301.1 mg/dL (0.1-20.0) H 07/19/21 Unknown Urine Total Protein 207 mg/dL (5-11.8) H 07/19/21 Unknown Medications & Allergies - Medications Allergies/Adverse Reactions: Allergies No Known Allergies Allergy (Unverified 11/24/19 08:20) Home Medications: Home Medications Medication Instructions Recorded Confirmed Last Taken Type Multivitamin/Iron/Folic Acid 1 each PO QDAY 11/24/19 11/24/19 Unknown History [Centrum Adults Tablet] AtorvaSTATin [Lipitor] 40 mg PO QHS #30 tablet 11/27/19 Unknown Rx Docusate Sodium [Colace CAP] 100 mg PO BID PRN #20 capsule 11/27/19 Unknown Rx Insulin NPH/Regular [NovoLIN 70/30] 18 unit SUB-Q BIDDIAB #2 vial 11/27/19 Unknown Rx Lispro Insulin [HumaLOG] 5 unit SUB-Q ACHS #1 vial 11/27/19 Unknown Rx amLODIPine 10 mg PO QDAY #30 tablet 11/27/19 Unknown Rx carvediloL [Coreg] 12.5 mg PO BID #60 tablet 11/27/19 Unknown Rx hydrALAZINE [Apresoline TAB] 50 mg PO Q8HR #90 tab 11/27/19 Unknown Rx lisinopriL [Zestril TAB] 40 mg PO QDAY #30 tablet 11/27/19 Unknown Rx Active Medications: Generic Name Dose Route Start Last Admin Trade Name Freq PRN Reason Stop Dose Admin Acetaminophen 650 mg 07/17/21 23:42 Acetaminophen 325 Mg Tab PO Q4H PRN Pain MILD(1-3)/Fever >100.5/HENAO Amlodipine Besylate 10 mg 07/20/21 10:00 07/20/21 09:15 Amlodipine 10 Mg Tab PO 10 mg QDAY LAUREANO Administration Lipase/Protease/Amylase 1 each 07/19/21 12:49 Lipase 10,500/Protease 25,000/Amylase 43,750 (Units) Dr Taylor FEEDTUBE PRN PRN For Clogged Feeding Tube Aspirin 325 mg 07/18/21 10:00 07/20/21 09:15 Aspirin 325 Mg Tab PO 325 mg QDAY LAUREANO Administration Atorvastatin Calcium 40 mg 07/18/21 22:00 07/19/21 21:55 Atorvastatin 40 Mg Tab PO 40 mg QHS LAUREANO Administration Carvedilol 25 mg 07/20/21 10:00 07/20/21 09:14 Carvedilol 25 Mg Tab PO 25 mg BID LAUREANO Administration Docusate Sodium 100 mg 07/18/21 10:00 Docusate Sodium 100 Mg Cap PO BID PRN Constipation Famotidine 10 mg 07/18/21 10:00 07/20/21 09:15 Famotidine 10 Mg Tab PO 10 mg BID LAUREANO Administration Heparin Sodium (Porcine) 5,000 unit 07/18/21 10:00 07/20/21 09:15 Heparin 5,000 Unit/1 Ml Vial SUB-Q 5,000 unit Q12HR LAUREANO Administration Hydralazine HCl 100 mg 07/20/21 08:00 07/20/21 08:48 Hydralazine 100 Mg Tab PO 100 mg TID LAUREANO Administration Hydralazine HCl 10 mg 07/20/21 09:05 07/20/21 09:53 Hydralazine 20 Mg/1 Ml Inj IV 10 mg Q3HR PRN Administration Blood Pressure Dexmedetomidine HCl 200 mcg/ 50 mls @ 6.804 mls/hr 07/19/21 01:00 Sodium Chloride IV TITRATE LAUREANO Protocol 0.2 MCG/KG/HR Sodium Chloride 1,000 mls @ 75 mls/hr 07/19/21 12:00 07/20/21 06:01 Nacl 0.45% 1000 Ml IV 75 mls/hr DIRECT LAUREANO Administration Nicardipine HCl 50 mg/ Sodium 250 mls @ 25 mls/hr 07/19/21 12:00 07/20/21 10:39 Chloride IV 0 mg/hr TITR LAUREANO 0 mls/hr Titration Protocol 5 MG/HR Insulin Human Isoph/Insulin Regular 18 unit 07/18/21 08:00 07/20/21 08:29 Insulin Nph/Regular 70/30 Inj SUB-Q 18 unit BIDDIAB LAUREANO Administration Insulin Human Lispro 0 unit 07/19/21 18:00 07/20/21 09:09 Insulin Lispro 100 Unit/Ml SUB-Q Not Given Q6HR LAUREANO Protocol Lorazepam 1 mg 07/18/21 16:15 Lorazepam 2 Mg/Ml Vial IV Q1H PRN Anxiety Metoclopramide HCl 5 mg 07/18/21 08:00 Metoclopramide 10 Mg/2 Ml Inj IV Q6H PRN Nausea And Vomiting Ondansetron HCl 4 mg 07/17/21 23:42 Ondansetron 4 Mg/2 Ml Inj IV Q8H PRN Nausea And Vomiting Oxycodone/Acetaminophen 1 tab 07/17/21 23:43 Oxycodone /Acetaminophen 5-325mg Tab PO Q6H PRN Pain, Moderate (4-6) Simple Syrup 15 ml 07/19/21 12:49 Simple Syrup 15 Ml FEEDTUBE PRN PRN Hypoglycemia Simple Syrup 30 ml 07/19/21 12:49 Simple Syrup 15 Ml FEEDTUBE PRN PRN Hypoglycemia Sodium Bicarbonate 325 mg 07/19/21 12:49 Sodium Bicarbonate 325 Mg Tab FEEDTUBE PRN PRN For Clogged Feeding Tube Sodium Chloride 10 ml 07/18/21 10:00 07/20/21 09:16 Sodium Chloride 0.9% 10 Ml Flush Syringe IV 10 ml BID LAUREANO Administration Sodium Chloride 10 ml 07/17/21 23:42 Sodium Chloride 0.9% 10 Ml Flush Syringe IV PRN PRN LINE FLUSH
--- NOTE | 2021-07-20 15:59 | XRay Report ---
ABDOMEN 1 VIEW INDICATION / CLINICAL INFORMATION: dht placement. COMPARISON: 07/19/2021 FINDINGS: TUBES / LINES: Esophagogastric tube projects over the stomach. BOWEL GAS PATTERN: No significant abnormality. FREE AIR / EXTRALUMINAL GAS: None seen. ADDITIONAL FINDINGS: No significant additional findings. IMPRESSION: 1. Esophagogastric tube in expected position. Signer Name: Elan Coronado MD Signed: 07/20/2021 3:54 PM Workstation Name: [id number]
[2021-07-20 16:13] LABS: Creatinine,Urine 144.9 mg/dL (0.1-20.0)
[2021-07-21] MEDS: FREE WATER PO SCH ×3 (01:11→22:38)
[2021-07-21] MEDS: INSULIN LISPRO 100 UNIT/ML SUB-Q SCH ×3 (01:12→18:28)
[2021-07-21 06:21] LABS: Hematocrit 43.2 % (35.5-45.6); Mean Corpuscular HGB Conc 33 % (32-34); Mean Corpuscular Volume 91 fl (84-94); Platelet Count 236 K/mm3 (140-440); Red Blood Count 4.73 M/mm3 (3.65-5.03); Red Cell Distribution Width 14.4 % (13.2-15.2)
[2021-07-21 07:01] LABS: Calcium 8.6 mg/dL (8.4-10.2)
[2021-07-21] MEDS: INSULIN NPH/REGULAR 70/30 INJ SUB-Q SCH ×2 (08:00→18:29)
--- NOTE | 2021-07-21 08:06 | Progress Note ---
Assessment and Plan Assessment and plan: History This is a 51-year-old male with IDDM, HTN, HLD, CVA who presents the emergency department on 07/17 with complaints of left-sided upper and lower extremity we akness with difficulty speaking which started approximately at 1 PM on 07/16. Patient deemed outside of TPA window by telemetry neurology consult. Work-up in the emergency department included a CT head which showed chronic white matter changes and multiple chronic appearing lacunar infarcts with questionable hyperdense left MCA, CTA head showed notable irregularity of the vertebrobasilar system with significant stenosis, decreased flow at right distal vertebral artery, CTA neck which showed mild atherosclerotic calcification involving the proximal internal carotid arteries and decreased flow to the right vertebral artery intracranial segment. Lab work showed acute kidney injury, rhabdomyol ysis. Patient was admitted to the hospitalist service with consults to neurology and nephrology. Interval history: 07/18: I have seen and examined the patient in the ER awaiting bed assignment. Patient was admitted with acute CVA not a candidate for TPA with left hemipares is. Neuro work-up is in progress 07/19: Overnight patient was transferred to ICU due to respiratory distress, started on BiPAP and given Narcan x1. CT head was obtained due to unequal pupils. Started on a Cardene drip this morning with IV fluids per nephrology. Mora catheter placed. NG tube was removed by the patient were replaced. Weaned to nasal cannula. Nutrition consult for tube feeding. ST/OT/PT consults. 07/20: was able to be weaned off cardene gtt overnight but was restarted by day RN for hypertension. Encouraged to wean off cardene and utilize prn IVP to facilitate transfer. Nephrology updated on renal function and no plans for HD. given one liter LR in hopes to improve renal function. Cousins updated at bedside (Cherise Campell and male). Patient removed nasal trumphet and DHT and passed swallow eval with RN. He was given an extra regular tray. Patient requested a soft diet. On PM rounds, noted to be coughing food particles. Will keep NPO until formal swallow eval per ST. Transfer to floor 07/21: ST eval pending. Noted to altered in afternoon encounter during CODE MET. Patient was bolus with IVF. BP in AM was 190 systolic and dropped to 110's systolic after RN admin anti-HTN. Patient was also having BM at the time of event .BM appeared to be blood traced. Patient improved after IVF bolus. Will decrease antihtn med at this time. Stat CBC, CMP, and CT brain ordered. Occult blood pending. Assessment and Plan Neuro: Acute CVA -Not a candidate for TPA -Neurology consulted, appreciate recommendations -CT head showed chronic volume loss and white matter changes, multiple chronic lacunar infarcts -CTA head showed notable irregularities of the vertebrobasilar system with significant stenosis most notably involving the mid basilar artery there is notable decrease contrast opacification of the distal right cerebral artery compatible with reduced flow -CTA neck showed mild atherosclerotic calcification involving proximal internal carotid artery segment without significant stenosis Decreased attenuation involving the distal cervical and intra cranial segment of the right vertebral artery compatible with decreased flow -Bilateral carotid Doppler ultrasound showed less than 50% stenosis in both left and right internal carotid arteries -Echocardiogram shows LVEF 50 to 55%, normal bivalve function, no PFO demonstrated by saline bubble contrast injection, trace AR, trace UT, ascending aorta mildly dilated at 4 -MRI brain shows clinical capsular infarct most likely related to small vessel disease -PT/OT/ST consults -Lipitor, aspirin -Allow for permissive hypertension for 24 hours -Maintain euthymia and euglycemia -Aspiration/seizure precautions -Precedex drip on standby Cardio: h/o HTN and hyperlipidemia -s/p Cardene drip -Wean as tolerated -P.o. antihypertensive regimen -Amlodipine, Coreg, hydralazine (titrate as needed) -As needed hydralazine -Blood pressure monitoring per protocol -Lipitor Respiratory: Acute hypoxic respiratory failure -S/p BiPAP therapy -Nonrebreather in place in a.m. with nasal trumpet -Weaned to nasal cannula today with nasal trumpet -NT suction as needed -Supplemental oxygen as needed -Pulmonary hygiene -SPO2 monitoring -Right nasal trumpet -patient removed late morning GI: MO -Nutrition consult for tube feeding -DHT replaced -Tube feeding: Nephro at 45 -Free water flushes 125 every 4 -BR: Colace -PPI -24 hours -399 mL : Acute kidney injury (? Prerenal azotemia versus ATN related to rhab domyolysis), rhabdomyolysis, hypokalemia -Admitted with a CK of 11 K -IV hydration -Nephrology consulted, appreciate recommendations -Renal ultrasound pending -Urine studies pending -Serology results pending -Hold ACEi -Mora catheter placed for strict urine output -Trend BMP -Avoid nephrotoxic medications -renally dose medications Endo: h/o DM -SSI -Accu-Cheks every 6 -Avoid hypoglycemia ID: Leukocytosis (resolved) -Monitor for signs and symptoms of infection -Monitor fever and WBC curve Heme: NAD -Heparin subcu -SCDs to bilateral lower extremity while in bed -Transfuse for hemoglobin less than 7 -Trend CBC History Interval history: On AM encounter, patient was resting comfortably. Was cleared for pureed diet. ON PM encounter, code met called. Patient was having a bowel movement when suddenly became unrepsonsive. BM noted to be blood tingued. Responded to code met, patietn blood pressure noted to be 111/80. BP in morning noted 190's systolic. Patient was altered but protecting airway. Given IVF bolus and placed on bed. CBC, CMP, stool occult blood, and ct brain ordered. Patient improving on subsequent encounter. Tele review demonstrated no events, NSR in upper 60's/lower 70's. Hospitalist Physical - Physical exam Narrative exam: Physical Exam: VITAL SIGNS: Reviewed. GENERAL: The patient appears normally developed, Vital signs as documented. HEAD: No signs of head trauma. EYES: Pupils are equal. Extraocular motions intact. EARS: Hearing grossly intact. MOUTH: Oropharynx is normal. NECK: No adenopathy, no JVD. CHEST: Chest with clear breath sounds bilaterally. No wheezes, rales, or rhonchi. CARDIAC: Regular rate and rhythm. S1 and S2, without murmurs, gallops, or rubs. VASCULAR: No Edema. Peripheral pulses normal and equal in all extremities. ABDOMEN: Soft, non tender and non distended. No rebound or guarding, and no masses palpated. Bowel Sounds normal. MUSCULOSKELETAL: Good range of motion of all major joints. Extremities without clubbing, cyanosis or edema. NEUROLOGIC EXAM: Alert and oriented x 4. no focal sensory or strength deficits. Altered on subsequent encounter while having a BM. Improved once IV admin. PSYCHIATRIC: Mood normal. SKIN: detail exam as documented in skin assessment - Constitutional Vitals: Temp Pulse Resp BP Pulse Ox 98.9 F 79 19 162/89 95 07/21/21 04:41 07/21/21 04:41 07/21/21 04:41 07/21/21 04:41 07/21/21 04:41 General appearance: Present: no acute distress, well-nourished HEART Score - HEART Score Troponin: Troponin T 0.037 ng/mL (0.00-0.029) H 07/17/21 08:48 Results - Labs CBC & Chem 7: 07/21/21 12:13 07/21/21 12:13 Labs: Laboratory Last Values WBC 9.7 K/mm3 (4.5-11.0) 07/21/21 04:55 RBC 4.73 M/mm3 (3.65-5.03) 07/21/21 04:55 Hgb 14.0 gm/dl (11.8-15.2) 07/21/21 04:55 Hct 43.2 % (35.5-45.6) 07/21/21 04:55 MCV 91 fl (84-94) 07/21/21 04:55 MCH 30 pg (28-32) 07/21/21 04:55 MCHC 33 % (32-34) 07/21/21 04:55 RDW 14.4 % (13.2-15.2) 07/21/21 04:55 Plt Count 236 K/mm3 (140-440) 07/21/21 04:55 Lymph % (Auto) 20.3 % (13.4-35.0) 07/18/21 05:03 [place] % (Auto) 10.7 % (0.0-7.3) H 07/18/21 05:03 Eos % (Auto) 0.6 % (0.0-4.3) 07/18/21 05:03 Baso % (Auto) 0.8 % (0.0-1.8) 07/18/21 05:03 Lymph # (Auto) 2.4 K/mm3 (1.2-5.4) 07/18/21 05:03 [place] # (Auto) 1.3 K/mm3 (0.0-0.8) H 07/18/21 05:03 Eos # (Auto) 0.1 K/mm3 (0.0-0.4) 07/18/21 05:03 Baso # (Auto) 0.1 K/mm3 (0.0-0.1) 07/18/21 05:03 Seg Neutrophils % 67.6 % (40.0-70.0) 07/18/21 05:03 Seg Neutrophils # 7.9 K/mm3 (1.8-7.7) H 07/18/21 05:03 PT 14.2 Sec. (12.2-14.9) 07/17/21 08:48 INR 0.99 (0.87-1.13) 07/17/21 08:48 APTT 26.5 Sec. (24.2-36.6) 07/17/21 08:48 Thrombin Time 18.9 Sec. (15.1-19.6) 07/17/21 08:48 ABG pH 7.327 (7.320-7.450) 07/18/21 22:57 POC ABG pCO2 49.6 mmHg (32.0-48.0) H 07/18/21 22:57 POC ABG pO2 125.9 mmHg (83-108) H 07/18/21 22:57 POC ABG HCO3 25.4 07/18/21 22:57 ABG O2 Saturation 98.3 (0-100) 07/18/21 22:57 POC ABG Base Excess -1.3 07/18/21 22:57 ABG Hemoglobin 16.6 (12.0-17.5) 07/18/21 22:57 ABG Oxyhemoglobin 97.3 (94-98) 07/18/21 22:57 ABG Methemoglobin 0.2 (0.0-1.5) 07/18/21 22:57 ABG Sodium 138.2 mmol/L (136.0-145.0) 07/18/21 22:57 ABG Potassium 3.7 mmol/L (3.40-4.50) 07/18/21 22:57 ABG Chloride 96.0 mmol/L (98-107) L 07/18/21 22:57 ABG Glucose 135 mg/dL (65-95) H 07/18/21 22:57 Carboxyhemoglobin 0.8 (0.5-1.5) 07/18/21 22:57 FiO2 % 40.0 07/18/21 22:57 Sodium 143 mmol/L (137-145) 07/21/21 04:55 Potassium 3.2 mmol/L (3.6-5.0) L 07/21/21 04:55 Chloride 101.4 mmol/L (98-107) 07/21/21 04:55 Carbon Dioxide 20 mmol/L (22-30) L 07/21/21 04:55 Anion Gap 25 mmol/L 07/21/21 04:55 BUN 78 mg/dL (9-20) H 07/21/21 04:55 Creatinine 3.6 mg/dL (0.8-1.3) H 07/21/21 04:55 Estimated GFR 22 ml/min 07/21/21 04:55 BUN/Creatinine Ratio 22 % 07/21/21 04:55 Glucose 133 mg/dL (75-100) H 07/21/21 04:55 POC Glucose 130 mg/dL (70-105) H 07/21/21 05:28 Calcium 8.6 mg/dL (8.4-10.2) 07/21/21 04:55 Phosphorus 5.80 mg/dL (2.5-4.5) H 07/21/21 04:55 Magnesium 2.60 mg/dL (1.7-2.3) H 07/21/21 04:55 Total Bilirubin 0.80 mg/dL (0.1-1.2) 07/18/21 05:03 AST 129 units/L (5-40) H 07/18/21 05:03 ALT 59 units/L (7-56) H 07/18/21 05:03 Alkaline Phosphatase 84 units/L (35-129) 07/18/21 05:03 Total Creatine Kinase 1480 units/L (55-170) H 07/20/21 06:12 CK-MB (CK-2) 12.5 ng/mL (0.0-4.0) H 07/20/21 06:12 CK-MB (CK-2) Rel Index 0.4 (0-4) 07/17/21 08:48 Troponin T 0.037 ng/mL (0.00-0.029) H 07/17/21 08:48 Total Protein 6.9 g/dL (6.3-8.2) 07/18/21 05:03 Albumin 3.6 g/dL (3.9-5) L 07/18/21 05:03 Albumin/Globulin Ratio 1.1 % 07/18/21 05:03 Triglycerides 95 mg/dL (2-149) 07/17/21 08:48 Cholesterol 244 mg/dL (50-199) H 07/17/21 08:48 LDL Cholesterol Direct 154 mg/dL (50-130) H 07/17/21 08:48 HDL Cholesterol 66 mg/dL (40-59) H 07/17/21 08:48 Cholesterol/HDL Ratio 3.69 % 07/17/21 08:48 Arterial Blood Glucose 135 mg/dL (65-95) H 07/18/21 22:57 Urine Color Debbie (Yellow) 07/19/21 Unknown Urine Turbidity Slightly-cloudy (Clear) 07/19/21 Unknown Urine pH 5.0 (5.0-7.0) 07/19/21 Unknown Ur Specific [place] 1.027 (1.003-1.030) 07/19/21 Unknown Urine Protein >500 mg/dL (Negative) 07/19/21 Unknown Urine Glucose (UA) 50 mg/dL (Negative) 07/19/21 Unknown Urine Ketones Neg mg/dL (Negative) 07/19/21 Unknown Urine Blood Sm (Negative) 07/19/21 Unknown Urine Nitrite Neg (Negative) 07/19/21 Unknown Urine Bilirubin Neg (Negative) 07/19/21 Unknown Urine Urobilinogen < 2.0 mg/dL (<2.0) 07/19/21 Unknown Ur Leukocyte Esterase Neg (Negative) 07/19/21 Unknown Urine WBC (Auto) 7.0 /HPF (0.0-6.0) H 07/19/21 Unknown Urine RBC (Auto) 4.0 /HPF (0.0-6.0) 07/19/21 Unknown U Epithel Cells (Auto) 1.0 /HPF (0-13.0) 07/19/21 Unknown Hyaline Casts 12 /LPF 07/19/21 Unknown Urine Mucus Few /HPF 07/19/21 Unknown Urine Osmolality 481 Mosm/kg 07/20/21 12:10 Urine Creatinine 144.9 mg/dL (0.1-20.0) H 07/20/21 12:10 Protein/Creatinin Ratio 0.69 07/19/21 Unknown Urine Sodium 69 mmol/L 07/20/21 12:10 Urine Urea Nitrogen 684 07/20/21 12:10 Urine Total Protein 207 mg/dL (5-11.8) H 07/19/21 Unknown Urine Opiates Screen Presumptive negative 07/18/21 16:41 Urine Methadone Screen Presumptive negative 07/18/21 16:41 Ur Barbiturates Screen Presumptive negative 07/18/21 16:41 Ur Phencyclidine Scrn Presumptive negative 07/18/21 16:41 Ur Amphetamines Screen Presumptive negative 07/18/21 16:41 U Benzodiazepines Scrn Presumptive negative 07/18/21 16:41 Urine Cocaine Screen Presumptive negative 07/18/21 16:41 U Marijuana (THC) Screen Presumptive negative 07/18/21 16:41 Drugs of Abuse Note Disclamer 07/18/21 16:41 Plasma/Serum Alcohol < 0.01 % (0-0.07) 07/17/21 08:48 Mora/IV: Voiding Method Indwelling Catheter Active Medications - Current Medications Current Medications: Generic Name Dose Route Start Last Admin Trade Name Freq PRN Reason Stop Dose Admin Acetaminophen 650 mg 07/17/21 23:42 Acetaminophen 325 Mg Tab PO Q4H PRN Pain MILD(1-3)/Fever >100.5/HENAO Amlodipine Besylate 10 mg 07/20/21 10:00 07/20/21 09:15 Amlodipine 10 Mg Tab PO 10 mg QDAY LAUREANO Administration Lipase/Protease/Amylase 1 each 07/19/21 12:49 Lipase 10,500/Protease 25,000/Amylase 43,750 (Units) Dr Brandon MCGEETJULIO CESAR PRN PRN For Clogged Feeding Tube Aspirin 325 mg 07/18/21 10:00 07/20/21 09:15 Aspirin 325 Mg Tab PO 325 mg QDAY LAUREANO Administration Atorvastatin Calcium 40 mg 07/18/21 22:00 07/20/21 21:59 Atorvastatin 40 Mg Tab PO 40 mg QHS LAUREANO Administration Carvedilol 25 mg 07/20/21 10:00 07/20/21 21:58 Carvedilol 25 Mg Tab PO 25 mg BID LAUREANO Administration Docusate Sodium 100 mg 07/18/21 10:00 Docusate Sodium 100 Mg Cap PO BID PRN Constipation Famotidine 10 mg 07/18/21 10:00 07/20/21 21:58 Famotidine 10 Mg Tab PO 10 mg BID LAUREANO Administration Heparin Sodium (Porcine) 5,000 unit 07/18/21 10:00 07/20/21 21:59 Heparin 5,000 Unit/1 Ml Vial SUB-Q 5,000 unit Q12HR LAUREANO Administration Hydralazine HCl 100 mg 07/20/21 08:00 07/20/21 21:59 Hydralazine 100 Mg Tab PO 100 mg TID LAUREANO Administration Hydralazine HCl 10 mg 07/20/21 09:05 07/20/21 09:53 Hydralazine 20 Mg/1 Ml Inj IV 10 mg Q3HR PRN Administration Blood Pressure Dexmedetomidine HCl 200 mcg/ 50 mls @ 6.804 mls/hr 07/19/21 01:00 Sodium Chloride IV TITRATE [facility] Protocol 0.2 MCG/KG/HR Sodium Chloride 1,000 mls @ 75 mls/hr 07/19/21 12:00 07/20/21 22:00 Nacl 0.45% 1000 Ml IV 75 mls/hr DIRECT [facility] Administration Insulin Human Isoph/Insulin Regular 18 unit 07/18/21 08:00 07/20/21 17:28 Insulin Nph/Regular 70/30 Inj SUB-Q Not Given BIDDIAB [facility] Insulin Human Lispro 0 unit 07/19/21 18:00 07/21/21 01:12 Insulin Lispro 100 Unit/Ml SUB-Q Not Given Q6HR [facility] Protocol Lorazepam 1 mg 07/18/21 16:15 Lorazepam 2 Mg/Ml Vial IV Q1H PRN Anxiety Metoclopramide HCl 5 mg 07/18/21 08:00 Metoclopramide 10 Mg/2 Ml Inj IV Q6H PRN Nausea And Vomiting Ondansetron HCl 4 mg 07/17/21 23:42 Ondansetron 4 Mg/2 Ml Inj IV Q8H PRN Nausea And Vomiting Oxycodone/Acetaminophen 1 tab 07/17/21 23:43 Oxycodone /Acetaminophen 5-325mg Tab PO Q6H PRN Pain, Moderate (4-6) Simple Syrup 15 ml 07/19/21 12:49 Simple Syrup 15 Ml FEEDTUBE PRN PRN Hypoglycemia Simple Syrup 30 ml 07/19/21 12:49 Simple Syrup 15 Ml FEEDTUBE PRN PRN Hypoglycemia Sodium Bicarbonate 325 mg 07/19/21 12:49 Sodium Bicarbonate 325 Mg Tab FEEDTUBE PRN PRN For Clogged Feeding Tube Sodium Chloride 10 ml 07/18/21 10:00 07/20/21 22:00 Sodium Chloride 0.9% 10 Ml Flush Syringe IV 10 ml BID LAUREANO Administration Sodium Chloride 10 ml 07/17/21 23:42 Sodium Chloride 0.9% 10 Ml Flush Syringe IV PRN PRN LINE FLUSH Nutrition/Malnutrition Assess - Dietary Evaluation Nutrition/Malnutrition Findings: Nutrition Notes Start: 07/19/21 12:37 Freq: Status: Active Protocol: Document 07/19/21 12:37 CW (Rec: 07/19/21 12:49 CW [id number]) Nutrition Notes Need for Assessment generated from: MD Order Initial or Follow up Assessment Current Diagnosis CKD(stage I-IV),Diabetes, Hypertension,Stroke, Hyperlipidemia Other Pertinent Diagnosis h/o NM, L hemiparesis Labs/Tests K 3.5 BUN 55 Cr 5.3 Pertinent Medications levophed Height 5 ft 10 in Weight 136.078 kg [place] Body Weight (kg) 75.45 BMI 43.0 Weight Status Morbidly Obese Subjective/Other Information cosnult for TF. previously order for ONS. ONS cancelled. Pt nonverbnal and unable to consume via PO at this time. NGT was placed but dislodged by pt. POC is to replace NGT and start TF. Burn Absent Trauma Absent Difficulty In Swallowing Skin Integrity/Comment Intact Current % PO Negligible Minimum of two criteria No physical signs of malnutrition #1 Nutrition Diagnosis Inadequate oral intake Etiology CVA As Evidenced by Signs and Symptoms Pt unabel to safely consume via PO at this time Is patient on ventilator? No Is Patient Ambulatory and/or Out of Bed No REE-([facility]-confined to bed) 2663.796 Kcal/Kg value to use for calculation 14 Approximate Energy Requirements Using 1905 kcal/Kg Calculation Used for Recommendations Kcal/kg Additional Notes protein needs: 189 g (2.5g/ kgIBW) fluid needs: 1500mL for renal or per MD order Nutrition Intervention Change Diet Order: Intitiate TF when medically stable Nutrition Support: Nepro at 45 ml/hr with a free water flush fo 125 ml q4h Kcal 1,944 Protein (gm) 87 Fluid (mL) 785 Goal #1 Meet at least 75% of EER via TF Anticipated Discharge Needs: UNABLE TO DETERMINE AT THIS TIME Follow-Up By: 07/21/21 Additional Comments F/U for TF start and tolerance
[2021-07-21] MEDS ORDERED: hydrALAZINE 20 MG/1 ML INJ IV PRN (10:00)
[2021-07-21] MEDS: HEPARIN 5,000 UNIT/1 ML VIAL SUB-Q SCH ×2 (10:26→22:38)
[2021-07-21] MEDS: carvediloL 25 MG TAB PO SCH (10:26)
[2021-07-21] MEDS: FAMOTIDINE 10 MG TAB PO SCH ×2 (10:26→22:24)
[2021-07-21] MEDS: ASPIRIN 325 MG TAB PO SCH (10:26)
[2021-07-21] MEDS: hydrALAZINE 100 MG TAB PO SCH ×3 (10:26→22:24)
[2021-07-21] MEDS: amLODIPine 10 MG TAB PO SCH (10:26)
[2021-07-21] MEDS ORDERED: SODIUM CHLORIDE 0.45% 1000 ML 1,000 ML with POTASSIUM CHLORIDE 20 MEQ IV SCH (11:00)
[2021-07-21 12:25] LABS: Basophils % (Auto) 0.5 % (0.0-1.8); Eosinophils # (Auto) 0.1 K/mm3 (0.0-0.4); Eosinophils % (Auto) 0.8 % (0.0-4.3); Hematocrit 37.7 % (35.5-45.6); Hemoglobin 12.2 gm/dl (11.8-15.2); Lymphocytes # (Auto) 1.3 K/mm3 (1.2-5.4); Lymphocytes % (Auto) 16.2 % (13.4-35.0); Mean Corpuscular HGB Conc 32 % (32-34); Mean Corpuscular Volume 92 fl (84-94); Monocytes # (Auto) 0.9 K/mm3 (0.0-0.8); Platelet Count 232 K/mm3 (140-440); Red Blood Count 4.11 M/mm3 (3.65-5.03); Red Cell Distribution Width 14.3 % (13.2-15.2)
[2021-07-21 12:36] LABS: Albumin 2.9 g/dL (3.9-5); Calcium 8.1 mg/dL (8.4-10.2)
[2021-07-21] MEDS ORDERED: SODIUM CHLORIDE 0.45% 1000 ML IV SOLN IV SCH (13:00)
--- NOTE | 2021-07-21 13:06 | Cat Scan Report ---
CT BRAIN: 07/21/2021 INDICATION / CLINICAL INFORMATION: non responsive. COMPARISON: CT brain 07/18/2021 FINDINGS: BRAIN/INTRACRANIAL STRUCTURES: Unenhanced CT images of the brain were obtained and compared to the pr ior exam from 07/18/2021. Overall, there is been no change. Again seen is evidence of lacunar infarcts in the right basal ganglia, left caudate head, left thalam us, and left margie. There is no evidence of superimposed large vessel territory ischemic injury, hemorrhage, or mass. The re are no abnormal extra-axial fluid collections. EXTRACRANIAL STRUCTURES: Unremarkable. IMPRESSION: No acute abnormality. Multiple lacunar changes of indeterminate age, stable when compared to the bra in CT from 07/18/2021. All CT scans at this location are performed using dose reduction to ALARA by means of automated expos ure control. Signer Name: Neno Oquendo MD Signed: 07/21/2021 1:01 PM Workstation Name: [id number]
[2021-07-22] MEDS: INSULIN LISPRO 100 UNIT/ML SUB-Q SCH ×5 (00:47→18:22)
[2021-07-22] MEDS: FREE WATER PO SCH ×8 (00:57→21:18)
[2021-07-22] MEDS: NACL 0.45%/KCL 20 MEQ 20 MEQ/1,000 ML BAG IV SCH ×2 (06:24→18:26)
[2021-07-22 07:48] LABS: Calcium 8.1 mg/dL (8.4-10.2)
--- NOTE | 2021-07-22 10:36 | Progress Note ---
Assessment and Plan Assessment and plan: This is a 51-year-old male with IDDM, HTN, HLD, CVA who presents the emergency department on 07/17 with complaints of left-sided upper and lower extremity weakness with difficulty speaking which started approximately at 1 PM on 07/16. Patient deemed outside of TPA window by telemetry neurology consult. Work-up in the emergency department included a CT head which showed chronic white matter changes and multiple chronic appearing lacunar infarcts with questionable hyperdense left MCA, CTA head showed notable irregularity of the vertebrobasilar system with significant stenosis, decreased flow at right distal vertebral artery, CTA neck which showed mild atherosclerotic calcification involving the proximal internal carotid arteries and decreased flow to the right vertebral artery intracranial segment. Lab work showed acute kidney injury, rhabdomyolysis. Patient was admitted to the hospitalist service with consults to neurology and nephrology. Acute CVA. Accelerated hypertension Hyperlipidemia Acute hypoxic respiratory failure Morbid obesity Acute kidney injury Rhabdomyolysis Diabetes mellitus type 2 Interval history: 07/18: I have seen and examined the patient in the ER awaiting bed assignment. Patient was admitted with acute CVA not a candidate for TPA with left hemiparesis. Neuro work-up is in progress 07/19: Overnight patient was transferred to ICU due to respiratory distress, started on BiPAP and given Narcan x1. CT head was obtained due to unequal pupils. Started on a Cardene drip this morning with IV fluids per nephrology. Mora catheter placed. NG tube was removed by the patient were replaced. Weaned to nasal cannula. Nutrition consult for tube feeding. ST/OT/PT consults. 07/20: was able to be weaned off cardene gtt overnight but was restarted by day RN for hypertension. Encouraged to wean off cardene and utilize prn IVP to fac ilitate transfer. Nephrology updated on renal function and no plans for HD. given one liter LR in hopes to improve renal function. Cousins updated at bedside (Cherise Campell and male). Patient removed nasal trumphet and DHT and passed swallow eval with RN. He was given an extra regular tray. Patient requested a soft diet. On PM rounds, noted to be coughing food particles. Will keep NPO until formal swallow eval per ST. Transfer to floor 07/21: ST eval pending. Noted to altered in afternoon encounter during CODE MET. Patient was bolus with IVF. BP in AM was 190 systolic and dropped to 110's sy stolic after RN admin anti-HTN. Patient was also having BM at the time of event. BM appeared to be blood traced. Patient improved after IVF bolus. Will decrease antihtn med at this time. Stat CBC, CMP, and CT brain ordered. Occult blood pending. 07/22: Creatinine is improving. Continue conservative management per nephrology. Continue to trend CK levels. Continue amlodipine and hydralazine. Physical therapy recommends acute rehab. Follow-up occult stool. Check CBC today and in a.m. History Interval history: No new issues overnight. Patient appears confused. Hospitalist Physical - Constitutional Vitals: Temp Pulse Resp BP Pulse Ox 97.3 F L 84 18 149/97 98 07/22/21 07:58 07/22/21 07:58 07/22/21 08:00 07/22/21 07:58 07/22/21 08:00 General appearance: Present: no acute distress, well-nourished - EENT Eyes: Present: PERRL, EOM intact ENT: hearing intact, clear oral mucosa, dentition normal - Neck Neck: Present: supple, normal ROM - Respiratory Respiratory effort: normal Respiratory: bilateral: CTA - Cardiovascular Rhythm: regular Heart Sounds: Present: S1 & S2. Absent: gallop, rub - Extremities Extremities: no ischemia, No edema, Full ROM - Abdominal General gastrointestinal: soft, non-tender, non-distended, normal bowel sounds - Integumentary Integumentary: Present: clear, warm, dry - Neurologic Neurologic: CNII-XII intact, moves all extremities HEART Score - HEART Score Troponin: Troponin T 0.037 ng/mL (0.00-0.029) H 07/17/21 08:48 Results - Labs CBC & Chem 7: 07/21/21 12:13 07/22/21 04:35 Labs: Laboratory Last Values WBC 7.9 K/mm3 (4.5-11.0) 07/21/21 12:13 RBC 4.11 M/mm3 (3.65-5.03) 07/21/21 12:13 Hgb 12.2 gm/dl (11.8-15.2) 07/21/21 12:13 Hct 37.7 % (35.5-45.6) 07/21/21 12:13 MCV 92 fl (84-94) 07/21/21 12:13 MCH 30 pg (28-32) 07/21/21 12:13 MCHC 32 % (32-34) 07/21/21 12:13 RDW 14.3 % (13.2-15.2) 07/21/21 12:13 Plt Count 232 K/mm3 (140-440) 07/21/21 12:13 Lymph % (Auto) 16.2 % (13.4-35.0) 07/21/21 12:13 [place] % (Auto) 11.0 % (0.0-7.3) H 07/21/21 12:13 Eos % (Auto) 0.8 % (0.0-4.3) 07/21/21 12:13 Baso % (Auto) 0.5 % (0.0-1.8) 07/21/21 12:13 Lymph # (Auto) 1.3 K/mm3 (1.2-5.4) 07/21/21 12:13 [place] # (Auto) 0.9 K/mm3 (0.0-0.8) H 07/21/21 12:13 Eos # (Auto) 0.1 K/mm3 (0.0-0.4) 07/21/21 12:13 Baso # (Auto) 0.0 K/mm3 (0.0-0.1) 07/21/21 12:13 Seg Neutrophils % 71.5 % (40.0-70.0) H 07/21/21 12:13 Seg Neutrophils # 5.6 K/mm3 (1.8-7.7) 07/21/21 12:13 PT 14.2 Sec. (12.2-14.9) 07/17/21 08:48 INR 0.99 (0.87-1.13) 07/17/21 08:48 APTT 26.5 Sec. (24.2-36.6) 07/17/21 08:48 Thrombin Time 18.9 Sec. (15.1-19.6) 07/17/21 08:48 ABG pH 7.327 (7.320-7.450) 07/18/21 22:57 POC ABG pCO2 49.6 mmHg (32.0-48.0) H 07/18/21 22:57 POC ABG pO2 125.9 mmHg (83-108) H 07/18/21 22:57 POC ABG HCO3 25.4 07/18/21 22:57 ABG O2 Saturation 98.3 (0-100) 07/18/21 22:57 POC ABG Base Excess -1.3 07/18/21 22:57 ABG Hemoglobin 16.6 (12.0-17.5) 07/18/21 22:57 ABG Oxyhemoglobin 97.3 (94-98) 07/18/21 22:57 ABG Methemoglobin 0.2 (0.0-1.5) 07/18/21 22:57 ABG Sodium 138.2 mmol/L (136.0-145.0) 07/18/21 22:57 ABG Potassium 3.7 mmol/L (3.40-4.50) 07/18/21 22:57 ABG Chloride 96.0 mmol/L (98-107) L 07/18/21 22:57 ABG Glucose 135 mg/dL (65-95) H 07/18/21 22:57 Carboxyhemoglobin 0.8 (0.5-1.5) 07/18/21 22:57 FiO2 % 40.0 07/18/21 22:57 Sodium 141 mmol/L (137-145) 07/22/21 04:35 Potassium 3.1 mmol/L (3.6-5.0) L 07/22/21 04:35 Chloride 101.2 mmol/L (98-107) 07/22/21 04:35 Carbon Dioxide 24 mmol/L (22-30) 07/22/21 04:35 Anion Gap 19 mmol/L 07/22/21 04:35 BUN 86 mg/dL (9-20) H 07/22/21 04:35 Creatinine 2.9 mg/dL (0.8-1.3) H 07/22/21 04:35 Estimated GFR 28 ml/min 07/22/21 04:35 BUN/Creatinine Ratio 30 % 07/22/21 04:35 Glucose 161 mg/dL (75-100) H 07/22/21 04:35 POC Glucose 147 mg/dL (70-105) H 07/22/21 06:13 Calcium 8.1 mg/dL (8.4-10.2) L 07/22/21 04:35 Phosphorus 5.80 mg/dL (2.5-4.5) H 07/21/21 04:55 Magnesium 2.60 mg/dL (1.7-2.3) H 07/21/21 04:55 Total Bilirubin 0.60 mg/dL (0.1-1.2) 07/21/21 12:13 AST 34 units/L (5-40) 07/21/21 12:13 ALT 29 units/L (7-56) 07/21/21 12:13 Alkaline Phosphatase 70 units/L (35-129) 07/21/21 12:13 Total Creatine Kinase 1480 units/L (55-170) H 07/20/21 06:12 CK-MB (CK-2) 12.5 ng/mL (0.0-4.0) H 07/20/21 06:12 CK-MB (CK-2) Rel Index 0.4 (0-4) 07/17/21 08:48 Troponin T 0.037 ng/mL (0.00-0.029) H 07/17/21 08:48 Total Protein 6.5 g/dL (6.3-8.2) 07/21/21 12:13 Albumin 2.9 g/dL (3.9-5) L 07/21/21 12:13 Albumin/Globulin Ratio 0.8 % 07/21/21 12:13 Triglycerides 95 mg/dL (2-149) 07/17/21 08:48 Cholesterol 244 mg/dL (50-199) H 07/17/21 08:48 LDL Cholesterol Direct 154 mg/dL (50-130) H 07/17/21 08:48 HDL Cholesterol 66 mg/dL (40-59) H 07/17/21 08:48 Cholesterol/HDL Ratio 3.69 % 07/17/21 08:48 Arterial Blood Glucose 135 mg/dL (65-95) H 07/18/21 22:57 Urine Color Debbie (Yellow) 07/19/21 Unknown Urine Turbidity Slightly-cloudy (Clear) 07/19/21 Unknown Urine pH 5.0 (5.0-7.0) 07/19/21 Unknown Ur Specific [place] 1.027 (1.003-1.030) 07/19/21 Unknown Urine Protein >500 mg/dL (Negative) 07/19/21 Unknown Urine Glucose (UA) 50 mg/dL (Negative) 07/19/21 Unknown Urine Ketones Neg mg/dL (Negative) 07/19/21 Unknown Urine Blood Sm (Negative) 07/19/21 Unknown Urine Nitrite Neg (Negative) 07/19/21 Unknown Urine Bilirubin Neg (Negative) 07/19/21 Unknown Urine Urobilinogen < 2.0 mg/dL (<2.0) 07/19/21 Unknown Ur Leukocyte Esterase Neg (Negative) 07/19/21 Unknown Urine WBC (Auto) 7.0 /HPF (0.0-6.0) H 07/19/21 Unknown Urine RBC (Auto) 4.0 /HPF (0.0-6.0) 07/19/21 Unknown U Epithel Cells (Auto) 1.0 /HPF (0-13.0) 07/19/21 Unknown Hyaline Casts 12 /LPF 07/19/21 Unknown Urine Mucus Few /HPF 07/19/21 Unknown Urine Osmolality 481 Mosm/kg 07/20/21 12:10 Urine Creatinine 144.9 mg/dL (0.1-20.0) H 07/20/21 12:10 Protein/Creatinin Ratio 0.69 07/19/21 Unknown Urine Sodium 69 mmol/L 07/20/21 12:10 Urine Urea Nitrogen 684 07/20/21 12:10 Urine Total Protein 207 mg/dL (5-11.8) H 07/19/21 Unknown Urine Opiates Screen Presumptive negative 07/18/21 16:41 Urine Methadone Screen Presumptive negative 07/18/21 16:41 Ur Barbiturates Screen Presumptive negative 07/18/21 16:41 Ur Phencyclidine Scrn Presumptive negative 07/18/21 16:41 Ur Amphetamines Screen Presumptive negative 07/18/21 16:41 U Benzodiazepines Scrn Presumptive negative 07/18/21 16:41 Urine Cocaine Screen Presumptive negative 07/18/21 16:41 U Marijuana (THC) Screen Presumptive negative 07/18/21 16:41 Drugs of Abuse Note Disclamer 07/18/21 16:41 Plasma/Serum Alcohol < 0.01 % (0-0.07) 07/17/21 08:48 Mora/IV: Voiding Method Indwelling Catheter Active Medications - Current Medications Current Medications: Generic Name Dose Route Start Last Admin Trade Name Freq PRN Reason Stop Dose Admin Acetaminophen 650 mg 07/17/21 23:42 Acetaminophen 325 Mg Tab PO Q4H PRN Pain MILD(1-3)/Fever >100.5/HENAO Amlodipine Besylate 10 mg 07/20/21 10:00 07/21/21 10:26 Amlodipine 10 Mg Tab PO 10 mg QDAY LAUREANO Administration Lipase/Protease/Amylase 1 each 07/19/21 12:49 Lipase 10,500/Protease 25,000/Amylase 43,750 (Units) Dr Taylor FEEDTUBE PRN PRN For Clogged Feeding Tube Aspirin 325 mg 07/18/21 10:00 07/21/21 10:26 Aspirin 325 Mg Tab PO 325 mg QDAY LAUREANO Administration Atorvastatin Calcium 40 mg 07/18/21 22:00 07/21/21 22:36 Atorvastatin 40 Mg Tab PO 40 mg QHS LAUREANO Administration Docusate Sodium 100 mg 07/18/21 10:00 Docusate Sodium 100 Mg Cap PO BID PRN Constipation Famotidine 10 mg 07/18/21 10:00 07/21/21 22:24 Famotidine 10 Mg Tab PO 10 mg BID LAUREANO Administration Heparin Sodium (Porcine) 5,000 unit 07/18/21 10:00 07/21/21 22:38 Heparin 5,000 Unit/1 Ml Vial SUB-Q Not Given Q12HR [facility] Hydralazine HCl 100 mg 07/20/21 08:00 07/21/21 22:24 Hydralazine 100 Mg Tab PO 100 mg TID LAUREANO Administration Hydralazine HCl 10 mg 07/21/21 10:00 Hydralazine 20 Mg/1 Ml Inj IV Q3H PRN hypertension Potassium Chloride/Sodium Chloride 20 meq in 1,000 mls @ 100 mls/hr 07/21/21 11:00 07/22/21 06:24 Ns 0.45/Kcl 20meq IV 100 mls/hr DIRECT LAUREANO Administration Insulin Human Isoph/Insulin Regular 18 unit 07/18/21 08:00 07/21/21 18:29 Insulin Nph/Regular 70/30 Inj SUB-Q Not Given BIDDIAB [facility] Insulin Human Lispro 0 unit 07/19/21 18:00 07/22/21 06:21 Insulin Lispro 100 Unit/Ml SUB-Q Not Given Q6HR [facility] Protocol Labetalol HCl 10 mg 07/21/21 10:00 Labetalol 20 Mg/4 Ml Inj IV Q4HR PRN sbp > 160, hold for HR < 70 Lorazepam 1 mg 07/18/21 16:15 Lorazepam 2 Mg/Ml Vial IV Q1H PRN Anxiety Metoclopramide HCl 5 mg 07/18/21 08:00 Metoclopramide 10 Mg/2 Ml Inj IV Q6H PRN Nausea And Vomiting Ondansetron HCl 4 mg 07/17/21 23:42 Ondansetron 4 Mg/2 Ml Inj IV Q8H PRN Nausea And Vomiting Oxycodone/Acetaminophen 1 tab 07/17/21 23:43 Oxycodone /Acetaminophen 5-325mg Tab PO Q6H PRN Pain, Moderate (4-6) Simple Syrup 15 ml 07/19/21 12:49 Simple Syrup 15 Ml FEEDTUBE PRN PRN Hypoglycemia Simple Syrup 30 ml 07/19/21 12:49 Simple Syrup 15 Ml FEEDTUBE PRN PRN Hypoglycemia Sodium Bicarbonate 325 mg 07/19/21 12:49 Sodium Bicarbonate 325 Mg Tab FEEDTUBE PRN PRN For Clogged Feeding Tube Sodium Chloride 10 ml 07/18/21 10:00 07/22/21 00:59 Sodium Chloride 0.9% 10 Ml Flush Syringe IV Not Given BID LAUREANO Sodium Chloride 10 ml 07/17/21 23:42 Sodium Chloride 0.9% 10 Ml Flush Syringe IV PRN PRN LINE FLUSH Nutrition/Malnutrition Assess - Dietary Evaluation Nutrition/Malnutrition Findings: Nutrition Notes Start: 07/19/21 12:37 Freq: Status: Active Protocol: Document 07/19/21 12:37 CW (Rec: 07/19/21 12:49 CW [id number]) Nutrition Notes Need for Assessment generated from: MD Order Initial or Follow up Assessment Current Diagnosis CKD(stage I-IV),Diabetes, Hypertension,Stroke, Hyperlipidemia Other Pertinent Diagnosis h/o ID, L hemiparesis Labs/Tests K 3.5 BUN 55 Cr 5.3 Pertinent Medications levophed Height 5 ft 10 in Weight 136.078 kg [place] Body Weight (kg) 75.45 BMI 43.0 Weight Status Morbidly Obese Subjective/Other Information cosnult for TF. previously order for ONS. ONS cancelled. Pt nonverbnal and unable to consume via PO at this time. NGT was placed but dislodged by pt. POC is to replace NGT and start TF. Burn Absent Trauma Absent Difficulty In Swallowing Skin Integrity/Comment Intact Current % PO Negligible Minimum of two criteria No physical signs of malnutrition #1 Nutrition Diagnosis Inadequate oral intake Etiology CVA As Evidenced by Signs and Symptoms Pt unabel to safely consume via PO at this time Is patient on ventilator? No Is Patient Ambulatory and/or Out of Bed No REE-([facility]-confined to bed) 2663.796 Kcal/Kg value to use for calculation 14 Approximate Energy Requirements Using 1905 kcal/Kg Calculation Used for Recommendations Kcal/kg Additional Notes protein needs: 189 g (2.5g/ kgIBW) fluid needs: 1500mL for renal or per MD order Nutrition Intervention Change Diet Order: Intitiate TF when medically stable Nutrition Support: Nepro at 45 ml/hr with a free water flush fo 125 ml q4h Kcal 1,944 Protein (gm) 87 Fluid (mL) 785 Goal #1 Meet at least 75% of EER via TF Anticipated Discharge Needs: UNABLE TO DETERMINE AT THIS TIME Follow-Up By: 07/21/21 Additional Comments F/U for TF start and tolerance
--- NOTE | 2021-07-22 10:51 | Progress Note ---
Subjective Date of service: 07/22/21 Principal diagnosis: left side weakness ,abnormal MRI brain Interval history: Impression: * Acute kidney injury - ?prerenal azotemia vs ATN related to rhabdo * Proteinuria --UPCR 690mg * Acute CVA * Rhabomyolysis (CK peak at 11k) * Accelerated hypertension * Type II diabetes mellitus Plan: * Renal function stable. Continue conservative management * Trend CK - decreasing * Continue antiHTN medications - Cardene gtt prn * Dose medications for renal function * Avoid potential nephrotoxins * AM labs * Strict I/O Subjective Principal diagnosis: left side weakness ,abnormal MRI brain Interval history: Patient more alert today. He reports hx of hypertension untreated since March. He denies a prior hx of kidney disease Objective - Exam Narrative Exam: General appearance: well-developed, well-nourished EENT: ATNC Respiratory: Present: Clear to Ascultation Cardiology: regular, S1S2 Gastrointestinal: normal, no tenderness, no distended Neurologic: facial droop, other (slurred speech) Psychiatric: cooperative - Vital Signs Vital signs: Vital Signs - 12hr 07/22/21 07/22/21 07/22/21 05:00 07:58 08:00 Temperature 97.3 F L Pulse Rate 80 84 Respiratory 20 18 Rate Blood Pressure 149/97 O2 Sat by Pulse 100 98 Oximetry 07/22/21 08:30 Temperature Pulse Rate Respiratory Rate Blood Pressure O2 Sat by Pulse 100 Oximetry - Lab 07/21/21 12:13 07/22/21 04:35 Most recent lab results ABG pH 7.327 (7.320-7.450) 07/18/21 22:57 ABG O2 Saturation 98.3 (0-100) 07/18/21 22:57 Calcium 8.1 mg/dL (8.4-10.2) L 07/22/21 04:35 Phosphorus 5.80 mg/dL (2.5-4.5) H 07/21/21 04:55 Magnesium 2.60 mg/dL (1.7-2.3) H 07/21/21 04:55 Urine Creatinine 144.9 mg/dL (0.1-20.0) H 07/20/21 12:10 Urine Sodium 69 mmol/L 07/20/21 12:10 Urine Total Protein 207 mg/dL (5-11.8) H 07/19/21 Unknown Medications & Allergies - Medications Allergies/Adverse Reactions: Allergies No Known Allergies Allergy (Verified 07/21/21 11:18) Home Medications: Home Medications Medication Instructions Recorded Confirmed Last Taken Type Multivitamin/Iron/Folic Acid 1 each PO QDAY 11/24/19 07/21/21 07/16/21 History [Centrum Adults Tablet] Insulin NPH/Regular [Novolin 70/30] 30 unit SQ BIDDIAB 07/21/21 07/21/21 07/16/21 History Active Medications: Generic Name Dose Route Start Last Admin Trade Name Freq PRN Reason Stop Dose Admin Acetaminophen 650 mg 07/17/21 23:42 Acetaminophen 325 Mg Tab PO Q4H PRN Pain MILD(1-3)/Fever >100.5/HENAO Amlodipine Besylate 10 mg 07/20/21 10:00 07/21/21 10:26 Amlodipine 10 Mg Tab PO 10 mg QDAY LAUREANO Administration Lipase/Protease/Amylase 1 each 07/19/21 12:49 Lipase 10,500/Protease 25,000/Amylase 43,750 (Units) Dr Taylor FEEDTUBE PRN PRN For Clogged Feeding Tube Aspirin 325 mg 07/18/21 10:00 07/21/21 10:26 Aspirin 325 Mg Tab PO 325 mg QDAY LAUREANO Administration Atorvastatin Calcium 40 mg 07/18/21 22:00 07/21/21 22:36 Atorvastatin 40 Mg Tab PO 40 mg QHS LAUREANO Administration Docusate Sodium 100 mg 07/18/21 10:00 Docusate Sodium 100 Mg Cap PO BID PRN Constipation Famotidine 10 mg 07/18/21 10:00 07/21/21 22:24 Famotidine 10 Mg Tab PO 10 mg BID LAUREANO Administration Heparin Sodium (Porcine) 5,000 unit 07/18/21 10:00 07/21/21 22:38 Heparin 5,000 Unit/1 Ml Vial SUB-Q Not Given Q12HR LAUREANO Hydralazine HCl 100 mg 07/20/21 08:00 07/21/21 22:24 Hydralazine 100 Mg Tab PO 100 mg TID LAUREANO Administration Hydralazine HCl 10 mg 07/21/21 10:00 Hydralazine 20 Mg/1 Ml Inj IV Q3H PRN hypertension Potassium Chloride/Sodium Chloride 20 meq in 1,000 mls @ 100 mls/hr 07/21/21 11:00 07/22/21 06:24 Ns 0.45/Kcl 20meq IV 100 mls/hr DIRECT LAUREANO Administration Insulin Human Isoph/Insulin Regular 18 unit 07/18/21 08:00 07/21/21 18:29 Insulin Nph/Regular 70/30 Inj SUB-Q Not Given BIDDIAB LAUREANO Insulin Human Lispro 0 unit 07/19/21 18:00 07/22/21 06:21 Insulin Lispro 100 Unit/Ml SUB-Q Not Given Q6HR [facility] Protocol Labetalol HCl 10 mg 07/21/21 10:00 Labetalol 20 Mg/4 Ml Inj IV Q4HR PRN sbp > 160, hold for HR < 70 Lorazepam 1 mg 07/18/21 16:15 Lorazepam 2 Mg/Ml Vial IV Q1H PRN Anxiety Metoclopramide HCl 5 mg 07/18/21 08:00 Metoclopramide 10 Mg/2 Ml Inj IV Q6H PRN Nausea And Vomiting Ondansetron HCl 4 mg 07/17/21 23:42 Ondansetron 4 Mg/2 Ml Inj IV Q8H PRN Nausea And Vomiting Oxycodone/Acetaminophen 1 tab 07/17/21 23:43 Oxycodone /Acetaminophen 5-325mg Tab PO Q6H PRN Pain, Moderate (4-6) Simple Syrup 15 ml 07/19/21 12:49 Simple Syrup 15 Ml FEEDTUBE PRN PRN Hypoglycemia Simple Syrup 30 ml 07/19/21 12:49 Simple Syrup 15 Ml FEEDTUBE PRN PRN Hypoglycemia Sodium Bicarbonate 325 mg 07/19/21 12:49 Sodium Bicarbonate 325 Mg Tab FEEDTUBE PRN PRN For Clogged Feeding Tube Sodium Chloride 10 ml 07/18/21 10:00 07/22/21 00:59 Sodium Chloride 0.9% 10 Ml Flush Syringe IV Not Given BID LAUREANO Sodium Chloride 10 ml 07/17/21 23:42 Sodium Chloride 0.9% 10 Ml Flush Syringe IV PRN PRN LINE FLUSH
[2021-07-22] MEDS: FAMOTIDINE 10 MG TAB PO SCH ×2 (10:54→21:15)
[2021-07-22] MEDS: amLODIPine 10 MG TAB PO SCH (10:54)
[2021-07-22] MEDS: ASPIRIN 325 MG TAB PO SCH (10:54)
[2021-07-22] MEDS: HEPARIN 5,000 UNIT/1 ML VIAL SUB-Q SCH ×2 (10:54→21:16)
[2021-07-22] MEDS: INSULIN NPH/REGULAR 70/30 INJ SUB-Q SCH ×2 (10:57→18:23)
[2021-07-22] MEDS: hydrALAZINE 100 MG TAB PO SCH ×3 (11:09→20:55)
[2021-07-22 13:55] LABS: Basophils % (Auto) 0.5 % (0.0-1.8); Eosinophils # (Auto) 0.1 K/mm3 (0.0-0.4); Hematocrit 32.7 % (35.5-45.6); Hemoglobin 10.7 gm/dl (11.8-15.2); Lymphocytes # (Auto) 1.4 K/mm3 (1.2-5.4); Lymphocytes % (Auto) 15.1 % (13.4-35.0); Mean Corpuscular HGB Conc 33 % (32-34); Mean Corpuscular Volume 92 fl (84-94); Monocytes # (Auto) 1.2 K/mm3 (0.0-0.8); Monocytes % (Auto) 12.6 % (0.0-7.3); Platelet Count 218 K/mm3 (140-440); Red Blood Count 3.57 M/mm3 (3.65-5.03); Red Cell Distribution Width 14.2 % (13.2-15.2)
[2021-07-22 22:53] LABS: ANA Screen, IFA Negative (Negative)
[2021-07-23] MEDS: INSULIN LISPRO 100 UNIT/ML SUB-Q SCH (00:44)
[2021-07-23] MEDS: FREE WATER PO SCH ×5 (00:47→20:57)
[2021-07-23] MEDS ORDERED: INSULIN LISPRO 100 UNIT/ML SUB-Q SCH (07:30)
[2021-07-23 08:04] LABS: ABG Base Excess -3.1 mmol/L (-2.0-3.0); ABG HCO3 20.8 mmol/L (20.0-26.0); ABG Methemoglobin 0.4 % (0.0-1.5); ABG Oxygen Saturation 97.9 % (95.0-99.0); ABG PCO2 31.8 mm Hg; ABG PH 7.434 pH Units (7.350-7.450); ABG PO2 103.3 mm Hg (80.0-90.0)
[2021-07-23 10:20] LABS: Calcium 7.3 mg/dL (8.4-10.2)
[2021-07-23 10:24] LABS: Hemoglobin 6.2 gm/dl (11.8-15.2); Mean Corpuscular HGB Conc 32 % (32-34); Mean Corpuscular Volume 92 fl (84-94); Platelet Count 201 K/mm3 (140-440); Red Blood Count 2.12 M/mm3 (3.65-5.03); Red Cell Distribution Width 14.1 % (13.2-15.2)
[2021-07-23 10:41] LABS: Hematocrit 19.6 % (35.5-45.6)
[2021-07-23] MEDS: amLODIPine 10 MG TAB PO SCH (11:20)
[2021-07-23] MEDS: hydrALAZINE 100 MG TAB PO SCH (11:20)
--- NOTE | 2021-07-23 11:46 | Progress Note ---
Assessment and Plan Assessment and plan: This is a 51-year-old male with IDDM, HTN, HLD, CVA who presents the emergency department on 07/17 with complaints of left-sided upper and lower extremity weakness with difficulty speaking which started approximately at 1 PM on 07/16. Patient deemed outside of TPA window by telemetry neurology consult. Work-up in the emergency department included a CT head which showed chronic white matter changes and multiple chronic appearing lacunar infarcts with questionable hyperdense left MCA, CTA head showed notable irregularity of the vertebrobasilar system with significant stenosis, decreased flow at right distal vertebral artery, CTA neck which showed mild atherosclerotic calcification involving the proximal internal carotid arteries and decreased flow to the right vertebral artery intracranial segment. Lab work showed acute kidney injury, rhabdomyolysis. Patient was admitted to the hospitalist service with consults to neurology and nephrology. Acute CVA. Acute hypoxic respiratory failure Hematochezia/melena Acute blood loss anemia Accelerated hypertension Hyperlipidemia Morbid obesity Acute kidney injury Rhabdomyolysis Diabetes mellitus type 2 Interval history: 07/18: I have seen and examined the patient in the ER awaiting bed assignment. Patient was admitted with acute CVA not a candidate for TPA with left hemiparesis. Neuro work-up is in progress 07/19: Overnight patient was transferred to ICU due to respiratory distress, started on BiPAP and given Narcan x1. CT head was obtained due to unequal pupils. Started on a Cardene drip this morning with IV fluids per nephrology. Mora catheter placed. NG tube was removed by the patient were replaced. Weaned to nasal cannula. Nutrition consult for tube feeding. ST/OT/PT consults. 07/20: was able to be weaned off cardene gtt overnight but was restarted by day RN for hypertension. Encouraged to wean off cardene and utilize prn IVP to facilitate transfer. Nephrology updated on renal function and no plans for HD. given one liter LR in hopes to improve renal function. Cousins updated at beds tyron (Cherise Yu and male). Patient removed nasal trumphet and DHT and passed swallow eval with RN. He was given an extra regular tray. Patient requested a soft diet. On PM rounds, noted to be coughing food particles. Will keep NPO until formal swallow eval per ST. Transfer to floor 07/21: ST eval pending. Noted to altered in afternoon encounter during CODE MET. Patient was bolus with IVF. BP in AM was 190 systolic and dropped to 110's systolic after RN admin anti-HTN. Patient was also having BM at the time of event. BM appeared to be blood traced. Patient improved after IVF bolus. Will d ecrease antihtn med at this time. Stat CBC, CMP, and CT brain ordered. Occult blood pending. 07/22: Creatinine is improving. Continue conservative management per nephrology. Continue to trend CK levels. Continue amlodipine and hydralazine. Physical therapy recommends acute rehab. Follow-up occult stool. Check CBC today and in a.m. 07/23: Patient with a code met call earlier this morning. Patient noted to be somnolent only arousable to sternal rub. Patient also with some coarse secretio ns in the upper airway. The patient was transferred to the ICU for closer monitoring. Nasal trumpet was placed and NG suctioning completed via nursing/respiratory therapy. ABG was within normal limits with pH 7.34, CO2 31 and PO2 103. We will follow-up chest x-ray for aspiration. Continue n.p.o. status. Pulmonology reconsulted. Stat labs revealed hemoglobin of 6.2. Patient reportedly had BM with traces of blood on 07/21. We will consult GI for ABLA hematochezia/melena. We will transfuse 2 units PRBCs The high probability of a clinically significant, sudden or life threatening deterioration of the [neurological and respiratory] system(s) required my full and direct attention, intervention and personal management. The aggregate critical care time was [32] minutes. This time is in addition to time spent performing reported procedures but includes the following: [x] Data Review and interpretation [x] Patient assessment and monitoring of vital signs [x] Documentation [x] Medication orders and management History Interval history: Patient with a code met call earlier this morning. Patient noted to be somnolent only arousable to sternal rub. Patient also with some coarse secretions in the upper airway. Hospitalist Physical - Constitutional Vitals: Temp Pulse Resp BP Pulse Ox 98.6 F 102 H 25 H 141/64 99 07/23/21 04:00 07/23/21 07:35 07/23/21 07:35 07/23/21 07:35 07/23/21 07:40 General appearance: Present: mild distress, well-nourished - EENT Eyes: Present: PERRL, EOM intact ENT: hearing intact, clear oral mucosa, dentition normal - Neck Neck: Present: supple, normal ROM - Respiratory Respiratory effort: normal Respiratory: bilateral: diminished, rales, rhonchi - Cardiovascular Rhythm: regular Heart Sounds: Present: S1 & S2. Absent: gallop, rub - Extremities Extremities: no ischemia, No edema, Full ROM - Abdominal General gastrointestinal: soft, non-tender, non-distended, normal bowel sounds - Integumentary Integumentary: Present: clear, warm, dry - Neurologic Neurologic: other (Somnolent arousable only to sternal rub) HEART Score - HEART Score Troponin: Troponin T 0.037 ng/mL (0.00-0.029) H 07/17/21 08:48 Results - Labs CBC & Chem 7: 07/23/21 10:03 07/23/21 10:03 Labs: Laboratory Last Values WBC 9.4 K/mm3 (4.5-11.0) 07/23/21 10:03 RBC 2.12 M/mm3 (3.65-5.03) L 07/23/21 10:03 Hgb 6.2 gm/dl (11.8-15.2) L D 07/23/21 10:03 Hct 19.6 % (35.5-45.6) L* D 07/23/21 10:03 MCV 92 fl (84-94) 07/23/21 10:03 MCH 29 pg (28-32) 07/23/21 10:03 MCHC 32 % (32-34) 07/23/21 10:03 RDW 14.1 % (13.2-15.2) 07/23/21 10:03 Plt Count 201 K/mm3 (140-440) 07/23/21 10:03 Lymph % (Auto) 15.1 % (13.4-35.0) 07/22/21 13:08 [place] % (Auto) 12.6 % (0.0-7.3) H 07/22/21 13:08 Eos % (Auto) 1.0 % (0.0-4.3) 07/22/21 13:08 Baso % (Auto) 0.5 % (0.0-1.8) 07/22/21 13:08 Lymph # (Auto) 1.4 K/mm3 (1.2-5.4) 07/22/21 13:08 [place] # (Auto) 1.2 K/mm3 (0.0-0.8) H 07/22/21 13:08 Eos # (Auto) 0.1 K/mm3 (0.0-0.4) 07/22/21 13:08 Baso # (Auto) 0.0 K/mm3 (0.0-0.1) 07/22/21 13:08 Seg Neutrophils % 70.8 % (40.0-70.0) H 07/22/21 13:08 Seg Neutrophils # 6.7 K/mm3 (1.8-7.7) 07/22/21 13:08 PT 14.2 Sec. (12.2-14.9) 07/17/21 08:48 INR 0.99 (0.87-1.13) 07/17/21 08:48 APTT 26.5 Sec. (24.2-36.6) 07/17/21 08:48 Thrombin Time 18.9 Sec. (15.1-19.6) 07/17/21 08:48 ABG pH 7.434 pH Units (7.350-7.450) 07/23/21 07:50 POC ABG pCO2 49.6 mmHg (32.0-48.0) H 07/18/21 22:57 ABG pCO2 31.8 mm Hg 07/23/21 07:50 POC ABG pO2 125.9 mmHg (83-108) H 07/18/21 22:57 ABG pO2 103.3 mm Hg (80.0-90.0) H 07/23/21 07:50 POC ABG HCO3 25.4 07/18/21 22:57 ABG HCO3 20.8 mmol/L (20.0-26.0) 07/23/21 07:50 ABG O2 Saturation 97.9 % (95.0-99.0) 07/23/21 07:50 ABG O2 Content 8.8 (0.0-44) 07/23/21 07:50 POC ABG Base Excess -1.3 07/18/21 22:57 ABG Base Excess -3.1 mmol/L (-2.0-3.0) L 07/23/21 07:50 ABG Hemoglobin 6.4 gm/dl (14.0-18.0) L 07/23/21 07:50 ABG Oxyhemoglobin 97.3 (94-98) 07/18/21 22:57 ABG Carboxyhemoglobin 1.3 % (0.0-5.0) 07/23/21 07:50 ABG Methemoglobin 0.4 % (0.0-1.5) 07/23/21 07:50 ABG Sodium 138.2 mmol/L (136.0-145.0) 07/18/21 22:57 ABG Potassium 3.7 mmol/L (3.40-4.50) 07/18/21 22:57 ABG Chloride 96.0 mmol/L (98-107) L 07/18/21 22:57 ABG Glucose 135 mg/dL (65-95) H 07/18/21 22:57 Oxyhemoglobin 96.2 % (95.0-99.0) 07/23/21 07:50 Carboxyhemoglobin 0.8 (0.5-1.5) 07/18/21 22:57 FiO2 36 % 07/23/21 07:50 FiO2 % 40.0 07/18/21 22:57 Sodium 141 mmol/L (137-145) 07/23/21 10:03 Potassium 4.5 mmol/L (3.6-5.0) D 07/23/21 10:03 Chloride 105.9 mmol/L (98-107) 07/23/21 10:03 Carbon Dioxide 19 mmol/L (22-30) L 07/23/21 10:03 Anion Gap 21 mmol/L 07/23/21 10:03 BUN 78 mg/dL (9-20) H 07/23/21 10:03 Creatinine 3.0 mg/dL (0.8-1.3) H 07/23/21 10:03 Estimated GFR 27 ml/min 07/23/21 10:03 BUN/Creatinine Ratio 26 % 07/23/21 10:03 Glucose 270 mg/dL (75-100) H 07/23/21 10:03 POC Glucose 238 mg/dL (70-105) H 07/23/21 08:54 Calcium 7.3 mg/dL (8.4-10.2) L 07/23/21 10:03 Phosphorus 5.80 mg/dL (2.5-4.5) H 07/21/21 04:55 Magnesium 2.60 mg/dL (1.7-2.3) H 07/21/21 04:55 Total Bilirubin 0.60 mg/dL (0.1-1.2) 07/21/21 12:13 AST 34 units/L (5-40) 07/21/21 12:13 ALT 29 units/L (7-56) 07/21/21 12:13 Alkaline Phosphatase 70 units/L (35-129) 07/21/21 12:13 Total Creatine Kinase 389 units/L (55-170) H 07/23/21 10:03 CK-MB (CK-2) 12.5 ng/mL (0.0-4.0) H 07/20/21 06:12 CK-MB (CK-2) Rel Index 0.4 (0-4) 07/17/21 08:48 Troponin T 0.037 ng/mL (0.00-0.029) H 07/17/21 08:48 Total Protein 6.5 g/dL (6.3-8.2) 07/21/21 12:13 Albumin 2.9 g/dL (3.9-5) L 07/21/21 12:13 Albumin/Globulin Ratio 0.8 % 07/21/21 12:13 Triglycerides 95 mg/dL (2-149) 07/17/21 08:48 Cholesterol 244 mg/dL (50-199) H 07/17/21 08:48 LDL Cholesterol Direct 154 mg/dL (50-130) H 07/17/21 08:48 HDL Cholesterol 66 mg/dL (40-59) H 07/17/21 08:48 Cholesterol/HDL Ratio 3.69 % 07/17/21 08:48 Arterial Blood Glucose 135 mg/dL (65-95) H 07/18/21 22:57 Urine Color Debbie (Yellow) 07/19/21 Unknown Urine Turbidity Slightly-cloudy (Clear) 07/19/21 Unknown Urine pH 5.0 (5.0-7.0) 07/19/21 Unknown Ur Specific Muir 1.027 (1.003-1.030) 07/19/21 Unknown Urine Protein >500 mg/dL (Negative) 07/19/21 Unknown Urine Glucose (UA) 50 mg/dL (Negative) 07/19/21 Unknown Urine Ketones Neg mg/dL (Negative) 07/19/21 Unknown Urine Blood Sm (Negative) 07/19/21 Unknown Urine Nitrite Neg (Negative) 07/19/21 Unknown Urine Bilirubin Neg (Negative) 07/19/21 Unknown Urine Urobilinogen < 2.0 mg/dL (<2.0) 07/19/21 Unknown Ur Leukocyte Esterase Neg (Negative) 07/19/21 Unknown Urine WBC (Auto) 7.0 /HPF (0.0-6.0) H 07/19/21 Unknown Urine RBC (Auto) 4.0 /HPF (0.0-6.0) 07/19/21 Unknown U Epithel Cells (Auto) 1.0 /HPF (0-13.0) 07/19/21 Unknown Hyaline Casts 12 /LPF 07/19/21 Unknown Urine Mucus Few /HPF 07/19/21 Unknown Urine Osmolality 481 Mosm/kg 07/20/21 12:10 Urine Creatinine 144.9 mg/dL (0.1-20.0) H 07/20/21 12:10 Protein/Creatinin Ratio 0.69 07/19/21 Unknown Urine Sodium 69 mmol/L 07/20/21 12:10 Urine Urea Nitrogen 684 07/20/21 12:10 Urine Total Protein 207 mg/dL (5-11.8) H 07/19/21 Unknown Urine Opiates Screen Presumptive negative 07/18/21 16:41 Urine Methadone Screen Presumptive negative 07/18/21 16:41 Ur Barbiturates Screen Presumptive negative 07/18/21 16:41 Ur Phencyclidine Scrn Presumptive negative 07/18/21 16:41 Ur Amphetamines Screen Presumptive negative 07/18/21 16:41 U Benzodiazepines Scrn Presumptive negative 07/18/21 16:41 Urine Cocaine Screen Presumptive negative 07/18/21 16:41 U Marijuana (THC) Screen Presumptive negative 07/18/21 16:41 Drugs of Abuse Note Disclamer 07/18/21 16:41 Plasma/Serum Alcohol < 0.01 % (0-0.07) 07/17/21 08:48 MARGARITA Screen Negative (Negative) 07/19/21 04:35 Complement C3 150 mg/dL (82-185) 07/19/21 04:35 Complement C4 39 mg/dL (15-53) 07/19/21 04:35 Mora/IV: Voiding Method Indwelling Catheter Active Medications - Current Medications Current Medications: Generic Name Dose Route Start Last Admin Trade Name Freq PRN Reason Stop Dose Admin Acetaminophen 650 mg 07/17/21 23:42 Acetaminophen 325 Mg Tab PO Q4H PRN Pain MILD(1-3)/Fever >100.5/HENAO Amlodipine Besylate 10 mg 07/20/21 10:00 07/23/21 11:20 Amlodipine 10 Mg Tab PO Not Given QDAY LAUREANO Lipase/Protease/Amylase 1 each 07/19/21 12:49 Lipase 10,500/Protease 25,000/Amylase 43,750 (Units) Dr Taylor FEEDTUBE PRN PRN For Clogged Feeding Tube Aspirin 325 mg 07/18/21 10:00 07/22/21 10:54 Aspirin 325 Mg Tab PO 325 mg QDAY LAUREANO Administration Atorvastatin Calcium 40 mg 07/18/21 22:00 07/22/21 21:16 Atorvastatin 40 Mg Tab PO 40 mg QHS LAUREANO Administration Docusate Sodium 100 mg 07/18/21 10:00 Docusate Sodium 100 Mg Cap PO BID PRN Constipation Famotidine 10 mg 07/18/21 10:00 07/22/21 21:15 Famotidine 10 Mg Tab PO 10 mg BID LAUREANO Administration Heparin Sodium (Porcine) 5,000 unit 07/18/21 10:00 07/22/21 21:16 Heparin 5,000 Unit/1 Ml Vial SUB-Q 5,000 unit Q12HR LAUREANO Administration Hydralazine HCl 100 mg 07/20/21 08:00 07/23/21 11:20 Hydralazine 100 Mg Tab PO Not Given TID LAUREANO Hydralazine HCl 10 mg 07/21/21 10:00 Hydralazine 20 Mg/1 Ml Inj IV Q3H PRN hypertension Potassium Chloride/Sodium Chloride 20 meq in 1,000 mls @ 100 mls/hr 07/21/21 11:00 07/22/21 18:26 Ns 0.45/Kcl 20meq IV 100 mls/hr DIRECT LAUREANO Administration Insulin Human Lispro 0 unit 07/23/21 07:30 Insulin Lispro 100 Unit/Ml SUB-Q ACHS LAUREANO Protocol Labetalol HCl 10 mg 07/21/21 10:00 Labetalol 20 Mg/4 Ml Inj IV Q4HR PRN sbp > 160, hold for HR < 70 Lorazepam 1 mg 07/18/21 16:15 Lorazepam 2 Mg/Ml Vial IV Q1H PRN Anxiety Metoclopramide HCl 5 mg 07/18/21 08:00 Metoclopramide 10 Mg/2 Ml Inj IV Q6H PRN Nausea And Vomiting Ondansetron HCl 4 mg 07/17/21 23:42 Ondansetron 4 Mg/2 Ml Inj IV Q8H PRN Nausea And Vomiting Oxycodone/Acetaminophen 1 tab 07/17/21 23:43 Oxycodone /Acetaminophen 5-325mg Tab PO Q6H PRN Pain, Moderate (4-6) Simple Syrup 15 ml 07/19/21 12:49 Simple Syrup 15 Ml FEEDTUBE PRN PRN Hypoglycemia Simple Syrup 30 ml 07/19/21 12:49 Simple Syrup 15 Ml FEEDTUBE PRN PRN Hypoglycemia Sodium Bicarbonate 325 mg 07/19/21 12:49 Sodium Bicarbonate 325 Mg Tab FEEDTUBE PRN PRN For Clogged Feeding Tube Sodium Chloride 10 ml 07/18/21 10:00 07/22/21 21:16 Sodium Chloride 0.9% 10 Ml Flush Syringe IV 10 ml BID [facility] Administration Sodium Chloride 10 ml 07/17/21 23:42 Sodium Chloride 0.9% 10 Ml Flush Syringe IV PRN PRN LINE FLUSH Nutrition/Malnutrition Assess - Dietary Evaluation Nutrition/Malnutrition Findings: Nutrition Notes Start: 07/19/21 12:37 Freq: Status: Active Protocol: Document 07/23/21 09:09 JEANNIE (Rec: 07/23/21 09:46 JEANNIE [id number]) Nutrition Notes Initial or Follow up Reassessment Current Diagnosis Acute Kidney Injury,Diabetes, Hypertension,Respiratory Failure,Hyperlipidemia Other Pertinent Diagnosis Rhabdomyolysis, CVA, L- hemiparesis Current Diet NPO (since 07/23 08:26). Labs/Tests 07/22: K 3.1, BUN 86, Crea 2.9 , Glu 161, Ca 8.1. Pertinent Medications 07/23: Ns 0.45/KCl 20 mEq 1, 000 ml @ 100 ml/hr, others nutritionally unremarkable. Height 5 ft 11 in Weight 136.7 kg [place] Body Weight (kg) 78.18 BMI 42.0 Weight change and time frame Slight height and body weight correction reported. Weight Status Morbidly Obese Subjective/Other Information RD consult for routine F/U on start of TF and tolerance assessment. Swallow screen passed on 07/21 . Pt has missing teeth. Pt was on Pureed diet for 2 days %PO intake of meals 25-50 %, according to ADL notes. Pt produce blood occult in stool. Percent of energy/protein needs met: Pt currently on NPO. Burn Absent Trauma Absent GI Symptoms Other Difficulty In Chewing Skin Integrity/Comment Clear, warm, dry. Current % PO Other Minimum of two criteria No physical signs of malnutrition #1 Nutrition Diagnosis Inadequate energy intake Comments: Swallow screen passed on 07/21 . Pt has missing teeth. Pt was on Pureed diet for 2 days %PO intake of meals 25-50 %, according to ADL notes. Etiology CVA As Evidenced by Signs and Symptoms Pt unable to safely consume via PO at this time. Diagnosis Progress(for reassessment Resolved documentation) Is patient on ventilator? No Is Patient Ambulatory and/or Out of Bed No REE-([place]-confined to bed) 2690.304 Kcal/Kg value to use for calculation 14 Approximate Energy Requirements Using 1914 kcal/Kg Calculation Used for Recommendations Kcal/kg Additional Notes Protein needs: 189 g (2.5 g/kg IBW) Fluid needs: 1,500 mL/day, for renal or per MD order. Nutrition Intervention Change Diet Order: Continue NPO, as per MD; when pertinent, advance to Pureed Diet. Goal #1 Maintain body weight within +/ -3% of admission BWt during LOS. Goal #2 Reach and maintain acceptable chemistry lab values during LOS. Follow-Up By: 07/30/21 Additional Comments Continue monitoring Hydration, and BM; when pertinent, food tolerance, %PO intake of meals .
[2021-07-23] MEDS ORDERED: SODIUM CHLORIDE 0.9% 500 ML 500 ML IV SCH (12:00)
[2021-07-23] MEDS ORDERED: NORepinephrine/NS 8 MG-250 ML 8 MG/250 ML INFUS..BTL IV ONE (12:14)
[2021-07-23] MEDS: NORepinephrine/NS 8 MG-250 ML 8 MG/250 ML INFUS..BTL IV SCH ×3 (12:20→21:59)
[2021-07-23] MEDS: FAMOTIDINE 10 MG TAB PO SCH (12:29)
[2021-07-23] MEDS: HEPARIN 5,000 UNIT/1 ML VIAL SUB-Q SCH (12:29)
[2021-07-23] MEDS: ASPIRIN 325 MG TAB PO SCH (12:30)
--- NOTE | 2021-07-23 12:33 | Progress Note ---
Assessment and Plan Impression: * Acute kidney injury - ?prerenal azotemia vs ATN related to rhabdo * Proteinuria --UPCR 690mg * Acute CVA * Rhabomyolysis (CK peak at 11k) * Accelerated hypertension * Type II diabetes mellitus * Metabolic Acidosis Plan: * Renal function stable with creatinine 3.0. Continue conservative management, can continue current IVF (1.2NS with KCl) * Note BP low this AM, hold antihypertensives for now to avoid hypoperfusion injury to kidney, can restart amlodipine 10mg, hydralazine 100mg TID slowly later today/tomorrow; note previous high BPs * Trend CK - decreasing, at 380 now * Dose medications for renal function * Avoid potential nephrotoxins * AM labs * Strict I/O- urine output has been good Subjective Date of service: 07/23/21 Principal diagnosis: left side weakness ,abnormal MRI brain Interval history: More drowsy today, events noted per chart review Objective - Vital Signs Vital signs: Vital Signs - 12hr 07/23/21 07/23/21 07/23/21 04:00 07:35 07:40 Temperature 98.6 F Pulse Rate 109 H 102 H Respiratory 20 25 H Rate Blood Pressure Blood Pressure 119/72 141/64 [Right] O2 Sat by Pulse 99 99 Oximetry 07/23/21 07/23/21 07/23/21 08:42 09:00 09:31 Temperature Pulse Rate 63 107 H 92 H Respiratory 22 27 H 23 Rate Blood Pressure 103/67 139/78 Blood Pressure [Right] O2 Sat by Pulse 97 100 99 Oximetry 07/23/21 07/23/21 07/23/21 10:01 10:31 11:00 Temperature Pulse Rate 99 H 95 H Respiratory 25 H 25 H Rate Blood Pressure 103/48 103/48 94/59 Blood Pressure [Right] O2 Sat by Pulse 95 100 100 Oximetry 07/23/21 11:31 Temperature Pulse Rate 89 Respiratory 23 Rate Blood Pressure 94/59 Blood Pressure [Right] O2 Sat by Pulse 100 Oximetry - Lab 07/23/21 10:03 07/23/21 10:03 Most recent lab results ABG pH 7.434 pH Units (7.350-7.450) 07/23/21 07:50 ABG pCO2 31.8 mm Hg 07/23/21 07:50 ABG pO2 103.3 mm Hg (80.0-90.0) H 07/23/21 07:50 ABG HCO3 20.8 mmol/L (20.0-26.0) 07/23/21 07:50 ABG O2 Saturation 97.9 % (95.0-99.0) 07/23/21 07:50 Calcium 7.3 mg/dL (8.4-10.2) L 07/23/21 10:03 Phosphorus 5.80 mg/dL (2.5-4.5) H 07/21/21 04:55 Magnesium 2.60 mg/dL (1.7-2.3) H 07/21/21 04:55 Urine Creatinine 144.9 mg/dL (0.1-20.0) H 07/20/21 12:10 Urine Sodium 69 mmol/L 07/20/21 12:10 Urine Total Protein 207 mg/dL (5-11.8) H 07/19/21 Unknown Medications & Allergies - Medications Allergies/Adverse Reactions: Allergies No Known Allergies Allergy (Verified 07/21/21 11:18) Home Medications: Home Medications Medication Instructions Recorded Confirmed Last Taken Type Multivitamin/Iron/Folic Acid 1 each PO QDAY 11/24/19 07/21/21 07/16/21 History [Centrum Adults Tablet] Insulin NPH/Regular [Novolin 70/30] 30 unit SQ BIDDIAB 07/21/21 07/21/21 07/16/21 History Active Medications: Generic Name Dose Route Start Last Admin Trade Name Freq PRN Reason Stop Dose Admin Acetaminophen 650 mg 07/17/21 23:42 Acetaminophen 325 Mg Tab PO Q4H PRN Pain MILD(1-3)/Fever >100.5/HENAO Lipase/Protease/Amylase 1 each 07/19/21 12:49 Lipase 10,500/Protease 25,000/Amylase 43,750 (Units) Dr Taylor FEEDTUBE PRN PRN For Clogged Feeding Tube Aspirin 325 mg 07/18/21 10:00 07/22/21 10:54 Aspirin 325 Mg Tab PO 325 mg QDAY LAUREANO Administration Atorvastatin Calcium 40 mg 07/18/21 22:00 07/22/21 21:16 Atorvastatin 40 Mg Tab PO 40 mg QHS LAUREANO Administration Docusate Sodium 100 mg 07/18/21 10:00 Docusate Sodium 100 Mg Cap PO BID PRN Constipation Famotidine 10 mg 07/18/21 10:00 07/22/21 21:15 Famotidine 10 Mg Tab PO 10 mg BID LAUREANO Administration Heparin Sodium (Porcine) 5,000 unit 07/18/21 10:00 07/22/21 21:16 Heparin 5,000 Unit/1 Ml Vial SUB-Q 5,000 unit Q12HR LAUREANO Administration Hydralazine HCl 10 mg 07/21/21 10:00 Hydralazine 20 Mg/1 Ml Inj IV Q3H PRN hypertension Potassium Chloride/Sodium Chloride 20 meq in 1,000 mls @ 100 mls/hr 07/21/21 11:00 07/22/21 18:26 Ns 0.45/Kcl 20meq IV 100 mls/hr DIRECT LAUREANO Administration Sodium Chloride 500 mls @ 0 mls/hr 07/23/21 12:00 Nacl 0.9% 500 Ml IV 07/23/21 19:00 ONCE@1200 LAUREANO As Directed NORepinephrine/NS 8 MG-250 ML 8 mg in 250 mls @ 3.75 mls/hr 07/23/21 13:00 Norepinephrine/Ns 8 Mg-250 Ml (Double Conc) IV TITRATE [facility] Protocol 2 MCG/MIN Insulin Human Lispro 0 unit 07/23/21 07:30 Insulin Lispro 100 Unit/Ml SUB-Q ACHS [facility] Protocol Labetalol HCl 10 mg 07/21/21 10:00 Labetalol 20 Mg/4 Ml Inj IV Q4HR PRN sbp > 160, hold for HR < 70 Lorazepam 1 mg 07/18/21 16:15 Lorazepam 2 Mg/Ml Vial IV Q1H PRN Anxiety Metoclopramide HCl 5 mg 07/18/21 08:00 Metoclopramide 10 Mg/2 Ml Inj IV Q6H PRN Nausea And Vomiting Ondansetron HCl 4 mg 07/17/21 23:42 Ondansetron 4 Mg/2 Ml Inj IV Q8H PRN Nausea And Vomiting Oxycodone/Acetaminophen 1 tab 07/17/21 23:43 Oxycodone /Acetaminophen 5-325mg Tab PO Q6H PRN Pain, Moderate (4-6) Simple Syrup 15 ml 07/19/21 12:49 Simple Syrup 15 Ml FEEDTUBE PRN PRN Hypoglycemia Simple Syrup 30 ml 07/19/21 12:49 Simple Syrup 15 Ml FEEDTUBE PRN PRN Hypoglycemia Sodium Bicarbonate 325 mg 07/19/21 12:49 Sodium Bicarbonate 325 Mg Tab FEEDTUBE PRN PRN For Clogged Feeding Tube Sodium Chloride 10 ml 07/18/21 10:00 07/22/21 21:16 Sodium Chloride 0.9% 10 Ml Flush Syringe IV 10 ml BID LAUREANO Administration Sodium Chloride 10 ml 07/17/21 23:42 Sodium Chloride 0.9% 10 Ml Flush Syringe IV PRN PRN LINE FLUSH
[2021-07-23] MEDS ORDERED: LIP THERAPY VASELINE TP PRN (12:48)
[2021-07-23] MEDS ORDERED: MINERAL OIL/PETROLATUM, WHITE OPHTH OINT 3.5 GM OU PRN (12:48)
--- NOTE | 2021-07-23 12:55 | Event Note ---
Date: 07/23/21 Patient transferred down as a code met from the floor. Upon my arrival patient was apnic, bradycardic in the 30's and without pulse. CPR started at about 12:05-12:06. Epi given at 12:07 and pusle regained at 12:08 but pulse was weak and thready so CPR continued for another 2 minutes with another administration of epid. Patient was intubated using the glide scope with a MAC 4 blade. Grade I visualization and tube seen going through cords. Cuff inflated and stylet removed. Good color change. Tube secured. Number 8 at 24 at the teeth. Currently on levophed at 12. Remains unresponsive and is not on sedation. Awaiting CXR to confirm placement of ET tube, right IJ and OG tube. Nursing attempted to call next of kin but no answer. Very very guarded to poor prognosis. Will likely obtain repeat head CT when more stable. Follow up post intubation aBG. CCT 31 minutes.
[2021-07-23 13:12] LABS: Total Cells Counted 100
[2021-07-23 13:13] LABS: Band Neutrophils # (Manual) 0.1 K/mm3; Hypochromasia 1+; Myelocytes # (Manual) 0.1 K/mm3; Platelet Estimate Consistent w Auto
--- NOTE | 2021-07-23 13:28 | XRay Report ---
CHEST 1 VIEW INDICATION: ETT placement. COMPARISON: 07/19/2021 FINDINGS: SUPPORT DEVICES: Right IJ CVL in the high right atrium. Endotracheal tube tip just below the level of clavicles. NG tube object below the [id number] into the region of the upper abdomen. HEART: Within normal limits. LUNGS/PLEURA: 1 cm nodule in the right lung base with otherwise clear lungs. ADDITIONAL FINDINGS: None. IMPRESSION: 1. Support devices as above. 2. 1 cm right lower lobe pulmonary nodule. If this is an unknown finding, consider nonemergent CT [facility] for follow-up. Signer Name: Denis Morley MD Signed: 07/23/2021 1:24 PM Workstation Name: [id number]
--- NOTE | 2021-07-23 13:29 | Procedure Note ---
<JOHN IVORY - Last Filed: 07/23/21 21:41> Date of procedure: 07/23/21 Pre-op diagnosis: S/p Cardiac Arrest Post-op diagnosis: same Procedure: Right internal jugular vein central line placement under ultrasound guidance Patient was evaluated and required central line placement due to Hypotension requiring pressors This is an emergent procedure A time-out was completed verifying correct patient, procedure, site, and positioning. Hand hygiene were performed immediately prior to the procedure and sterile technique was used throughout the procedure. Ultrasound was utilized to localize the right internal jugular vein without difficulty. The patient's right neck was prepped with chlorhexidine scrubs then draped in a sterile fashion. 1% Lidocaine was used to anesthetize the surrounding skin area. Then the right internal jugular vein was accessed using ultrasound guidance and a triple lumen catheter was introduced using the Seldinger technique. The catheter threaded smoothly over the guidewire and easily advanced into the vein and brisk blood return was observed from each lumen. Each lumen were flushed and clamped, then the catheter was sutured in place and covered with a sterile dressing. Patient tolerated the procedure well, no signs of any adverse reaction noted. CXR shows good placement without PTX. Total Time Spent with Patient (Minutes): 40 minutes Anesthesia: local Surgeon: JOHN IVORY (Supervised by Dr. Morrison) Estimated blood loss: minimal Condition: critical Disposition: ICU <IZZY MORRISON - Last Filed: 07/24/21 09:24> Procedure: I was there and supervised the procedure
[2021-07-23] MEDS ORDERED: LACTATED RINGERS 2,000 ML ONE (13:31)
[2021-07-23] MEDS ORDERED: LACTATED RINGERS 1,000 ML IV ONE (13:39)
[2021-07-23] MEDS: LACTATED RINGERS 1,000 ML IV SCH ×2 (13:40→15:43)
[2021-07-23] MEDS ORDERED: FAMOTIDINE 20 MG/2 ML INJ IV SCH (14:00)
[2021-07-23] MEDS ORDERED: SODIUM CHLORIDE 0.9% 1000 ML 1,000 ML IV SCH (14:00)
[2021-07-23 14:12] LABS: ABG Base Excess -11.2 mmol/L (-2.0-3.0); ABG HCO3 13.6 mmol/L (20.0-26.0); ABG Methemoglobin 0.5 % (0.0-1.5); ABG Oxygen Saturation 99.6 % (95.0-99.0); ABG PCO2 26.1 mm Hg; ABG PH 7.335 pH Units (7.350-7.450)
[2021-07-23 14:14] LABS: ABG PO2 414.9 mm Hg (80.0-90.0)
[2021-07-23] MEDS: VASOPRESSIN 20 UNIT in SODIUM CHLORIDE 0.9% 100 ML IV SCH (15:43)
[2021-07-23] MEDS ORDERED: SODIUM BICARB 8.4% 50 MEQ/50 ML SYRINGE IV SCH (16:00)
[2021-07-23] MEDS: PANTOPRAZOLE 80 MG in SODIUM CHLORIDE 0.9% 100 ML IV SCH (19:48)
[2021-07-23 21:00] LABS: Hematocrit 21.1 % (35.5-45.6); Hemoglobin 6.7 gm/dl (11.8-15.2)
[2021-07-23] MEDS ORDERED: SENNOSIDES/DOCUSATE SODIUM 8.6/50 MG TAB FEEDTUBE SCH (22:00)
[2021-07-24] MEDS: INSULIN LISPRO 100 UNIT/ML SUB-Q SCH ×4 (00:22→18:40)
[2021-07-24] MEDS: FREE WATER PO SCH ×6 (00:24→19:52)
[2021-07-24] MEDS ORDERED: SODIUM BICARB 8.4% 50 MEQ/50 ML SYRINGE IV ONE (00:26)
[2021-07-24] MEDS: VASOPRESSIN 20 UNIT in SODIUM CHLORIDE 0.9% 100 ML IV SCH (01:38)
[2021-07-24 02:07] LABS: Hemoglobin 6.8 gm/dl (11.8-15.2)
[2021-07-24] MEDS ORDERED: SODIUM CHLORIDE 0.9% 500 ML 500 ML IV ONE (02:54)
--- NOTE | 2021-07-24 03:18 | XRay Report ---
XR chest 1V ap INDICATION / CLINICAL INFORMATION: follow up respiratory failure. COMPARISON: Radiograph from yesterday. FINDINGS: SUPPORT DEVICES: Unchanged. HEART /PULMONARY VASCULATURE: Unchanged. LUNGS / PLEURA: Stable right basilar nodule. No new or increasing airspace consolidation. No pneumoth orax. IMPRESSION: 1. No significant interval change. Signer Name: Nilton Valdes MD Signed: 07/24/2021 3:14 AM Workstation Name: [id number]
[2021-07-24 05:31] LABS: ABG Base Excess -4.4 mmol/L (-2.0-3.0); ABG HCO3 18.7 mmol/L (20.0-26.0); ABG Methemoglobin 0.4 % (0.0-1.5); ABG Oxygen Saturation 99.5 % (95.0-99.0); ABG PCO2 26.8 mm Hg; ABG PH 7.462 pH Units (7.350-7.450)
[2021-07-24 05:51] LABS: ABG PO2 316.3 mm Hg (80.0-90.0)
[2021-07-24] MEDS: PANTOPRAZOLE 80 MG in SODIUM CHLORIDE 0.9% 100 ML IV SCH ×2 (06:02→15:45)
[2021-07-24 07:00] LABS: Calcium 7.2 mg/dL (8.4-10.2)
[2021-07-24 09:28] LABS: Hematocrit 24.1 % (35.5-45.6); Hemoglobin 7.7 gm/dl (11.8-15.2); Mean Corpuscular HGB Conc 32 % (32-34); Mean Corpuscular Volume 89 fl (84-94); Platelet Count 191 K/mm3 (140-440); Red Blood Count 2.72 M/mm3 (3.65-5.03); Red Cell Distribution Width 16.4 % (13.2-15.2)
--- NOTE | 2021-07-24 09:36 | Progress Note ---
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 However, would take into account his prognosis and specifically neurologic status as suspect dialysis would not help patient and may cause more harm than benefits. Will discuss with team and family as able Subjective Date of service: 07/24/21 Principal diagnosis: left side weakness ,abnormal MRI brain Interval history: Code event noted yesterday. This AM, patient intubated, FiO2 70%, on pressors Objective - Exam Narrative Exam: General appearance: intubated, sedated EENT: ATNC Respiratory: coarse breath sounds Cardiology: regular, S1S2 Gastrointestinal: normal, no tenderness, no distended Neurologic: sedated Psychiatric: cooperative - Vital Signs Vital signs: Vital Signs - 12hr 07/23/21 07/23/21 07/23/21 21:45 22:00 22:09 Temperature 99.8 F H Pulse Rate 81 79 81 Pulse Rate [ 80 From Monitor] Respiratory 28 H 25 H 28 H Rate Blood Pressure 132/51 126/43 112/54 O2 Sat by Pulse 100 100 100 Oximetry 07/23/21 07/23/21 07/23/21 22:15 22:30 22:45 Temperature Pulse Rate 80 77 Pulse Rate [ From Monitor] Respiratory 23 31 H 26 H Rate Blood Pressure 126/43 129/56 129/56 O2 Sat by Pulse 100 100 100 Oximetry 07/23/21 07/23/21 07/23/21 23:00 23:01 23:15 Temperature Pulse Rate 79 79 83 Pulse Rate [ From Monitor] Respiratory 21 19 23 Rate Blood Pressure 148/61 148/61 148/61 O2 Sat by Pulse 100 100 100 Oximetry 07/23/21 07/23/2121 23:30 23:32 23:45 Temperature Pulse Rate 102 H 84 82 Pulse Rate [ From Monitor] Respiratory 30 H 22 Rate Blood Pressure 146/57 131/64 146/57 O2 Sat by Pulse 100 100 100 Oximetry 07/24/21 07/24/21 07/24/21 00:00 00:15 00:31 Temperature 99.6 F Pulse Rate 83 83 83 Pulse Rate [ From Monitor] Respiratory 18 22 24 Rate Blood Pressure 143/62 143/62 127/54 O2 Sat by Pulse 100 100 100 Oximetry 07/24/21 07/24/21 07/24/21 00:45 01:01 01:15 Temperature Pulse Rate 81 92 H 82 Pulse Rate [ From Monitor] Respiratory 22 33 H 23 Rate Blood Pressure 127/54 166/65 107/54 O2 Sat by Pulse 100 100 100 Oximetry 07/24/21 07/24/21 07/24/21 01:30 01:45 02:00 Temperature Pulse Rate 84 83 81 Pulse Rate [ From Monitor] Respiratory 28 H 31 H 29 H Rate Blood Pressure 107/56 107/56 94/52 O2 Sat by Pulse 100 100 100 Oximetry 07/24/21 07/24/21 07/24/21 02:15 02:30 02:45 Temperature Pulse Rate 80 76 80 Pulse Rate [ From Monitor] Respiratory 29 H 29 H 25 H Rate Blood Pressure 94/52 105/54 119/58 O2 Sat by Pulse 100 100 100 Oximetry 07/24/21 07/24/21 07/24/21 03:00 03:15 03:30 Temperature Pulse Rate 80 78 79 Pulse Rate [ From Monitor] Respiratory 29 H 26 H 26 H Rate Blood Pressure 114/48 114/48 112/44 O2 Sat by Pulse 100 100 100 Oximetry 07/24/21 07/24/21 07/24/21 03:45 04:00 04:16 Temperature 100.2 F H Pulse Rate 80 79 78 Pulse Rate [ From Monitor] Respiratory 28 H 28 H 24 Rate Blood Pressure 112/44 112/54 114/48 O2 Sat by Pulse 100 100 100 Oximetry 07/24/21 07/24/21 07/24/21 04:30 04:46 05:00 Temperature Pulse Rate 81 81 84 Pulse Rate [ From Monitor] Respiratory 29 H 27 H 29 H Rate Blood Pressure 133/48 133/48 139/72 O2 Sat by Pulse 100 100 100 Oximetry 07/24/21 07/24/21 07/24/21 05:01 05:16 05:30 Temperature Pulse Rate 83 84 88 Pulse Rate [ From Monitor] Respiratory 29 H 28 H Rate Blood Pressure 128/64 139/72 146/68 O2 Sat by Pulse 100 100 100 Oximetry 07/24/21 07/24/21 07/24/21 05:46 06:00 06:16 Temperature Pulse Rate 83 78 84 Pulse Rate [ From Monitor] Respiratory 18 21 21 Rate Blood Pressure 146/68 101/46 101/46 O2 Sat by Pulse 100 100 100 Oximetry 07/24/21 07/24/21 07/24/21 06:30 06:46 07:00 Temperature Pulse Rate 81 79 79 Pulse Rate [ From Monitor] Respiratory 19 19 21 Rate Blood Pressure 126/71 126/71 132/62 O2 Sat by Pulse 100 100 100 Oximetry 07/24/21 07/24/21 07/24/21 07:16 07:30 07:31 Temperature 99.4 F Pulse Rate 77 70 Pulse Rate [ From Monitor] Respiratory 19 18 Rate Blood Pressure 132/62 112/63 O2 Sat by Pulse 100 100 Oximetry 07/24/21 07/24/21 07/24/21 07:46 08:00 08:16 Temperature Pulse Rate 79 80 76 Pulse Rate [ 78 From Monitor] Respiratory 21 18 15 Rate Blood Pressure 112/63 135/78 135/78 O2 Sat by Pulse 100 100 100 Oximetry 07/24/21 07/24/21 07/24/21 08:30 08:41 08:46 Temperature Pulse Rate 76 80 79 Pulse Rate [ From Monitor] Respiratory 23 19 Rate Blood Pressure 133/80 133/80 133/80 O2 Sat by Pulse 100 100 100 Oximetry 07/24/21 09:00 Temperature Pulse Rate 79 Pulse Rate [ From Monitor] Respiratory 20 Rate Blood Pressure 144/87 O2 Sat by Pulse 100 Oximetry - Lab 07/24/21 09:14 07/24/21 06:30 Most recent lab results ABG pH 7.462 pH Units (7.350-7.450) H 07/24/21 05:12 ABG pCO2 26.8 mm Hg 07/24/21 05:12 ABG pO2 316.3 mm Hg (80.0-90.0) H 07/24/21 05:12 ABG HCO3 18.7 mmol/L (20.0-26.0) L 07/24/21 05:12 ABG O2 Saturation 99.5 % (95.0-99.0) H 07/24/21 05:12 Calcium 7.2 mg/dL (8.4-10.2) L 07/24/21 06:30 Phosphorus 5.80 mg/dL (2.5-4.5) H 07/21/21 04:55 Magnesium 2.60 mg/dL (1.7-2.3) H 07/21/21 04:55 Urine Creatinine 144.9 mg/dL (0.1-20.0) H 07/20/21 12:10 Urine Sodium 69 mmol/L 07/20/21 12:10 Urine Total Protein 207 mg/dL (5-11.8) H 07/19/21 Unknown Medications & Allergies - Medications Allergies/Adverse Reactions: Allergies No Known Allergies Allergy (Verified 07/21/21 11:18) Home Medications: Home Medications Medication Instructions Recorded Confirmed Last Taken Type Multivitamin/Iron/Folic Acid 1 each PO QDAY 11/24/19 07/21/21 07/16/21 History [Centrum Adults Tablet] Insulin NPH/Regular [Novolin 70/30] 30 unit SQ BIDDIAB 07/21/21 07/21/21 07/16/21 History Active Medications: Generic Name Dose Route Start Last Admin Trade Name Freq PRN Reason Stop Dose Admin Acetaminophen 650 mg 07/17/21 23:42 Acetaminophen 325 Mg Tab PO Q4H PRN Pain MILD(1-3)/Fever >100.5/HENAO Lipase/Protease/Amylase 1 each 07/19/21 12:49 Lipase 10,500/Protease 25,000/Amylase 43,750 (Units) Dr Taylor FEEDTUBE PRN PRN For Clogged Feeding Tube Hydralazine HCl 10 mg 07/21/21 10:00 Hydralazine 20 Mg/1 Ml Inj IV Q3H PRN hypertension Hydrophilic Ointment 1 applic 07/23/21 12:48 Lip Therapy Vaseline TP Q2HR PRN Dry Lips Potassium Chloride/Sodium Chloride 20 meq in 1,000 mls @ 100 mls/hr 07/21/21 11:00 07/22/21 18:26 Ns 0.45/Kcl 20meq IV 100 mls/hr DIRECT LAUREANO Administration NORepinephrine/NS 8 MG-250 ML 8 mg in 250 mls @ 3.75 mls/hr 07/23/21 13:00 07/24/21 05:02 Norepinephrine/Ns 8 Mg-250 Ml (Double Conc) IV 0 mcg/min TITRATE LAUREANO 0 mls/hr Titration Protocol 2 MCG/MIN Vasopressin 20 unit/ Sodium 101 mls @ 9.09 mls/hr 07/23/21 14:00 07/24/21 01:38 Chloride IV 0.02 units/min TITR LAUREANO 6.06 mls/hr Administration Protocol 0.03 UNITS/MIN Sodium Chloride 1,000 mls @ 5 mls/hr 07/23/21 14:00 07/23/21 13:59 Nacl 0.9% 1000 Ml IV 5 mls/hr PRN LAUREANO Administration Pantoprazole Sodium 80 mg/ 100 mls @ 10 mls/hr 07/23/21 19:00 07/24/21 06:02 Sodium Chloride IV 8 mg/hr DIRECT LAUREANO 10 mls/hr Administration 8 MG/HR Insulin Human Lispro 0 unit 07/23/21 18:00 07/24/21 06:24 Insulin Lispro 100 Unit/Ml SUB-Q 3 unit Q6HR LAUREANO Administration Protocol Labetalol HCl 10 mg 07/21/21 10:00 Labetalol 20 Mg/4 Ml Inj IV Q4HR PRN sbp > 160, hold for HR < 70 Lorazepam 1 mg 07/18/21 16:15 Lorazepam 2 Mg/Ml Vial IV Q1H PRN Anxiety Metoclopramide HCl 5 mg 07/18/21 08:00 Metoclopramide 10 Mg/2 Ml Inj IV Q6H PRN Nausea And Vomiting Multi-Ingred Cream/Lotion/Oil/Oint 1 applic 07/23/21 12:48 Mineral Oil/Petrolatum, White Ophth Oint 3.5 Gm OU Q4HR PRN Dry Eye(s) Ondansetron HCl 4 mg 07/17/21 23:42 Ondansetron 4 Mg/2 Ml Inj IV Q8H PRN Nausea And Vomiting Simple Syrup 15 ml 07/19/21 12:49 Simple Syrup 15 Ml FEEDTUBE PRN PRN Hypoglycemia Simple Syrup 30 ml 07/19/21 12:49 Simple Syrup 15 Ml FEEDTUBE PRN PRN Hypoglycemia Sodium Bicarbonate 325 mg 07/19/21 12:49 Sodium Bicarbonate 325 Mg Tab FEEDTUBE PRN PRN For Clogged Feeding Tube Sodium Chloride 10 ml 07/18/21 10:00 07/23/21 23:00 Sodium Chloride 0.9% 10 Ml Flush Syringe IV 10 ml BID LAUREANO Administration Sodium Chloride 10 ml 07/17/21 23:42 Sodium Chloride 0.9% 10 Ml Flush Syringe IV PRN PRN LINE FLUSH
--- NOTE | 2021-07-24 11:11 | Progress Note ---
Assessment and Plan 51 y/o male with stroke like symptoms, with acute change in mental state, could be related to hypertensive emergency and worsening renal function. 07/24/21: Worsening renal function in the face of hypotension and cardiac arrest on yesterday. BP is stable now. Reviewed renal notes. Agree with their assessment and will plan to place HD catheter tomorrow as I am not here this weekend. Will hold off if numbers are better tomorrow morning but will discuss with renal again as well. Would rather patient have catheter and not need it t hen to call the production line technician team to place it as my partners do not do lines. Weaned FiO2 down to 45%. Still satting 100%. Mental status will not allow extubation at this time. GI to scope today, at bedside now. very very guarded prognosis. 07/20/21: Renal function repeat was better on yesterday afternoon. Follow up labs this am. Still making urine. Hopeful to avoid HD. Follow up any new rhiannon l recs. Now that off cardene and has NG for oral access, would have no objection with transfer back to floor later today. Please remember to document about nasal trumpet and remove as soon as patient can manage secretions better. 1. Nursing has already spoken with renal, ordered cardene drip for them. They have also requested IVF's. Set goal BP range systolic to 160-180. Agree with silva placement 2. FSBS and sliding scale for sugars 3. Reinsert DH and provide oral therapy 4. Once BP stable and tolerating PO/oral will transfer back to tele. Subjective Date of service: 07/24/21 Principal diagnosis: left side weakness ,abnormal MRI brain Interval history: Mental status is unchanged. Unresponsive on vent. Vitals stable. Off pressors now. Got 3 units of PRBC's on yesterday but HgB is only 7 from 6. Now on IV PPI drip. Objective Vital Signs - 12hr 07/23/21 07/23/21 07/23/21 23:15 23:30 23:32 Temperature Pulse Rate 83 102 H 84 Pulse Rate [ From Monitor] Respiratory 23 30 H Rate Blood Pressure 148/61 146/57 131/64 O2 Sat by Pulse 100 100 100 Oximetry 07/23/21 07/24/21 07/24/21 23:45 00:00 00:15 Temperature 99.6 F Pulse Rate 82 83 83 Pulse Rate [ From Monitor] Respiratory 22 18 22 Rate Blood Pressure 146/57 143/62 143/62 O2 Sat by Pulse 100 100 100 Oximetry 07/24/21 07/24/21 07/24/21 00:31 00:45 01:01 Temperature Pulse Rate 83 81 92 H Pulse Rate [ From Monitor] Respiratory 24 22 33 H Rate Blood Pressure 127/54 127/54 166/65 O2 Sat by Pulse 100 100 100 Oximetry 07/24/21 07/24/21 07/24/21 01:15 01:30 01:45 Temperature Pulse Rate 82 84 83 Pulse Rate [ From Monitor] Respiratory 23 28 H 31 H Rate Blood Pressure 107/54 107/56 107/56 O2 Sat by Pulse 100 100 100 Oximetry 07/24/21 07/24/21 07/24/21 02:00 02:15 02:30 Temperature Pulse Rate 81 80 76 Pulse Rate [ From Monitor] Respiratory 29 H 29 H 29 H Rate Blood Pressure 94/52 94/52 105/54 O2 Sat by Pulse 100 100 100 Oximetry 07/24/21 07/24/21 07/24/21 02:45 03:00 03:15 Temperature Pulse Rate 80 80 78 Pulse Rate [ From Monitor] Respiratory 25 H 29 H 26 H Rate Blood Pressure 119/58 114/48 114/48 O2 Sat by Pulse 100 100 100 Oximetry 07/24/21 07/24/21 07/24/21 03:30 03:45 04:00 Temperature 100.2 F H Pulse Rate 79 80 79 Pulse Rate [ From Monitor] Respiratory 26 H 28 H 28 H Rate Blood Pressure 112/44 112/44 112/54 O2 Sat by Pulse 100 100 100 Oximetry 07/24/21 07/24/21 07/24/21 04:16 04:30 04:46 Temperature Pulse Rate 78 81 81 Pulse Rate [ From Monitor] Respiratory 24 29 H 27 H Rate Blood Pressure 114/48 133/48 133/48 O2 Sat by Pulse 100 100 100 Oximetry 07/24/21 07/24/21 07/24/21 05:00 05:01 05:16 Temperature Pulse Rate 84 83 84 Pulse Rate [ From Monitor] Respiratory 29 H 29 H Rate Blood Pressure 139/72 128/64 139/72 O2 Sat by Pulse 100 100 100 Oximetry 07/24/21 07/24/21 07/24/21 05:30 05:46 06:00 Temperature Pulse Rate 88 83 78 Pulse Rate [ From Monitor] Respiratory 28 H 18 21 Rate Blood Pressure 146/68 146/68 101/46 O2 Sat by Pulse 100 100 100 Oximetry 07/24/21 07/24/21 07/24/21 06:16 06:30 06:46 Temperature Pulse Rate 84 81 79 Pulse Rate [ From Monitor] Respiratory 21 19 19 Rate Blood Pressure 101/46 126/71 126/71 O2 Sat by Pulse 100 100 100 Oximetry 07/24/21 07/24/21 07/24/21 07:00 07:16 07:30 Temperature Pulse Rate 79 77 70 Pulse Rate [ From Monitor] Respiratory 21 19 18 Rate Blood Pressure 132/62 132/62 112/63 O2 Sat by Pulse 100 100 100 Oximetry 07/24/21 07/24/21 07/24/21 07:31 07:46 08:00 Temperature 99.4 F Pulse Rate 79 80 Pulse Rate [ 78 From Monitor] Respiratory 21 18 Rate Blood Pressure 112/63 135/78 O2 Sat by Pulse 100 100 Oximetry 07/24/21 07/24/21 07/24/21 08:16 08:30 08:41 Temperature Pulse Rate 76 76 80 Pulse Rate [ From Monitor] Respiratory 15 23 Rate Blood Pressure 135/78 133/80 133/80 O2 Sat by Pulse 100 100 100 Oximetry 07/24/21 07/24/21 07/24/21 08:46 09:00 10:20 Temperature Pulse Rate 79 79 Pulse Rate [ From Monitor] Respiratory 19 20 Rate Blood Pressure 133/80 144/87 O2 Sat by Pulse 100 100 99 Oximetry Constitutional: no acute distress, appears uncomfortable Eyes: non-icteric ENT: other (nasal trumptet in right nare) Neck: supple Ascultation: Bilateral: clear Percussion: Bilateral: not dull Cardiovascular: other (sinus tach) Gastrointestinal: normoactive bowel sounds, soft Integumentary: normal Extremities: no edema, pink and warm, pulses normal Neurologic: unable to assess CBC and BMP: 07/24/21 09:14 07/24/21 06:30 ABG, PT/INR, D-dimer: ABG ABG pH 7.462 pH Units (7.350-7.450) H 07/24/21 05:12 POC ABG pCO2 49.6 mmHg (32.0-48.0) H 07/18/21 22:57 ABG pCO2 26.8 mm Hg 07/24/21 05:12 POC ABG pO2 125.9 mmHg (83-108) H 07/18/21 22:57 ABG pO2 316.3 mm Hg (80.0-90.0) H 07/24/21 05:12 POC ABG HCO3 25.4 07/18/21 22:57 ABG O2 Saturation 99.5 % (95.0-99.0) H 07/24/21 05:12 PT/INR, D-dimer PT 14.2 Sec. (12.2-14.9) 07/17/21 08:48 INR 0.99 (0.87-1.13) 07/17/21 08:48 Abnormal lab findings: Abnormal Labs 07/17/21 07/17/21 07/17/21 08:48 08:48 14:10 WBC 12.0 H RBC 5.76 H Hgb 16.9 H Hct 52.1 H RDW Lymph % (Auto) 12.6 L Coal % (Auto) 10.3 H Coal # (Auto) 1.2 H Seg Neutrophils % 76.3 H Seg Neuts % (Manual) Lymphocytes % (Manual) Seg Neutrophils # 9.2 H Lymphocytes # (Manual) ABG pH POC ABG pCO2 POC ABG pO2 ABG pO2 ABG HCO3 ABG O2 Saturation ABG Base Excess ABG Hemoglobin ABG Chloride ABG Glucose Potassium 3.3 L Chloride Carbon Dioxide BUN Creatinine Glucose 173 H POC Glucose 156 H Calcium Phosphorus Magnesium AST 198 H ALT 60 H Total Creatine Kinase 28953 H CK-MB (CK-2) 54.1 H Troponin T 0.037 H Albumin 3.7 L Cholesterol 244 H LDL Cholesterol Direct 154 H HDL Cholesterol 66 H Arterial Blood Glucose Urine WBC (Auto) Urine Creatinine Urine Total Protein Crossmatch 07/18/21 07/18/21 07/18/21 05:03 05:03 07:36 WBC 11.7 H RBC 5.25 H Hgb 15.3 H Hct 47.1 H RDW Lymph % (Auto) Coal % (Auto) 10.7 H Coal # (Auto) 1.3 H Seg Neutrophils % Seg Neuts % (Manual) Lymphocytes % (Manual) Seg Neutrophils # 7.9 H Lymphocytes # (Manual) ABG pH POC ABG pCO2 POC ABG pO2 ABG pO2 ABG HCO3 ABG O2 Saturation ABG Base Excess ABG Hemoglobin ABG Chloride ABG Glucose Potassium 3.1 L Chloride 95.3 L Carbon Dioxide BUN 37 H Creatinine 3.1 H D Glucose 167 H POC Glucose 160 H Calcium Phosphorus Magnesium AST 129 H ALT 59 H Total Creatine Kinase CK-MB (CK-2) Troponin T Albumin 3.6 L Cholesterol LDL Cholesterol Direct HDL Cholesterol Arterial Blood Glucose Urine WBC (Auto) Urine Creatinine Urine Total Protein Crossmatch 07/18/21 07/18/21 07/18/21 10:19 11:25 14:58 WBC RBC Hgb Hct RDW Lymph % (Auto) Coal % (Auto) Coal # (Auto) Seg Neutrophils % Seg Neuts % (Manual) Lymphocytes % (Manual) Seg Neutrophils # Lymphocytes # (Manual) ABG pH POC ABG pCO2 POC ABG pO2 ABG pO2 ABG HCO3 ABG O2 Saturation ABG Base Excess ABG Hemoglobin ABG Chloride ABG Glucose Potassium Chloride Carbon Dioxide BUN Creatinine Glucose POC Glucose 181 H 145 H Calcium Phosphorus Magnesium AST ALT Total Creatine Kinase 4517 H CK-MB (CK-2) Troponin T Albumin Cholesterol LDL Cholesterol Direct HDL Cholesterol Arterial Blood Glucose Urine WBC (Auto) Urine Creatinine Urine Total Protein Crossmatch 07/18/21 07/18/21 07/18/21 20:45 22:57 23:02 WBC RBC Hgb Hct RDW Lymph % (Auto) Coal % (Auto) Coal # (Auto) Seg Neutrophils % Seg Neuts % (Manual) Lymphocytes % (Manual) Seg Neutrophils # Lymphocytes # (Manual) ABG pH POC ABG pCO2 49.6 H POC ABG pO2 125.9 H ABG pO2 ABG HCO3 ABG O2 Saturation ABG Base Excess ABG Hemoglobin ABG Chloride 96.0 L ABG Glucose 135 H Potassium Chloride Carbon Dioxide BUN Creatinine Glucose POC Glucose 127 H 132 H Calcium Phosphorus Magnesium AST ALT Total Creatine Kinase CK-MB (CK-2) Troponin T Albumin Cholesterol LDL Cholesterol Direct HDL Cholesterol Arterial Blood Glucose 135 H Urine WBC (Auto) Urine Creatinine Urine Total Protein Crossmatch 07/19/21 07/19/21 07/19/21 00:04 04:35 05:07 WBC RBC Hgb Hct RDW Lymph % (Auto) Coal % (Auto) Coal # (Auto) Seg Neutrophils % Seg Neuts % (Manual) Lymphocytes % (Manual) Seg Neutrophils # Lymphocytes # (Manual) ABG pH POC ABG pCO2 POC ABG pO2 ABG pO2 ABG HCO3 ABG O2 Saturation ABG Base Excess ABG Hemoglobin ABG Chloride ABG Glucose Potassium 3.5 L Chloride 92.7 L Carbon Dioxide 21 L BUN 55 H Creatinine 5.3 H D Glucose 131 H POC Glucose 109 H 125 H Calcium Phosphorus Magnesium AST ALT Total Creatine Kinase CK-MB (CK-2) Troponin T Albumin Cholesterol LDL Cholesterol Direct HDL Cholesterol Arterial Blood Glucose Urine WBC (Auto) Urine Creatinine Urine Total Protein Crossmatch 07/19/21 07/19/21 07/19/21 08:43 10:20 11:27 WBC 14.5 H RBC 5.30 H Hgb 15.6 H Hct 47.8 H RDW Lymph % (Auto) Coal % (Auto) Coal # (Auto) Seg Neutrophils % Seg Neuts % (Manual) Lymphocytes % (Manual) Seg Neutrophils # Lymphocytes # (Manual) ABG pH POC ABG pCO2 POC ABG pO2 ABG pO2 ABG HCO3 ABG O2 Saturation ABG Base Excess ABG Hemoglobin ABG Chloride ABG Glucose Potassium Chloride Carbon Dioxide BUN Creatinine Glucose POC Glucose 149 H Calcium Phosphorus Magnesium AST ALT Total Creatine Kinase 2857 H CK-MB (CK-2) 16.4 H Troponin T Albumin Cholesterol LDL Cholesterol Direct HDL Cholesterol Arterial Blood Glucose Urine WBC (Auto) Urine Creatinine Urine Total Protein Crossmatch 07/19/21 07/19/21 07/19/21 15:53 17:09 22:47 WBC RBC Hgb Hct RDW Lymph % (Auto) Coal % (Auto) Coal # (Auto) Seg Neutrophils % Seg Neuts % (Manual) Lymphocytes % (Manual) Seg Neutrophils # Lymphocytes # (Manual) ABG pH POC ABG pCO2 POC ABG pO2 ABG pO2 ABG HCO3 ABG O2 Saturation ABG Base Excess ABG Hemoglobin ABG Chloride ABG Glucose Potassium 3.4 L Chloride 94.7 L Carbon Dioxide 20 L BUN 68 H Creatinine 4.9 H Glucose 173 H POC Glucose 180 H 133 H Calcium Phosphorus Magnesium AST ALT Total Creatine Kinase CK-MB (CK-2) Troponin T Albumin Cholesterol LDL Cholesterol Direct HDL Cholesterol Arterial Blood Glucose Urine WBC (Auto) Urine Creatinine Urine Total Protein Crossmatch 07/19/21 07/19/21 07/20/21 Unknown Unknown 05:15 WBC RBC Hgb Hct RDW Lymph % (Auto) Coal % (Auto) Coal # (Auto) Seg Neutrophils % Seg Neuts % (Manual) Lymphocytes % (Manual) Seg Neutrophils # Lymphocytes # (Manual) ABG pH POC ABG pCO2 POC ABG pO2 ABG pO2 ABG HCO3 ABG O2 Saturation ABG Base Excess ABG Hemoglobin ABG Chloride ABG Glucose Potassium Chloride Carbon Dioxide BUN Creatinine Glucose POC Glucose 132 H Calcium Phosphorus Magnesium AST ALT Total Creatine Kinase CK-MB (CK-2) Troponin T Albumin Cholesterol LDL Cholesterol Direct HDL Cholesterol Arterial Blood Glucose Urine WBC (Auto) 7.0 H Urine Creatinine 301.1 H Urine Total Protein 207 H Crossmatch 07/20/21 07/20/21 07/20/21 06:12 06:12 06:12 WBC RBC 5.09 H Hgb Hct 46.5 H RDW Lymph % (Auto) Coal % (Auto) Coal # (Auto) Seg Neutrophils % Seg Neuts % (Manual) Lymphocytes % (Manual) Seg Neutrophils # Lymphocytes # (Manual) ABG pH POC ABG pCO2 POC ABG pO2 ABG pO2 ABG HCO3 ABG O2 Saturation ABG Base Excess ABG Hemoglobin ABG Chloride ABG Glucose Potassium 2.9 L* Chloride Carbon Dioxide BUN 73 H Creatinine 5.1 H Glucose 165 H POC Glucose Calcium Phosphorus 6.20 H Magnesium 2.60 H AST ALT Total Creatine Kinase 1480 H CK-MB (CK-2) 12.5 H Troponin T Albumin Cholesterol LDL Cholesterol Direct HDL Cholesterol Arterial Blood Glucose Urine WBC (Auto) Urine Creatinine Urine Total Protein Crossmatch 07/20/21 07/20/21 07/20/21 08:32 10:42 12:10 WBC RBC Hgb Hct RDW Lymph % (Auto) Coal % (Auto) Coal # (Auto) Seg Neutrophils % Seg Neuts % (Manual) Lymphocytes % (Manual) Seg Neutrophils # Lymphocytes # (Manual) ABG pH POC ABG pCO2 POC ABG pO2 ABG pO2 ABG HCO3 ABG O2 Saturation ABG Base Excess ABG Hemoglobin ABG Chloride ABG Glucose Potassium 3.3 L Chloride Carbon Dioxide BUN 75 H Creatinine 4.4 H Glucose 162 H POC Glucose 159 H Calcium Phosphorus Magnesium AST ALT Total Creatine Kinase CK-MB (CK-2) Troponin T Albumin Cholesterol LDL Cholesterol Direct HDL Cholesterol Arterial Blood Glucose Urine WBC (Auto) Urine Creatinine 144.9 H Urine Total Protein Crossmatch 07/20/21 07/21/21 07/21/21 12:24 00:57 04:55 WBC RBC Hgb Hct RDW Lymph % (Auto) Coal % (Auto) Coal # (Auto) Seg Neutrophils % Seg Neuts % (Manual) Lymphocytes % (Manual) Seg Neutrophils # Lymphocytes # (Manual) ABG pH POC ABG pCO2 POC ABG pO2 ABG pO2 ABG HCO3 ABG O2 Saturation ABG Base Excess ABG Hemoglobin ABG Chloride ABG Glucose Potassium 3.2 L Chloride Carbon Dioxide 20 L BUN 78 H Creatinine 3.6 H Glucose 133 H POC Glucose 118 H 123 H Calcium Phosphorus 5.80 H Magnesium 2.60 H AST ALT Total Creatine Kinase CK-MB (CK-2) Troponin T Albumin Cholesterol LDL Cholesterol Direct HDL Cholesterol Arterial Blood Glucose Urine WBC (Auto) Urine Creatinine Urine Total Protein Crossmatch 07/21/21 07/21/21 07/21/21 05:28 12:02 12:13 WBC RBC Hgb Hct RDW Lymph % (Auto) Coal % (Auto) 11.0 H Coal # (Auto) 0.9 H Seg Neutrophils % 71.5 H Seg Neuts % (Manual) Lymphocytes % (Manual) Seg Neutrophils # Lymphocytes # (Manual) ABG pH POC ABG pCO2 POC ABG pO2 ABG pO2 ABG HCO3 ABG O2 Saturation ABG Base Excess ABG Hemoglobin ABG Chloride ABG Glucose Potassium Chloride Carbon Dioxide BUN Creatinine Glucose POC Glucose 130 H 191 H Calcium Phosphorus Magnesium AST ALT Total Creatine Kinase CK-MB (CK-2) Troponin T Albumin Cholesterol LDL Cholesterol Direct HDL Cholesterol Arterial Blood Glucose Urine WBC (Auto) Urine Creatinine Urine Total Protein Crossmatch 07/21/21 07/21/21 07/21/21 12:13 17:03 23:34 WBC RBC Hgb Hct RDW Lymph % (Auto) Coal % (Auto) Coal # (Auto) Seg Neutrophils % Seg Neuts % (Manual) Lymphocytes % (Manual) Seg Neutrophils # Lymphocytes # (Manual) ABG pH POC ABG pCO2 POC ABG pO2 ABG pO2 ABG HCO3 ABG O2 Saturation ABG Base Excess ABG Hemoglobin ABG Chloride ABG Glucose Potassium Chloride Carbon Dioxide 21 L BUN 80 H Creatinine 3.6 H Glucose 221 H POC Glucose 200 H 123 H Calcium 8.1 L Phosphorus Magnesium AST ALT Total Creatine Kinase CK-MB (CK-2) Troponin T Albumin 2.9 L Cholesterol LDL Cholesterol Direct HDL Cholesterol Arterial Blood Glucose Urine WBC (Auto) Urine Creatinine Urine Total Protein Crossmatch 07/22/21 07/22/21 07/22/21 04:35 06:13 12:29 WBC RBC Hgb Hct RDW Lymph % (Auto) Coal % (Auto) Coal # (Auto) Seg Neutrophils % Seg Neuts % (Manual) Lymphocytes % (Manual) Seg Neutrophils # Lymphocytes # (Manual) ABG pH POC ABG pCO2 POC ABG pO2 ABG pO2 ABG HCO3 ABG O2 Saturation ABG Base Excess ABG Hemoglobin ABG Chloride ABG Glucose Potassium 3.1 L Chloride Carbon Dioxide BUN 86 H Creatinine 2.9 H Glucose 161 H POC Glucose 147 H 198 H Calcium 8.1 L Phosphorus Magnesium AST ALT Total Creatine Kinase CK-MB (CK-2) Troponin T Albumin Cholesterol LDL Cholesterol Direct HDL Cholesterol Arterial Blood Glucose Urine WBC (Auto) Urine Creatinine Urine Total Protein Crossmatch 07/22/21 07/22/21 07/22/21 13:08 16:30 20:36 WBC RBC 3.57 L Hgb 10.7 L Hct 32.7 L RDW Lymph % (Auto) Coal % (Auto) 12.6 H Coal # (Auto) 1.2 H Seg Neutrophils % 70.8 H Seg Neuts % (Manual) Lymphocytes % (Manual) Seg Neutrophils # Lymphocytes # (Manual) ABG pH POC ABG pCO2 POC ABG pO2 ABG pO2 ABG HCO3 ABG O2 Saturation ABG Base Excess ABG Hemoglobin ABG Chloride ABG Glucose Potassium Chloride Carbon Dioxide BUN Creatinine Glucose POC Glucose 167 H 151 H Calcium Phosphorus Magnesium AST ALT Total Creatine Kinase CK-MB (CK-2) Troponin T Albumin Cholesterol LDL Cholesterol Direct HDL Cholesterol Arterial Blood Glucose Urine WBC (Auto) Urine Creatinine Urine Total Protein Crossmatch 07/23/21 07/23/21 07/23/21 07:15 07:50 08:54 WBC RBC Hgb Hct RDW Lymph % (Auto) Coal % (Auto) Coal # (Auto) Seg Neutrophils % Seg Neuts % (Manual) Lymphocytes % (Manual) Seg Neutrophils # Lymphocytes # (Manual) ABG pH POC ABG pCO2 POC ABG pO2 ABG pO2 103.3 H ABG HCO3 ABG O2 Saturation ABG Base Excess -3.1 L ABG Hemoglobin 6.4 L ABG Chloride ABG Glucose Potassium Chloride Carbon Dioxide BUN Creatinine Glucose POC Glucose 203 H 238 H Calcium Phosphorus Magnesium AST ALT Total Creatine Kinase CK-MB (CK-2) Troponin T Albumin Cholesterol LDL Cholesterol Direct HDL Cholesterol Arterial Blood Glucose Urine WBC (Auto) Urine Creatinine Urine Total Protein Crossmatch 07/23/21 07/23/21 07/23/21 10:03 10:03 10:03 WBC RBC 2.12 L Hgb 6.2 L D Hct 19.6 L* D RDW Lymph % (Auto) Coal % (Auto) Coal # (Auto) Seg Neutrophils % Seg Neuts % (Manual) 81.0 H Lymphocytes % (Manual) 10.0 L Seg Neutrophils # Lymphocytes # (Manual) 0.9 L ABG pH POC ABG pCO2 POC ABG pO2 ABG pO2 ABG HCO3 ABG O2 Saturation ABG Base Excess ABG Hemoglobin ABG Chloride ABG Glucose Potassium Chloride Carbon Dioxide 19 L BUN 78 H Creatinine 3.0 H Glucose 270 H POC Glucose Calcium 7.3 L Phosphorus Magnesium AST ALT Total Creatine Kinase 389 H CK-MB (CK-2) Troponin T Albumin Cholesterol LDL Cholesterol Direct HDL Cholesterol Arterial Blood Glucose Urine WBC (Auto) Urine Creatinine Urine Total Protein Crossmatch 07/23/21 07/23/21 07/23/21 12:08 12:49 14:03 WBC RBC Hgb Hct RDW Lymph % (Auto) Coal % (Auto) Coal # (Auto) Seg Neutrophils % Seg Neuts % (Manual) Lymphocytes % (Manual) Seg Neutrophils # Lymphocytes # (Manual) ABG pH 7.335 L POC ABG pCO2 POC ABG pO2 ABG pO2 414.9 H ABG HCO3 13.6 L ABG O2 Saturation 99.6 H ABG Base Excess -11.2 L ABG Hemoglobin 6.1 L ABG Chloride ABG Glucose Potassium Chloride Carbon Dioxide BUN Creatinine Glucose POC Glucose 174 H Calcium Phosphorus Magnesium AST ALT Total Creatine Kinase CK-MB (CK-2) Troponin T Albumin Cholesterol LDL Cholesterol Direct HDL Cholesterol Arterial Blood Glucose Urine WBC (Auto) Urine Creatinine Urine Total Protein Crossmatch See Detail 07/23/21 07/23/21 07/24/21 20:25 23:51 01:42 WBC RBC Hgb 6.7 L 6.8 L Hct 21.1 L 21.0 L RDW Lymph % (Auto) Coal % (Auto) Coal # (Auto) Seg Neutrophils % Seg Neuts % (Manual) Lymphocytes % (Manual) Seg Neutrophils # Lymphocytes # (Manual) ABG pH POC ABG pCO2 POC ABG pO2 ABG pO2 ABG HCO3 ABG O2 Saturation ABG Base Excess ABG Hemoglobin ABG Chloride ABG Glucose Potassium Chloride Carbon Dioxide BUN Creatinine Glucose POC Glucose 215 H Calcium Phosphorus Magnesium AST ALT Total Creatine Kinase CK-MB (CK-2) Troponin T Albumin Cholesterol LDL Cholesterol Direct HDL Cholesterol Arterial Blood Glucose Urine WBC (Auto) Urine Creatinine Urine Total Protein Crossmatch 07/24/21 07/24/21 07/24/21 05:12 06:09 06:30 WBC RBC Hgb Hct RDW Lymph % (Auto) Coal % (Auto) Coal # (Auto) Seg Neutrophils % Seg Neuts % (Manual) Lymphocytes % (Manual) Seg Neutrophils # Lymphocytes # (Manual) ABG pH 7.462 H POC ABG pCO2 POC ABG pO2 ABG pO2 316.3 H ABG HCO3 18.7 L ABG O2 Saturation 99.5 H ABG Base Excess -4.4 L ABG Hemoglobin 7.4 L ABG Chloride ABG Glucose Potassium Chloride Carbon Dioxide 19 L BUN 107 H Creatinine 5.3 H D Glucose 258 H POC Glucose 221 H Calcium 7.2 L Phosphorus Magnesium AST ALT Total Creatine Kinase 2826 H CK-MB (CK-2) Troponin T Albumin Cholesterol LDL Cholesterol Direct HDL Cholesterol Arterial Blood Glucose Urine WBC (Auto) Urine Creatinine Urine Total Protein Crossmatch 07/24/21 09:14 WBC 22.1 H RBC 2.72 L Hgb 7.7 L Hct 24.1 L RDW 16.4 H Lymph % (Auto) Coal % (Auto) Coal # (Auto) Seg Neutrophils % Seg Neuts % (Manual) Lymphocytes % (Manual) Seg Neutrophils # Lymphocytes # (Manual) ABG pH POC ABG pCO2 POC ABG pO2 ABG pO2 ABG HCO3 ABG O2 Saturation ABG Base Excess ABG Hemoglobin ABG Chloride ABG Glucose Potassium Chloride Carbon Dioxide BUN Creatinine Glucose POC Glucose Calcium Phosphorus Magnesium AST ALT Total Creatine Kinase CK-MB (CK-2) Troponin T Albumin Cholesterol LDL Cholesterol Direct HDL Cholesterol Arterial Blood Glucose Urine WBC (Auto) Urine Creatinine Urine Total Protein Crossmatch
[2021-07-24] MEDS ORDERED: EPINEPHrine 1 MG/10 ML SYRINGE ONE (11:25)
--- NOTE | 2021-07-24 11:58 | Progress Note ---
Assessment and Plan Assessment and plan: This is a 51-year-old male with past medical history of IDDM, HTN, HLD, CVA admitted with acute CVA and respiratory distress. S/p PEA arrest with ROSC on 07/23 now intubated and on ventilatory support Hospital Course to Date: 07/18: I have seen and examined the patient in the ER awaiting bed assignment. Patient was admitted with acute CVA not a candidate for TPA with left hem iparesis. Neuro work-up is in progress 07/19: Overnight patient was transferred to ICU due to respiratory distress, started on BiPAP and given Narcan x1. CT head was obtained due to unequal pupils. Started on a Cardene drip this morning with IV fluids per nephrology. Mora catheter placed. NG tube was removed by the patient were replaced. Weaned to nasal cannula. Nutrition consult for tube feeding. ST/OT/PT consults. 07/20: was able to be weaned off cardene gtt overnight but was restarted by day RN for hypertension. Encouraged to wean off cardene and utilize prn IVP to facilitate transfer. Nephrology updated on renal function and no plans for HD. given one liter LR in hopes to improve renal function. Cousins updated at bedside (Cherise Yu and male). Patient removed nasal trumphet and DHT and passed swallow eval with RN. He was given an extra regular tray. Patient requested a soft diet. On PM rounds, noted to be coughing food particles. Will keep NPO until formal swallow eval per ST. Transfer to floor 07/21: ST eval pending. Noted to altered in afternoon encounter during CODE MET. Patient was bolus with IVF. BP in AM was 190 systolic and dropped to 110's systolic after RN admin anti-HTN. Patient was also having BM at the time of event. BM appeared to be blood traced. Patient improved after IVF bolus. Will decrease antihtn med at this time. Stat CBC, CMP, and CT brain ordered. Occult blood pending. 07/22: Creatinine is improving. Continue conservative management per nephrology. Continue to trend CK levels. Continue amlodipine and hydralazine. Physical therapy recommends acute rehab. Follow-up occult stool. Check CBC today and in a.m. 07/23: Patient with a code met call earlier this morning. Patient noted to be somnolent only arousable to sternal rub. Patient also with some coarse secretions in the upper airway. The patient was transferred to the ICU for closer monitoring. Nasal trumpet was placed and NG suctioning completed via nursing/respiratory therapy. ABG was within normal limits with pH 7.34, CO2 31 and PO2 103. We will follow-up chest x-ray for aspiration. Continue n.p.o. status. Pulmonology reconsulted. Stat labs revealed hemoglobin of 6.2. Patient reportedly had BM with traces of blood on 07/21. We will consult GI for ABLA hematochezia/melena. We will transfuse 2 units PRBCs 07/24: s/p PEA arrest with ROSC from yesterday. Also with GIB, s/p 3units of PRBCs, on protonix gtt. GI at the bedside for possible EGB. Will continue to trend H&H Q6hrs for another 24hrs, transfuse of hbg less than 7. Leukocytosis and worsening kidney function noted from this am lab, probably reactive from yesterday's code, will continue to monitor. Per Nephro patient might need HD if kidney function does not improve in the next couple of days. Will continue to trend BMP Assessment and Plan #Acute Metabolic Encephalopathy #Acute CVA -Initially presented with stoke like symptoms, Not a candidate for TPA -CT and MRI head/brain comfirmed acute CVA -Was started on statin and ASA -Neuro signed off -Patient now s/p cardiac arrest -Intubated and unresponsive, not on any sedation -Patient might need repeat CT head/brain once more stable -Continue Lipitor & aspirin -Avoid benzodiazepine to reduce the possibility of delirium -PRN analgesia for CPOT greater than 3 and vent synchronization -Aspiration/seizure precautions #S/p PEA Arrest with ROSC #h/o HTN and hyperlipidemia -Per RN patient stopped breathing, guy down then lost pulse -PEA arrest noted, ACLS initiated and ROSC was achieved -No longer on pressors this am -S/p 3 units of PRBCs -SR on the monitor -Vasopressors on standby -Continue blood pressure monitor per protocol -Maintain MAP above 65 -07/17 Echo-LVEF 50 to 55%, normal bivalve function, no PFO demonstrated by saline bubble contrast injection, trace AR, trace SD, ascending aorta mildly dilated at 4 -PO antihypertensive therapy on hold for now -PRN Labetalol and Hydralazine if hypertensive #Acute Hypoxic Respiratory Failure -Intubated on 07/23, dueing code -Vent Setting: A/C-45%,6,12,450 -AM ABG noted -CCM consulted, appreciate recommendations -VAP bundle addressed -Aspiration precaution HOB above 30 -Daily SBT and SAT trials as tolerated -Daily ABG and CXR -Continue SPO2 monitoring for SPO2 goal above 92% -Nonrebreather in place in a.m. with nasal trumpet #GI Bleed #Hematochezia/melena -Keep patient NPO -OGT to LIS -Low H&H -S/p 3units PRBCs -Continue protonix gtt -GI consulted -Plan for EGD at the bedside today #Acute kidney injury most likely ATN #Hyperkalemia- improved -Initially SCr. was 1.1, now 5.3 -Nephrology consulted, appreciate recommendations -Per Nephro will continue to monitor renal function for a couple days -Possible HD if no improvement in renal function -Strict intake and output -Avoid nephrotoxic medications; Renally dose medications -Mora in place, only 280ml UOP in last 24hrs -Monitor and replace electrolytes as needed #Acute blood loss anemia #Hematochezia/melena -Low H&H -s/p 3 units -Will continue to trend H&H Q6hrs X24hrs -Continue PPI -GI consulted -Plan for EGD at the bedside -A/C on hold -SCDs to bilateral lower extremities while in bed #Leukocytosis -WBCs up to 22.1 this am -Probably reactive to cardiac arrest -Patient remains afebrile -No longer on pressors which was most likely related to acute blood loss -Will continue to trend CBC -Panculture if patient febrile and leukocytosis worsen #Endo:Diabetes mellitus type 2 -SSI increased to high dose -Avoid hypoglycemia -While critically ill target blood glucose of 140-180 The high probability of a clinically significant, sudden or life threatening deterioration of the [Neuro, GI, Resp] system(s) required my full and direct attention, intervention and personal management. The aggregate critical care time was [60] minutes. This time is in addition to time spent performing rep orted procedures but includes the following: [x] Data Review and interpretation [x] Patient assessment and monitoring of vital signs [x] Documentation [x] Medication orders and management Disposition Plan: ICU Total Time Spent with Patient (Minutes): 60 History Interval history: Patient seen and examined at the bedside. S/p cardiac arrest, intubated but not on any sedation. Unresponsive with sluggish pupil response, with + gag and cough. Pressors off this am, s/p 3units of PRBCs. Continue to have blood stools overnight, on a protonix gtt. Hospitalist Physical - Constitutional Vitals: Temp Pulse Resp BP Pulse Ox 98.0 F 79 20 144/87 99 07/24/21 11:54 07/24/21 09:00 07/24/21 09:00 07/24/21 09:00 07/24/21 10:20 General appearance: Present: no acute distress, mild distress, well-nourished, other (Intubated and Unresponsive, not on sedation) - Respiratory Respiratory effort: normal Respiratory: bilateral: diminished - Cardiovascular Rhythm: regular Heart Sounds: Present: S1 & S2 - Extremities Extremities: no ischemia, pulses intact, pulses symmetrical Extremity abnormal: edema - Peripheral Assessment Generalized Edema Type: Non-pitting Edema Degree: 2+ Capillary Refill: < 3 seconds Skin Temperature: Warm Peripheral Pulses: within normal limits - Abdominal General gastrointestinal: soft, non-tender, normal bowel sounds - Integumentary Integumentary: Present: clear, warm, dry - Psychiatric Psychiatric: other (Intubated and Unresponsive, not on sedation) - Neurologic Neurologic: other (Intubated and Unresponsive, not on sedation) - Allied Health Allied health notes reviewed: nursing HEART Score - HEART Score Troponin: Troponin T 0.037 ng/mL (0.00-0.029) H 07/17/21 08:48 Results - Labs CBC & Chem 7: 07/24/21 12:08 07/24/21 06:30 Labs: Laboratory Last Values WBC 22.1 K/mm3 (4.5-11.0) H 07/24/21 09:14 RBC 2.72 M/mm3 (3.65-5.03) L 07/24/21 09:14 Hgb 7.7 gm/dl (11.8-15.2) L 07/24/21 09:14 Hct 24.1 % (35.5-45.6) L 07/24/21 09:14 MCV 89 fl (84-94) 07/24/21 09:14 MCH 28 pg (28-32) 07/24/21 09:14 MCHC 32 % (32-34) 07/24/21 09:14 RDW 16.4 % (13.2-15.2) H 07/24/21 09:14 Plt Count 191 K/mm3 (140-440) 07/24/21 09:14 Lymph % (Auto) 15.1 % (13.4-35.0) 07/22/21 13:08 [place] % (Auto) 12.6 % (0.0-7.3) H 07/22/21 13:08 Eos % (Auto) 1.0 % (0.0-4.3) 07/22/21 13:08 Baso % (Auto) 0.5 % (0.0-1.8) 07/22/21 13:08 Lymph # (Auto) 1.4 K/mm3 (1.2-5.4) 07/22/21 13:08 [place] # (Auto) 1.2 K/mm3 (0.0-0.8) H 07/22/21 13:08 Eos # (Auto) 0.1 K/mm3 (0.0-0.4) 07/22/21 13:08 Baso # (Auto) 0.0 K/mm3 (0.0-0.1) 07/22/21 13:08 Add Manual Diff Complete 07/23/21 10:03 Total Counted 100 07/23/21 10:03 Seg Neutrophils % 70.8 % (40.0-70.0) H 07/22/21 13:08 Seg Neuts % (Manual) 81.0 % (40.0-70.0) H 07/23/21 10:03 Band Neutrophils % 1.0 % 07/23/21 10:03 Lymphocytes % (Manual) 10.0 % (13.4-35.0) L 07/23/21 10:03 Monocytes % (Manual) 7.0 % (0.0-7.3) 07/23/21 10:03 Myelocytes % 1.0 % 07/23/21 10:03 Nucleated RBC % Not Reportable 07/23/21 10:03 Seg Neutrophils # 6.7 K/mm3 (1.8-7.7) 07/22/21 13:08 Seg Neutrophils # Man 7.6 K/mm3 (1.8-7.7) 07/23/21 10:03 Band Neutrophils # 0.1 K/mm3 07/23/21 10:03 Lymphocytes # (Manual) 0.9 K/mm3 (1.2-5.4) L 07/23/21 10:03 Abs React Lymphs (Man) 0.0 K/mm3 07/23/21 10:03 Monocytes # (Manual) 0.7 K/mm3 (0.0-0.8) 07/23/21 10:03 Eosinophils # (Manual) 0.0 K/mm3 (0.0-0.4) 07/23/21 10:03 Basophils # (Manual) 0.0 K/mm3 (0.0-0.1) 07/23/21 10:03 Metamyelocytes # 0.0 K/mm3 07/23/21 10:03 Myelocytes # 0.1 K/mm3 07/23/21 10:03 Promyelocytes # 0.0 K/mm3 07/23/21 10:03 Blast Cells # 0.0 K/mm3 07/23/21 10:03 WBC Morphology Not Reportable 07/23/21 10:03 Hypersegmented Neuts Not Reportable 07/23/21 10:03 Hyposegmented Neuts Not Reportable 07/23/21 10:03 Hypogranular Neuts Not Reportable 07/23/21 10:03 Smudge Cells Not Reportable 07/23/21 10:03 Toxic Granulation Not Reportable 07/23/21 10:03 Toxic Vacuolation Not Reportable 07/23/21 10:03 Dohle Bodies Not Reportable 07/23/21 10:03 Pelger-Huet Anomaly Not Reportable 07/23/21 10:03 Harpal Rods Not Reportable 07/23/21 10:03 Platelet Estimate Consistent w auto 07/23/21 10:03 Clumped Platelets Not Reportable 07/23/21 10:03 Plt Clumps, EDTA Not Reportable 07/23/21 10:03 Large Platelets Not Reportable 07/23/21 10:03 Giant Platelets Not Reportable 07/23/21 10:03 Platelet Satelliting Not Reportable 07/23/21 10:03 Plt Morphology Comment Not Reportable 07/23/21 10:03 RBC Morphology Not Reportable 07/23/21 10:03 Dimorphic RBCs Not Reportable 07/23/21 10:03 Polychromasia Not Reportable 07/23/21 10:03 Hypochromasia 1+ 07/23/21 10:03 Poikilocytosis Not Reportable 07/23/21 10:03 Anisocytosis Not Reportable 07/23/21 10:03 Microcytosis Not Reportable 07/23/21 10:03 Macrocytosis Not Reportable 07/23/21 10:03 Spherocytes Not Reportable 07/23/21 10:03 Pappenheimer Bodies Not Reportable 07/23/21 10:03 Sickle Cells Not Reportable 07/23/21 10:03 Target Cells Not Reportable 07/23/21 10:03 Tear Drop Cells Not Reportable 07/23/21 10:03 Ovalocytes Not Reportable 07/23/21 10:03 Helmet Cells Not Reportable 07/23/21 10:03 [place] Bodies Not Reportable 07/23/21 10:03 [place] Rings Not Reportable 07/23/21 10:03 Mansi Cells Not Reportable 07/23/21 10:03 Bite Cells Not Reportable 07/23/21 10:03 Crenated Cell Not Reportable 07/23/21 10:03 Elliptocytes Not Reportable 07/23/21 10:03 Acanthocytes (Spur) Not Reportable 07/23/21 10:03 Rouleaux Not Reportable 07/23/21 10:03 Hemoglobin C Crystals Not Reportable 07/23/21 10:03 Schistocytes Not Reportable 07/23/21 10:03 Malaria parasites Not Reportable 07/23/21 10:03 Sudheer Bodies Not Reportable 07/23/21 10:03 Hem Pathologist Commnt No 07/23/21 10:03 PT 14.2 Sec. (12.2-14.9) 07/17/21 08:48 INR 0.99 (0.87-1.13) 07/17/21 08:48 APTT 26.5 Sec. (24.2-36.6) 07/17/21 08:48 Thrombin Time 18.9 Sec. (15.1-19.6) 07/17/21 08:48 ABG pH 7.462 pH Units (7.350-7.450) H 07/24/21 05:12 POC ABG pCO2 49.6 mmHg (32.0-48.0) H 07/18/21 22:57 ABG pCO2 26.8 mm Hg 07/24/21 05:12 POC ABG pO2 125.9 mmHg (83-108) H 07/18/21 22:57 ABG pO2 316.3 mm Hg (80.0-90.0) H 07/24/21 05:12 POC ABG HCO3 25.4 07/18/21 22:57 ABG HCO3 18.7 mmol/L (20.0-26.0) L 07/24/21 05:12 ABG O2 Saturation 99.5 % (95.0-99.0) H 07/24/21 05:12 ABG O2 Content 11.1 (0.0-44) 07/24/21 05:12 POC ABG Base Excess -1.3 07/18/21 22:57 ABG Base Excess -4.4 mmol/L (-2.0-3.0) L 07/24/21 05:12 ABG Hemoglobin 7.4 gm/dl (14.0-18.0) L 07/24/21 05:12 ABG Oxyhemoglobin 97.3 (94-98) 07/18/21 22:57 ABG Carboxyhemoglobin 0.9 % (0.0-5.0) 07/24/21 05:12 ABG Methemoglobin 0.4 % (0.0-1.5) 07/24/21 05:12 ABG Sodium 138.2 mmol/L (136.0-145.0) 07/18/21 22:57 ABG Potassium 3.7 mmol/L (3.40-4.50) 07/18/21 22:57 ABG Chloride 96.0 mmol/L (98-107) L 07/18/21 22:57 ABG Glucose 135 mg/dL (65-95) H 07/18/21 22:57 Oxyhemoglobin 98.2 % (95.0-99.0) 07/24/21 05:12 Carboxyhemoglobin 0.8 (0.5-1.5) 07/18/21 22:57 FiO2 80 % 07/24/21 05:12 FiO2 % 40.0 07/18/21 22:57 Sodium 144 mmol/L (137-145) 07/24/21 06:30 Potassium 4.6 mmol/L (3.6-5.0) 07/24/21 06:30 Chloride 105.3 mmol/L (98-107) 07/24/21 06:30 Carbon Dioxide 19 mmol/L (22-30) L 07/24/21 06:30 Anion Gap 24 mmol/L 07/24/21 06:30 BUN 107 mg/dL (9-20) H 07/24/21 06:30 Creatinine 5.3 mg/dL (0.8-1.3) H D 07/24/21 06:30 Estimated GFR 14 ml/min 07/24/21 06:30 BUN/Creatinine Ratio 20 % 07/24/21 06:30 Glucose 258 mg/dL (75-100) H 07/24/21 06:30 POC Glucose 239 mg/dL (70-105) H 07/24/21 11:25 Calcium 7.2 mg/dL (8.4-10.2) L 07/24/21 06:30 Phosphorus 5.80 mg/dL (2.5-4.5) H 07/21/21 04:55 Magnesium 2.60 mg/dL (1.7-2.3) H 07/21/21 04:55 Total Bilirubin 0.60 mg/dL (0.1-1.2) 07/21/21 12:13 AST 34 units/L (5-40) 07/21/21 12:13 ALT 29 units/L (7-56) 07/21/21 12:13 Alkaline Phosphatase 70 units/L (35-129) 07/21/21 12:13 Total Creatine Kinase 2826 units/L (55-170) H 07/24/21 06:30 CK-MB (CK-2) 12.5 ng/mL (0.0-4.0) H 07/20/21 06:12 CK-MB (CK-2) Rel Index 0.4 (0-4) 07/17/21 08:48 Troponin T 0.037 ng/mL (0.00-0.029) H 07/17/21 08:48 Total Protein 6.5 g/dL (6.3-8.2) 07/21/21 12:13 Albumin 2.9 g/dL (3.9-5) L 07/21/21 12:13 Albumin/Globulin Ratio 0.8 % 07/21/21 12:13 Triglycerides 95 mg/dL (2-149) 07/17/21 08:48 Cholesterol 244 mg/dL (50-199) H 07/17/21 08:48 LDL Cholesterol Direct 154 mg/dL (50-130) H 07/17/21 08:48 HDL Cholesterol 66 mg/dL (40-59) H 07/17/21 08:48 Cholesterol/HDL Ratio 3.69 % 07/17/21 08:48 Arterial Blood Glucose 135 mg/dL (65-95) H 07/18/21 22:57 Urine Color Debbie (Yellow) 07/19/21 Unknown Urine Turbidity Slightly-cloudy (Clear) 07/19/21 Unknown Urine pH 5.0 (5.0-7.0) 07/19/21 Unknown Ur Specific [place] 1.027 (1.003-1.030) 07/19/21 Unknown Urine Protein >500 mg/dL (Negative) 07/19/21 Unknown Urine Glucose (UA) 50 mg/dL (Negative) 07/19/21 Unknown Urine Ketones Neg mg/dL (Negative) 07/19/21 Unknown Urine Blood Sm (Negative) 07/19/21 Unknown Urine Nitrite Neg (Negative) 07/19/21 Unknown Urine Bilirubin Neg (Negative) 07/19/21 Unknown Urine Urobilinogen < 2.0 mg/dL (<2.0) 07/19/21 Unknown Ur Leukocyte Esterase Neg (Negative) 07/19/21 Unknown Urine WBC (Auto) 7.0 /HPF (0.0-6.0) H 07/19/21 Unknown Urine RBC (Auto) 4.0 /HPF (0.0-6.0) 07/19/21 Unknown U Epithel Cells (Auto) 1.0 /HPF (0-13.0) 07/19/21 Unknown Hyaline Casts 12 /LPF 07/19/21 Unknown Urine Mucus Few /HPF 07/19/21 Unknown Urine Osmolality 481 Mosm/kg 07/20/21 12:10 Urine Creatinine 144.9 mg/dL (0.1-20.0) H 07/20/21 12:10 Protein/Creatinin Ratio 0.69 07/19/21 Unknown Urine Sodium 69 mmol/L 07/20/21 12:10 Urine Urea Nitrogen 684 07/20/21 12:10 Urine Total Protein 207 mg/dL (5-11.8) H 07/19/21 Unknown Urine Opiates Screen Presumptive negative 07/18/21 16:41 Urine Methadone Screen Presumptive negative 07/18/21 16:41 Ur Barbiturates Screen Presumptive negative 07/18/21 16:41 Ur Phencyclidine Scrn Presumptive negative 07/18/21 16:41 Ur Amphetamines Screen Presumptive negative 07/18/21 16:41 U Benzodiazepines Scrn Presumptive negative 07/18/21 16:41 Urine Cocaine Screen Presumptive negative 07/18/21 16:41 U Marijuana (THC) Screen Presumptive negative 07/18/21 16:41 Drugs of Abuse Note Disclamer 07/18/21 16:41 Plasma/Serum Alcohol < 0.01 % (0-0.07) 07/17/21 08:48 MARGARITA Screen Negative (Negative) 07/19/21 04:35 Complement C3 150 mg/dL (82-185) 07/19/21 04:35 Complement C4 39 mg/dL (15-53) 07/19/21 04:35 Blood Type O POSITIVE 07/23/21 12:49 Antibody Screen Negative 07/23/21 12:49 Crossmatch See Detail 07/23/21 12:49 Microbiology: Microbiology 07/23/21 18:55 Stool Stool Occult Blood (ÁLVARO) - Final Mora/IV: Voiding Method Indwelling Catheter Active Medications - Current Medications Current Medications: Generic Name Dose Route Start Last Admin Trade Name Freq PRN Reason Stop Dose Admin Acetaminophen 650 mg 07/17/21 23:42 Acetaminophen 325 Mg Tab PO Q4H PRN Pain MILD(1-3)/Fever >100.5/HENAO Lipase/Protease/Amylase 1 each 07/19/21 12:49 Lipase 10,500/Protease 25,000/Amylase 43,750 (Units) Dr Taylor FEEDTUBE PRN PRN For Clogged Feeding Tube Hydralazine HCl 10 mg 07/21/21 10:00 Hydralazine 20 Mg/1 Ml Inj IV Q3H PRN hypertension Hydrophilic Ointment 1 applic 07/23/21 12:48 Lip Therapy Vaseline TP Q2HR PRN Dry Lips Potassium Chloride/Sodium Chloride 20 meq in 1,000 mls @ 100 mls/hr 12/06/21 11:00 07/22/21 18:26 Ns 0.45/Kcl 20meq IV 100 mls/hr DIRECT LAUREANO Administration NORepinephrine/NS 8 MG-250 ML 8 mg in 250 mls @ 3.75 mls/hr 07/23/21 13:00 07/24/21 05:02 Norepinephrine/Ns 8 Mg-250 Ml (Double Conc) IV 0 mcg/min TITRATE LAUREANO 0 mls/hr Titration Protocol 2 MCG/MIN Vasopressin 20 unit/ Sodium 101 mls @ 9.09 mls/hr 07/23/21 14:00 07/24/21 09:41 Chloride IV 0.03 units/min TITR LAUREANO 9.09 mls/hr Titration Protocol 0.03 UNITS/MIN Sodium Chloride 1,000 mls @ 5 mls/hr 07/23/21 14:00 07/23/21 13:59 Nacl 0.9% 1000 Ml IV 5 mls/hr PRN LAUREANO Administration Pantoprazole Sodium 80 mg/ 100 mls @ 10 mls/hr 07/23/21 19:00 07/24/21 06:02 Sodium Chloride IV 8 mg/hr DIRECT LAUREANO 10 mls/hr Administration 8 MG/HR Insulin Human Lispro 0 unit 07/23/21 18:00 07/24/21 06:24 Insulin Lispro 100 Unit/Ml SUB-Q 3 unit Q6HR LAUREANO Administration Protocol Labetalol HCl 10 mg 07/21/21 10:00 Labetalol 20 Mg/4 Ml Inj IV Q4HR PRN sbp > 160, hold for HR < 70 Lorazepam 1 mg 07/18/21 16:15 Lorazepam 2 Mg/Ml Vial IV Q1H PRN Anxiety Metoclopramide HCl 5 mg 07/18/21 08:00 Metoclopramide 10 Mg/2 Ml Inj IV Q6H PRN Nausea And Vomiting Multi-Ingred Cream/Lotion/Oil/Oint 1 applic 07/23/21 12:48 Mineral Oil/Petrolatum, White Ophth Oint 3.5 Gm OU Q4HR PRN Dry Eye(s) Ondansetron HCl 4 mg 07/17/21 23:42 Ondansetron 4 Mg/2 Ml Inj IV Q8H PRN Nausea And Vomiting Simple Syrup 15 ml 07/19/21 12:49 Simple Syrup 15 Ml FEEDTUBE PRN PRN Hypoglycemia Simple Syrup 30 ml 07/19/21 12:49 Simple Syrup 15 Ml FEEDTUBE PRN PRN Hypoglycemia Sodium Bicarbonate 325 mg 07/19/21 12:49 Sodium Bicarbonate 325 Mg Tab FEEDTUBE PRN PRN For Clogged Feeding Tube Sodium Chloride 10 ml 07/18/21 10:00 07/23/21 23:00 Sodium Chloride 0.9% 10 Ml Flush Syringe IV 10 ml BID LAUREANO Administration Sodium Chloride 10 ml 07/17/21 23:42 Sodium Chloride 0.9% 10 Ml Flush Syringe IV PRN PRN LINE FLUSH Nutrition/Malnutrition Assess - Dietary Evaluation Nutrition/Malnutrition Findings: Nutrition Notes Start: 07/19/21 12:37 Freq: Status: Active Protocol: Document 07/23/21 09:09 JEANNIE (Rec: 07/23/21 09:46 JEANNIE [email or web address]) Nutrition Notes Initial or Follow up Reassessment Current Diagnosis Acute Kidney Injury,Diabetes, Hypertension,Respiratory Failure,Hyperlipidemia Other Pertinent Diagnosis Rhabdomyolysis, CVA, L- hemiparesis Current Diet NPO (since 07/23 08:26). Labs/Tests 07/22: K 3.1, BUN 86, Crea 2.9 , Glu 161, Ca 8.1. Pertinent Medications 07/23: Ns 0.45/KCl 20 mEq 1, 000 ml @ 100 ml/hr, others nutritionally unremarkable. Height 5 ft 11 in Weight 136.7 kg [place] Body Weight (kg) 78.18 BMI 42.0 Weight change and time frame Slight height and body weight correction reported. Weight Status Morbidly Obese Subjective/Other Information RD consult for routine F/U on start of TF and tolerance assessment. MD request to evaluate nutritional intake. Swallow screen passed on 07/21 . Pt has missing teeth. Pt was on Pureed diet for 2 days %PO intake of meals 25-50 %, according to ADL notes. Pt produce blood occult in stool. Percent of energy/protein needs met: Pt currently on NPO. Burn Absent Trauma Absent GI Symptoms Other Difficulty In Chewing Skin Integrity/Comment Clear, warm, dry. Current % PO Other Minimum of two criteria No physical signs of malnutrition #1 Nutrition Diagnosis Inadequate energy intake Comments: Swallow screen passed on 07/21 . Pt has missing teeth. Pt was on Pureed diet for 2 days %PO intake of meals 25-50 %, according to ADL notes. Etiology CVA As Evidenced by Signs and Symptoms Pt unable to safely consume via PO at this time. Diagnosis Progress(for reassessment Resolved documentation) Is patient on ventilator? No Is Patient Ambulatory and/or Out of Bed No REE-([place]. Jeor-confined to bed) 2690.304 Kcal/Kg value to use for calculation 14 Approximate Energy Requirements Using 1914 kcal/Kg Calculation Used for Recommendations Kcal/kg Additional Notes Protein needs: 189 g (2.5 g/kg IBW) Fluid needs: 1,500 mL/day, for renal or per MD order. Nutrition Intervention Change Diet Order: Continue NPO, as per MD; when pertinent, advance to Pureed Diet. Goal #1 Maintain body weight within +/ -3% of admission BWt during LOS. Goal #2 Reach and maintain acceptable chemistry lab values during LOS. Follow-Up By: 07/30/21 Additional Comments Continue monitoring Hydration, and BM; when pertinent, food tolerance, %PO intake of meals .
--- NOTE | 2021-07-24 13:35 | Post Operative Note ---
Pre-op diagnosis: gi bleed Post-op diagnosis: same Findings: egd: hiatal hernia - mild gastritis - large 14 mm cratered ulcer with pigmented area (bx's), smaller 7 mm white based ulcer without bleeding stigmata, both 2nd portion duodenum - negative other Procedure: EGD w/ cold bx Anesthesia: MAC Surgeon: DEJA WHITAKER Estimated blood loss: none Pathology: list Specimen disposition: to lab Condition: stable Disposition: ICU
--- NOTE | 2021-07-24 13:58 | Operative Report ---
DATE OF SURGERY: 07/24/2021 PROCEDURES: EGD with cold biopsy. INDICATIONS: 1. Anemia. 2. Gastrointestinal bleed. MEDICATIONS: Propofol per WHEAT INSPECTOR. COMPLICATIONS: None. PROCEDURE IN DETAIL: The patient ____ Medical Intensive Care Unit. The patient had the procedure discussed with family at length. All risks, benefits and complications were discussed. Verbal consent was gotten for the procedure to be performed. The patient was placed in left lateral decubitus position. Mouth block placed in the patient's oral cavity. After adequate sedation with medication as above, endoscope placed in the mouth and brought to level of second portion of duodenum. Retroflexion view performed. The patient's vital signs remained stable throughout the procedure. FINDINGS: Small hiatal hernia, GE junction at 40 cm from the gums. Esophagus otherwise appeared grossly normal. Mild gastritis noted in the gastric body. The stomach otherwise appeared grossly normal. There were 2 ulcers noted in the second portion of duodenum. The large ulcer was approximately 14 mm, which was cratered with some pigmented areas, but no stigmata of bleeding, require treatment. Biopsies were taken and sent for pathology. Small ulcer was of 8 mm, mainly white based in the same area. No bleeding therapy was performed during this procedure. The remaining duodenum otherwise appeared to be normal. Retroflexion view performed in the stomach showed no other pathology other than noted above. The patient tolerated the procedure well. No complications during this procedure. IMPRESSION: 1. Hiatal hernia. 2. Mild gastritis. 3. Ulcers x 2, which is most likely source of bleeding with biopsies taken as noted above. 4. Otherwise, normal EGD. RECOMMENDATIONS: 1. Continue PPI IV drip. 2. Follow hematocrit and transfuse as needed. 3. N.p.o. for now. 4. We will follow. TID: [id number] RECEIPT: [id number] YUSUF/REGGIE/BILLIE
[2021-07-24 14:00] LABS: Hematocrit 24.5 % (35.5-45.6); Hemoglobin 7.8 gm/dl (11.8-15.2); Mean Corpuscular HGB Conc 32 % (32-34); Mean Corpuscular Volume 89 fl (84-94); Platelet Count 203 K/mm3 (140-440); Red Blood Count 2.75 M/mm3 (3.65-5.03); Red Cell Distribution Width 16.9 % (13.2-15.2)
[2021-07-24 18:21] LABS: Hematocrit 24.3 % (35.5-45.6); Hemoglobin 7.8 gm/dl (11.8-15.2)
[2021-07-25] MEDS: INSULIN LISPRO 100 UNIT/ML SUB-Q SCH
[2021-07-25 00:07] LABS: Hematocrit 20.1 % (35.5-45.6); Hemoglobin 6.4 gm/dl (11.8-15.2)
[2021-07-25] MEDS ORDERED: SODIUM CHLORIDE 0.9% 500 ML 500 ML IV ONE (00:55)
[2021-07-25] MEDS: PANTOPRAZOLE 80 MG in SODIUM CHLORIDE 0.9% 100 ML IV SCH (02:18)
[2021-07-25] MEDS: NORepinephrine/NS 8 MG-250 ML 8 MG/250 ML INFUS..BTL IV SCH ×3 (02:18→10:19)
[2021-07-25] MEDS ORDERED: SODIUM CHLORIDE 0.9% 1000 ML 1,000 ML IV ONE (04:41)
[2021-07-25] MEDS ORDERED: PHENYLEPHRINE 100 MG in SODIUM CHLORIDE 0.9% 90 ML IV SCH (04:45)
[2021-07-25 05:31] LABS: Hematocrit 20.1 % (35.5-45.6); Hemoglobin 6.4 gm/dl (11.8-15.2); Mean Corpuscular HGB Conc 32 % (32-34); Mean Corpuscular Volume 91 fl (84-94); Platelet Count 230 K/mm3 (140-440); Red Blood Count 2.21 M/mm3 (3.65-5.03); Red Cell Distribution Width 17.5 % (13.2-15.2)
--- NOTE | 2021-07-25 05:31 | XRay Report ---
XR chest 1V ap INDICATION / CLINICAL INFORMATION: follow up respiratory failure. COMPARISON: Radiograph from yesterday. FINDINGS: SUPPORT DEVICES: Unchanged. HEART /PULMONARY VASCULATURE: Unchanged. LUNGS / PLEURA: Lungs are clear consolidation. No sizable pleural effusion. No pneumothorax. IMPRESSION: 1. No significant interval change. No acute findings. Signer Name: Nilton Valdes MD Signed: 07/25/2021 5:26 AM Workstation Name: [id number]
[2021-07-25 05:43] LABS: Calcium 6.7 mg/dL (8.4-10.2)
[2021-07-25] MEDS ORDERED: INSULIN REGULAR, HUMAN 100 UNITS/1 ML ONE (06:06)
--- NOTE | 2021-07-25 06:48 | Event Note ---
Date: 07/25/21 BRANDON JOSE called on 51-year-old -[place] male who has been on admission for multiple medical problems including acute metabolic encephalopathy, acute CVA, acute hypoxic respiratory failure, GI bleed. Resuscitative measures were commenced according to ACLS protocol. Patient had multiple rounds of epinephrine, sodium bicarb and also shocked multiple times as patient went into V. fib. Blood glucose was 138. During the course of resuscitation, patient's potassium was said to be 6.6 from a critical lab called to the nurse. Patient had calcium chloride, insulin and glucose during his resuscitation. Thereafter there was return of spontaneous circulation. Family to be notified of patient's condition. Will also notify primary team/incoming hospitalist. We will follow up on repeat labs.
[2021-07-25 06:58] LABS: Mean Corpuscular HGB Conc 31 % (32-34); Mean Corpuscular Volume 95 fl (84-94); Platelet Count 162 K/mm3 (140-440); Red Blood Count 1.54 M/mm3 (3.65-5.03); Red Cell Distribution Width 18.1 % (13.2-15.2)
[2021-07-25] MEDS ORDERED: EPINEPHrine 1 MG/1 ML 8 MG in SODIUM CHLORIDE 0.9% 250ML 242 ML IV SCH (07:00)
[2021-07-25 07:03] LABS: Albumin 1.5 g/dL (3.9-5); Calcium 8.5 mg/dL (8.4-10.2)
[2021-07-25 07:09] LABS: Hemoglobin 4.5 gm/dl (11.8-15.2)
[2021-07-25 07:10] LABS: Hematocrit 14.6 % (35.5-45.6)
[2021-07-25] MEDS: VASOPRESSIN 20 UNIT in SODIUM CHLORIDE 0.9% 100 ML IV SCH (07:47)
--- NOTE | 2021-07-25 08:20 | Progress Note ---
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 However, likely to minimally benefit patient given his overall poor prognosis, minimal neuro response, and need for max pressors. Unlikely to tolerate renal replacement therapy in current state, but appreciate Dr. Morrison who will place line today. Will discuss with contacts as able to review renal prognosis Subjective Date of service: 07/25/21 Principal diagnosis: left side weakness ,abnormal MRI brain Interval history: Had Code Blue again yesterday, K 6.6, hemoglobin down to 4.6. Max pressors, 100% fio2 Objective - Exam Narrative Exam: General appearance: intubated, sedated, ill appearing EENT: ATNC Respiratory: coarse breath sounds Cardiology: regular, S1S2 Gastrointestinal: normal, no tenderness, no distended Neurologic: sedated Psychiatric: sedated - Vital Signs Vital signs: Vital Signs - 12hr 07/24/21 07/24/21 07/24/21 20:30 20:46 21:00 Temperature Pulse Rate 72 67 86 Respiratory 11 L 16 29 H Rate Blood Pressure 131/108 131/108 132/71 O2 Sat by Pulse 94 100 100 Oximetry 07/24/21 07/24/21 07/24/21 21:16 21:30 21:46 Temperature Pulse Rate 79 78 85 Respiratory 21 27 H 27 H Rate Blood Pressure 132/71 119/59 119/59 O2 Sat by Pulse 100 100 98 Oximetry 07/24/21 07/24/21 07/24/21 22:00 22:16 22:30 Temperature Pulse Rate 82 86 88 Respiratory 33 H 25 H 26 H Rate Blood Pressure 132/64 132/64 134/65 O2 Sat by Pulse 98 95 99 Oximetry 07/24/21 07/24/21 07/24/21 22:40 22:50 23:00 Temperature Pulse Rate 82 73 97 H Respiratory 30 H 26 H 29 H Rate Blood Pressure 134/65 106/53 114/61 O2 Sat by Pulse 100 100 94 Oximetry 07/24/21 07/24/21 07/24/21 23:10 23:20 23:30 Temperature Pulse Rate 94 H 93 H 87 Respiratory 26 H 25 H 17 Rate Blood Pressure 114/61 114/61 87/45 O2 Sat by Pulse 92 96 91 Oximetry 07/24/21 07/24/21 07/24/21 23:36 23:46 23:48 Temperature 102 F H Pulse Rate 95 H 96 H Respiratory 23 27 H Rate Blood Pressure 87/45 87/45 O2 Sat by Pulse 99 100 Oximetry 07/25/21 07/25/21 07/25/21 00:00 00:10 00:16 Temperature Pulse Rate 100 H 85 101 H Respiratory 17 27 H Rate Blood Pressure 143/72 143/72 143/72 O2 Sat by Pulse 96 97 100 Oximetry 07/25/21 07/25/21 07/25/21 00:30 00:46 01:00 Temperature Pulse Rate 103 H 96 H 86 Respiratory 26 H 24 28 H Rate Blood Pressure 136/65 136/65 77/39 O2 Sat by Pulse 100 100 99 Oximetry 07/25/21 07/25/21 07/25/21 01:10 01:20 01:30 Temperature Pulse Rate 106 H 97 H 86 Respiratory 27 H 24 20 Rate Blood Pressure 77/39 104/56 86/45 O2 Sat by Pulse 100 100 100 Oximetry 07/25/21 07/25/21 07/25/21 01:40 01:50 01:59 Temperature 97.9 F Pulse Rate 103 H 102 H 94 H Respiratory 25 H 25 H 24 Rate Blood Pressure 101/55 101/55 101/55 O2 Sat by Pulse 100 100 Oximetry 07/25/21 07/25/21 07/25/21 02:00 02:10 02:16 Temperature 97.3 F L Pulse Rate 95 H 101 H 97 H Respiratory 23 25 H 23 Rate Blood Pressure 107/55 107/55 107/55 O2 Sat by Pulse 99 100 91 Oximetry 07/25/21 07/25/21 07/25/21 02:30 02:40 02:46 Temperature 103 F H Pulse Rate 108 H 106 H 103 H Respiratory 26 H 26 H 23 Rate Blood Pressure 125/63 125/63 125/63 O2 Sat by Pulse 98 100 100 Oximetry 07/25/21 07/25/21 07/25/21 03:00 03:10 03:20 Temperature Pulse Rate 100 H 104 H 100 H Respiratory 16 21 21 Rate Blood Pressure 99/22 99/22 99/22 O2 Sat by Pulse 95 95 81 L Oximetry 07/25/21 07/25/21 07/25/21 03:30 03:40 03:50 Temperature Pulse Rate 100 H 95 H 102 H Respiratory 25 H 28 H 19 Rate Blood Pressure 123/58 123/58 123/58 O2 Sat by Pulse 93 94 90 Oximetry 07/25/21 07/25/21 07/25/21 04:00 04:10 04:20 Temperature Pulse Rate 101 H 99 H 98 H Respiratory 16 12 15 Rate Blood Pressure 123/58 123/58 123/58 O2 Sat by Pulse 96 94 95 Oximetry 07/25/21 07/25/21 07/25/21 04:30 04:32 04:46 Temperature 100.2 F H Pulse Rate 96 H 90 Respiratory 10 L 10 L Rate Blood Pressure 123/58 161/121 O2 Sat by Pulse 100 100 Oximetry 07/25/21 07/25/21 07/25/21 05:00 05:05 05:16 Temperature Pulse Rate 97 H 94 H 87 Respiratory 11 L 17 Rate Blood Pressure 161/121 91/47 94/61 O2 Sat by Pulse 100 99 98 Oximetry 07/25/21 07/25/21 07/25/21 05:30 05:46 06:00 Temperature Pulse Rate 69 202 H Respiratory 12 47 H 100 H Rate Blood Pressure 94/61 94/61 94/61 O2 Sat by Pulse 100 82 L Oximetry 07/25/21 07/25/21 07/25/21 06:16 06:30 06:46 Temperature Pulse Rate 112 H 121 H 113 H Respiratory 15 22 13 Rate Blood Pressure 94/61 200/119 200/119 O2 Sat by Pulse 98 100 99 Oximetry 07/25/21 07/25/21 07:00 08:04 Temperature Pulse Rate 103 H 100 H Respiratory 10 L Rate Blood Pressure 181/125 93/50 O2 Sat by Pulse 100 100 Oximetry - Lab 07/25/21 05:44 07/25/21 05:44 Most recent lab results ABG pH 7.462 pH Units (7.350-7.450) H 07/24/21 05:12 ABG pCO2 26.8 mm Hg 07/24/21 05:12 ABG pO2 316.3 mm Hg (80.0-90.0) H 07/24/21 05:12 ABG HCO3 18.7 mmol/L (20.0-26.0) L 07/24/21 05:12 ABG O2 Saturation 99.5 % (95.0-99.0) H 07/24/21 05:12 Calcium 8.5 mg/dL (8.4-10.2) D 07/25/21 05:44 Phosphorus 5.80 mg/dL (2.5-4.5) H 07/21/21 04:55 Magnesium 3.60 mg/dL (1.7-2.3) H 07/25/21 05:44 Urine Creatinine 144.9 mg/dL (0.1-20.0) H 07/20/21 12:10 Urine Sodium 69 mmol/L 07/20/21 12:10 Urine Total Protein 207 mg/dL (5-11.8) H 07/19/21 Unknown Medications & Allergies - Medications Allergies/Adverse Reactions: Allergies No Known Allergies Allergy (Verified 07/21/21 11:18) Home Medications: Home Medications Medication Instructions Recorded Confirmed Last Taken Type Multivitamin/Iron/Folic Acid 1 each PO QDAY 11/24/19 07/21/21 07/16/21 History [Centrum Adults Tablet] Insulin NPH/Regular [Novolin 70/30] 30 unit SQ BIDDIAB 07/21/21 07/21/21 07/16/21 History Active Medications: Generic Name Dose Route Start Last Admin Trade Name Freq PRN Reason Stop Dose Admin Acetaminophen 650 mg 07/17/21 23:42 07/25/21 02:54 Acetaminophen 325 Mg Tab PO 650 mg Q4H PRN Administration Pain MILD(1-3)/Fever >100.5/HENAO Lipase/Protease/Amylase 1 each 07/19/21 12:49 Lipase 10,500/Protease 25,000/Amylase 43,750 (Units) Dr Taylor FEEDTUBE PRN PRN For Clogged Feeding Tube Dextrose 50 ml 07/24/21 17:30 Dextrose 50% In Water (25gm) 50 Ml Syringe IV Q30MIN PRN Hypoglycemia Protocol Hydralazine HCl 10 mg 07/21/21 10:00 Hydralazine 20 Mg/1 Ml Inj IV Q3H PRN hypertension Hydrophilic Ointment 1 applic 07/23/21 12:48 Lip Therapy Vaseline TP Q2HR PRN Dry Lips Potassium Chloride/Sodium Chloride 20 meq in 1,000 mls @ 100 mls/hr 07/21/21 11:00 07/22/21 18:26 Ns 0.45/Kcl 20meq IV 100 mls/hr DIRECT LAUREANO Administration NORepinephrine/NS 8 MG-250 ML 8 mg in 250 mls @ 3.75 mls/hr 07/23/21 13:00 07/25/21 06:20 Norepinephrine/Ns 8 Mg-250 Ml (Double Conc) IV 3.2 mcg/min TITRATE LAUREANO 6 mls/hr Administration Protocol 2 MCG/MIN Vasopressin 20 unit/ Sodium 101 mls @ 9.09 mls/hr 07/23/21 14:00 07/25/21 07:47 Chloride IV 0.03 units/min TITR LAUREANO 9.09 mls/hr Administration Protocol 0.03 UNITS/MIN Sodium Chloride 1,000 mls @ 5 mls/hr 07/23/21 14:00 07/24/21 20:59 Nacl 0.9% 1000 Ml IV 6 mls/hr PRN LAUREANO Infusion Pantoprazole Sodium 80 mg/ 100 mls @ 10 mls/hr 07/23/21 19:00 07/25/21 02:18 Sodium Chloride IV 8 mg/hr DIRECT LAUREANO 10 mls/hr Administration 8 MG/HR Phenylephrine HCl 100 mg/ 100 mls @ 3 mls/hr 07/25/21 04:45 Sodium Chloride IV TITR LAUREANO Protocol 50 MCG/MIN Epinephrine 8 mg/ Sodium 250 mls @ 3.75 mls/hr 07/25/21 07:00 Chloride IV TITR LAUREANO Protocol 2 MCG/MIN Insulin Human Lispro 0 unit 07/24/21 18:00 07/25/21 00:00 Insulin Lispro 100 Unit/Ml SUB-Q 4 unit Q6HR LAUREANO Administration Protocol Labetalol HCl 10 mg 07/21/21 10:00 Labetalol 20 Mg/4 Ml Inj IV Q4HR PRN sbp > 160, hold for HR < 70 Lorazepam 1 mg 12/03/21 16:15 07/24/21 19:48 Lorazepam 2 Mg/Ml Vial IV 1 mg Q1H PRN Administration Anxiety Metoclopramide HCl 5 mg 07/18/21 08:00 Metoclopramide 10 Mg/2 Ml Inj IV Q6H PRN Nausea And Vomiting Multi-Ingred Cream/Lotion/Oil/Oint 1 applic 07/23/21 12:48 Mineral Oil/Petrolatum, White Ophth Oint 3.5 Gm OU Q4HR PRN Dry Eye(s) Ondansetron HCl 4 mg 07/17/21 23:42 Ondansetron 4 Mg/2 Ml Inj IV Q8H PRN Nausea And Vomiting Simple Syrup 15 ml 07/19/21 12:49 Simple Syrup 15 Ml FEEDTUBE PRN PRN Hypoglycemia Simple Syrup 30 ml 07/19/21 12:49 Simple Syrup 15 Ml FEEDTUBE PRN PRN Hypoglycemia Sodium Bicarbonate 325 mg 07/19/21 12:49 Sodium Bicarbonate 325 Mg Tab FEEDTUBE PRN PRN For Clogged Feeding Tube Sodium Chloride 10 ml 07/18/21 10:00 07/24/21 22:00 Sodium Chloride 0.9% 10 Ml Flush Syringe IV 10 ml BID LAUREANO Administration Sodium Chloride 10 ml 07/17/21 23:42 Sodium Chloride 0.9% 10 Ml Flush Syringe IV PRN PRN LINE FLUSH
[2021-07-25] MEDS: FREE WATER PO SCH ×2 (08:35)
[2021-07-25] MEDS ORDERED: LACTATED RINGERS 2,000 ML ONE (08:54)
[2021-07-25] MEDS: DEXTROSE 50% IN WATER (25GM) 50 ML SYRINGE IV PRN ×2 (09:41→11:16)
[2021-07-25] MEDS ORDERED: SODIUM BICARB 8.4% 50 MEQ/50 ML SYRINGE IV ONE ×2 (09:50→11:05)
[2021-07-25] MEDS ORDERED: LACTATED RINGERS 1,000 ML IV ONE (10:07)
[2021-07-25] MEDS ORDERED: SODIUM BICARB 8.4% 50 MEQ/50 ML SYRINGE IV NR (10:30)
[2021-07-25] MEDS ORDERED: SODIUM BICARBONATE 150 MEQ in DEXTROSE 5% IN WATER 1,000 ML IV SCH (11:00)
[2021-07-25] MEDS ORDERED: EPINEPHrine 1 MG/10 ML SYRINGE ONE (11:05)
[2021-07-25] MEDS ORDERED: ATROPINE 0.1% (1 MG/10 ML) CARDIAC SYRINGE ONE (11:05)
[2021-07-25] MEDS ORDERED: AMIODARONE 150 MG/3 ML INJ IV ONE (11:05)
[2021-07-25] MEDS ORDERED: DEXTROSE 50% IN WATER (25GM) 50 ML SYRINGE IV ONE (11:05)
[2021-07-25] MEDS ORDERED: HYDROCORTISONE SOD SUCC 100 MG/2 ML VIAL IV NR (11:12)
[2021-07-25 11:24] LABS: Total Cells Counted 100
[2021-07-25 11:30] LABS: Anisocytosis 2+; Hypochromasia 3+; Large Platelets 1+; Platelet Estimate Consistent w Auto; Spherocytes 1+
[2021-07-25 11:33] VITALS: BP 74/35
--- NOTE | 2021-07-25 11:44 | Procedure Note ---
Date of procedure: 07/25/21 Pre-op diagnosis: Hyperkalemia Post-op diagnosis: same Procedure: Right Femoral Temporary VasCath Placement Patient was evaluated and required temporary VasCath placement for Hemodialysis. This is an emergent procedure A time-out was completed verifying correct patient, procedure, site, and positioning. Hand hygiene were performed immediately prior to the procedure and sterile technique was used throughout the procedure. The patients right groin was prepped with chlorhexidine scrub then draped in a sterile fashion. 1% Lidocaine was used to anesthetize the surrounding skin area. Then the right femoral vein was accessed using ultrasound guidance and a 20cm trialysis catheter was introduced using the Seldinger technique. The catheter threaded smoothly over the guidewire and advanced easily into the vein and brisk blood return was observed from each lumen. Each lumen were flushed and clamped, then the catheter was sutured in place and covered with a sterile dressing. Patient tolerated the procedure well, no signs of any adverse reaction noted. VasCath is ready to use. Total Time Spent with Patient (Minutes): 60 minutes Anesthesia: local Surgeon: JOHN IVORY (Supervised by Dr. Morrison) Estimated blood loss: minimal Condition: critical Disposition: ICU
--- NOTE | 2021-07-25 15:34 | Event Note ---
Date: 07/25/21 Patient guy down in the 20s and lost pulse, PEA arrested, code miller called and resuscitative measures were initiated according to ACLS protocol. Product Safety Engineer at the bedside ran the code. ROSC achieved after one round of CPR and meds. Product Safety Engineer called and spoke with patient's cousin since patient's aunt, who is authorized to make decisions for patient is still in a plane flying to [place]. As of now patient remains a full code.
--- NOTE | 2021-07-25 15:37 | Death Summary ---
Summary - Providers Date of service: 07/25/21 Consults: 07/17/21 23:43 Consult to Physician [CONS] Routine Comment: Consulting Provider: KASSANDRA CATALAN Physician Instructions: Reason For Exam: Acute CVA 07/17/21 23:45 Occupational Therapy Evaluate and Treat [CONS] Routine Comment: Reason For Exam: Neuro deficits Physical Therapy Evaluation and Treat [CONS] Routine Comment: Reason For Exam: Neuro deficits 07/18/21 06:00 Consult to Physician [CONS] Routine Comment: Consulting Provider: TINY RANGEL Physician Instructions: Reason For Exam: CKD 07/19/21 09:26 Consult to Physician [CONS] Routine Comment: Consulting Provider: IZZY GUZMAN Physician Instructions: Reason For Exam: Acute respiratory distress/CVA with left hemipares 07/19/21 09:57 Consult to Dietitian/Nutrition [CONS] Routine Physician Instructions: Reason For Exam: Reason for Consult: Write/Manage Tube Feeding 07/19/21 09:58 Speech Therapy Evaluation and Treat [CONS] Stat Reason For Exam: cva 07/23/21 11:51 Consult to Physician [CONS] Routine Comment: called office/ amber Consulting Provider: JONI SUMNER Physician Instructions: Reason For Exam: Anemia, hematochezia 07/23/21 12:48 Consult to Dietitian/Nutrition [CONS] Routine Physician Instructions: Reason For Exam: Reason for Consult: Evaluate nutritional intake Attending: FRANCISCA OLIVARES - summary Date of admission: 07/17/21 11:35 Date of : 07/25/21 Disposition: This is a 51-year-old male with past medical history of IDDM, HTN, HLD, CVA who was initially admitted with acute CVA with left hemiparesis, patient was out of the window for TPA. Neurology was consulted, ST/OT/PT were also on consult. Patient hospital course was complicated due respiratory distress requiring continuous Bipap and acute kidney injury was transferred to ICU and CCM and nephrology was consulted. Patient respiratory status eventually improved on the bipap and was transferred back to the floor. While on the floor patient developped GIB, Hemoglobin dropped to 6.2 and patient became unresponsive and was transferred back to ICU where he any a cardiac arrest with ROSC requiring multiple pressors due to hypotension. Patient was resuscitated with blood products, protonix gtt initiated and GI was consulted. A bedside EGD was performed which revealed hiatal hernia, mild gastritis, a large 14 mm cratered ulcer with pigmented area that was biopsied, a smaller 7 mm white based ulcer without bleeding stigmata, both in the 2nd portion of the duodenum. EGD was otherwise unremarkable with no signs of any active bleeding. Patient H&H continued to dropped post EGD, received a total of 4units of PRBCs then patient developed a possible blood transfusion reaction then the last blood transfusion was held and the facility blood transfusion reaction protocol was initiated per blood bank. Patient continue to have bloody stools and H&H continue to dropped after the transfusion reaction, patient became hypotensive requiring X4 vasopressors, multiple LR boluses and a Bcarb gtt to maintain his blood pressure. Patient eventually lost pulse and coded, resuscitative measures were initiated according to ACLS protocol and ROSC was achieved. Patient next of kin was contacted and notified of events, they voiced understanding of patient's current critical status and high mortality rate. Patient remained a full code Patient coded two more times, resuscitative measures were then again initiated according to ACLS protocol both time. On the last attempted code, despite multiple rounds of epinephrine, bicarbonate, and chest compressions, patient remained in asystole. All reversible causes for arrest were considered however resuscitation was unsuccessful. Patient was pronounced at 1228. Patient's family was then again notified by the development system efficiency manager, per the patient's cousin, they will be driving up to to [place] from [place] today.
--- NOTE | 2021-07-25 18:57 | Gastroenterology Progress Note ---
Assessment and Plan 1. GI: UGI bleed due to pud - noted drop h/h - pt unstable and code called while visiting - will follow based on progress Subjective Date of service: 07/25/21 Principal diagnosis: left side weakness ,abnormal MRI brain Interval history: - came to see pt, active code in progress Objective - Constitutional Vitals: Temp Pulse Resp BP Pulse Ox 101.7 F H 70 20 74/35 0 L 07/25/21 08:00 07/25/21 11:30 07/25/21 11:30 07/25/21 11:30 07/25/21 12:28 - EENT Eyes: PERRL - Respiratory Respiratory: bilateral: rhonchi - Cardiovascular Rhythm: regular - Labs CBC & Chem 7: 07/25/21 05:44 07/25/21 05:44 Labs: Laboratory Results - last 24 hr 07/23/21 07/24/21 07/24/21 12:49 23:20 23:30 WBC RBC Hgb 6.4 L Hct 20.1 L MCV MCH MCHC RDW Plt Count Lymph # (Auto) Add Manual Diff Total Counted Seg Neuts % (Manual) Band Neutrophils % Lymphocytes % (Manual) Reactive Lymphs % (Man) Monocytes % (Manual) Eosinophils % (Manual) Metamyelocytes % Myelocytes % Nucleated RBC % Seg Neutrophils # Man Band Neutrophils # Lymphocytes # (Manual) Abs React Lymphs (Man) Monocytes # (Manual) Eosinophils # (Manual) Basophils # (Manual) Metamyelocytes # Myelocytes # Promyelocytes # Blast Cells # WBC Morphology Hypersegmented Neuts Hyposegmented Neuts Hypogranular Neuts Smudge Cells Toxic Granulation Toxic Vacuolation Dohle Bodies Pelger-Huet Anomaly Harpal Rods Platelet Estimate Clumped Platelets Plt Clumps, EDTA Large Platelets Giant Platelets Platelet Satelliting Plt Morphology Comment RBC Morphology Dimorphic RBCs Polychromasia Hypochromasia Poikilocytosis Anisocytosis Microcytosis Macrocytosis Spherocytes Pappenheimer Bodies Sickle Cells Target Cells Tear Drop Cells Ovalocytes Helmet Cells [place]hm[place] Bodies [place] Rings Mansi Cells Bite Cells Crenated Cell Elliptocytes Acanthocytes (Spur) Rouleaux Hemoglobin C Crystals Schistocytes Malaria parasites Sudheer Bodies Hem Pathologist Commnt ABG pH POC ABG pCO2 POC ABG pO2 POC ABG HCO3 ABG O2 Saturation POC ABG Base Excess ABG Hemoglobin ABG Oxyhemoglobin ABG Methemoglobin ABG Sodium ABG Potassium ABG Chloride ABG Glucose Carboxyhemoglobin FiO2 % Sodium Potassium Chloride Carbon Dioxide Anion Gap BUN Creatinine Estimated GFR BUN/Creatinine Ratio Glucose POC Glucose 216 H Calcium Magnesium Total Bilirubin AST ALT Alkaline Phosphatase Total Protein Albumin Albumin/Globulin Ratio Arterial Blood Glucose Blood Type O POSITIVE Antibody Screen Negative Crossmatch See Detail Pre-Trans ERMI Pre-Trans REMI Poly Post-Trans Blood Type Post-Trans REMI Post-Trans REMI Poly 07/25/21 07/25/21 07/25/21 04:31 04:31 05:08 WBC 24.6 H RBC 2.21 L Hgb 6.4 L Hct 20.1 L MCV 91 MCH 29 MCHC 32 RDW 17.5 H Plt Count 230 Lymph # (Auto) Add Manual Diff Total Counted Seg Neuts % (Manual) Band Neutrophils % Lymphocytes % (Manual) Reactive Lymphs % (Man) Monocytes % (Manual) Eosinophils % (Manual) Metamyelocytes % Myelocytes % Nucleated RBC % Seg Neutrophils # Man Band Neutrophils # Lymphocytes # (Manual) Abs React Lymphs (Man) Monocytes # (Manual) Eosinophils # (Manual) Basophils # (Manual) Metamyelocytes # Myelocytes # Promyelocytes # Blast Cells # WBC Morphology Hypersegmented Neuts Hyposegmented Neuts Hypogranular Neuts Smudge Cells Toxic Granulation Toxic Vacuolation Dohle Bodies Pelger-Huet Anomaly Harpal Rods Platelet Estimate Clumped Platelets Plt Clumps, EDTA Large Platelets Giant Platelets Platelet Satelliting Plt Morphology Comment RBC Morphology Dimorphic RBCs Polychromasia Hypochromasia Poikilocytosis Anisocytosis Microcytosis Macrocytosis Spherocytes Pappenheimer Bodies Sickle Cells Target Cells Tear Drop Cells Ovalocytes Helmet Cells [place]hm[place] Bodies [place] Rings Mansi Cells Bite Cells Crenated Cell Elliptocytes Acanthocytes (Spur) Rouleaux Hemoglobin C Crystals Schistocytes Malaria parasites Sudheer Bodies Hem Pathologist Commnt ABG pH 7.232 L POC ABG pCO2 27.7 L POC ABG pO2 117.2 H POC ABG HCO3 11.4 ABG O2 Saturation 97.5 POC ABG Base Excess -14.8 ABG Hemoglobin 5.4 L ABG Oxyhemoglobin 95.1 ABG Methemoglobin 0.3 ABG Sodium 137.1 ABG Potassium 5.9 H ABG Chloride 109.0 H ABG Glucose 158 H Carboxyhemoglobin 2.2 H FiO2 % 45.0 Sodium 146 H Potassium 6.6 H* D Chloride 107.0 Carbon Dioxide 11 L D Anion Gap 35 BUN 133 H Creatinine 8.2 H D Estimated GFR 8 BUN/Creatinine Ratio 16 Glucose 195 H POC Glucose Calcium 6.7 L Magnesium Total Bilirubin AST ALT Alkaline Phosphatase Total Protein Albumin Albumin/Globulin Ratio Arterial Blood Glucose 158 H Blood Type Antibody Screen Crossmatch Pre-Trans REMI Pre-Trans REMI Poly Post-Trans Blood Type Post-Trans REMI Post-Trans REMI Poly 07/25/21 07/25/21 07/25/21 05:37 05:44 05:44 WBC 21.8 H RBC 1.54 L Hgb 4.5 L* Hct 14.6 L* MCV 95 H MCH 29 MCHC 31 L RDW 18.1 H Plt Count 162 Lymph # (Auto) Patch Driller Add Manual Diff Complete Total Counted 100 Seg Neuts % (Manual) 64.0 Band Neutrophils % 14.0 Lymphocytes % (Manual) 11.0 L Reactive Lymphs % (Man) 1.0 Monocytes % (Manual) 2.0 Eosinophils % (Manual) 1.0 Metamyelocytes % 3.0 Myelocytes % 4.0 Nucleated RBC % 29.0 H Seg Neutrophils # Man 0.0 L Band Neutrophils # 0.0 Lymphocytes # (Manual) 0.0 L Abs React Lymphs (Man) 0.0 Monocytes # (Manual) 0.0 Eosinophils # (Manual) 0.0 Basophils # (Manual) 0.0 Metamyelocytes # 0.0 Myelocytes # 0.0 Promyelocytes # 0.0 Blast Cells # 0.0 WBC Morphology Not Reportable Hypersegmented Neuts Not Reportable Hyposegmented Neuts Not Reportable Hypogranular Neuts Not Reportable Smudge Cells Not Reportable Toxic Granulation Not Reportable Toxic Vacuolation Not Reportable Dohle Bodies Not Reportable Pelger-Huet Anomaly Not Reportable Harpal Rods Not Reportable Platelet Estimate Consistent w auto Clumped Platelets Not Reportable Plt Clumps, EDTA Not Reportable Large Platelets 1+ Giant Platelets Not Reportable Platelet Satelliting Not Reportable Plt Morphology Comment Not Reportable RBC Morphology Not Reportable Dimorphic RBCs Not Reportable Polychromasia 1+ Hypochromasia 3+ Poikilocytosis Not Reportable Anisocytosis 2+ Microcytosis Not Reportable Macrocytosis Not Reportable Spherocytes 1+ Pappenheimer Bodies Not Reportable Sickle Cells Not Reportable Target Cells Not Reportable Tear Drop Cells Not Reportable Ovalocytes Not Reportable Helmet Cells Not Reportable Ahm[place] Bodies Not Reportable [place] Rings Not Reportable [place] Cells Not Reportable Bite Cells Not Reportable Crenated Cell Not Reportable Elliptocytes Not Reportable Acanthocytes (Spur) Not Reportable Rouleaux Not Reportable Hemoglobin C Crystals Not Reportable Schistocytes Not Reportable Malaria parasites Not Reportable Sudheer Bodies Not Reportable Hem Pathologist Commnt No ABG pH POC ABG pCO2 POC ABG pO2 POC ABG HCO3 ABG O2 Saturation POC ABG Base Excess ABG Hemoglobin ABG Oxyhemoglobin ABG Methemoglobin ABG Sodium ABG Potassium ABG Chloride ABG Glucose Carboxyhemoglobin FiO2 % Sodium 151 H Potassium 5.7 H Chloride 108.6 H Carbon Dioxide 10 L Anion Gap 38 BUN 136 H Creatinine 8.1 H Estimated GFR 8 BUN/Creatinine Ratio 17 Glucose 240 H POC Glucose 133 H Calcium 8.5 D Magnesium Total Bilirubin 0.40 AST 7220 H ALT 4579 H Alkaline Phosphatase 141 H Total Protein 2.9 L D Albumin 1.5 L Albumin/Globulin Ratio 1.1 Arterial Blood Glucose Blood Type Antibody Screen Crossmatch Pre-Trans REMI Pre-Trans REMI Poly Post-Trans Blood Type Post-Trans REMI Post-Trans REMI Poly 07/25/21 07/25/21 07/25/21 05:44 06:01 08:52 WBC RBC Hgb Hct MCV MCH MCHC RDW Plt Count Lymph # (Auto) Add Manual Diff Total Counted Seg Neuts % (Manual) Band Neutrophils % Lymphocytes % (Manual) Reactive Lymphs % (Man) Monocytes % (Manual) Eosinophils % (Manual) Metamyelocytes % Myelocytes % Nucleated RBC % Seg Neutrophils # Man Band Neutrophils # Lymphocytes # (Manual) Abs React Lymphs (Man) Monocytes # (Manual) Eosinophils # (Manual) Basophils # (Manual) Metamyelocytes # Myelocytes # Promyelocytes # Blast Cells # WBC Morphology Hypersegmented Neuts Hyposegmented Neuts Hypogranular Neuts Smudge Cells Toxic Granulation Toxic Vacuolation Dohle Bodies Pelger-Huet Anomaly Harpal Rods Platelet Estimate Clumped Platelets Plt Clumps, EDTA Large Platelets Giant Platelets Platelet Satelliting Plt Morphology Comment RBC Morphology Dimorphic RBCs Polychromasia Hypochromasia Poikilocytosis Anisocytosis Microcytosis Macrocytosis Spherocytes Pappenheimer Bodies Sickle Cells Target Cells Tear Drop Cells Ovalocytes Helmet Cells [place]hm[place] Bodies [place] Rings Mansi Cells Bite Cells Crenated Cell Elliptocytes Acanthocytes (Spur) Rouleaux Hemoglobin C Crystals Schistocytes Malaria parasites Sudheer Bodies Hem Pathologist Commnt ABG pH 7.023 L POC ABG pCO2 35.1 POC ABG pO2 176.1 H POC ABG HCO3 8.9 ABG O2 Saturation 98.8 POC ABG Base Excess -20.1 ABG Hemoglobin 5.8 L ABG Oxyhemoglobin 96.1 ABG Methemoglobin 0.3 ABG Sodium 140.9 ABG Potassium 6.5 H ABG Chloride 108.0 H ABG Glucose 61 L Carboxyhemoglobin 2.4 H FiO2 % 100.0 Sodium Potassium Chloride Carbon Dioxide Anion Gap BUN Creatinine Estimated GFR BUN/Creatinine Ratio Glucose POC Glucose 138 H Calcium Magnesium 3.60 H Total Bilirubin AST ALT Alkaline Phosphatase Total Protein Albumin Albumin/Globulin Ratio Arterial Blood Glucose 61 L Blood Type Antibody Screen Crossmatch Pre-Trans REMI Pre-Trans REMI Poly Post-Trans Blood Type Post-Trans REMI Post-Trans REMI Poly 07/25/21 07/25/21 07/25/21 08:54 11:10 11:53 WBC RBC Hgb Hct MCV MCH MCHC RDW Plt Count Lymph # (Auto) Add Manual Diff Total Counted Seg Neuts % (Manual) Band Neutrophils % Lymphocytes % (Manual) Reactive Lymphs % (Man) Monocytes % (Manual) Eosinophils % (Manual) Metamyelocytes % Myelocytes % Nucleated RBC % Seg Neutrophils # Man Band Neutrophils # Lymphocytes # (Manual) Abs React Lymphs (Man) Monocytes # (Manual) Eosinophils # (Manual) Basophils # (Manual) Metamyelocytes # Myelocytes # Promyelocytes # Blast Cells # WBC Morphology Hypersegmented Neuts Hyposegmented Neuts Hypogranular Neuts Smudge Cells Toxic Granulation Toxic Vacuolation Dohle Bodies Pelger-Huet Anomaly Harpal Rods Platelet Estimate Clumped Platelets Plt Clumps, EDTA Large Platelets Giant Platelets Platelet Satelliting Plt Morphology Comment RBC Morphology Dimorphic RBCs Polychromasia Hypochromasia Poikilocytosis Anisocytosis Microcytosis Macrocytosis Spherocytes Pappenheimer Bodies Sickle Cells Target Cells Tear Drop Cells Ovalocytes Helmet Cells [place]hm[place] Bodies [place] Rings Mansi Cells Bite Cells Crenated Cell Elliptocytes Acanthocytes (Spur) Rouleaux Hemoglobin C Crystals Schistocytes Malaria parasites Sudheer Bodies Hem Pathologist Commnt ABG pH POC ABG pCO2 POC ABG pO2 POC ABG HCO3 ABG O2 Saturation POC ABG Base Excess ABG Hemoglobin ABG Oxyhemoglobin ABG Methemoglobin ABG Sodium ABG Potassium ABG Chloride ABG Glucose Carboxyhemoglobin FiO2 % Sodium Potassium Chloride Carbon Dioxide Anion Gap BUN Creatinine Estimated GFR BUN/Creatinine Ratio Glucose POC Glucose 48 L 133 H Calcium Magnesium Total Bilirubin AST ALT Alkaline Phosphatase Total Protein Albumin Albumin/Globulin Ratio Arterial Blood Glucose Blood Type Antibody Screen Crossmatch Pre-Trans REMI Negative Pre-Trans REMI Poly Negative Post-Trans Blood Type O negative Post-Trans REMI Negative Post-Trans REMI Poly Negative
--- NOTE | 2021-07-26 02:54 | Consultation ---
DATE OF CONSULTATION: 07/23/2021 REFERRING PHYSICIAN: Abdullahi Das M.D. INDICATION: 1. Gastrointestinal bleed. 2. Anemia. HISTORY OF PRESENT ILLNESS: The patient is a 51-year-old black male with history of hypertension, high cholesterol and diabetes, who presented to the emergency room with left-sided upper extremity and lower extremity weakness. The patient subsequently was evaluated and managed for possible acute CVA. The patient's hospital course was complicated and subsequently the patient went into respiratory failure and had to be intubated. The patient was started to be noticed to have multiple bouts of bright red and dark stools. GI is consulted to aid in management. The patient's family reports no history of GI bleed or GI evaluation to their knowledge recently. No other specific complaints. PAST MEDICAL HISTORY: 1. Diabetes. 2. Hypertension. 3. High cholesterol. 4. Cerebrovascular accident. MEDICATIONS: Reviewed and updated in chart. ALLERGIES: No known drug allergies. SOCIAL HISTORY: Reportedly, no alcohol, tobacco or drug abuse. FAMILY HISTORY: Negative for colon cancer, IBD, or liver disease. REVIEW OF SYSTEMS: GENERAL: Reports some weakness. HEENT: Denies visual complaints or tinnitus. PULMONARY: Some rhonchi. CARDIOVASCULAR: Regular rate and rhythm. SKIN: No obvious rashes. PHYSICAL EXAMINATION: VITAL SIGNS: Temperature of 98.0, pulse 75, respirations 20, blood pressure 179/90. GENERAL: Intubated, sedated, in no acute distress. HEENT: Pupils equal, round, reactive. PULMONARY: Rhonchi. CARDIOVASCULAR: Regular rate and rhythm. Normal S1, S2. ABDOMEN: Positive bowel sounds, soft. SKIN: No obvious rashes. LABORATORY DATA: Pertinent for white count of 22, hemoglobin and hematocrit of 7.7 and 24.1, platelet count of 191. Chem-7 within normal limits except for BUN and creatinine of 107 and 5.3. ASSESSMENT: A 51-year-old male who presented with symptoms of a CVA and subsequently developed respiratory failure and had to be intubated, now with signs of GI bleed. Possibility of upper GI bleed would include peptic ulcer disease versus ____ including diverticular. PLAN: 1. Follow hematocrit and transfuse as needed. 2. PPI IV b.i.d. 3. Avoid NSAIDs and aspirin. 4. Plan EGD in a.m. 5. Consider colonoscopy based on progress and results of the above. TID: [id number] RECEIPT: [id number]
== END 2021-07-25 12:28 | DRG 64 ==
LOC: ED 08:17 → 4A 11:35 → CC1 07-18 23:47 → 4A 07-20 16:17 → IMCU 07-23 07:51 → CC1 07-23 08:56
PROVIDERS: ADMIT Internal Medicine; ATTEND Hospitalist
PROC: 4A033R1 Measurement of Arterial Saturation, Peripheral, Percutaneous Approach (ICD-10-PCS; 2021-07-19)
PROC: 5A1945Z Respiratory Ventilation, 24-96 Consecutive Hours (ICD-10-PCS; principal; 2021-07-23)
PROC: 0BH17EZ Insertion of Endotracheal Airway into Trachea, Via Natural or Artificial Opening (ICD-10-PCS; 2021-07-23)
PROC: 30233N1 Transfusion of Nonautologous Red Blood Cells into Peripheral Vein, Percutaneous Approach (ICD-10-PCS; 2021-07-23)
PROC: 5A12012 Performance of Cardiac Output, Single, Manual (ICD-10-PCS; 2021-07-23)
PROC: 02H633Z Insertion of Infusion Device into Right Atrium, Percutaneous Approach (ICD-10-PCS; 2021-07-23)
PROC: B548ZZA Ultrasonography of Superior Vena Cava, Guidance (ICD-10-PCS; 2021-07-23)
PROC: 0DB98ZX Excision of Duodenum, Via Natural or Artificial Opening Endoscopic, Diagnostic (ICD-10-PCS; 2021-07-24)
PROC: 06HY33Z Insertion of Infusion Device into Lower Vein, Percutaneous Approach (ICD-10-PCS; 2021-07-25)
PROC: B54BZZA Ultrasonography of Right Lower Extremity Veins, Guidance (ICD-10-PCS; 2021-07-25)
DX: I63.9 Cerebral infarction, unspecified (principal); J96.00 Acute respiratory failure, unspecified whether with hypoxia or hypercapnia; N17.0 Acute kidney failure with tubular necrosis; K27.4 Chronic or unspecified peptic ulcer, site unspecified, with hemorrhage; M62.82 Rhabdomyolysis; G81.91 Hemiplegia, unspecified affecting right dominant side; Z68.41 Body mass index [BMI] 40.0-44.9, adult; G93.40 Encephalopathy, unspecified; E87.2 Acidosis; N18.30 Chronic kidney disease, stage 3 unspecified; I12.9 Hypertensive chronic kidney disease with stage 1 through stage 4 chronic kidney disease, or unspecified chronic kidney disease; E11.22 Type 2 diabetes mellitus with diabetic chronic kidney disease; E78.2 Mixed hyperlipidemia; E87.6 Hypokalemia; D75.1 Secondary polycythemia; E66.01 Morbid (severe) obesity due to excess calories; E87.5 Hyperkalemia; I46.9 Cardiac arrest, cause unspecified; Z79.4 Long term (current) use of insulin; Z82.49 Family history of ischemic heart disease and other diseases of the circulatory system; Z79.899 Other long term (current) drug therapy
CPT/HCPCS: 31720; 36415; 36600; 70450; 70496; 70498; 70551; 71045; 74018; 80048; 80053; 80061; 80307; 80320; 81001; 82270; 82550; 82553; 82570; 82803; 82805; 82962; 83735; 83935; 84100; 84156; 84300; 84484; 84520; 85007; 85014; 85018; 85025; 85027; 85610; 85670; 85730; 86038; 86160; 86850; 86900; 86901; 86920; 87040; 87076; 87186; 87205; 88305; 92950; 93005; 93306; 93880; 94002; 94003; 94640; 94760; G0378; J2354; J3490; Q0162; Q0177; Q9967; C9113; G0480; J0171; J0282; J0360; J0461; J1644; J1720; J1815; J2060; J2370; J7030; J7040; J7050; J7070; J7120; P9016